=== PATIENT | male | born 1955 ===

== ENCOUNTER 2025-02-11 15:15 | Inpatient (IN) | payer MEDICARE, SELFPAY ==
[2025-02-11] VITALS (16 sets, daily range): BP systolic 81–116; BP diastolic 53–79; PULSE 79–154; RESP 18–28; TEMP 36.1–36.9; O2SAT 82–100; BMI 13.8
--- NOTE | ~2025-02-11 | FL_ITS ---
EXAMINATION: XR FLUOROSCOPY WITH IMAGES CLINICAL INFORMATION: Port-A-Cath placement COMPARISON: None available. TECHNIQUE: Fluoroscopy provided to: Dr. Miles Fluoroscopy time: 0.3 minutes DAP: 0.609 Gycm2 Images: 2 FINDINGS: 2 spot images obtained during right Port-A-Cath placement. Please refer to the full operative report for detail. FL/FL guidance in OR IMPRESSION: Fluoroscopic guidance. Electronically signed by: Jairo Salazar MD 02/21/2025 02:39 PM EDT
--- NOTE | ~2025-02-11 | XR_ITS ---
EXAMINATION: XR CHEST 1 VIEW HISTORY: f/u right pleural effusion COMPARISON: Comparison is made with the prior examination dated 02/12/2025. FINDINGS: A single AP portable view of the chest performed at 7:03 AM is submitted. Right-sided chest tube is again noted. The previously described pneumothorax is much smaller in size. There is persistent airspace opacity in the right lower lung zone consistent with atelectasis or pneumonia. There is a small residual right pleural effusion. The left lung is clear. The heart is normal in size. The aorta is calcified. The bones are intact. XR/XR chest 1V IMPRESSION: Right-sided chest tube in place. Small right pneumothorax. Electronically signed by: Christopher Pineda MD 02/13/2025 07:27 AM EDT
--- NOTE | ~2025-02-11 | CT_ITS ---
CLINICAL HISTORY: tachycardia, smoker, weight loss, hypoxia CT angiography of the chest with IV contrast. 3D/MIP post processing reconstructions were performed. COMPARISON: None FINDINGS: There are no intraluminal filling defects to suggest pulmonary embolism. No evidence of right heart strain. Visualized thyroid is unremarkable. No supraclavicular or axillary lymphadenopathy. Ascending aorta and main pulmonary artery are normal in caliber. Coronary artery calcifications present within the LAD. No pericardial effusion. Ill-defined enlarged subcarinal mass with likely extension along the right hilum measuring in total approximately 5.3 x 6.4 x 7.5 cm (series 6, image 97). There is mass effect upon the adjacent pulmonary vessels and complete obstruction of the pulmonary veins on the right. Large right pleural effusion. Patchy consolidation within the right middle lobe and right lower lobe. Advanced emphysema with upper lobe predominance. Trachea is clear. There is complete obstruction of the proximal right mainstem bronchus, right lower lobe and right upper lobe bronchi. Diffuse thickening of the adrenal glands, nonspecific. Superior endplate compression fractures of the T6, T7, and T9 vertebral bodies. Degenerative changes of the bilateral shoulders. No acute fracture identified. IMPRESSION: 1. Large subcarinal mass with likely extension into the right hilum measuring up to 7.5 cm completely obstructs the right mainstem bronchus and the right superior and inferior pulmonary veins. Recommend comparison with prior imaging. Direct tissue sampling would be helpful for further characterization. 2. Large right pleural effusion. 3. Consolidation within the right lower lobe and right middle lobe. While portions of the consolidation may represent an extension of the mediastinal mass, postobstructive pneumonia could have this appearance. 4. Advanced emphysema. 5. Chronic appearing superior endplate compression fractures of the T6, T7 and T9 vertebral bodies. Recommend comparison with prior imaging if available. 6. No evidence of pulmonary embolism. This document has been electronically signed by: Kwadwo Walter MD on 02/11/2025 18:05:51
--- NOTE | ~2025-02-11 | XR_ITS ---
EXAMINATION: XR CHEST CLINICAL INFORMATION: f/u port a cath, right pleurx cath placement COMPARISON: February 20, 2025. TECHNIQUE: Frontal view of the chest was obtained. FINDINGS: This is a moderate volume right-sided pneumothorax with a partially collapsed right upper lobe and airspace disease in the right lower lung lobe right middle lung lobe. There is a new right-sided Port-A-Cath placed ending at the SVC/right atrial junction. There is a right-sided chest tube placed which deep and the upper mid right hemithorax. Status post removal of a pigtail catheter in the right lower hemithorax. Small to moderate volume left-sided pleural effusion. Aerated left lung. Cardiomediastinal silhouette size is normal. Calcified plaque thoracic aortic arch. XR/XR chest 1V IMPRESSION: Status post right-sided Port-A-Cath placement at the SVC/right atrial junction. Larger, moderate volume right-sided pneumothorax. New replaced and pigtail catheter, right-sided chest tube imaging in the upper right hemithorax. Airspace disease and/or collapsed right lower lung lobe right middle lung lobe. Left-sided pleural effusion, small to moderate volume. Electronically signed by: King Paniagua MD 02/21/2025 03:40 PM EDT
--- NOTE | ~2025-02-11 | CT_ITS ---
CLINICAL HISTORY: follow up lung mass CT chest without contrast Comparison: CT/SR - CT ANGIO CHEST PE PROTOCOL - 02/11/25 16:41 EDT Findings: There is moderate coronary artery disease. Large subcarinal mass is not as well evaluated on the current study without intravenous contrast. It appears to have enlarged now measuring approximately 8 x 5.3 x 7.3 cm, previously 7 x 3.9 x 6.6 cm. There is a significantly diminished right pleural effusion. Small left effusion. There is persistent right lower lobe consolidation/atelectasis. Reticular and airspace opacities are seen in the right upper, right lower lobe and right middle lobe similar to the prior examination but less obscured by atelectasis as there has been some re-expansion of the right lung. There is a small right-sided pneumothorax. There is a small left pleural effusion. The upper abdomen is unremarkable. No acute fractures. There are severe chronic emphysematous changes again noted. IMPRESSION: 1. Study is somewhat limited without contrast however it appears that the subcarinal mass has increased in size as above. 2. Diminished right pleural effusion with persistent consolidation at the right lung base. Other parenchymal opacities are seen in the right upper lobe, right lower lobe and right middle lobe likely reflecting postobstructive pneumonia. 3. Small left pleural effusion. 4. Small right pneumothorax. 5. Severe emphysematous changes. This document has been electronically signed by: Pankaj Gonzalez MD on 02/15/2025 12:38:38
--- NOTE | ~2025-02-11 | XR_ITS ---
CLINICAL HISTORY: Right sided effusion post Pleuric placement. 1 view chest x-ray Comparison: CR/SR - XR CHEST 1V - 02/21/25 15:15 EDT Findings: Probable small residual right-sided pneumothorax visualized within the medial aspect of the upper lung. Moderate subcutaneous emphysema within the soft tissues of the right side of the neck and right chest wall. Heterogeneous airspace opacities within the right lung, predominating within the right lower lung. Normal size heart. No acute fracture. There is a right-sided Port-A-Cath at the cavoatrial junction. IMPRESSION: 1. Probable small residual right-sided pneumothorax, significantly improved. New moderate subcutaneous emphysema. 2. There are right lung infiltrates with improvement since the prior study. This document has been electronically signed by: Johana Castrejon MD on 02/23/2025 15:54:21
--- NOTE | ~2025-02-11 | XR_ITS ---
EXAMINATION: XR CHEST CLINICAL INFORMATION: F U chest tube, pleural effusion COMPARISON: 02/13/2025. TECHNIQUE: Frontal view of the chest was obtained. FINDINGS: Right chest tube again noted in place in the right lower lateral thorax. Tiny right apical pneumothorax, with 1.3 cm pleural separation, previously 1.9 cm. This is also no longer visualized along the lateral margin. Severe emphysema, similar. Right upper lobe spiculated opacity, unchanged. Extensive right mid and lower lung consolidative opacity, unchanged. Small right effusion, unchanged. Left lung remains grossly clear. The cardiac and mediastinal contours are stable. XR/XR chest 1V IMPRESSION: Stable right-sided chest tube. Smaller right apical pneumothorax. Stable extensive consolidative opacity right mid and lower lung, with small effusion. Stable spiculated nodular opacity right upper lung. Emphysema with clear left lung. Electronically signed by: Jairo Salazar MD 02/20/2025 10:15 AM EDT
--- NOTE | ~2025-02-11 | XR_ITS ---
EXAMINATION: XR CHEST 1 VIEW HISTORY: s/p chest tube placement COMPARISON: Correlation is made with a chest CT dated 02/11/2025. FINDINGS: A single AP portable view of the chest performed at 8:11 AM is submitted. A right sided chest tube is seen in place. There is a moderate pneumothorax. There is a small residual pleural effusion. There is airspace opacity in the right mid and lower lung zones consistent with atelectasis or pneumonia as noted on chest CT. The left lung is clear. The heart is normal in size. There is degenerative disc disease of the spine. XR/XR chest 1V IMPRESSION: 1. Right-sided chest tube in place. Moderate right pneumothorax. 2. Atelectasis or pneumonia in the right mid and lower lung zones. Electronically signed by: Christopher Pineda MD 02/12/2025 08:31 AM EDT
--- NOTE | 2025-02-11 15:21 | ED_ITS ---
HPI - General Adult General Chief complaint: Upper Respiratory Symptoms Stated complaint: Trouble breathing and walking Time Seen by Provider: 02/11/25 15:38 Source: patient Mode of arrival: ambulatory Limitations: no limitations History of Present Illness ED Provider: CARLOS CROEY narrative: 69 yo male with PMH of HLD but has not taken any meds in a long time and has not seen a doctor in years. He quit smoking 6 years ago but had a 40 pack year history. He notes over the past 1.5 months he has lost 30+lbs, had increasing cough but no hemoptysis, increased work of breathing on exertion but now at rest. He has never been on inhalers and is not on oxygen at home. He has no chest pain he just feels tight and congested. No recent travel/sick contacts. He has not been taken any medications for it. On arrival to the ED his O2 sat was 70%. MD complaint: dyspnea, FTT Onset (ago): month(s) (1.5) Location: chest Severity: moderate Quality: aching Pain Consistency: intermittent Relieving factors: rest Exacerbating factors: movement Associated symptoms: cough, loss of appetite, malaise, shortness of breath, weakness and other (weight loss) Treatments prior to arrival: none Related Data Allergies Allergy/AdvReac Type Severity Reaction Status Date / Time No Known Allergies Allergy Verified 02/11/25 15:34 Review of Systems 2 Review of Systems: Constitutional : No Fever, pos Chills, pos weight loss ENT/Mouth : No sore throat, No Rhinorrhea, No Swallowing Difficulty Eyes: No Eye Pain, No Swelling, No Redness Cardiovascular : pos Chest Pain, positive SOB, No Orthopnea, no Edema Respiratory : pos Cough, pos Sputum, No Wheezing, positive dyspnea Gastrointestinal : No Nausea, No Vomiting, No Diarrhea, No abdominal Pain, No Hematochezia, No Melena Genitourinary : No Dysuria, No Urinary Frequency, No Hematuria Musculoskeletal : No joint pain, No Myalgias Skin : No Skin Lesions, No rash Neuro : pos Weakness, No Numbness, No Dizziness, No Headache All other systems reviewed and are negative [facility], [facility] Past Medical History Attestation statement: The following information was validated with the patient. Medical History HLD (hyperlipidemia) Social History Social History (Updated 02/11/25 @ 16:34 by Carie Villarreal DO) Alcohol intake: never Patient Tobacco Use Status: Former Tobacco user Smoked in Last 30 Days: No Use of substances other than those prescribed or required for medical reasons: No Advance Directives: No Advance Directives Information Provided: No Do you have a plan to hurt others: No Plan Physical Exam ED Vital Signs: Vital Signs - 24 hr 02/11/25 15:20 02/11/25 16:09 02/11/25 16:17 Temperature 97 F Pulse Rate 100 103 H Respiratory Rate 20 24 H Blood Pressure 107/79 Pulse Oximetry 82 L 100 95 Oxygen Delivery Method Room Air Nasal Cannula Nasal Cannula Oxygen Flow Rate 4 02/11/25 16:21 02/11/25 16:59 02/11/25 17:26 Temperature 98.5 F Pulse Rate 154 H 113 H Respiratory Rate 20 Blood Pressure 116/72 Pulse Oximetry Oxygen Delivery Method Oxygen Flow Rate 02/11/25 18:24 02/11/25 18:34 02/11/25 18:42 Temperature Pulse Rate 127 H 137 H 118 H Respiratory Rate 21 H Blood Pressure 116/72 116/72 110/69 Pulse Oximetry 95 Oxygen Delivery Method Nasal Cannula Oxygen Flow Rate 4 02/11/25 19:00 02/11/25 19:57 02/11/25 20:00 Temperature 97.6 F 97.6 F Pulse Rate 97 97 97 Respiratory Rate 18 20 20 Blood Pressure 102/74 102/71 102/71 Pulse Oximetry 99 95 95 Oxygen Delivery Method Nasal Cannula Nasal Cannula Nasal Cannula Oxygen Flow Rate 4 4 4 BMI result Body Mass Index 13.8 Appearance: Alert. Oriented X3. Moderate acute distress. Cachectic and frail and temporal wasting Eyes: Pupils equal, round and reactive to light. ENT: Pharynx dry MM Neck: Normal inspection. Neck supple. CVS: tachycardic but regular heart rate and rhythm. Pulses normal. Respiratory: Moderate respiratory distress - dusky, labored, tachypneic. Breath sounds incredibly diminished with Abdomen: Soft and nontender. Skin: Skin warm and dry. pale skin color. poor skin turgor. Extremities: No lower extremity edema. Neuro: Oriented X 3. No motor deficit. No sensory deficit. CN2-12 intact Course Course Course Narrative: RME, this is a rapid medical exam performed by Tino O'Haskell please refer to primary provider for complete H&P- 69-year-old male presents for evaluation of shortness of breath especially exertion over the last few months. Patient also reports weight loss, he was cachectic in triage. He was hypoxic, he was brought straight back to the main ED. Plan for labs, chest x-ray, blood cultures. Reevaluation(s) Reevaluation #1: intermittently going in and out of regular narrow complex tachycardia Reevaluation #2: The patient was signed out to me at change of shift by the previous emergency physician pending results of a CT scan of the chest. The patient is a 69-year-old male who has been having worsening shortness of breath over several weeks and also has lost a lot of weight. He is a former smoker who had smoked for a long time. The patient's heart rate had also been noted to be quite tachycardic. In case his tachycardia was related to atrial fibrillation he was given a dose of 10 mg of diltiazem. This slowed the patient's heart rate and made a diagnosis of atrial fibrillation. His rhythm was easier to determine when his heart rate was slower. He later required a 2nd bolus of diltiazem and he was also started on a drip to maintain a good heart rate. Ultimately he converted to a sinus rhythm. 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 There was also a large right-sided pleural effusion. There is no pulmonary embolism. Fortunately the patient was maintaining a good oxygen saturation on 4 L of nasal oxygen. Fortunately his blood pressure tolerated the diltiazem that was given for his heart rate control. Fortunately the patient has a 2nd lactate was significantly improved from his 1st lactate. His repeat lactate was normal at 1.5. I presented the case to the hospitalist for admission. The hospitalist was concerned about the complexity of the findings on the patient's CAT scan with regard to his lung tumor. I therefore communicated with Dr. Garcia of Cardiology, Dr. Miles of thoracic surgery, and Dr. Allen of the ICU. Ultimately the consensus is that the patient seems stable enough for admission to this hospital and to proceed with the an initial workup of this new tumor at this hospital. The patient was then admitted to the hospitalist service. Medications Administered Generic Name Dose Route Start Last Admin Trade Name Freq PRN Reason Stop Dose Admin Diltiazem HCl 125 mg/ Sodium 125 mls @ 0 mls/hr 02/11/25 18:15 02/11/25 21:56 Chloride IVCONT Infused .Q0M TE Titration Protocol Per Protocol Discontinued Medications Generic Name Dose Route Start Last Admin Trade Name Ta PRN Reason Stop Dose Admin Ceftriaxone Sodium 1 gm 02/11/25 15:42 02/11/25 16:12 Ceftriaxone Sodium 1 Gm Vial IVPUSH 02/11/25 15:43 1 gm ONCE ONE Administration Levalbuterol HCl 2.5 mg/ 0 mg 02/11/25 17:21 02/11/25 17:26 Ipratropium [place] 0.5 mg INHALE 02/11/25 17:22 5 dose ONCE ONE Administration Diltiazem HCl 10 mg 02/11/25 16:56 02/11/25 16:59 Diltiazem Hcl 50 Mg/10 Ml Vial IVPUSH 02/11/25 16:57 10 mg STAT STA Administration Diltiazem HCl 10 mg 02/11/25 18:11 02/11/25 18:34 Diltiazem Hcl 50 Mg/10 Ml Vial IVPUSH 02/11/25 18:12 10 mg STAT STA Administration Lactated Ringer's 1,000 mls @ 999 mls/hr 02/11/25 15:43 02/11/25 17:09 Lr IV 02/11/25 16:43 Infused .Q1H1M ONE Infusion Lactated Ringer's 500 mls @ 999 mls/hr 02/11/25 17:00 02/11/25 17:34 Lr IV 02/11/25 17:30 Infused .Q31M TE Infusion Iohexol 100 ml 02/11/25 16:43 02/11/25 16:47 Iohexol 350 Mg/Ml 100 Ml Infus..Btl IV 02/11/25 16:44 65 ml ONCE ONE Administration Methylprednisolone Sodium Succinate 60 mg 02/11/25 15:35 02/11/25 16:12 Methylprednisolone Sod Succ 125 Mg/2 Ml Vial IVPUSH 02/11/25 15:36 60 mg ONCE ONE Administration Medical Decision Making Medical Decision Making MDM Narrative: 69 yo male PMH of HLD but no meds and no doctors of recent he smoked 40 years up until 6 months ago he now presents with profound hypoxic in 70s but not altered so likely he has been low for a while - he was placed on 4L NC and responded well. He has intermittent bouts of regular tachycardia p waves are present not afib unclear if it is intermittent MAT or SVT or flutter - he breaks on his own. He has weight loss, cough, hypoxia, dyspnea but no hemoptysis. At this time labs, cultures, lactic acid, CTA:PE for PE/mass/pneumonia. Empiric ceftriaxone Differential Diagnosis Differential Diagnoses: The differential diagnosis associated with the presentation includes PE/mass/pneumonia/arrythmia Admission/Observation Consideration of admission/observation: Escalation of care including admission/observation considered anticipate admission given hypoxia Lab Data MDM Lab Attestation statement: I reviewed the patient's lab results. 02/11/25 15:46 02/11/25 15:46 Labs: Lab Results 02/11/25 02/11/25 02/11/25 Range/Units 15:46 15:57 16:22 WBC 14.9 H (4.8-10.8) X10*3/uL RBC 4.55 L (4.60-5.80) X10*6/uL Hgb 13.0 L (14.0-18.0) g/dl Hct 40.1 L (42.0-52.0) % MCV 88.1 (80.0-98.0) fL MCH 28.6 (27.0-33.0) pg MCHC 32.4 (31.0-36.0) g/dl RDW 14.8 (11.0-16.0) % Plt Count 513 H (160-400) X10*3/uL MPV 8.6 L (9.4-12.4) fL Immature Gran % (Auto) 0.8 H (0.0-0.4) % Neut % (Auto) 89.4 H (45-73) % Lymph % (Auto) 5.6 L (20-40) % O'Brien % (Auto) 4.1 (2-11) % Eos % (Auto) 0.0 (0-4) % Baso % (Auto) 0.1 (0-2) % Lymph # (Auto) 0.8 L (1.2-4.9) X10*3/uL O'Brien # (Auto) 0.6 (0.1-1.2) X10*3/uL Eos # (Auto) 0.0 (0.0-0.4) X10*3/uL Baso # (Auto) 0.0 (0.0-0.2) X10*3/uL Abs Immat Gran (auto) 0.12 H (0.00-0.03) X10*3/uL Absolute Neuts (auto) 13.3 H (2.0-8.3) x10*3/uL Absolute Nucleated RBC 0.000 (0.0-0.012) X10*3/uL Nucleated RBC % (auto) 0.0 (0.0-0.2) /100WBC VBG pH 7.37 (7.32-7.43) VBG pCO2 52 mmHg VBG pO2 32 mmHg VBG HCO3 30 H (22-26) mmol/L VBG O2 Saturation 40.0 % VBG Base Excess 4.4 mmol/L Sodium 139 (135-145) mmol/L Potassium 5.1 (3.3-5.1) mmol/L Chloride 99 (96-108) mmol/L Carbon Dioxide 26 (22-29) mmol/L Anion Gap 19 (12-20) BUN 28 H (9-16) mg/dL Creatinine 1.08 (0.5-1.4) mg/dL Estim Creat Clear Calc 43.1 Estimated GFR > 60 Random Glucose 130 H (60-115) mg/dL Lactic Acid 3.9 H* (0.5-2.0) mmol/L Lactic Acid F/U @ 2Hr (0.5-2.0) mmol/L Calcium 10.5 H (8.4-10.2) mg/dL Total Bilirubin 0.6 (0.0-1.0) mg/dL AST 19 (5-37) U/L ALT < 6 (0-40) U/L Alkaline Phosphatase 105 (39-117) U/L Troponin I High Sens 5.0 (<3.5-35.0) ng/L B-Natriuretic Peptide 228 H (<100) pg/mL Total Protein 7.8 (6.5-8.0) g/dL Albumin 3.5 (3.5-5.0) g/dL Lipase 19 (8-78) U/L Influenza Type A (PCR) NEGATIVE (Negative) Influenza Type B (PCR) NEGATIVE (Negative) RSV RNA Qual (PCR) NEGATIVE (Negative) SARS-CoV-2 RNA (RT-PCR) NEGATIVE (Negative) Blood Type O Negative Antibody Screen NEGATIVE 02/11/25 Range/Units 18:12 WBC (4.8-10.8) X10*3/uL RBC (4.60-5.80) X10*6/uL Hgb (14.0-18.0) g/dl Hct (42.0-52.0) % MCV (80.0-98.0) fL MCH (27.0-33.0) pg MCHC (31.0-36.0) g/dl RDW (11.0-16.0) % Plt Count (160-400) X10*3/uL MPV (9.4-12.4) fL Immature Gran % (Auto) (0.0-0.4) % Neut % (Auto) (45-73) % Lymph % (Auto) (20-40) % O'Brien % (Auto) (2-11) % Eos % (Auto) (0-4) % Baso % (Auto) (0-2) % Lymph # (Auto) (1.2-4.9) X10*3/uL O'Brien # (Auto) (0.1-1.2) X10*3/uL Eos # (Auto) (0.0-0.4) X10*3/uL Baso # (Auto) (0.0-0.2) X10*3/uL Abs Immat Gran (auto) (0.00-0.03) X10*3/uL Absolute Neuts (auto) (2.0-8.3) x10*3/uL Absolute Nucleated RBC (0.0-0.012) X10*3/uL Nucleated RBC % (auto) (0.0-0.2) /100WBC VBG pH (7.32-7.43) VBG pCO2 mmHg VBG pO2 mmHg VBG HCO3 (22-26) mmol/L VBG O2 Saturation % VBG Base Excess mmol/L Sodium (135-145) mmol/L Potassium (3.3-5.1) mmol/L Chloride (96-108) mmol/L Carbon Dioxide (22-29) mmol/L Anion Gap (12-20) BUN (9-16) mg/dL Creatinine (0.5-1.4) mg/dL Estim Creat Clear Calc Estimated GFR Random Glucose (60-115) mg/dL Lactic Acid (0.5-2.0) mmol/L Lactic Acid F/U @ 2Hr 1.5 (0.5-2.0) mmol/L Calcium (8.4-10.2) mg/dL Total Bilirubin (0.0-1.0) mg/dL AST (5-37) U/L ALT (0-40) U/L Alkaline Phosphatase (39-117) U/L Troponin I High Sens (<3.5-35.0) ng/L B-Natriuretic Peptide (<100) pg/mL Total Protein (6.5-8.0) g/dL Albumin (3.5-5.0) g/dL Lipase (8-78) U/L Influenza Type A (PCR) (Negative) Influenza Type B (PCR) (Negative) RSV RNA Qual (PCR) (Negative) SARS-CoV-2 RNA (RT-PCR) (Negative) Blood Type Antibody Screen Independent Interpretation I performed an independent interpretation of an: EKG Interpretation: Rate: 158 Rhythm: regular tachycardic narrow Mayo: normal Normal P waves. Normal VALDO. Normal QRS complex. ST T wave : nonspecific ST T wave changes no TODD qTC: 460 prior studies: no prior The study has been interpreted contemporaneously by me. . Critical Care Time Critical Care Time Critical Care Time: Yes Total Critical Care Time: 60 Attestation: Time is exclusive of separately billable procedures. Time includes: direct patient care, patient reassessment, coordination of patient care, interpretation of data (laboratory data, pulse oximetry, venous blood gases), review of patient's medical records, rapid intervention of hypoxia, documentation of patient care. Procedures excluded from critical care time: electrocardiography. I attest to this time spent taking care of the patient Discharge Plan Discharge Clinical Impression: Neoplasm of right lung, Hypoxia, Pleural effusion on right, Atrial fibrillation with rapid ventricular response Patient Disposition: Admitted As Inpatient
--- NOTE | 2025-02-11 15:25 | ECG_ITS ---
Test Reason : TACHY Blood Pressure : */* mmHG Vent. Rate : 158 BPM Atrial Rate : * BPM P-R Int : * ms QRS Dur : 104 ms QT Int : 284 ms P-R-T Axes : * 36 58 degrees QTcB Int : 460 ms Supraventricular tachycardia Left ventricular hypertrophy with repolarization abnormality ( Ck product ) Cannot rule out Septal infarct , age undetermined Abnormal ECG No previous ECGs available Referred By: Baldomero Mcintosh Electronically Signed By: Jeffry Kan
[2025-02-11 15:57] LABS: MANUAL DIFF FLAG NO
[2025-02-11 16:01] LABS: Basophils Percent Auto 0.1 % (0-2); Hematocrit 40.1 % (42.0-52.0); Imm Gran Abs Auto 0.12 X10*3/uL (0.00-0.03); Imm Gran Pct Auto 0.8 % (0.0-0.4); Lymphocytes Absolute Auto 0.8 X10*3/uL (1.2-4.9); Lymphocytes Percent Auto 5.6 % (20-40); Mean Corpuscular HGB Conc 32.4 g/dl (31.0-36.0); Mean Corpuscular Hemoglobin 28.6 pg (27.0-33.0); Mean Corpuscular Volume 88.1 fL (80.0-98.0); Mean Platelet Volume 8.6 fL (9.4-12.4); Monocytes Absolute Auto 0.6 X10*3/uL (0.1-1.2); Monocytes Percent Auto 4.1 % (2-11); Neutrophils Absolute Auto 13.3 x10*3/uL (2.0-8.3); Neutrophils Percent Auto 89.4 % (45-73); Platelet Count 513 X10*3/uL (160-400); Red Blood Count 4.55 X10*6/uL (4.60-5.80); Red Cell Distribution Width 14.8 % (11.0-16.0); White Blood Count 14.9 X10*3/uL (4.8-10.8)
[2025-02-11 16:03] LABS: VBG Base Excess 4.4 mmol/L; VBG HCO3 30 mmol/L (22-26); VBG pCO2 52 mmHg; VBG pH 7.37 (7.32-7.43); VBG pO2 32 mmHg
[2025-02-11 16:04] LABS: Venous Blood Gas Refer to POC result
[2025-02-11] MEDS: Lactated Ringers 1,000 ML 999 ML IV (16:08)
[2025-02-11] MEDS: methylPREDNISolone Sod Succ 125 MG/2 ML VIAL 60 MG IVPUSH (16:12)
[2025-02-11] MEDS: cefTRIAXone sodium 1 GM VIAL IVPUSH (16:12)
[2025-02-11 16:22] LABS: Lactic Acid 3.9 mmol/L (0.5-2.0)
[2025-02-11 16:24] LABS: B Type Natriuretic Peptide 228 pg/mL (<100)
--- NOTE | 2025-02-11 16:26 | PC.NURSE ---
At arrival to bed patient is pale, tachipnic, skin and mm are dry. LS absent in bases. Pt is cachectic. reports 34lb weight loss in last few months. Breathing is not labored. denies cough. Was Tachy up to 160's at arrival.
[2025-02-11 16:28] LABS: Alanine Aminotransferase < 6 U/L (0-40); Albumin Level 3.5 g/dL (3.5-5.0); Alkaline Phosphatase 105 U/L (39-117); Anion Gap 19 (12-20); Aspartate Amino Transferase 19 U/L (5-37); Bilirubin Total 0.6 mg/dL (0.0-1.0); Blood Urea Nitrogen 28 mg/dL (9-16); Calcium 10.5 mg/dL (8.4-10.2); Carbon Dioxide 26 mmol/L (22-29); Chloride 99 mmol/L (96-108); Creatinine Clr Calc Pharmacy 43.1; Estimated Glomerular Filt Rate > 60; Glucose Random 130 mg/dL (60-115); Lipase 19 U/L (8-78); Potassium 5.1 mmol/L (3.3-5.1); Sodium 139 mmol/L (135-145); Total Protein 7.8 g/dL (6.5-8.0)
[2025-02-11 16:39] LABS: Influenza A PCR NEGATIVE (Negative); Influenza B PCR NEGATIVE (Negative); Resp Syncy Virus RNA Qual PCR NEGATIVE (Negative); SARS COV2 PCR INHOUSE NEGATIVE (Negative)
[2025-02-11] MEDS: iohexoL 350 MG/ML 100 ML INFUS..BTL IV (16:47)
[2025-02-11] MEDS: dilTIAZem HCL 50 MG/10 ML VIAL 10 MG IVPUSH ×2 (16:59→18:34)
[2025-02-11] MEDS: Lactated Ringers 500 ML 999 ML IV ×2 (17:03→23:30)
--- NOTE | 2025-02-11 17:24 | ECG_ITS ---
Test Reason : TACHYCARDIA Blood Pressure : */* mmHG Vent. Rate : 106 BPM Atrial Rate : * BPM P-R Int : * ms QRS Dur : 114 ms QT Int : 350 ms P-R-T Axes : * 68 39 degrees QTcB Int : 464 ms Atrial fibrillation with rapid ventricular response Minimal voltage criteria for LVH, may be normal variant ( Ck product ) Septal infarct (cited on or before 11-Feb-2025) Abnormal ECG When compared with ECG of 11-Feb-2025 15:43, Atrial fibrillation has replaced Sinus rhythm Vent. rate has decreased by 52 bpm Nonspecific T wave abnormality now evident in Inferior leads T wave inversion no longer evident in Lateral leads Referred By: Donte Pierce Electronically Signed By: Jeffry Kan
[2025-02-11] MEDS: levalbuterol HCL 2.5 MG, Ipratropium Bromide 0.5 MG INHALE (17:26)
[2025-02-11 17:55] LABS: Reflex Lactate? Lactic Acid Added
--- NOTE | 2025-02-11 18:14 | ECG_ITS ---
Test Reason : TACHYCARDIA Blood Pressure : */* mmHG Vent. Rate : 124 BPM Atrial Rate : * BPM P-R Int : * ms QRS Dur : 120 ms QT Int : 364 ms P-R-T Axes : * 46 -16 degrees QTcB Int : 522 ms Atrial fibrillation with rapid ventricular response Minimal voltage criteria for LVH, may be normal variant ( [place] product ) Septal infarct (cited on or before 11-Feb-2025) Abnormal ECG When compared with ECG of 11-Feb-2025 17:28, Questionable change in initial forces of Septal leads T wave inversion now evident in Lateral leads Referred By: Donte Pierce Electronically Signed By: Jeffry Kan
[2025-02-11 18:38] LABS: ~Lactic Acid-LAB USE ONLY 1.5 mmol/L (0.5-2.0)
[2025-02-11] MEDS: dilTIAZem HCL 125 MG in 0.9 % Sodium Chloride 100 ML 10 MG IVCONT (18:42)
--- OUTSIDE RECORDS SUMMARY | 2025-02-11 19:14 | XMS_ITS | Clinical Summary ---
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 Name Role Phone Unavailable Primary Care Provider Unavailabl e Social History Tobacco Use Types Packs/Day Years Used Date Smoking Tobacco: Never Assessed Sex and Gender Information Value Date Recorded Sex Assigned at Not on file Legal Sex Male 6:31 AM EDT Gender Identity Not on file Sexual Orientation Not on file Plan of Treatment Health Maintenance Due Date Last Done Comments Hepatitis C Screening 1955 DTaP/Tdap/Td (1 - Tdap) 1975 Pneumococcal 50+ years (1 of 1 - PCV) 2007 Zoster (Shingrix) (1 of 2) 2007 COVID-19 Vaccine ( - 2023-2 5 season) 2024 Influenza (#1) 2024 RSV (1 - 1-dose 75+ series) 02/13/2032 Abdominal Aorta Imaging Discontinued HPV Vaccine Aged Out No longer eligi ble based on patient's age to complete this topic Hep A Aged Out No longer eligi ble based on patient's age to complete this topic Hep B Aged Out No longer eligi ble based on patient's age to complete this topic Hib Aged Out No longer eligi ble based on patient's age to complete this topic Meningococcal ACWY Aged Out No longer eligible based on patient's age to complete this topic Zoster (Zostavax) Discontinued
--- NOTE | 2025-02-11 21:13 | ECG_ITS ---
Test Reason : AFIB Blood Pressure : */* mmHG Vent. Rate : 83 BPM Atrial Rate : 83 BPM P-R Int : 132 ms QRS Dur : 114 ms QT Int : 404 ms P-R-T Axes : 77 48 56 degrees QTcB Int : 474 ms Normal sinus rhythm Incomplete left bundle branch block Minimal voltage criteria for LVH, may be normal variant ( Ck product ) Nonspecific ST and T wave abnormality Abnormal ECG When compared with ECG of 11-Feb-2025 18:18, Sinus rhythm has replaced Atrial fibrillation Vent. rate has decreased by 41 bpm T wave inversion no longer evident in Inferior leads T wave inversion no longer evident in Lateral leads Referred By: Donte Pierce Electronically Signed By: Jeffry Kan
--- NOTE | 2025-02-11 21:14 | PM.IMHP ---
History of Present Illness Date of Service: 02/11/25 Chief Complaint: sob 70-year-old male with a past medical history of tobacco dependence, COPD, hyperlipidemia presented to the hospital today with a chief complaint of shortness of breath. Patient reports the past 2 and half feeling well has been having shortness of breath and cough. Nightly cough he has been more productive greenish sputum. Denies any fevers. Denies any sick contacts. Reports he stopped smoking about 2 and half months ago. Around the same. He also has decreased appetite and feels no taste in the mouth when he eats. The past 1-1/2 month he lost about 30-40 lb. Mentioned that he was diagnosed with COPD many years ago, does not take any inhalers. Does not have any home oxygen. Patient mentioned that he has not seen physician in about 10 years. Denies any medications currently Denies any chest pain or palpitations. Denies any signs of bleeding. Denies any headaches or blurry visions. Denies any numbness tingling or focal weakness. Denies any GI or symptoms. Review of other systems is negative except mentioned above ER course: Per ER team, patient on presentation noted to be short of breath, slightly diminished lung sounds; CT chest showed large subcarinal lung mass obstructing the right bronchus, patient was mildly hypoxic requiring supplemental oxygen. CT chest also showed findings concerning for pneumonia as well as large pleural effusion. ER patient discussed with pulmonology Dr. Lyn who mentioned admission to Medicine Service, does not require ICU at this time, can manage EBUS if needed. ER physician spoke to Dr. Foreman from Oncology who suggested admission to medicine service for possible biopsy and diagnostic and therapeutic thoracentesis in a.m. by IR. ER patient also notified Dr. Miles from thoracic surgery who agreed for admission to the hospital at [facility] and will evaluate the patient in the morning. ER physician also mentioned that patient on presentation was tachycardic with heart rate in 130s to 140s. Placed on diltiazem drip. Heart rate improved. Diltiazem discontinued. Patient was given antibiotics for pneumonia. [facility] Medical History HLD (hyperlipidemia) Social History (Updated 02/11/25 @ 16:34 by Carie Villarreal DO) Alcohol intake: never Patient Tobacco Use Status: Former Tobacco user Smoked in Last 30 Days: No Use of substances other than those prescribed or required for medical reasons: No Advance Directives: No Advance Directives Information Provided: No Do you have a plan to hurt others: No Plan Nutrition Risks: No Nutritional Risk Meds Allergies Allergy/AdvReac Type Severity Reaction Status Date / Time No Known Allergies Allergy Verified 02/11/25 15:34 Active Medications: Current Medications Diltiazem HCl 125 mg/ Sodium (Chloride) 125 mls @ 0 mls/hr IVCONT .Q0M TE; Protocol Last Titration: 02/11/25 19:00 Dose: 15 mg/hr, 15 mls/hr Home Medications ?Medication ?Instructions ?Recorded ?Confirmed ?Last Taken ?Type No Known Home Meds 02/11/25 02/11/25 Unknown History Physical Exam Vital Signs and Narrative: Vital Signs: Last Vital Signs Temp 97.6 F 02/11/25 20:00 Pulse 97 02/11/25 20:00 Resp 20 02/11/25 20:00 BP 102/71 02/11/25 20:00 Pulse Ox 95 02/11/25 20:00 O2 Del Method Nasal Cannula 02/11/25 20:00 O2 Flow Rate 4 02/11/25 20:00 Oxygen Flow Rate 4 02/11/25 16:17 BMI result Body Mass Index 13.8 Gen: Appears be in no acute distress . Speaks in full sentences. On supplemental oxygen. Cachectic. HEENT: NCAT, Moist mucosa. Pulmonary: Diminished breath sounds. CVS: Normal S1-S2 Abdomen: BS+, Soft, Nontender Extremities: Warm well perfused Neuro: Alert and awake. Results Labs 02/11/25 15:46 02/11/25 15:46 Labs: Laboratory Results - last 24 hr 02/11/25 02/11/25 02/11/25 15:46 15:57 16:22 MCV 88.1 MCH 28.6 MCHC 32.4 RDW 14.8 Plt Count 513 H MPV 8.6 L Immature Gran % (Auto) 0.8 H Neut % (Auto) 89.4 H Lymph % (Auto) 5.6 L [place] % (Auto) 4.1 Eos % (Auto) 0.0 Baso % (Auto) 0.1 Lymph # (Auto) 0.8 L [place] # (Auto) 0.6 Eos # (Auto) 0.0 Baso # (Auto) 0.0 Abs Immat Gran (auto) 0.12 H Absolute Neuts (auto) 13.3 H Absolute Nucleated RBC 0.000 Nucleated RBC % (auto) 0.0 VBG pH 7.37 VBG pCO2 52 VBG pO2 32 VBG HCO3 30 H VBG O2 Saturation 40.0 VBG Base Excess 4.4 Anion Gap 19 Estim Creat Clear Calc 43.1 Estimated GFR > 60 Random Glucose 130 H Lactic Acid 3.9 H* Lactic Acid F/U @ 2Hr Calcium 10.5 H Total Bilirubin 0.6 AST 19 ALT < 6 Alkaline Phosphatase 105 B-Natriuretic Peptide 228 H Total Protein 7.8 Albumin 3.5 Lipase 19 Influenza Type A (PCR) NEGATIVE Influenza Type B (PCR) NEGATIVE RSV RNA Qual (PCR) NEGATIVE SARS-CoV-2 RNA (RT-PCR) NEGATIVE Blood Type O Negative Antibody Screen NEGATIVE 02/11/25 18:12 MCV MCH MCHC RDW Plt Count MPV Immature Gran % (Auto) Neut % (Auto) Lymph % (Auto) [place] % (Auto) Eos % (Auto) Baso % (Auto) Lymph # (Auto) [place] # (Auto) Eos # (Auto) Baso # (Auto) Abs Immat Gran (auto) Absolute Neuts (auto) Absolute Nucleated RBC Nucleated RBC % (auto) VBG pH VBG pCO2 VBG pO2 VBG HCO3 VBG O2 Saturation VBG Base Excess Anion Gap Estim Creat Clear Calc Estimated GFR Random Glucose Lactic Acid Lactic Acid F/U @ 2Hr 1.5 Calcium Total Bilirubin AST ALT Alkaline Phosphatase B-Natriuretic Peptide Total Protein Albumin Lipase Influenza Type A (PCR) Influenza Type B (PCR) RSV RNA Qual (PCR) SARS-CoV-2 RNA (RT-PCR) Blood Type Antibody Screen Assessment and Plan (1) Atrial fibrillation with rapid ventricular response: Status: Acute Plan 70-year-old male with a past medical history of tobacco dependence, COPD, hyperlipidemia presented to the hospital today with a chief complaint of shortness of breath/Cough with sputum production/ loss of appetite / cachexia/ weight loss. Admitted for following New onset AFib with RVR: Patient heart rate was in 140s on presentation. Placed on diltiazem drip. Heart rate improved to 80s. Diltiazem drip discontinued. TSH Echocardiogram Cardiology consult Sepsis: Pneumonia: CT chest concerning for possible pneumonia. Patient received IV fluids - total of 30 cc/kg. Empirically covered ceftriaxone and azithromycin. Follow up cultures. Mild COPD exacerbation: No significant wheezing on examination. DuoNebs p.r.n.. Continue supplemental oxygen p.r.n.. Acute hypoxic respiratory failure: likely in the setting of pneumonia /large pleural effusion. CT chest also showed complete obstruction of the right mainstem bronchus. Cardiothoracic surgery Dr. Miles and pulmonology Dr. Allen were notified. Will defer to the day hospitalist for IR follow-up in a.m. for diagnostic and therapeutic thoracentesis. Lung mass: CT chest showed large subcarinal lung mass. Oncology was notified. Tobacco dependence: Patient has stopped smoking about 2 and half months ago. Severe protein calorie malnutrition: Nutrition consult hypercalcemia: Likely in the setting of dehydration. Patient on IV fluids. Will also obtain PTH and PTHrP DVT prophylaxis: Lovenox Code status: Full code Quality Stroke Does the patient have a stroke diagnosis?: No VTE Prior VTE?: No VTE Risk Level:: Medical - moderate - high VTE Device Contraindication: Treatment Not Indicated VTE Drug Contraindication: N/A - Med Ordered
--- NOTE | 2025-02-11 21:16 | P.PNCC_ITS ---
Critical Care Event Note Summary Date of Service: 02/11/25 Code activated: No Narrative: Case reviewed with Dr. Pierce, briefly acute hypoxic respiratory failure requiring 4L of supplemental O2 to maintain normal oximetry secondary to tumor obstructing right mainstem bronchus (essentially fuctionally equivalent to right pneumonectomy). Initially in AFib with RVR, now rate controlled with SBP >100. At this time does not require ICU level of care, please notify for re- evaluation, if patient's condition changes. Critical Care Time (minutes): 0
[2025-02-11] MEDS: Lactated Ringers 1,000 ML 100 ML IVCONT (22:06)
[2025-02-11] MEDS: Enoxaparin Sodium 30 MG/0.3 ML SYRINGE SUBCUT (22:08)
--- NOTE | 2025-02-11 22:24 | PHA.MEDREC ---
Pharmacy Consult ? Medication Reconciliation Pharmacy has completed the medication reconciliation.
[2025-02-11 22:35] LABS: Appearance Urine Clear; Color Urine Yellow; Glucose Urine UA Negative (Negative); Leukocyte Esterase Urine Negative (Negative); Nitrite Urine Negative (Negative); Specific Gravity - Urine >= 1.030 (1.005-1.025); UMIC TRIGGER UACC YES; Urine Blood Trace (Negative); Urine Ketones Negative (Negative); Urine Protein Negative (Neg-Trace)
--- NOTE | 2025-02-11 22:44 | PC.NURSE ---
Pt. given a sandwich and cranberry juice. Informed pt. on plan of care.
[2025-02-11 22:51] LABS: Bacteria Urine None Seen (None Seen); RBC Urine 0-2 /HPF (0-2); Squamous Epithelial Cell Urine 0-2 /HPF (0-2); WBC Urine 0-5 /HPF (0-5)
--- NOTE | 2025-02-11 23:18 | PC.NURSE ---
Informed MD that pt's vs has been hypotensive 80/50 and 80/40, MD aware and will be putting orders. Drip has been turned off for a while now. Informing oncoming Sasha AVALOS of the updated plan of care and should update MD of follwoing orders.
--- NOTE | 2025-02-11 23:24 | PC.NURSE ---
Report given to ROBBIE Baez.
--- NOTE | 2025-02-11 23:59 | PC.NURSE ---
care assumed at 2300. pt is awake, alert, conversing in full/complete setnecnes without distress noted. he offers no complaints or concerns at this time and although he remains hypotensive he is asymptomatic. hospitalist made aware of low bp s/p 500ml LR bolus. Recommendation was to obtain and manual bp for confirmation
[2025-02-12] VITALS (19 sets, daily range): BP systolic 80–111; BP diastolic 48–70; PULSE 73–114; RESP 12–28; TEMP 36.1–36.9; O2SAT 92–100; BMI 13.8; BMI 15.1
[2025-02-12 00:04] LABS: Lactic Acid 1.9 mmol/L (0.5-2.0)
[2025-02-12] MEDS: Lactated Ringers 500 ML 999 ML IV (00:19)
--- NOTE | 2025-02-12 03:15 | PC.NURSE ---
this RN resumed care of pt at 0300. awakens to verbal stimuli. vital signs stable/up to date aside from being hypotensive. hospitalist notified/aware. pt currently remains on 4L via NC at this time - no apparent respiratory distress. no sob/wob noted. respirations even/unlabored. pt remains in upright position to promote patent airway. pt currently has no complaints - denies any dizziness/lightheadedness in regards to being hypotensive. no new order by hospitalist in regards to BP. plan of care ongoing. call paulino placed within reach.
--- NOTE | 2025-02-12 04:07 | PC.NURSE ---
pt remains hypotensive at this time. otherwise vital signs stable/up to date. admitting provider notified/aware. no new orders at this time.
[2025-02-12 05:21] LABS: MANUAL DIFF FLAG NO
[2025-02-12 05:24] LABS: Basophils Percent Auto 0.1 % (0-2); Hemoglobin 10.5 g/dl (14.0-18.0); Imm Gran Abs Auto 0.05 X10*3/uL (0.00-0.03); Imm Gran Pct Auto 0.6 % (0.0-0.4); Lymphocytes Absolute Auto 0.7 X10*3/uL (1.2-4.9); Lymphocytes Percent Auto 7.9 % (20-40); Mean Corpuscular HGB Conc 31.8 g/dl (31.0-36.0); Mean Corpuscular Hemoglobin 28.1 pg (27.0-33.0); Mean Corpuscular Volume 88.2 fL (80.0-98.0); Mean Platelet Volume 8.9 fL (9.4-12.4); Monocytes Absolute Auto 0.5 X10*3/uL (0.1-1.2); Monocytes Percent Auto 5.1 % (2-11); Neutrophils Absolute Auto 7.6 x10*3/uL (2.0-8.3); Neutrophils Percent Auto 86.3 % (45-73); Platelet Count 327 X10*3/uL (160-400); Red Blood Count 3.74 X10*6/uL (4.60-5.80); Red Cell Distribution Width 14.6 % (11.0-16.0); White Blood Count 8.8 X10*3/uL (4.8-10.8)
[2025-02-12 05:48] LABS: Alanine Aminotransferase < 6 U/L (0-40); Albumin Level 2.8 g/dL (3.5-5.0); Anion Gap 13 (12-20); Aspartate Amino Transferase 16 U/L (5-37); Bilirubin Total 0.3 mg/dL (0.0-1.0); Blood Urea Nitrogen 22 mg/dL (9-16); Calcium 9.3 mg/dL (8.4-10.2); Carbon Dioxide 27 mmol/L (22-29); Chloride 102 mmol/L (96-108); Cholesterol 150 mg/dL (<200); Creatinine Clr Calc Pharmacy 69.6; Estimated Glomerular Filt Rate > 60; Glucose Random 129 mg/dL (60-115); HDL Cholesterol 34 mg/dL (>40); LDL Cholesterol Calculated 98 mg/dL (<100); Potassium 4.8 mmol/L (3.3-5.1); Sodium 137 mmol/L (135-145); Total Protein 6.2 g/dL (6.5-8.0); Triglycerides 94 mg/dL (<150)
[2025-02-12 05:59] LABS: Alkaline Phosphatase 85 U/L (39-117)
[2025-02-12 06:05] LABS: Thyroid Stimulating Hormone 0.43 uIU/mL (0.32-4.0)
--- NOTE | 2025-02-12 06:37 | PC.NURSE ---
BP seems to be improving at this time. other vitals stable/up to date. nsr on the monitor and storage bin tender. LR continues to infuse @ 100mls/hr. will reassess shortly.
--- NOTE | 2025-02-12 06:55 | PC.NURSE ---
thoracic surgery consult being completed at this time. plan of care ongoing.
--- NOTE | 2025-02-12 07:00 | CA_ITS ---
Transthoracic Echocardiogram Patient (Last, First, Middle): Jose Guadalupe Morales J Gender: Male Date of : 1955 Age: 70 Procedure Date: 02/12/2025 Procedure Type: Transthoracic Echocardiogram Location: [facility] [place] Height: 182.88 cm Weight: 45.81 kg BSA: 1.59 m2 Heart Rate: bpm BP: 101 / 65 mmHg Salon Coordinator: Referring MD: Sreekanth Lugo MD Symptoms: sob Study Quality: Adequate ECG Rhythm: Sinus Conclusions: - Normal left ventricular cavity size. There is normal left ventricular wall thickness. The left ventricular systolic function is severely decreased. The visually estimated ejection fraction is between 20-25%. - Normal right ventricular cavity size and systolic function. - There is mild dilatation of the sinuses of Valsalva measuring 4.00 cm. Findings Procedure Information Contrast agent, definity, is being given per protocol without apparent complications. Left Ventricle Normal left ventricular cavity size. There is normal left ventricular wall thickness. The left ventricular systolic function is severely decreased. The visually estimated ejection fraction is between 20-25%. There is severe global hypokinesis. Abnormal diastolic function is noted. Spectral Doppler is indicative of an impaired relaxation filling pattern. E/E prime ratio is <8, consistent with normal filling pressures. Right Ventricle Normal right ventricular cavity size and systolic function. Atria The left atrium is normal in size. The right atrium is likely dilated. Aortic Valve There is a normal trileaflet aortic valve. There is no aortic valve stenosis. There is trace (trivial) aortic valve regurgitation. Mitral Valve The mitral valve appears normal. There is trace mitral valve regurgitation. There is no mitral valve stenosis. Pulmonic Valve The pulmonic valve is likely normal. Tricuspid Valve Normal tricuspid valve structure. There is trace tricuspid valve regurgitation. The right ventricular systolic pressure is 34 mmHg. Normal right atrial pressure. There is no evidence of pulmonary hypertension. Great Vessels There is mild dilatation of the sinuses of Valsalva measuring 4.00 cm. Venous The inferior vena cava is normal in size and collapses greater than 50% with inspiration. Pericardium/Pleural There is no evidence of pericardial effusion. Prior Study Comparison No prior study available for comparison. Measurements 2D Linear Measurements IVSd: 0.83 0.6-0.9/0.6-1.0 cm LVIDd: 4.96 3.9-5.3/4.2-5.9 cm LVIDd Index: 3.12 2.4-3.2/2.2-3.1 cm/m2 LVIDs: 4.21 2.0-3.6 cm LVPWd: 0.94 0.7-1.1 cm Ao Root: 4.20 2.1-3.5 cm LA Diam: 2.00 2.7-3.8/3.0-4.0 cm LAIDs Index: 1.26 1.5-2.3 cm/m2 LV Mass: 189.54 67-162/88-224 g LV Mass Index: 119.21 43-95/49-115 g/m2 LVOT Diam: 2.30 3.0+(-)1.3 cm 2D Systolic Function EF 4C: 26.50 >55% EF 2C: 11.90 >55% EF BiP: 21.40 >55% Mitral Valve MV Pk E: 0.64 MV PK A: 0.55 MV Decel Time: 128.00 E/A: 1.20 E'Lateral: 12.60 E'Medial: 8.38 E/E' Med: 7.70 E/E' Lat: 5.10 PHT: 38.00 MVA PHT: 5.79 Decel Wake: 5.00 LVOT LVOT Pk Sal: 0.55 LVOT Mn Sal: 0.34 LVOT VTI: 0.11 LVOT Pk Grad: 1.00 LVOT Mn Grad: 1.00 LVOT Diam: 2.30 LVOT Area: 4.15 Diastolic Function MV Pk E: 0.64 MV Pk A: 0.55 E/A: 1.20 E'Medial: 8.38 E/E' Med: 7.70 E' Laterial: 12.60 E/E' Lat: 5.10 Right Ventricle TAPSE (mm): 21.00 TVS' Sal: 10.00 Tricuspid Valve TR Pk Sal: 2.78 TR Pk Grad: 31.00 RA Press: 3.00 RVSP: 34.00 Great Vessels Aorta Ao Root-2D: 4.20 2.0-3.7 cm Sinus of Valsalva: 4.00 2.0-3.5 cm Ao Asc: 3.30 2.1-3.4 cm Pulmonary Valve PV Pk Sal: 0.63 Peak PV Grad: 2.00 Updated in Other Vendor System with Status of Final Jeffry Kan MD electronically signed on 02/12/2025 1:54:09 PM with status of Final
[2025-02-12] MEDS: HYDROmorphone HCl 0.5 MG/0.5 ML SYRINGE IVPUSH (07:21)
[2025-02-12] MEDS: Lidocaine HCl 1 % 20 ML VIAL 10 ML INFILTRATI (07:25)
[2025-02-12 07:28] LABS: Lactate Dehydrogenase 175 U/L (118-273)
--- NOTE | 2025-02-12 07:49 | PCN2_ITS ---
Brief Operative Note Date of procedure: 02/12/25 Pre-op diagnosis: right pleural effusion Post-op diagnosis: same Procedure: The risks and benefits, alternatives were discussed with the patient and informed consent was obtained. The patient was placed in left lateral decubitus position. An area of the patient's right lateral chest was prepped with chloraprep and draped in the usual sterile fashion. 10 mL of 1% lidocaine was used for local anesthesia of the skin and subcutaneous tissues. A hypodermic needle was introduced to demonstrate a safe access route and sample pleural fluid and. A Greek Localize Directeh catheter was then used to access the pleural cavity. A guidewire was then placed through the catheter and into the chest cavity. The access site was then dilated. A 14 fr locking catheter was then advanced over the wire and into the chest cavity. The wire was removed and the catheter was secured to the skin with a single suture and a sterile dressing was applied over the site. The catheter was then connected to a closed chest drainage system. The patient tolerated the procedure well. No immediate complications. Post procedure film was ordered. Pleural fluid to be sent. Anesthesia: local Surgeon: Jade Aguirre Estimated blood loss (mL): 0 Pathology: other (pleural fluid ) Condition: stable Disposition: no change
--- NOTE | 2025-02-12 07:50 | PC.NURSE ---
14fr chest tube placed to the right side of chest by OR team. pt medicated prior to chest tube insertion. pt tolerated insertion well. 1300ml of serosanguineous fluid noted to chest tube drainage kit immediately post output. surgical site covered w/ surgical tape. no signs of drainage/crepitus noted to chest wall. pt currently denies any pain/has no complaints s/p chest tube insertion. chest tube set to regular suction at 120mmHg @ [id number] via drainage kit. intermittent bubbling noted. vital signs remains stable/up to date. nsr on the cardiac monitor technician. pt remains on 2L via NC - no sob/wob noted. respirations even/unlabored,. pt continues to wait for bed assignment at this time. plan of care ongoing. call paulino placed within reach.
--- NOTE | 2025-02-12 08:09 | PC.NURSE ---
repeat chest xray being completed at this time.
--- NOTE | 2025-02-12 08:12 | HO.THORCON_ITS ---
History of Present Illness Consult details Consult date: 02/12/25 Narrative: Patient is a 70-year-old male with a very significant smoking history, and as not seen a physician for over a decade time, who presents here with a collection of the symptoms which include appreciable shortness of breath initially with exertion now at rest. Patient had extensive workup including CT scan of chest which demonstrates a large right hilar mass causing obstruction of airways as well as a significant pleural effusion. Patient also has had a significant weight loss of over 30 lb over the last few months. His appetite has been diminished. He has diminished energy. He denies any hemoptysis, chest pain, or new cough. Chart was reviewed and patient evaluated PMFSH Past Medical History Medical History HLD (hyperlipidemia) Social History Social History (Updated 02/11/25 @ 16:34 by Carie Villarreal DO) Alcohol intake: never Patient Tobacco Use Status: Former Tobacco user Smoked in Last 30 Days: No Use of substances other than those prescribed or required for medical reasons: No Advance Directives: No Advance Directives Information Provided: No Do you have a plan to hurt others: No Plan Nutrition Risks: No Nutritional Risk Meds Allergies Allergy/AdvReac Type Severity Reaction Status Date / Time No Known Allergies Allergy Verified 02/11/25 15:34 Active Medications: Current Medications Acetaminophen (Acetaminophen 325 Mg Tablet) 650 mg PO Q6H PRN PRN Reason: Pain, Mild 1-3,fever,headache Albuterol/Ipratropium (Albuterol/Iprat 2.5/0.5mg 3 Ml Ampul.Neb) 3 ml INHALE Q4H PRN PRN Reason: Shortness of Breath/Wheezing Calcium Carbonate (Calcium Carbonate 750 Mg Tab.Chew) 750 mg PO Q4H PRN PRN Reason: Heartburn Ceftriaxone Sodium (Ceftriaxone Sodium 1 Gm Vial) 1 gm IVPUSH Q24H TE Enoxaparin Sodium (Enoxaparin Sodium 30 Mg/0.3 Ml Syringe) 30 mg SUBCUT Q24H TE Last Admin: 02/11/25 22:08 Dose: 30 mg Diltiazem HCl 125 mg/ Sodium (Chloride) 125 mls @ 0 mls/hr IVCONT .Q0M TE; Protocol Last Titration: 02/11/25 21:56 Dose: Infused Azithromycin 500 mg/ Sodium (Chloride) 250 mls @ 125 mls/hr IV Q24H [facility] Magnesium Hydroxide (Milk Of Magnesia 30 Ml Oral.Susp) 30 ml PO DAILY PRN PRN Reason: Constipation Melatonin (Melatonin 3 Mg Tablet) 6 mg PO BEDTIME PRN PRN Reason: Insomnia Nicotine Polacrilex (Nicotine Polacrilex 2 Mg Gum) 2 mg BUCCAL Q2H PRN PRN Reason: Nicotine Cravings Sodium Chloride (0.9 % Sodium Chloride Flush 3 Ml Syringe) 3 ml IVFLUSH QSHIFT TE Last Admin: 02/12/25 07:00 Dose: Not Given Home Medications ?Medication ?Instructions ?Recorded ?Confirmed ?Last Taken ?Type No Known Home Meds 02/11/25 02/11/25 Unknown History Physical Exam 2 Vital Signs: Vital Signs: Last Vital Signs Temp 98.4 F 02/12/25 08:10 Pulse 75 02/12/25 08:10 Resp 12 02/12/25 08:10 BP 99/65 02/12/25 08:10 Pulse Ox 98 02/12/25 08:10 O2 Del Method Room Air 02/12/25 08:10 O2 Flow Rate 2 02/12/25 07:42 Oxygen Flow Rate 4 02/11/25 16:17 BMI result Body Mass Index 13.8 Const: Other: Very pleasant but emaciated man in mild respiratory distress being supplemented with O2 Chest: Other: Minimal breath sounds right. Left some clear consistent with COPD. GI: Other: Abdomen soft, thin, benign Results Labs 02/12/25 04:24 02/12/25 04:24 Labs: Abnormal lab results 02/11/25 02/11/25 02/11/25 Range/Units 15:46 15:57 22:27 WBC 14.9 H (4.8-10.8) X10*3/uL RBC 4.55 L (4.60-5.80) X10*6/uL Hgb 13.0 L (14.0-18.0) g/dl Hct 40.1 L (42.0-52.0) % Plt Count 513 H (160-400) X10*3/uL MPV 8.6 L (9.4-12.4) fL Immature Gran % (Auto) 0.8 H (0.0-0.4) % Neut % (Auto) 89.4 H (45-73) % Lymph % (Auto) 5.6 L (20-40) % Lymph # (Auto) 0.8 L (1.2-4.9) X10*3/uL Abs Immat Gran (auto) 0.12 H (0.00-0.03) X10*3/uL Absolute Neuts (auto) 13.3 H (2.0-8.3) x10*3/uL VBG HCO3 30 H (22-26) mmol/L BUN 28 H (9-16) mg/dL Random Glucose 130 H (60-115) mg/dL Lactic Acid 3.9 H* (0.5-2.0) mmol/L Calcium 10.5 H (8.4-10.2) mg/dL B-Natriuretic Peptide 228 H (<100) pg/mL Total Protein (6.5-8.0) g/dL Albumin (3.5-5.0) g/dL HDL Cholesterol (>40) mg/dL Ur Specific [place] >= 1.030 H (1.005-1.025) Urine Blood Trace H (Negative) 02/12/25 Range/Units 04:24 WBC (4.8-10.8) X10*3/uL RBC 3.74 L (4.60-5.80) X10*6/uL Hgb 10.5 L (14.0-18.0) g/dl Hct 33.0 L (42.0-52.0) % Plt Count (160-400) X10*3/uL MPV 8.9 L (9.4-12.4) fL Immature Gran % (Auto) 0.6 H (0.0-0.4) % Neut % (Auto) 86.3 H (45-73) % Lymph % (Auto) 7.9 L (20-40) % Lymph # (Auto) 0.7 L (1.2-4.9) X10*3/uL Abs Immat Gran (auto) 0.05 H (0.00-0.03) X10*3/uL Absolute Neuts (auto) (2.0-8.3) x10*3/uL VBG HCO3 (22-26) mmol/L BUN 22 H (9-16) mg/dL Random Glucose 129 H (60-115) mg/dL Lactic Acid (0.5-2.0) mmol/L Calcium (8.4-10.2) mg/dL B-Natriuretic Peptide (<100) pg/mL Total Protein 6.2 L (6.5-8.0) g/dL Albumin 2.8 L (3.5-5.0) g/dL HDL Cholesterol 34 L (>40) mg/dL Ur Specific [place] (1.005-1.025) Urine Blood (Negative) Short CBC 02/11/25 02/12/25 Range/Units 15:46 04:24 WBC 14.9 H 8.8 (4.8-10.8) X10*3/uL Hgb 13.0 L 10.5 L (14.0-18.0) g/dl Hct 40.1 L 33.0 L (42.0-52.0) % Plt Count 513 H 327 D (160-400) X10*3/uL BMP 02/11/25 02/12/25 15:46 04:24 Sodium 139 137 Potassium 5.1 4.8 Chloride 99 102 Carbon Dioxide 26 27 BUN 28 H 22 H Creatinine 1.08 0.66 Calcium 10.5 H 9.3 D Liver Function 02/11/25 02/12/25 Range/Units 15:46 04:24 Total Bilirubin 0.6 0.3 (0.0-1.0) mg/dL AST 19 16 (5-37) U/L ALT < 6 < 6 (0-40) U/L Alkaline Phosphatase 105 85 (39-117) U/L Albumin 3.5 2.8 L (3.5-5.0) g/dL Urine 02/11/25 Range/Units 22:27 Urine Color Yellow Urine Appearance Clear Urine pH 5.0 (5.0-9.0) Ur Specific [place] >= 1.030 H (1.005-1.025) Urine Protein Negative (Neg-Trace) mg/dL Urine Glucose (UA) Negative (Negative) mg/dL All other labs normal. Assessment and Plan (1) Neoplasm of right lung: Status: Acute (2) Pleural effusion on right: Status: Acute (3) Hypoxia: Status: Acute Plan Patient was as noted above CT scan findings demonstrating a significant right hilar mass with compressive atelectasis as well as a massive right pleural effusion. Current plan is to place a pigtail chest tube catheter and send fluid for cytology. Because of the obstructing process of the right main airways, pleurodesis/sclerosis we will not be successful because the lung can not re- expand to obtain pleural symphysis. Patient will most probably require a PleurX catheter placement which we will tentatively be scheduled for this Monday along with Port-A-Cath placement. Plan was reviewed with the patient and he wishes to proceed. All questions answered. Procedures Date of Service Date of Service: 02/12/25
--- NOTE | 2025-02-12 08:14 | HO.PM.IMPN ---
Subjective Subjective Date of Service: 02/12/25 Interval History: Seen and examined this morning Interval history: Patient admitted last night due to AFib RVR, rate now controlled, in normal sinus rhythm. He reports he is still having a productive cough which he states started about 1 month ago. He does endorse 30 lb weight loss over the last 1.5 months. Has been short of breath both at rest and with exertion as well. He did quit smoking about 7 months ago but has >50 pack-year history. He did have chest tube placed this morning, pleural fluid analysis pending. He is resting comfortably in bed on 2.5 L supplemental O2 maintaining oximetry 95% but does desaturate into the 80s while talking. He is complaining of upper back pain, but feels this is positional. He has not been seen by a provider in 10 years. Review of Systems Review of Systems: Yes all other systems are reviewed and are negative Physical Exam Vital Signs: Vital Signs: Last Vital Signs Temp 98.4 F 02/12/25 08:10 Pulse 75 02/12/25 08:10 Resp 12 02/12/25 08:10 BP 99/65 02/12/25 08:10 Pulse Ox 98 02/12/25 08:10 O2 Del Method Room Air 02/12/25 08:10 O2 Flow Rate 2 02/12/25 07:42 Oxygen Flow Rate 4 02/11/25 16:17 BMI result Body Mass Index 13.8 Constitutional - Awake and Alert, cachectic, No apparent distress Cardiovascular - S1S2, RRR, No edema Respiratory - Normal lung expansion, Normal respiratory effort, No respiratory distress, diminished bilaterally Gastrointestinal - NT / ND; +BS; No rebound or guarding Extremities - no calf tenderness bilaterally, no swelling Skin - Warm/Dry Neurological - Alert & oriented x3 Psychological - Appropriate affect Objective Data Active Medications Acetaminophen (Acetaminophen 325 Mg Tablet) 650 mg PO Q6H PRN PRN Reason: Pain, Mild 1-3,fever,headache Albuterol/Ipratropium (Albuterol/Iprat 2.5/0.5mg 3 Ml Ampul.Neb) 3 ml INHALE Q4H PRN PRN Reason: Shortness of Breath/Wheezing Calcium Carbonate (Calcium Carbonate 750 Mg Tab.Chew) 750 mg PO Q4H PRN PRN Reason: Heartburn Ceftriaxone Sodium (Ceftriaxone Sodium 1 Gm Vial) 1 gm IVPUSH Q24H [facility] Enoxaparin Sodium (Enoxaparin Sodium 30 Mg/0.3 Ml Syringe) 30 mg SUBCUT Q24H [facility] Last Admin: 02/11/25 22:08 Dose: 30 mg Documented By: MELISSA Diltiazem HCl 125 mg/ Sodium (Chloride) 125 mls @ 0 mls/hr IVCONT .Q0M [facility]; Protocol Last Titration: 02/11/25 21:56 Dose: Infused Documented By: MELISSA Azithromycin 500 mg/ Sodium (Chloride) 250 mls @ 125 mls/hr IV Q24H [facility] Magnesium Hydroxide (Milk Of Magnesia 30 Ml Oral.Susp) 30 ml PO DAILY PRN PRN Reason: Constipation Melatonin (Melatonin 3 Mg Tablet) 6 mg PO BEDTIME PRN PRN Reason: Insomnia Nicotine Polacrilex (Nicotine Polacrilex 2 Mg Gum) 2 mg BUCCAL Q2H PRN PRN Reason: Nicotine Cravings Sodium Chloride (0.9 % Sodium Chloride Flush 3 Ml Syringe) 3 ml IVFLUSH QSHIFT [facility] Last Admin: 02/12/25 07:00 Dose: Not Given Documented By: MARIZOL Non-Admin Reason: IV Running Labs 02/12/25 04:24 02/12/25 04:24 Labs: Laboratory Results - last 24 hr 02/11/25 02/11/25 02/11/25 15:46 15:57 16:22 MCV 88.1 MCH 28.6 MCHC 32.4 RDW 14.8 Plt Count 513 H MPV 8.6 L Immature Gran % (Auto) 0.8 H Neut % (Auto) 89.4 H Lymph % (Auto) 5.6 L [place] % (Auto) 4.1 Eos % (Auto) 0.0 Baso % (Auto) 0.1 Lymph # (Auto) 0.8 L [place] # (Auto) 0.6 Eos # (Auto) 0.0 Baso # (Auto) 0.0 Abs Immat Gran (auto) 0.12 H Absolute Neuts (auto) 13.3 H Absolute Nucleated RBC 0.000 Nucleated RBC % (auto) 0.0 VBG pH 7.37 VBG pCO2 52 VBG pO2 32 VBG HCO3 30 H VBG O2 Saturation 40.0 VBG Base Excess 4.4 Anion Gap 19 Estim Creat Clear Calc 43.1 Estimated GFR > 60 Random Glucose 130 H Lactic Acid 3.9 H* Lactic Acid F/U @ 2Hr Calcium 10.5 H Total Bilirubin 0.6 AST 19 ALT < 6 Alkaline Phosphatase 105 Lactate Dehydrogenase B-Natriuretic Peptide 228 H Total Protein 7.8 Albumin 3.5 Triglycerides Cholesterol LDL Cholesterol, Calc HDL Cholesterol Lipase 19 Carcinoembryonic Ag TSH PTH Intact Urine Color Urine Appearance Urine pH Ur Specific [place] Urine Protein Urine Glucose (UA) Urine Ketones Urine Blood Urine Nitrite Ur Leukocyte Esterase Urine RBC Urine WBC Ur Squamous Epith Cells Urine Bacteria Hyaline Casts Influenza Type A (PCR) NEGATIVE Influenza Type B (PCR) NEGATIVE RSV RNA Qual (PCR) NEGATIVE SARS-CoV-2 RNA (RT-PCR) NEGATIVE Blood Type O Negative Antibody Screen NEGATIVE 02/11/25 02/11/25 02/11/25 18:12 22:27 23:34 MCV MCH MCHC RDW Plt Count MPV Immature Gran % (Auto) Neut % (Auto) Lymph % (Auto) [place] % (Auto) Eos % (Auto) Baso % (Auto) Lymph # (Auto) [place] # (Auto) Eos # (Auto) Baso # (Auto) Abs Immat Gran (auto) Absolute Neuts (auto) Absolute Nucleated RBC Nucleated RBC % (auto) VBG pH VBG pCO2 VBG pO2 VBG HCO3 VBG O2 Saturation VBG Base Excess Anion Gap Estim Creat Clear Calc Estimated GFR Random Glucose Lactic Acid 1.9 Lactic Acid F/U @ 2Hr 1.5 Calcium Total Bilirubin AST ALT Alkaline Phosphatase Lactate Dehydrogenase B-Natriuretic Peptide Total Protein Albumin Triglycerides Cholesterol LDL Cholesterol, Calc HDL Cholesterol Lipase Carcinoembryonic Ag TSH PTH Intact Urine Color Yellow Urine Appearance Clear Urine pH 5.0 Ur Specific [place] >= 1.030 H Urine Protein Negative Urine Glucose (UA) Negative Urine Ketones Negative Urine Blood Trace H Urine Nitrite Negative Ur Leukocyte Esterase Negative Urine RBC 0-2 Urine WBC 0-5 Ur Squamous Epith Cells 0-2 Urine Bacteria None Seen Hyaline Casts 6-10 Influenza Type A (PCR) Influenza Type B (PCR) RSV RNA Qual (PCR) SARS-CoV-2 RNA (RT-PCR) Blood Type Antibody Screen 02/12/25 04:24 MCV 88.2 MCH 28.1 MCHC 31.8 RDW 14.6 Plt Count 327 D MPV 8.9 L Immature Gran % (Auto) 0.6 H Neut % (Auto) 86.3 H Lymph % (Auto) 7.9 L [place] % (Auto) 5.1 Eos % (Auto) 0.0 Baso % (Auto) 0.1 Lymph # (Auto) 0.7 L [place] # (Auto) 0.5 Eos # (Auto) 0.0 Baso # (Auto) 0.0 Abs Immat Gran (auto) 0.05 H Absolute Neuts (auto) 7.6 Absolute Nucleated RBC 0.000 Nucleated RBC % (auto) 0.0 VBG pH VBG pCO2 VBG pO2 VBG HCO3 VBG O2 Saturation VBG Base Excess Anion Gap 13 Estim Creat Clear Calc 69.6 Estimated GFR > 60 Random Glucose 129 H Lactic Acid Lactic Acid F/U @ 2Hr Calcium 9.3 D Total Bilirubin 0.3 AST 16 ALT < 6 Alkaline Phosphatase 85 Lactate Dehydrogenase 175 B-Natriuretic Peptide Total Protein 6.2 L Albumin 2.8 L Triglycerides 94 Cholesterol 150 LDL Cholesterol, Calc 98 HDL Cholesterol 34 L Lipase Carcinoembryonic Ag 6.60 TSH 0.43 PTH Intact 35.0 Urine Color Urine Appearance Urine pH Ur Specific [place] Urine Protein Urine Glucose (UA) Urine Ketones Urine Blood Urine Nitrite Ur Leukocyte Esterase Urine RBC Urine WBC Ur Squamous Epith Cells Urine Bacteria Hyaline Casts Influenza Type A (PCR) Influenza Type B (PCR) RSV RNA Qual (PCR) SARS-CoV-2 RNA (RT-PCR) Blood Type Antibody Screen Assessment and Plan (1) Acute respiratory failure with hypoxia: Status: Acute (2) Atrial fibrillation with rapid ventricular response: Status: Acute (3) Malignant pleural effusion: Status: Acute (4) Postobstructive pneumonia: Status: Acute (5) Neoplasm of right lung: Status: Acute Plan 62-year-old male with COPD not on home O2, hyperlipidemia who was a former cigarette smoker with 50 pack-year history admitted for new onset atrial fibrillation with RVR and postobstructive pneumonia with acute hypoxemic respiratory failure. Acute hypoxemic respiratory failure in setting of large R subcarinal mass and postobstructive pneumonia and acute malignant pleural effusion CTA chest shows large subcarinal mass with likely extension into the right hilum measuring up to 7.5 cm completely obstructing the right mainstem bronchus and the right superior and inferior pulmonary veins as well as large right-sided pleural effusion and consolidation within the right lower lobe and middle lobe IV vancomycin and Zosyn (initiated 02/12) s/p thoracentesis with chest tube in place, -2L. Pleural fluid analysis pending Thoracic surgery input appreciated Pulmonology consult appreciated- hold on tissue biopsy at this time, can consider outpt Heme/onc consult MRSA nasal swab, sputum culture Continue supplemental O2 per protocol, wean as tolerated Follow CBC, cultures New onset atrial fibrillation- rate now controlled weaned from cardizem drip 02/11 No AC per cardiology Initiate rate control with 12.5mg BID metoprolol COPD Mild exacerbation noted on admission, now resolved nebs prn Normocytic anemia, likely chronic r/t above trend h/h LDH wnl, heme/onc following Severe protein calorie malnutrition nutrition following DVT prophylaxis- renally adjusted lovenox full code Ongoing input stay due to postobstructive pneumonia requiring broad spectrum abx, expert consultations, and close cardiac monitoring as well as monitoring of hemodynamics Quality Stroke Does the patient have a stroke diagnosis?: No VTE Prior VTE?: No VTE Risk Level:: Medical - moderate - high VTE Device Contraindication: Treatment Not Indicated VTE Drug Contraindication: N/A - Med Ordered
[2025-02-12] MEDS: Lactated Ringers 1,000 ML 80 ML IVCONT ×2 (08:24→19:49)
--- NOTE | 2025-02-12 08:29 | MHC.CLN ---
NUTRITION PATIENT CURRENTLY IN ED OVERFLOW. BMI=13.8 WITH DX LUNG NEOPLASM. CLINICAL NUTRITION ASSESSMENT TO BE COMPLETED UPON ADMISSION TO UNIT.
--- NOTE | 2025-02-12 08:35 | PC.NURSE ---
pleural fluid output documented in I&O section. first atrium completely full. specimen obtained/sent to lab. atrium switched. 400ml of serosanguineous fluid noted immediately post output s/p new atrium replacement.
--- NOTE | 2025-02-12 09:51 | PM.CNCAR ---
History of Present Illness History of Present Illness Date of Service: 02/12/25 Requesting physician: Marley Padilla Chief complaint: lung mass, PAF Narrative: [age] year gentleman presenting with shortness of breath and lung mass with concern for lung cancer. He has been a heavy smoker. Emaciated and has been losing weight with poor appetite. He developed AFib episode while in the ER. Reviewing the EKGs there was significant artifact and difficult to say whether he was truly in AFib or not but documentation is clear that he was tachycardic and received some Cardizem with improvement in heart rates. Currently he is in sinus rhythm. He is denying any palpitations. He is complaining of some pressure in the chest which he has been feeling at home also. He is on supplemental oxygen currently. He does not have any diagnosed cardiovascular disease in the past. [facility] Past Medical History Medical History HLD (hyperlipidemia) Social History Social History (Updated 02/11/25 @ 16:34 by Carie Villarreal DO) Alcohol intake: never Patient Tobacco Use Status: Former Tobacco user Smoked in Last 30 Days: No Use of substances other than those prescribed or required for medical reasons: No Advance Directives: No Advance Directives Information Provided: No Do you have a plan to hurt others: No Plan Nutrition Risks: No Nutritional Risk Meds Allergies Allergy/AdvReac Type Severity Reaction Status Date / Time No Known Allergies Allergy Verified 02/11/25 15:34 Active Medications: Current Medications Acetaminophen (Acetaminophen 325 Mg Tablet) 650 mg PO Q6H PRN PRN Reason: Pain, Mild 1-3,fever,headache Albuterol/Ipratropium (Albuterol/Iprat 2.5/0.5mg 3 Ml Ampul.Neb) 3 ml INHALE Q4H PRN PRN Reason: Shortness of Breath/Wheezing Calcium Carbonate (Calcium Carbonate 750 Mg Tab.Chew) 750 mg PO Q4H PRN PRN Reason: Heartburn Enoxaparin Sodium (Enoxaparin Sodium 30 Mg/0.3 Ml Syringe) 30 mg SUBCUT Q24H TE Last Admin: 02/11/25 22:08 Dose: 30 mg Diltiazem HCl 125 mg/ Sodium (Chloride) 125 mls @ 0 mls/hr IVCONT .Q0M TE; Protocol Last Titration: 02/11/25 21:56 Dose: Infused Lactated Ringer's (Lr) 1,000 mls @ 80 mls/hr IVCONT .[id number] [facility] Last Admin: 02/12/25 08:24 Dose: 80 mls/hr Piperacillin Sod/Tazobactam (Sod 4.5 gm/ Sodium Chloride) 100 mls @ 200 mls/hr IV Q6H [facility] Magnesium Hydroxide (Milk Of Magnesia 30 Ml Oral.Susp) 30 ml PO DAILY PRN PRN Reason: Constipation Melatonin (Melatonin 3 Mg Tablet) 6 mg PO BEDTIME PRN PRN Reason: Insomnia Nicotine Polacrilex (Nicotine Polacrilex 2 Mg Gum) 2 mg BUCCAL Q2H PRN PRN Reason: Nicotine Cravings Pharmacy Consult (Consult Rx Vancomycin Dosing) 1 each MISCELLANE DAILY PRN PRN Reason: Consult order Sodium Chloride (0.9 % Sodium Chloride Flush 3 Ml Syringe) 3 ml IVFLUSH QSHIFT [facility] Last Admin: 02/12/25 07:00 Dose: Not Given Home Medications ?Medication ?Instructions ?Recorded ?Confirmed ?Last Taken ?Type No Known Home Meds 02/11/25 02/11/25 Unknown History Physical Exam Vital Signs: Vital Signs: Last Vital Signs Temp 98.4 F 02/12/25 08:10 Pulse 75 02/12/25 08:10 Resp 12 02/12/25 08:10 BP 99/65 02/12/25 08:10 Pulse Ox 98 02/12/25 08:10 O2 Del Method Room Air 02/12/25 08:10 O2 Flow Rate 2 02/12/25 07:42 Oxygen Flow Rate 4 02/11/25 16:17 BMI result Body Mass Index 13.8 GENERAL APPEARANCE: Cachectic. On supplemental oxygen. NECK: no carotid bruit, no jugular venous distention. SKIN: no suspicious lesions, warm and dry. HEART: no murmurs, regular rate and rhythm. LUNGS: clear to auscultation anteriorly. Chest tube in place. ABDOMEN: soft, nontender. EXTREMITIES: no edema. PERIPHERAL PULSES: equal. NEUROLOGIC: No gross deficits, AAO X 3 Objective Labs and Meds 02/12/25 04:24 02/12/25 04:24 Lab results: Laboratory Results - last 24 hr 02/11/25 02/11/25 02/11/25 15:46 15:57 16:22 WBC 14.9 H RBC 4.55 L Hgb 13.0 L Hct 40.1 L MCV 88.1 MCH 28.6 MCHC 32.4 RDW 14.8 Plt Count 513 H MPV 8.6 L Immature Gran % (Auto) 0.8 H Neut % (Auto) 89.4 H Lymph % (Auto) 5.6 L [place] % (Auto) 4.1 Eos % (Auto) 0.0 Baso % (Auto) 0.1 Lymph # (Auto) 0.8 L [place] # (Auto) 0.6 Eos # (Auto) 0.0 Baso # (Auto) 0.0 Abs Immat Gran (auto) 0.12 H Absolute Neuts (auto) 13.3 H Absolute Nucleated RBC 0.000 Nucleated RBC % (auto) 0.0 VBG pH 7.37 VBG pCO2 52 VBG pO2 32 VBG HCO3 30 H VBG O2 Saturation 40.0 VBG Base Excess 4.4 Sodium 139 Potassium 5.1 Chloride 99 Carbon Dioxide 26 Anion Gap 19 BUN 28 H Creatinine 1.08 Estim Creat Clear Calc 43.1 Estimated GFR > 60 Random Glucose 130 H Lactic Acid 3.9 H* Lactic Acid F/U @ 2Hr Calcium 10.5 H Total Bilirubin 0.6 AST 19 ALT < 6 Alkaline Phosphatase 105 Lactate Dehydrogenase Troponin I High Sens 5.0 B-Natriuretic Peptide 228 H Total Protein 7.8 Albumin 3.5 Triglycerides Cholesterol LDL Cholesterol, Calc HDL Cholesterol Lipase 19 Carcinoembryonic Ag TSH PTH Intact Urine Color Urine Appearance Urine pH Ur Specific [place] Urine Protein Urine Glucose (UA) Urine Ketones Urine Blood Urine Nitrite Ur Leukocyte Esterase Urine RBC Urine WBC Ur Squamous Epith Cells Urine Bacteria Hyaline Casts Influenza Type A (PCR) NEGATIVE Influenza Type B (PCR) NEGATIVE RSV RNA Qual (PCR) NEGATIVE SARS-CoV-2 RNA (RT-PCR) NEGATIVE Blood Type O Negative Antibody Screen NEGATIVE 02/11/25 02/11/25 02/11/25 18:12 22:27 23:34 WBC RBC Hgb Hct MCV MCH MCHC RDW Plt Count MPV Immature Gran % (Auto) Neut % (Auto) Lymph % (Auto) [place] % (Auto) Eos % (Auto) Baso % (Auto) Lymph # (Auto) [place] # (Auto) Eos # (Auto) Baso # (Auto) Abs Immat Gran (auto) Absolute Neuts (auto) Absolute Nucleated RBC Nucleated RBC % (auto) VBG pH VBG pCO2 VBG pO2 VBG HCO3 VBG O2 Saturation VBG Base Excess Sodium Potassium Chloride Carbon Dioxide Anion Gap BUN Creatinine Estim Creat Clear Calc Estimated GFR Random Glucose Lactic Acid 1.9 Lactic Acid F/U @ 2Hr 1.5 Calcium Total Bilirubin AST ALT Alkaline Phosphatase Lactate Dehydrogenase Troponin I High Sens B-Natriuretic Peptide Total Protein Albumin Triglycerides Cholesterol LDL Cholesterol, Calc HDL Cholesterol Lipase Carcinoembryonic Ag TSH PTH Intact Urine Color Yellow Urine Appearance Clear Urine pH 5.0 Ur Specific [place] >= 1.030 H Urine Protein Negative Urine Glucose (UA) Negative Urine Ketones Negative Urine Blood Trace H Urine Nitrite Negative Ur Leukocyte Esterase Negative Urine RBC 0-2 Urine WBC 0-5 Ur Squamous Epith Cells 0-2 Urine Bacteria None Seen Hyaline Casts 6-10 Influenza Type A (PCR) Influenza Type B (PCR) RSV RNA Qual (PCR) SARS-CoV-2 RNA (RT-PCR) Blood Type Antibody Screen 02/12/25 04:24 WBC 8.8 RBC 3.74 L Hgb 10.5 L Hct 33.0 L MCV 88.2 MCH 28.1 MCHC 31.8 RDW 14.6 Plt Count 327 D MPV 8.9 L Immature Gran % (Auto) 0.6 H Neut % (Auto) 86.3 H Lymph % (Auto) 7.9 L [place] % (Auto) 5.1 Eos % (Auto) 0.0 Baso % (Auto) 0.1 Lymph # (Auto) 0.7 L [place] # (Auto) 0.5 Eos # (Auto) 0.0 Baso # (Auto) 0.0 Abs Immat Gran (auto) 0.05 H Absolute Neuts (auto) 7.6 Absolute Nucleated RBC 0.000 Nucleated RBC % (auto) 0.0 VBG pH VBG pCO2 VBG pO2 VBG HCO3 VBG O2 Saturation VBG Base Excess Sodium 137 Potassium 4.8 Chloride 102 Carbon Dioxide 27 Anion Gap 13 BUN 22 H Creatinine 0.66 Estim Creat Clear Calc 69.6 Estimated GFR > 60 Random Glucose 129 H Lactic Acid Lactic Acid F/U @ 2Hr Calcium 9.3 D Total Bilirubin 0.3 AST 16 ALT < 6 Alkaline Phosphatase 85 Lactate Dehydrogenase 175 Troponin I High Sens B-Natriuretic Peptide Total Protein 6.2 L Albumin 2.8 L Triglycerides 94 Cholesterol 150 LDL Cholesterol, Calc 98 HDL Cholesterol 34 L Lipase Carcinoembryonic Ag 6.60 TSH 0.43 PTH Intact 35.0 Urine Color Urine Appearance Urine pH Ur Specific [place] Urine Protein Urine Glucose (UA) Urine Ketones Urine Blood Urine Nitrite Ur Leukocyte Esterase Urine RBC Urine WBC Ur Squamous Epith Cells Urine Bacteria Hyaline Casts Influenza Type A (PCR) Influenza Type B (PCR) RSV RNA Qual (PCR) SARS-CoV-2 RNA (RT-PCR) Blood Type Antibody Screen Imaging Radiologist's impression: Impressions Chest X-Ray 02/12/25 08:10 IMPRESSION: 1. Right-sided chest tube in place. Moderate right pneumothorax. 2. Atelectasis or pneumonia in the right mid and lower lung zones. Electronically signed by: Christopher Pineda MD 02/12/2025 08:31 AM EDT RP Assessment and Plan (1) Atrial fibrillation with rapid ventricular response: Status: Acute Plan [age] year gentleman with episode of paroxysmal atrial fibrillation. He has lung mass and pleural effusion for which he had chest tube placed. He is on supplemental oxygen. Looks cachectic and has been anorexic. Overall clinical presentation is very concerning for neoplastic process. He eventually we will get biopsy. Pleural fluid analysis may also help with cytology to see if there is any malignant process there. Paroxysmal atrial fibrillation not unusual in these circumstances. He has a short episode of atrial fibrillation. Currently would not favor starting anticoagulation because he will need further workup for the lung mass. We will follow along with you. Thank you for allowing me to participate in the care of your patient. Please feel free to contact me if you have any questions. Procedures Date of Service Date of Service: 02/12/25
--- NOTE | 2025-02-12 10:37 | PC.NURSE ---
echocardiogram being completed at this time.
--- NOTE | 2025-02-12 11:01 | PM.HEMONCCN ---
Subjective - Subjective Chief complaint: Shortness of breath Patient: new to practice Consult date: 02/12/25 Primary Care Provider: None Physician Customer Service Coordinator Utilized?: No - Armenian Speaking HPI - Consult Narrative Reason for consult: Probable lung cancer Narrative: Jose Guadalupe Morales is a 70 year old male with past medical history significant for COPD, chronic smoking who presented to emergency department with complaints of shortness of breath. This has been ongoing for a couple of months associated with almost 30-40 lb weight loss. His appetite has been poor. He has chronic cough but no hemoptysis. Denies headache or dizziness. No difficulty ambulating. No focal weakness numbness or tingling. He has not seen a physician in a decade. He says he was feeling fine until recently. [facility] Medical History: Medical History (Last Reviewed 02/12/25 @ 17:00 by Pari Guerin RN) HLD (hyperlipidemia) Social History: Social History (Last Updated 02/11/25 @ 16:34 by Carie Villarreal DO) Living Situation History: Household Members: None Housing: House Do you presently have visiting nurse or other home services: No Tobacco History: Patient Tobacco Use Status: Former Tobacco user Occupation Assessmet: service: No Home Medications and Allergies Current Medications: Current Medications Acetaminophen (Acetaminophen 325 Mg Tablet) 650 mg PO Q6H PRN PRN Reason: Pain, Mild 1-3,fever,headache Albuterol/Ipratropium (Albuterol/Iprat 2.5/0.5mg 3 Ml Ampul.Neb) 3 ml INHALE Q4H PRN PRN Reason: Shortness of Breath/Wheezing Calcium Carbonate (Calcium Carbonate 750 Mg Tab.Chew) 750 mg PO Q4H PRN PRN Reason: Heartburn Enoxaparin Sodium (Enoxaparin Sodium 30 Mg/0.3 Ml Syringe) 30 mg SUBCUT Q24H [facility] Last Admin: 02/11/25 22:08 Dose: 30 mg Diltiazem HCl 125 mg/ Sodium (Chloride) 125 mls @ 0 mls/hr IVCONT .Q0M [facility]; Protocol Last Titration: 02/11/25 21:56 Dose: Infused Lactated Ringer's (Lr) 1,000 mls @ 80 mls/hr IVCONT .[id number] [facility] Last Admin: 02/12/25 08:24 Dose: 80 mls/hr Piperacillin Sod/Tazobactam (Sod 4.5 gm/ Sodium Chloride) 100 mls @ 200 mls/hr IV Q6H [facility] Vancomycin HCl 1,000 mg/Vancomycin HCl 750 mg/ Sodium Chloride 535 mls @ 267.5 mls/hr IV ONCE ONE Stop: 02/12/25 11:59 Magnesium Hydroxide (Milk Of Magnesia 30 Ml Oral.Susp) 30 ml PO DAILY PRN PRN Reason: Constipation Melatonin (Melatonin 3 Mg Tablet) 6 mg PO BEDTIME PRN PRN Reason: Insomnia Nicotine Polacrilex (Nicotine Polacrilex 2 Mg Gum) 2 mg BUCCAL Q2H PRN PRN Reason: Nicotine Cravings Pharmacy Consult (Consult Rx Vancomycin Dosing) 1 each MISCELLANE DAILY PRN PRN Reason: Consult order Sodium Chloride (0.9 % Sodium Chloride Flush 3 Ml Syringe) 3 ml IVFLUSH [facility] Last Admin: 02/12/25 07:00 Dose: Not Given Home Medications ?Medication ?Instructions ?Recorded ?Confirmed ?Type No Known Home Meds 02/11/25 02/11/25 History Allergies Allergy/AdvReac Type Severity Reaction Status Date / Time No Known Allergies Allergy Verified 02/11/25 15:34 Physical Exam Vital signs: Vital Signs Temp 98.4 F 02/12/25 08:10 Pulse 75 02/12/25 08:10 Resp 12 02/12/25 08:10 BP 99/65 02/12/25 08:10 Pulse Ox 98 02/12/25 08:10 O2 Del Method Room Air 02/12/25 08:10 O2 Flow Rate 2 02/12/25 07:42 Intake & Output 02/11/25 02/12/25 02/12/25 18:59 06:59 18:59 Intake Total 1500 / 2503 1003 / 2503 1000 / 1000 Output Total 300 / 300 2150 / 2150 Balance 1500 / 2203 703 / 2203 -1150 / -1150 Urine Output (Average ml/kg/hr) 0.54 0.27 Intake: Intake, IV Amount 1500 / 2503 1003 / 2503 1000 / 1000 Lactated Ringers 1,000 ml @ 999 1000 / 1000 mls/hr IV .Q1H1M ONE Rx#: [id number] Lactated Ringers 500 ml @ 999 500 / 1500 1000 / 1500 mls/hr IV .Q31M [facility] Rx#: [id number] Lactated Ringers 1,000 ml @ 100 1000 / 1000 mls/hr IVCONT .Q10H TE Rx#: [id number] dilTIAZem HCL 125 mg In 0.9 % 3 / 3 Sodium Chloride 100 ml @ Per Protocol IVCONT .Q0M TE Rx#: [id number] Output: Output, Urine Amount 300 / 300 150 / 150 Output, Pleural Fluid Amount 1999 / 1999 Other: Weight 46 kg Weight 46 kg - Constitutional Present: no acute distress, thin, chronically ill appearing - Routine HEENT Exam Head: Present: normal inspection Eye: Present: EOMI, PERRL - Routine Neck Exam Present: supple. Absent: lymphadenopathy - Routine Respiratory Exam Present: decreased breath sounds. Absent: accessory muscle use - Routine Cardiovascular Exam Cardiovascular: Present: S1, S2 - Routine Abdominal Exam Present: soft - Routine Extremities Exam Present: pulses intact - Routine Skin Exam Present: intact. Absent: cyanosis - Routine Neurological Exam Present: alert, oriented X3 Hem/Onc Consult Result - Labs CBC & Chem 7: 02/14/25 06:46 02/14/25 06:46 Labs: Short CBC 02/11/25 02/12/25 Range/Units 15:46 04:24 WBC 14.9 H 8.8 (4.8-10.8) X10*3/uL Hgb 13.0 L 10.5 L (14.0-18.0) g/dl Hct 40.1 L 33.0 L (42.0-52.0) % Plt Count 513 H 327 D (160-400) X10*3/uL BMP 02/11/25 02/12/25 15:46 04:24 Sodium 139 137 Potassium 5.1 4.8 Chloride 99 102 Carbon Dioxide 26 27 BUN 28 H 22 H Creatinine 1.08 0.66 Calcium 10.5 H 9.3 D Liver Function 02/11/25 02/12/25 Range/Units 15:46 04:24 Total Bilirubin 0.6 0.3 (0.0-1.0) mg/dL AST 19 16 (5-37) U/L ALT < 6 < 6 (0-40) U/L Alkaline Phosphatase 105 85 (39-117) U/L Albumin 3.5 2.8 L (3.5-5.0) g/dL Urine 02/11/25 Range/Units 22:27 Urine Color Yellow Urine Appearance Clear Urine pH 5.0 (5.0-9.0) Ur Specific [place] >= 1.030 H (1.005-1.025) Urine Protein Negative (Neg-Trace) mg/dL Urine Glucose (UA) Negative (Negative) mg/dL Assessment and Plan Patient Active problem list reviewed?: Yes (1) Neoplasm of right lung Status: Acute Assessment and plan: 1. This is a 70-year-old male, chronic smoker presenting with large right lung mass and pleural effusion concerning for malignancy. CT angiogram performed 02/11/2025 showed large subcarinal mass in the right hilum measuring 7.5 cm completely obstructing right mainstem bronchus, large right pleural effusion and consolidation in the right lower and middle lobes. Patient has had diagnostic and therapeutic right paracentesis, he has a chest tube in place. Fluid cytology is pending. LDH is not elevated, CEA is marginally elevated at 6.6 NG/mL. He will need staging workup with PET scan and brain MRI. Further recommendations about treatment will be made after biopsy. Unfortunately his echocardiogram shows severely reduced ejection fraction between 20-25%. He has been seen by fan blade aligner. Overall his performance status is rather poor and he is a poor candidate for systemic therapy. Further recommendations to follow. I thank you for this consultation. - Time Spent With Patient Time Spent with Patient (in minutes): 20 Additional Coding: - Additional E/M codes Complex E/M visit Add On: CPT G2211
--- NOTE | 2025-02-12 11:24 | MHC.CM.PN ---
IMM 02/12/25, Pt. lives alone, he does not have a PCP, brochure given, will also give him # for [facility] office thru [facility], which is near where he lives in [place]. He does not have home health services or use DME. Family can transport him home at [place]. DCP: home, self care. CM to follow for [place] needs.
[2025-02-12] MEDS: Piperacillin Sodium/Tazobactam 4.5 GM in 0.9 % Sodium Chloride 100 ML IV ×3 (11:30→21:22)
[2025-02-12] MEDS: vancomycin HCL 1,000 MG, vancomycin HCL 750 MG in 0.9 % Sodium Chloride 500 ML 267.5 MG IV (11:39)
--- NOTE | 2025-02-12 11:58 | PC.NURSE ---
Patient alert and oriented, but cachectic and unkempt in appearance. nurse monitoring maintained and noted to be in afib in the 100's to 110's. Difficulty obtaining a pox secondary to cold fingers. Respiratory notified and attempting to fix the issue. Denies any CP or SOB. Lungs coarse throughout. Right anterior chest tube/pigtail patent and maintained to suction at 20cm. Drained approx 800cc of yellow pleural fluid. Abdomen flat soft, non-tender with positive bowel sounds. Positive pedal pulses with no edema noted. Pending a bed assignment
--- NOTE | 2025-02-12 11:58 | PC.NURSE ---
Patient alert and oriented, but cachectic and unkempt in appearance. electronic device monitor maintained and noted to be in afib in the 100's to 110's. Difficulty obtaining a pox secondary to cold fingers. Respiratory notified and attempting to fix the issue. Denies any CP or SOB. Lungs coarse throughout. Right anterior chest tube/pigtail patent and maintained to suction at 130cm of pressure. Drained approx 800cc of yellow pleural fluid. Abdomen flat soft, non-tender with positive bowel sounds. Positive pedal pulses with no edema noted. Pending a bed assignment.
--- NOTE | 2025-02-12 12:09 | PC.RT ---
RT called to bedside for pt desat, staff unable to get a proper reading. Pt SATs 94% on 4L NC with good pleth on left finger w/ warmers.
--- NOTE | 2025-02-12 14:58 | P.CONPL_ITS ---
History of Present Illness History of Present Illness Consult date: 02/12/25 Chief complaint: lung mass, PAF Narrative: 70-year-old gentleman, over 30 pack-year smoker, quit 7 months prior admitted on 02/11/2025 with worsening dyspnea over several weeks. On ER evaluation patient with hypoxia requiring supplemental oxygen at 4 L to maintain normal oximetry. 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 Now status post chest tube placement by thoracic surgery. Review of Systems 2 Constitutional: Constitutional: Denies daytime sleepiness, Denies excessive sweating, Denies fatigue, Denies fever(s), Denies lethargy, Reports malaise, Denies night sweats, Denies snoring and Reports weight loss Eyes: Eyes: Denies blurry vision and Denies itchy eyes ENT: Denies nasal congestion, Denies post nasal drip, Denies sinus pain, Denies sinus pressure and Denies other ( Thrush) Cardiovascular: Cardiovascular: Denies chest pain, Denies pedal edema, Reports dyspnea, Reports dyspnea on exertion, Denies orthopnea and Denies paroxysmal nocturnal dyspnea Respiratory: Respiratory: Denies cough, Denies hemoptysis, Denies excessive phlegm production, Reports dyspnea, Reports dyspnea on exertion, Denies snoring and Denies wheezing Gastrointestinal: Gastrointestinal: Denies abdominal pain and Denies heartburn Musculoskeletal: Musculoskeletal: Denies myalgias, Denies arthralgias and Denies joint swelling Integumentary/Breasts: Skin/Breast: Denies rash Neurologic: Denies memory loss and Denies seizure-like activity Psychiatric: Psychiatric: Denies abnormal sleep pattern, Denies anxiety and Denies memory loss Endocrine: Endocrine: Denies excessive sweating, Denies fatigue and Denies heat intolerance Hematologic/Lymphatic: Hematologic/Lymphatic: Denies easy bruising Allergic/Immunologic: Allergic/Immunologic: Denies itchy eyes, Denies seasonal rhinorrhea and Denies wheezing PMFSH Past Medical History Medical History HLD (hyperlipidemia) Social History Social History (Updated 02/11/25 @ 16:34 by Carie Villarreal DO) Alcohol intake: never Patient Tobacco Use Status: Former Tobacco user Smoked in Last 30 Days: No Use of substances other than those prescribed or required for medical reasons: No Advance Directives: No Advance Directives Information Provided: No Do you have a plan to hurt others: No Plan Nutrition Risks: No Nutritional Risk service: No Meds Allergies Allergy/AdvReac Type Severity Reaction Status Date / Time No Known Allergies Allergy Verified 02/11/25 15:34 Active Medications: Current Medications Acetaminophen (Acetaminophen 325 Mg Tablet) 650 mg PO Q6H PRN PRN Reason: Pain, Mild 1-3,fever,headache Albuterol/Ipratropium (Albuterol/Iprat 2.5/0.5mg 3 Ml Ampul.Neb) 3 ml INHALE Q4H PRN PRN Reason: Shortness of Breath/Wheezing Calcium Carbonate (Calcium Carbonate 750 Mg Tab.Chew) 750 mg PO Q4H PRN PRN Reason: Heartburn Enoxaparin Sodium (Enoxaparin Sodium 30 Mg/0.3 Ml Syringe) 30 mg SUBCUT Q24H [facility] Last Admin: 02/11/25 22:08 Dose: 30 mg Diltiazem HCl 125 mg/ Sodium (Chloride) 125 mls @ 0 mls/hr IVCONT .Q0M [facility]; Protocol Last Titration: 02/11/25 21:56 Dose: Infused Lactated Ringer's (Lr) 1,000 mls @ 80 mls/hr IVCONT .[id number] [facility] Last Admin: 02/12/25 08:24 Dose: 80 mls/hr Piperacillin Sod/Tazobactam (Sod 4.5 gm/ Sodium Chloride) 100 mls @ 200 mls/hr IV Q6H [facility] Last Admin: 02/12/25 11:30 Dose: 200 mls/hr Vancomycin HCl 750 mg/ Sodium (Chloride) 265 mls @ 265 mls/hr IV Q12H [facility] Magnesium Hydroxide (Milk Of Magnesia 30 Ml Oral.Susp) 30 ml PO DAILY PRN PRN Reason: Constipation Melatonin (Melatonin 3 Mg Tablet) 6 mg PO BEDTIME PRN PRN Reason: Insomnia Nicotine Polacrilex (Nicotine Polacrilex 2 Mg Gum) 2 mg BUCCAL Q2H PRN PRN Reason: Nicotine Cravings Pharmacy Consult (Consult Rx Vancomycin Dosing) 1 each MISCELLANE DAILY PRN PRN Reason: Consult order Sodium Chloride (0.9 % Sodium Chloride Flush 3 Ml Syringe) 3 ml IVFLUSH QSHIFT [facility] Last Admin: 02/12/25 07:00 Dose: Not Given Home Medications ?Medication ?Instructions ?Recorded ?Confirmed ?Last Taken ?Type No Known Home Meds 02/11/25 02/11/25 Unknown History Physical Exam 2 Vital Signs: Vital Signs: Last Vital Signs Temp 97.0 F 02/12/25 11:53 Pulse 89 02/12/25 12:39 Resp 17 02/12/25 12:39 BP 111/70 02/12/25 12:39 Pulse Ox 99 02/12/25 12:39 O2 Del Method Nasal Cannula 02/12/25 12:39 O2 Flow Rate 2.5 02/12/25 12:39 Oxygen Flow Rate 4 02/11/25 16:17 BMI result Body Mass Index 13.8 Const: General: no acute distress and alert Nutritional Appearance: c achectic Orientation/consciousness: Other orientation findings ( oriented) HEENT: Head: Yes atraumatic Eyes: General: appearance normal, both eyes and all related structures S clerae: sclerae normal EOM: EOMs intact bilaterally Neck: Neck: Yes supple Lymphatic: no lymphadenopathy noted Resp: Effort & Inspection: normal respiratory effort and no use of accessory muscles Auscultation: clear to auscultation bilaterally Cardio: Rate: regular rate Rhythm: regular rhythm Heart sounds: no gallops, no murmurs and no rubs Skin: General skin exam: other ( warm) Extrem: General: No clubbing, No cyanosis and No edema Results Laboratory Findings 02/12/25 04:24 02/12/25 04:24 Abnormal lab findings: Abnormal Labs 02/11/25 02/11/25 02/11/25 15:46 15:57 22:27 WBC 14.9 H RBC 4.55 L Hgb 13.0 L Hct 40.1 L Plt Count 513 H MPV 8.6 L Immature Gran % (Auto) 0.8 H Neut % (Auto) 89.4 H Lymph % (Auto) 5.6 L Lymph # (Auto) 0.8 L Abs Immat Gran (auto) 0.12 H Absolute Neuts (auto) 13.3 H VBG HCO3 30 H BUN 28 H Random Glucose 130 H Lactic Acid 3.9 H* Calcium 10.5 H B-Natriuretic Peptide 228 H Total Protein Albumin HDL Cholesterol Ur Specific [place] >= 1.030 H Urine Blood Trace H 02/12/25 04:24 WBC RBC 3.74 L Hgb 10.5 L Hct 33.0 L Plt Count MPV 8.9 L Immature Gran % (Auto) 0.6 H Neut % (Auto) 86.3 H Lymph % (Auto) 7.9 L Lymph # (Auto) 0.7 L Abs Immat Gran (auto) 0.05 H Absolute Neuts (auto) VBG HCO3 BUN 22 H Random Glucose 129 H Lactic Acid Calcium B-Natriuretic Peptide Total Protein 6.2 L Albumin 2.8 L HDL Cholesterol 34 L Ur Specific [place] Urine Blood Microbiology: Microbiology 02/11/25 16:07 Blood - Venous Blood Culture - Preliminary Prelim: GPC Gram Stain only Assessment and Plan (1) Neoplasm of right lung: Status: Acute (2) Pleural effusion on right: Status: Acute (3) Acute respiratory failure with hypoxia: Status: Acute Plan Impression: 70-year-old gentleman admitted with acute hypoxic respiratory failure secondary to likely combination of underlying undiagnosed COPD and large right-sided pleural effusion with large subcarinal mass with right mainstem bronchus obstruction. Now status post chest tube with drainage of the effusion and partial re- expansion over right lung, though with likely trapped lung physiology as patient does have at least moderate size pneumothorax and what appears to be right lower lobe atelectasis. Recommendation: Await fluid status as there will likely be diagnostic for underlying cancer. If additional tissue as needed, may consider endobronchial biopsy. Procedures Date of Service Date of Service: 02/12/25
--- NOTE | 2025-02-12 15:32 | MHC.CLN ---
NUTRITION VISITED PATIENT IN ED. LIBERALIZED DIET FROM CARDIAC TO REGULAR TO PROMOTE PO INTAKE. ADDED ENSURE TID TO IMPROVE NUTRITIONAL STATUS. SUPPLEMENT PROVIDES 1050 KCALS, 60 G PROTEIN. PATIENT REPORTS 30# WEIGHT LOSS X APPROX 1.5 MONTHS. BMI=13.8. QUALIFIES SEVERELY MALNOURISHED WITH SEVERE DEPLETION OF BODY FAT AND MUSCLE MASS. FOLLOW FOR PO INTAKE AND WEIGHT. SEE CLINICAL NUTRITION ASSESSMENT 02/12/25.
[2025-02-12] MEDS: 0.9 % Sodium Chloride Flush 3 ML SYRINGE IVFLUSH ×2 (17:03→23:47)
[2025-02-12] MEDS: Metoprolol Tartrate 12.5 MG HALFTAB PO ×2 (17:26→21:26)
[2025-02-12 17:39] LABS: MN% 65.7 %; PMN% 34.3 %; RBC Pleural Fluid 0.002 X10*6/uL; WBC Pleural Fluid 0.982 X10*3/uL
[2025-02-12 19:22] LABS: BF Shift QC OK YES; Lymphocytes Pleural Fluid 32 %; Monocytes Pleural Fluid 18 %; Neutrophils Pleural Fluid 38 %; Other Cells Plerual Fl 12 %
[2025-02-12] MEDS: Enoxaparin Sodium 30 MG/0.3 ML SYRINGE SUBCUT (21:21)
[2025-02-12] MEDS: vancomycin HCL 750 MG in 0.9 % Sodium Chloride 250 ML 265 MG IV (23:46)
[2025-02-13] VITALS (7 sets, daily range): BP systolic 93–107; BP diastolic 57–66; PULSE 61–88; RESP 16–20; TEMP 36.2–36.8; O2SAT 92–97
[2025-02-13] MEDS: Piperacillin Sodium/Tazobactam 4.5 GM in 0.9 % Sodium Chloride 100 ML IV (05:49)
[2025-02-13] MEDS: Acetaminophen 325 MG TABLET 650 MG PO (05:54)
[2025-02-13 06:30] LABS: MANUAL DIFF FLAG NO
[2025-02-13 06:35] LABS: Basophils Percent Auto 0.1 % (0-2); Eosinophils Percent Auto 0.1 % (0-4); Hematocrit 34.5 % (42.0-52.0); Hemoglobin 10.7 g/dl (14.0-18.0); Imm Gran Abs Auto 0.04 X10*3/uL (0.00-0.03); Imm Gran Pct Auto 0.4 % (0.0-0.4); Lymphocytes Absolute Auto 0.7 X10*3/uL (1.2-4.9); Lymphocytes Percent Auto 7.1 % (20-40); Mean Corpuscular Volume 90.3 fL (80.0-98.0); Mean Platelet Volume 8.7 fL (9.4-12.4); Monocytes Absolute Auto 0.6 X10*3/uL (0.1-1.2); Monocytes Percent Auto 6.6 % (2-11); Neutrophils Absolute Auto 7.9 x10*3/uL (2.0-8.3); Neutrophils Percent Auto 85.7 % (45-73); Platelet Count 370 X10*3/uL (160-400); Red Blood Count 3.82 X10*6/uL (4.60-5.80); Red Cell Distribution Width 14.5 % (11.0-16.0); White Blood Count 9.3 X10*3/uL (4.8-10.8)
[2025-02-13 06:52] LABS: Anion Gap 9 (12-20); Blood Urea Nitrogen 18 mg/dL (9-16); Calcium 8.9 mg/dL (8.4-10.2); Carbon Dioxide 33 mmol/L (22-29); Chloride 99 mmol/L (96-108); Creatinine Clr Calc Pharmacy 76.3; Estimated Glomerular Filt Rate > 60; Glucose Random 82 mg/dL (60-115); Potassium 4.4 mmol/L (3.3-5.1); Sodium 137 mmol/L (135-145)
[2025-02-13 09:07] LABS: MRSA Nasal PCR NEGATIVE (Negative); SA Nasal PCR NEGATIVE (Negative)
[2025-02-13] MEDS: Metoprolol Tartrate 12.5 MG HALFTAB PO ×2 (09:21→20:57)
[2025-02-13] MEDS: Lactated Ringers 1,000 ML 80 ML IVCONT ×2 (09:21→20:56)
--- NOTE | 2025-02-13 10:30 | P.PNTS_ITS ---
Subjective Subjective Date of Service: 02/13/25 Interval history: Feels better this morning. Asking to have the chest tube out. Has had about 2L drainage. Physical Exam Vital Signs: Vital Signs: Last Vital Signs Temp 98.3 F 02/13/25 07:09 Pulse 88 02/13/25 07:09 Resp 20 02/13/25 07:09 BP 97/57 L 02/13/25 09:02 Pulse Ox 96 02/13/25 07:09 O2 Del Method Nasal Cannula 02/13/25 07:09 O2 Flow Rate 3 02/13/25 07:09 Oxygen Flow Rate 4 02/11/25 16:17 BMI result Body Mass Index 15.1 Const: General: comfortable, no acute distress and alert Nutritional Appearance: cachectic Orientation/consciousness: patient oriented x3 Chest: Other: right chest tube in place serous drainage in pleurvac, no air leak Resp: Effort & Inspection: normal respiratory effort, able to speak in complete sentences, not labored, not tachypneic and no use of accessory muscles Skin: General skin exam: no rashes or lesions noted Neuro: General: patient oriented x3 and moves all extremities Procedures Date of Service Date of Service: 02/13/25 Progress Note: A&P Assessment and plan (1) Postobstructive pneumonia: Status: Acute (2) Malignant pleural effusion: Status: Acute (3) Acute respiratory failure with hypoxia: Status: Acute Plan Right pleural effusion significantly improved, small residual effusion and air space improved. Keep chest tube in place for now as drainage remains high. Effusion likely to require and will likely require pleurex catheter placement. D iscussed with patient. Can await pathology. Time Spent With Patient Time: Total time managing care of this patient today ____ minutes. Quality Stroke Does the patient have a stroke diagnosis?: No VTE Prior VTE?: No VTE Risk Level:: Medical - moderate - high VTE Device Contraindication: Treatment Not Indicated VTE Drug Contraindication: N/A - Med Ordered
--- NOTE | 2025-02-13 12:31 | HO.PM.IMPN ---
Subjective Subjective Date of Service: 02/13/25 Interval History: chest pain at site Physical Exam Vital Signs: Vital Signs: Last Vital Signs Temp 97.5 F 02/13/25 10:54 Pulse 84 02/13/25 10:54 Resp 20 02/13/25 10:54 BP 97/66 02/13/25 10:54 Pulse Ox 96 02/13/25 10:54 O2 Del Method Nasal Cannula 02/13/25 10:54 O2 Flow Rate 3 02/13/25 10:54 Oxygen Flow Rate 4 02/11/25 16:17 BMI result Body Mass Index 15.1 Alert oriented x3, no acute distress, cachexia with right chest tube in place Objective Data Active Medications Acetaminophen (Acetaminophen 325 Mg Tablet) 650 mg PO Q6H PRN PRN Reason: Pain, Mild 1-3,fever,headache Last Admin: 02/13/25 05:54 Dose: 650 mg Documented By: TL Albuterol/Ipratropium (Albuterol/Iprat 2.5/0.5mg 3 Ml Ampul.Neb) 3 ml INHALE Q4H PRN PRN Reason: Shortness of Breath/Wheezing Calcium Carbonate (Calcium Carbonate 750 Mg Tab.Chew) 750 mg PO Q4H PRN PRN Reason: Heartburn Enoxaparin Sodium (Enoxaparin Sodium 40 Mg/0.4 Ml Syringe) 40 mg SUBCUT Q24H TE Diltiazem HCl 125 mg/ Sodium (Chloride) 125 mls @ 0 mls/hr IVCONT .Q0M [facility]; Protocol Last Titration: 02/11/25 21:56 Dose: Infused Documented By: MELISSA Lactated Ringer's (Lr) 1,000 mls @ 80 mls/hr IVCONT .[id number] [facility] Last Admin: 02/13/25 09:21 Dose: 80 mls/hr Documented By: DANNIE Magnesium Hydroxide (Milk Of Magnesia 30 Ml Oral.Susp) 30 ml PO DAILY PRN PRN Reason: Constipation Melatonin (Melatonin 3 Mg Tablet) 6 mg PO BEDTIME PRN PRN Reason: Insomnia Metoprolol Tartrate (Metoprolol Tartrate 12.5 Mg Halftab) 12.5 mg PO BID [facility]; Protocol Last Admin: 02/13/25 09:21 Dose: 12.5 mg Documented By: DANNIE Nicotine Polacrilex (Nicotine Polacrilex 2 Mg Gum) 2 mg BUCCAL Q2H PRN PRN Reason: Nicotine Cravings Sodium Chloride (0.9 % Sodium Chloride Flush 3 Ml Syringe) 3 ml IVFLUSH QSHIFT TE Last Admin: 02/13/25 09:23 Dose: Not Given Documented By: PETE Non-Admin Reason: IV Running Labs 02/13/25 05:48 02/13/25 05:48 Labs: Laboratory Results - last 24 hr 02/12/25 02/12/25 02/13/25 08:55 18:01 05:48 MCV 90.3 MCH 28.0 MCHC 31.0 RDW 14.5 Plt Count 370 MPV 8.7 L Immature Gran % (Auto) 0.4 Neut % (Auto) 85.7 H Lymph % (Auto) 7.1 L [place] % (Auto) 6.6 Eos % (Auto) 0.1 Baso % (Auto) 0.1 Lymph # (Auto) 0.7 L [place] # (Auto) 0.6 Eos # (Auto) 0.0 Baso # (Auto) 0.0 Abs Immat Gran (auto) 0.04 H Absolute Neuts (auto) 7.9 Absolute Nucleated RBC 0.000 Nucleated RBC % (auto) 0.0 Anion Gap 9 L Estim Creat Clear Calc 76.3 Estimated GFR > 60 Random Glucose 82 Calcium 8.9 Pleural WBC 0.982 Pleural RBC 0.002 Pleural Neutrophils 38 Pleural Lymphocytes 32 Pleural Monocytes 18 Pleural Other Cells 12 Nasal Screen MRSA (PCR) NEGATIVE Nasal S. aureus Screen NEGATIVE Nasal MRSA/S.aureus Interp SEE NOTE Microbiology Microbiology Results: Microbiology 02/11/25 16:07 Blood Culture - Preliminary Blood - Venous Viridans streptococcus group Staphylococcus species 02/11/25 15:46 Blood Culture - Preliminary Blood - Venous No growth after 24 hours. Assessment and Plan (1) Atrial fibrillation with rapid ventricular response: Status: Acute Plan 70M PMH 30 pack year and weight loss presented with shortness breath found to have lung mass with right effusion Acute hypoxic respiratory failure secondary to suspicion of lung cancer with malignant right effusion Doubt pneumonia Will DC antibiotics Status post chest tube continues to drain, will likely need PleurX prior to discharge Thoracic following Follow up pathology Oncology Paroxysmal AFib Now in sinus Cardiology appreciated would recommend against anticoagulation at this time Echo with reduced EF Due to low normal blood pressure would not tolerate neuro hormonal at this time Given likely metastatic malignancy unlikely to benefit from further workup Severe protein calorie malnutrition Likely due to malignancy DVT prophylaxis with Lovenox Full Code reason for continued hospitalization: Management of chest tube Quality Stroke Does the patient have a stroke diagnosis?: No VTE Prior VTE?: No VTE Risk Level:: Medical - moderate - high VTE Device Contraindication: Treatment Not Indicated VTE Drug Contraindication: N/A - Med Ordered
[2025-02-13] MEDS: Enoxaparin Sodium 40 MG/0.4 ML SYRINGE SUBCUT (20:56)
[2025-02-14] VITALS (11 sets, daily range): BP systolic 78–105; BP diastolic 52–64; PULSE 76–155; RESP 17–20; TEMP 36.1–37.2; O2SAT 92–99
[2025-02-14] MEDS: 0.9 % Sodium Chloride Flush 3 ML SYRINGE IVFLUSH ×3 (00:04→21:00)
[2025-02-14 07:56] LABS: Hematocrit 38.2 % (42.0-52.0); Hemoglobin 11.7 g/dl (14.0-18.0); Mean Corpuscular HGB Conc 30.6 g/dl (31.0-36.0); Mean Corpuscular Hemoglobin 27.7 pg (27.0-33.0); Mean Corpuscular Volume 90.3 fL (80.0-98.0); Mean Platelet Volume 10.7 fL (9.4-12.4); Platelet Count 220 X10*3/uL (160-400); Red Blood Count 4.23 X10*6/uL (4.60-5.80); Red Cell Distribution Width 14.5 % (11.0-16.0); White Blood Count 9.7 X10*3/uL (4.8-10.8)
[2025-02-14 08:09] LABS: Anion Gap 14 (12-20); Blood Urea Nitrogen 10 mg/dL (9-16); Calcium 8.7 mg/dL (8.4-10.2); Carbon Dioxide 27 mmol/L (22-29); Chloride 98 mmol/L (96-108); Estimated Glomerular Filt Rate > 60; Glucose Random 76 mg/dL (60-115); Potassium 4.7 mmol/L (3.3-5.1); Sodium 134 mmol/L (135-145)
--- NOTE | 2025-02-14 09:37 | MHC.CM.PN ---
EMR REVIEWED, PT W/RIGHT LUNG NEOPLASM AND RIGHT PLEURAL EFFUSION, CHEST TUBE REMAINS IN PLACE D/T LARGE AMT OF DRAINAGE, PER THORACIC WILL LIKELY NEED PLEUREX IN PLACE PRIOR TO DC, PT HAS NO PCP SO UNSURE IF ONCOLOGY WOULD WRITE [facility]NA ORDERS PT HAS NO PCP AT THIS TIME, CM WILL DISCUSS W/HOSPITALIST AND CONT TO FOLLOW DC NEEDS.
[2025-02-14] MEDS: 0.9 % Sodium Chloride 500 ML IV (10:20)
--- NOTE | 2025-02-14 10:47 | P.PNIM_ITS ---
Subjective Subjective Date of Service: 02/14/25 Interval History: no copmalints Physical Exam 2 Vital Signs: Vital Signs: Last Vital Signs Temp 97.5 F 02/14/25 07:05 Pulse 85 02/14/25 07:05 Resp 20 02/14/25 07:05 BP 78/52 L 02/14/25 09:43 Pulse Ox 99 02/14/25 07:05 O2 Del Method Nasal Cannula 02/14/25 07:05 O2 Flow Rate 3 02/14/25 07:05 Oxygen Flow Rate 4 02/11/25 16:17 BMI result Body Mass Index 15.1 Alert oriented x3, no acute distress, cachexia with right chest tube in place Objective Data Active Medications Acetaminophen (Acetaminophen 325 Mg Tablet) 650 mg PO Q6H PRN PRN Reason: Pain, Mild 1-3,fever,headache Last Admin: 02/13/25 05:54 Dose: 650 mg Documented By: TL Albuterol/Ipratropium (Albuterol/Iprat 2.5/0.5mg 3 Ml Ampul.Neb) 3 ml INHALE Q4H PRN PRN Reason: Shortness of Breath/Wheezing Calcium Carbonate (Calcium Carbonate 750 Mg Tab.Chew) 750 mg PO Q4H PRN PRN Reason: Heartburn Ceftriaxone Sodium (Ceftriaxone Sodium 1 Gm Vial) 1 gm IVPUSH Q24H TE Digoxin (Digoxin 0.5 Mg/2 Ml Ampul) 0.25 mg IVPUSH Q6H TE; Protocol Stop: 02/14/25 16:46 Enoxaparin Sodium (Enoxaparin Sodium 40 Mg/0.4 Ml Syringe) 40 mg SUBCUT Q24H TE Last Admin: 02/13/25 20:56 Dose: 40 mg Documented By: TL Sodium Chloride (Ns) 500 mls @ 500 mls/hr IV .Q1H TE Stop: 02/14/25 10:59 Last Admin: 02/14/25 10:20 Dose: 500 mls/hr Documented By: DANNIE Magnesium Hydroxide (Milk Of Magnesia 30 Ml Oral.Susp) 30 ml PO DAILY PRN PRN Reason: Constipation Melatonin (Melatonin 3 Mg Tablet) 6 mg PO BEDTIME PRN PRN Reason: Insomnia Metoprolol Tartrate (Metoprolol Tartrate 12.5 Mg Halftab) 12.5 mg PO BID TE; Protocol Last Admin: 02/14/25 10:14 Dose: Not Given Documented By: DANNIE Non-Admin Reason: low BP Nicotine Polacrilex (Nicotine Polacrilex 2 Mg Gum) 2 mg BUCCAL Q2H PRN PRN Reason: Nicotine Cravings Sodium Chloride (0.9 % Sodium Chloride Flush 3 Ml Syringe) 3 ml IVFLUSH QSHIFT [facility] Last Admin: 02/14/25 10:23 Dose: 3 ml Documented By: DANNIE Labs 02/14/25 06:46 02/14/25 06:46 Labs: Laboratory Results - last 24 hr 02/14/25 06:46 MCV 90.3 MCH 27.7 MCHC 30.6 L RDW 14.5 Plt Count 220 D MPV 10.7 Absolute Nucleated RBC 0.000 Nucleated RBC % (auto) 0.0 Anion Gap 14 Estim Creat Clear Calc 90.0 Estimated GFR > 60 Random Glucose 76 Calcium 8.7 Microbiology Microbiology Results: Microbiology 02/11/25 15:46 Blood Culture - Preliminary Blood - Venous No growth after 48 hours. 02/11/25 16:07 Blood Culture - Preliminary Blood - Venous Viridans streptococcus group Staphylococcus species Assessment and Plan (1) Atrial fibrillation with rapid ventricular response: Status: Acute Plan 70M PMH 30 pack year and weight loss presented with shortness breath found to have lung mass with right effusion Acute hypoxic respiratory failure secondary to suspicion of lung cancer with malignant right effusion Status post chest tube continues to drain, will likely need PleurX prior to discharge Thoracic following Follow up pathology Oncology possible pna with strep viridancs bacteremia rocephin, follow up cultures, ID Paroxysmal AFib with rvr dig, lopressor Cardiology appreciated would recommend against anticoagulation at this time Echo with reduced EF Due to low normal blood pressure would not tolerate neuro hormonal at this time Given likely metastatic malignancy unlikely to benefit from further workup Severe protein calorie malnutrition Likely due to malignancy DVT prophylaxis with Lovenox Full Code reason for continued hospitalization: Management of chest tube Quality Stroke Does the patient have a stroke diagnosis?: No VTE Prior VTE?: No VTE Risk Level:: Medical - moderate - high VTE Device Contraindication: Treatment Not Indicated VTE Drug Contraindication: N/A - Med Ordered
--- NOTE | 2025-02-14 10:55 | PM.PNTS ---
Subjective Subjective Date of Service: 02/14/25 Interval history: Denies shortness of breath. Chest tube with 850 overnight. Has not been OOB. Physical Exam Vital Signs: Vital Signs: Last Vital Signs Temp 97.5 F 02/14/25 07:05 Pulse 85 02/14/25 07:05 Resp 20 02/14/25 07:05 BP 78/52 L 02/14/25 09:43 Pulse Ox 99 02/14/25 07:05 O2 Del Method Nasal Cannula 02/14/25 07:05 O2 Flow Rate 3 02/14/25 07:05 Oxygen Flow Rate 4 02/11/25 16:17 BMI result Body Mass Index 15.1 Const: General: comfortable, no acute distress and alert Orientation/consciousness: patient oriented x3 Chest: Other: right chest tube in place serous drainage in pleurvac, no air leak Resp: Effort & Inspection: normal respiratory effort Skin: General skin exam: no rashes or lesions noted Neuro: General: patient oriented x3 and moves all extremities Procedures Date of Service Date of Service: 02/14/25 Progress Note: A&P Assessment and plan (1) Malignant pleural effusion: Status: Acute (2) Acute respiratory failure with hypoxia: Status: Acute Plan Continues with high output from chest tube. Keep chest tube in place for now. Can dc suction for ambulation. Will require pleurex catheter placement. Discussed with patient. Await cytology. Time Spent With Patient Time: Total time managing care of this patient today ____ minutes. Quality Stroke Does the patient have a stroke diagnosis?: No VTE Prior VTE?: No VTE Risk Level:: Medical - moderate - high VTE Device Contraindication: Treatment Not Indicated VTE Drug Contraindication: N/A - Med Ordered
[2025-02-14] MEDS: Digoxin 0.5 MG/2 ML AMPUL 0.25 MG IVPUSH ×2 (11:01→18:27)
[2025-02-14] MEDS: 0.9 % Sodium Chloride 500 ML 999 ML IV (11:26)
[2025-02-14 12:00] LABS: Glucose Pleural Fluid 138; Total Protein Pleural Fluid 3.2
[2025-02-14 12:01] LABS: Albumin Pleural Fluid 1.6
--- NOTE | 2025-02-14 13:30 | MHC.CLN ---
F/U PT IS SEVERELY MALNOURISHED SEE CLINICAL NUTRITION ASSESSMENT 02/12/25 PO INTAKE 75 AND 25% X 2 MEALS DIET ADVANCED TO REGULAR PT RECEIVING ENSURE TID TO IMPROVE NUTRITIONAL STATUS SUPPLEMENT PROVIDES 1050 KCALS, 60 G PROTEIN MONITOR PO INTAKE AND ENCOURAGE SUPPLEMENT
[2025-02-14] MEDS: Albumin Human 25 % 100 ML 133.33 ML IV ×2 (14:33→16:11)
--- NOTE | 2025-02-14 15:43 | PC.NURSE ---
At 9:43am went to admin AM lopressor- BP taken - 78/52. Lopressor held. Pt assessed- asymptomatic at this time. Has been in bed as chest tube R chest and attached to wall suction and O2. States feel fine/normal/no issues. Other VSS at that time. motivated - 500ml NS bolus admin. Pt then was voiding at side of bed and HR went to 150. Flipping from ST and a fib. Pt didnt feel heart was racing or any cardiac symptoms. notifed- IV digoxin admin (see JAN) at 10:59 bolus done and BP 86/52. Still a fib or SR flipping HR 80-100s. Pt remains asymptomatic, notified another 500ml NS bolus ordered and administered BP recheck at 12:00 97/57. SR on tele. Recheck BP 14:09 80/52. Pt remains asymptomatic - notified ordered 2 bags albumin. Albumin running at this time, reporting off to next RN.
--- NOTE | 2025-02-14 17:12 | P.CNID_ITS ---
History of Present Illness Data of Consult Service Date: 02/14/25 Requesting physician: Yoseph Castro Primary Care Provider: None Physician HPI Reason for consult: hypoxia He comes with weakness and shortness of breath. He has lung mass,right hilum Blood cultures 1/2 strep viridans. Review of Systems 2 Review of Systems: Yes all other systems are reviewed and are negative [facility] Past Medical History Medical History HLD (hyperlipidemia) Family History Family history: reviewed and not pertinent Social History Social History Household Members: None Housing: House Do you presently have visiting nurse or other home services: No Alcohol intake: never Patient Tobacco Use Status: Former Tobacco user service: No Meds Allergies Allergy/AdvReac Type Severity Reaction Status Date / Time No Known Allergies Allergy Verified 02/11/25 15:34 Active Medications: Current Medications Acetaminophen (Acetaminophen 325 Mg Tablet) 650 mg PO Q6H PRN PRN Reason: Pain, Mild 1-3,fever,headache Last Admin: 02/13/25 05:54 Dose: 650 mg Albuterol/Ipratropium (Albuterol/Iprat 2.5/0.5mg 3 Ml Ampul.Neb) 3 ml INHALE Q4H PRN PRN Reason: Shortness of Breath/Wheezing Calcium Carbonate (Calcium Carbonate 750 Mg Tab.Chew) 750 mg PO Q4H PRN PRN Reason: Heartburn Ceftriaxone Sodium (Ceftriaxone Sodium 1 Gm Vial) 1 gm IVPUSH Q24H TE Enoxaparin Sodium (Enoxaparin Sodium 40 Mg/0.4 Ml Syringe) 40 mg SUBCUT Q24H [facility] Last Admin: 02/13/25 20:56 Dose: 40 mg Magnesium Hydroxide (Milk Of Magnesia 30 Ml Oral.Susp) 30 ml PO DAILY PRN PRN Reason: Constipation Melatonin (Melatonin 3 Mg Tablet) 6 mg PO BEDTIME PRN PRN Reason: Insomnia Metoprolol Tartrate (Metoprolol Tartrate 12.5 Mg Halftab) 12.5 mg PO BID TE; Protocol Last Admin: 02/14/25 10:14 Dose: Not Given Nicotine Polacrilex (Nicotine Polacrilex 2 Mg Gum) 2 mg BUCCAL Q2H PRN PRN Reason: Nicotine Cravings Sodium Chloride (0.9 % Sodium Chloride Flush 3 Ml Syringe) 3 ml IVFLUSH QSHIFT [facility] Last Admin: 02/14/25 16:15 Dose: Not Given Home Medications ?Medication ?Instructions ?Recorded ?Confirmed ?Last Taken ?Type No Known Home Meds 02/11/25 02/11/25 Unknown History Physical Exam 2 Vital Signs: Vital Signs: Last Vital Signs Temp 99 F 02/14/25 16:00 Pulse 83 02/14/25 16:00 Resp 18 02/14/25 16:00 BP 94/56 L 02/14/25 16:00 Pulse Ox 96 02/14/25 16:00 O2 Del Method Nasal Cannula 02/14/25 16:00 O2 Flow Rate 3 02/14/25 16:00 Oxygen Flow Rate 4 02/11/25 16:17 BMI result Body Mass Index 15.1 Const: General: cooperative HEENT: Head: Yes normal to inspection Face and sinus: Yes normal facial exam Mouth: Normal oral and palatal mucosa present Teeth and gingiva: d entition normal Eyes: General: appearance normal, both eyes and all related structures P upils: Equal, round and reactive pupils present Resp: Effort & Inspection: normal respiratory effort Cardio: Rate: regular rate Rhythm: regular rhythm GI: Palpation (GI): Soft to palpation and nontender : General: Yes no CVA tenderness Back/Spine/Pelvis: Back: no CVA tenderness Skin: General skin exam: no rashes or lesions noted Neuro: General: moves all extremities Cranial nerves: Yes Equal, round and reactive pupils present Extrem: General: Yes normal to inspection Psych: Appearance: grossly normal Results Labs 02/14/25 06:46 02/14/25 06:46 Labs: Short CBC 02/14/25 Range/Units 06:46 WBC 9.7 (4.8-10.8) X10*3/uL Hgb 11.7 L (14.0-18.0) g/dl Hct 38.2 L (42.0-52.0) % Plt Count 220 D (160-400) X10*3/uL BMP 02/14/25 06:46 Sodium 134 L Potassium 4.7 Chloride 98 Carbon Dioxide 27 BUN 10 Creatinine 0.56 Calcium 8.7 Microbiology Microbiology Results: Microbiology 02/11/25 16:07 Blood - Venous Blood Culture - Final Viridans streptococcus group Coag negative Staphylococcus 02/11/25 15:46 Blood - Venous Blood Culture - Preliminary No growth after 48 hours. Assessment and Plan (1) Postobstructive pneumonia: Status: Acute (2) Acute respiratory failure with hypoxia: Status: Acute Plan Po Ceftin cover aspiration pneumonia 10 d discharge ,can continue Ceftriaxone for now.
[2025-02-14] MEDS: Metoprolol Tartrate 12.5 MG HALFTAB PO (20:59)
[2025-02-14] MEDS: Enoxaparin Sodium 40 MG/0.4 ML SYRINGE SUBCUT (21:00)
--- NOTE | 2025-02-15 | ECG_ITS ---
Test Reason : CP Blood Pressure : */* mmHG Vent. Rate : 143 BPM Atrial Rate : 143 BPM P-R Int : 132 ms QRS Dur : 108 ms QT Int : 272 ms P-R-T Axes : -12 42 63 degrees QTcB Int : 419 ms Sinus tachycardia Nonspecific ST and T wave abnormality Abnormal ECG When compared to the previous EKG of Vent. rate has increased Referred By: Yoseph Castro Electronically Signed By: JADE PENA MD
[2025-02-15] MEDS: Metoprolol Tartrate 5 MG/5 ML VIAL IVPUSH (03:09)
[2025-02-15 03:24] VITALS: BP 97/61; PULSE 143; RESP 18; TEMP 36.4; O2SAT 95
--- NOTE | 2025-02-15 03:46 | PC.NURSE ---
Addendum entered by Deshawn Garcia RN 02/15/25 05:54: chest tube put out approx 1500 ml last night. Dumped 1400ml from 0300 until 0600 Original Note: Patient denies cp/sob, n/v, pain at this time. H.r into the 140's approx 0300. Patient asymptomatic. MD notified, EKG administered, sinus tach. 5mg Metoprolol ordered and administered and heart rate slowed back to SR in the 70's about 20 minutes later. Blood pressure went from 101/70 to 97/61. Patient asymptomatic while lying in bed. Chest tube put out 80ml so far at 0400 of serous fluid.
[2025-02-15 07:03] LABS: Anion Gap 10 (12-20); Blood Urea Nitrogen 8 mg/dL (9-16); Calcium 8.7 mg/dL (8.4-10.2); Carbon Dioxide 32 mmol/L (22-29); Chloride 98 mmol/L (96-108); Creatinine Clr Calc Pharmacy 88.4; Estimated Glomerular Filt Rate > 60; Glucose Random 92 mg/dL (60-115); Potassium 4.3 mmol/L (3.3-5.1); Sodium 136 mmol/L (135-145)
[2025-02-15 07:40] LABS: Hematocrit 35.5 % (42.0-52.0); Hemoglobin 11.2 g/dl (14.0-18.0); Mean Corpuscular HGB Conc 31.5 g/dl (31.0-36.0); Mean Corpuscular Hemoglobin 28.2 pg (27.0-33.0); Mean Corpuscular Volume 89.4 fL (80.0-98.0); Mean Platelet Volume 8.5 fL (9.4-12.4); Platelet Count 315 X10*3/uL (160-400); Red Blood Count 3.97 X10*6/uL (4.60-5.80); Red Cell Distribution Width 14.4 % (11.0-16.0)
[2025-02-15 08:00] VITALS: BP 90/61; PULSE 76; RESP 16; TEMP 36.2; O2SAT 91
--- NOTE | 2025-02-15 08:38 | HO.PM.IMPN ---
Subjective Subjective Date of Service: 02/15/25 Interval History: no copmalints Physical Exam Vital Signs: Vital Signs: Last Vital Signs Temp 97.2 F 02/15/25 08:00 Pulse 76 02/15/25 08:00 Resp 16 02/15/25 08:00 BP 90/61 02/15/25 08:00 Pulse Ox 91 L 02/15/25 08:00 O2 Del Method Nasal Cannula 02/15/25 08:00 O2 Flow Rate 2 02/15/25 08:00 Oxygen Flow Rate 4 02/11/25 16:17 BMI result Body Mass Index 15.1 Const: General: cooperative HEENT: Head: Yes normal to inspection Face and sinus: Yes normal facial exam Mouth: Normal oral and palatal mucosa present Teeth and gingiva: dentition normal Eyes: General: appearance normal, both eyes and all related structures Pupils: Equal, round and reactive pupils present Resp: Effort & Inspection: normal respiratory effort Cardio: Rate: regular rate Rhythm: regular rhythm GI: Palpation (GI): Soft to palpation and nontender : General: Yes no CVA tenderness Back/Spine/Pelvis: Back: no CVA tenderness Skin: General skin exam: no rashes or lesions noted Neuro: General: moves all extremities Cranial nerves: Yes Equal, round and reactive pupils present Extrem: General: Yes normal to inspection Psych: Appearance: grossly normal Objective Data Active Medications Acetaminophen (Acetaminophen 325 Mg Tablet) 650 mg PO Q6H PRN PRN Reason: Pain, Mild 1-3,fever,headache Last Admin: 02/13/25 05:54 Dose: 650 mg Documented By: TL Albuterol/Ipratropium (Albuterol/Iprat 2.5/0.5mg 3 Ml Ampul.Neb) 3 ml INHALE Q4H PRN PRN Reason: Shortness of Breath/Wheezing Calcium Carbonate (Calcium Carbonate 750 Mg Tab.Chew) 750 mg PO Q4H PRN PRN Reason: Heartburn Ceftriaxone Sodium (Ceftriaxone Sodium 1 Gm Vial) 1 gm IVPUSH Q24H TE Enoxaparin Sodium (Enoxaparin Sodium 40 Mg/0.4 Ml Syringe) 40 mg SUBCUT Q24H TE Last Admin: 02/14/25 21:00 Dose: 40 mg Documented By: ELVIS Magnesium Hydroxide (Milk Of Magnesia 30 Ml Oral.Susp) 30 ml PO DAILY PRN PRN Reason: Constipation Melatonin (Melatonin 3 Mg Tablet) 6 mg PO BEDTIME PRN PRN Reason: Insomnia Metoprolol Tartrate (Metoprolol Tartrate 12.5 Mg Halftab) 12.5 mg PO BID [facility]; Protocol Last Admin: 02/14/25 20:59 Dose: 12.5 mg Documented By: ELVIS Nicotine Polacrilex (Nicotine Polacrilex 2 Mg Gum) 2 mg BUCCAL Q2H PRN PRN Reason: Nicotine Cravings Sodium Chloride (0.9 % Sodium Chloride Flush 3 Ml Syringe) 3 ml IVFLUSH QSHIFT [facility] Last Admin: 02/14/25 21:00 Dose: 3 ml Documented By: ELVIS Labs 02/15/25 06:16 02/15/25 06:16 Labs: Laboratory Results - last 24 hr 02/12/25 02/15/25 08:55 06:16 MCV 89.4 MCH 28.2 MCHC 31.5 RDW 14.4 Plt Count 315 D MPV 8.5 L Absolute Nucleated RBC 0.000 Nucleated RBC % (auto) 0.0 Anion Gap 10 L Estim Creat Clear Calc 88.4 Estimated GFR > 60 Random Glucose 92 Calcium 8.7 Pleural Total Protein 3.2 Pleural Albumin 1.6 Pleural Glucose 138 Microbiology Microbiology Results: Microbiology 02/11/25 16:07 Blood Culture - Final Blood - Venous Viridans streptococcus group Coag negative Staphylococcus Assessment and Plan (1) Atrial fibrillation with rapid ventricular response: Status: Acute Plan 70M PMH 30 pack year and weight loss presented with shortness breath found to have lung mass with right effusion Acute hypoxic respiratory failure secondary to suspicion of lung cancer with malignant right effusion Status post chest tube continues to drain, will likely need PleurX prior to discharge Thoracic following cytology negative will likely need tissue biopsy Oncology following possible pna with strep viridans in blood culture ID appreciated - strep viridans likely contaminant continue rocephin, can do ceftin on discharge Paroxysmal AFib with rvr dig, lopressor Cardiology appreciated would recommend against anticoagulation at this time Echo with reduced EF Due to low normal blood pressure would not tolerate neuro hormonal at this time Given likely metastatic malignancy unlikely to benefit from further workup Severe protein calorie malnutrition Likely due to malignancy DVT prophylaxis with Lovenox Full Code reason for continued hospitalization: Management of chest tube Quality Stroke Does the patient have a stroke diagnosis?: No VTE Prior VTE?: No VTE Risk Level:: Medical - moderate - high VTE Device Contraindication: Treatment Not Indicated VTE Drug Contraindication: N/A - Med Ordered
[2025-02-15] MEDS: Metoprolol Tartrate 12.5 MG HALFTAB PO ×2 (08:45→21:52)
[2025-02-15] MEDS: cefTRIAXone sodium 1 GM VIAL IVPUSH (08:45)
[2025-02-15] MEDS: 0.9 % Sodium Chloride Flush 3 ML SYRINGE IVFLUSH (08:53)
[2025-02-15 12:13] VITALS: BP 90/60; PULSE 72; RESP 16; TEMP 36.8; O2SAT 91
--- NOTE | 2025-02-15 13:57 | PM.PNTS ---
Subjective Subjective Date of Service: 02/15/25 Interval history: Patient has no acute respiratory issues. Still having high output from PleurX catheter. Cytology surprisingly was negative for malignancy. Physical Exam Vital Signs: Vital Signs: Last Vital Signs Temp 98.2 F 02/15/25 12:13 Pulse 72 02/15/25 12:13 Resp 16 02/15/25 12:13 BP 90/60 02/15/25 12:13 Pulse Ox 91 L 02/15/25 12:13 O2 Del Method Nasal Cannula 02/15/25 12:13 O2 Flow Rate 2 02/15/25 12:13 Oxygen Flow Rate 4 02/11/25 16:17 BMI result Body Mass Index 15.1 Chest: Other: Chest tube dressing clean dry and intact. Nearly full Pleur-evac. Procedures Date of Service Date of Service: 02/15/25 Progress Note: A&P Assessment and plan (1) Malignant pleural effusion: Status: Acute (2) Pleural effusion on right: Status: Acute (3) Acute respiratory failure with hypoxia: Status: Acute (4) Postobstructive pneumonia: Status: Acute Plan We will resend the entire Pleur-evac for repeat cytology. Pulmonary considering bronchoscopy for definitive tissue diagnosis as well. In the meantime, patient was encouraged to get out of bed/ambulate, incentive spirometer, diet as tolerated. Time Spent With Patient Time: Total time managing care of this patient today ____ minutes. Quality Stroke Does the patient have a stroke diagnosis?: No VTE Prior VTE?: No VTE Risk Level:: Medical - moderate - high VTE Device Contraindication: Treatment Not Indicated VTE Drug Contraindication: N/A - Med Ordered
[2025-02-15 15:30] VITALS: PULSE 86; TEMP 36.8; O2SAT 90
[2025-02-15] MEDS: Albumin Human 25 % 100 ML IV ×2 (16:29→21:53)
[2025-02-15 19:36] VITALS: BP 103/66; PULSE 96; RESP 19; TEMP 36.9; O2SAT 89
[2025-02-15 23:44] VITALS: BP 108/67; PULSE 94; RESP 17; TEMP 36.2; O2SAT 90
[2025-02-16] VITALS (11 sets, daily range): BP systolic 88–113; BP diastolic 55–70; PULSE 75–96; RESP 12–20; TEMP 36.2–36.9; O2SAT 90–100
[2025-02-16] MEDS: 0.9 % Sodium Chloride Flush 3 ML SYRINGE IVFLUSH ×3 (00:18→22:46)
[2025-02-16] MEDS: Metoprolol Tartrate 12.5 MG HALFTAB PO (07:58)
[2025-02-16] MEDS: cefTRIAXone sodium 1 GM VIAL IVPUSH (07:58)
--- NOTE | 2025-02-16 09:20 | MHC.SHP ---
Pre-Procedural Eval Section A - 24 Hr Update-Section A only Date of Service: 02/16/25 The patient is an INPATIENT: Yes Changes since office visit: Yes Patient answered all questions; No Cold of Flu in the past 2 weeks, No New Medical Problems and No Changes in Medication The patient has been examined within 24 hours of the surgical procedure. The History & Physical has been completed within 30 days and I have reviewed it.: Yes Section B - Complete if H&P > 30 days Chief Complaint: lung mass, PAF Allergies: Allergies Allergy/AdvReac Type Severity Reaction Status Date / Time No Known Allergies Allergy Verified 02/11/25 15:34 Plan Diagnosis/Plan: Unchanged I have reviewed the history and physical and performed a pertinent physical examination on my patient. No changes have occurred unless specified. Time Spent With Patient Time: Total time managing care of this patient today ____ minutes.
--- NOTE | 2025-02-16 09:36 | HO.PM.IMPN ---
Subjective Subjective Date of Service: 02/16/25 Interval History: chest pain Physical Exam Vital Signs: Vital Signs: Last Vital Signs Temp 97.6 F 02/16/25 07:54 Pulse 80 02/16/25 07:54 Resp 16 02/16/25 07:54 BP 113/70 02/16/25 07:54 Pulse Ox 92 02/16/25 07:54 O2 Del Method Nasal Cannula 02/16/25 07:54 O2 Flow Rate 2 02/16/25 07:54 Oxygen Flow Rate 4 02/11/25 16:17 BMI result Body Mass Index 15.1 Alert oriented x3, no acute distress, cachexia with right chest tube in place Objective Data Active Medications Acetaminophen (Acetaminophen 325 Mg Tablet) 650 mg PO Q6H PRN PRN Reason: Pain, Mild 1-3,fever,headache Last Admin: 02/13/25 05:54 Dose: 650 mg Documented By: TL Albuterol/Ipratropium (Albuterol/Iprat 2.5/0.5mg 3 Ml Ampul.Neb) 3 ml INHALE Q4H PRN PRN Reason: Shortness of Breath/Wheezing Calcium Carbonate (Calcium Carbonate 750 Mg Tab.Chew) 750 mg PO Q4H PRN PRN Reason: Heartburn Ceftriaxone Sodium (Ceftriaxone Sodium 1 Gm Vial) 1 gm IVPUSH Q24H [facility] Last Admin: 02/16/25 07:58 Dose: 1 gm Documented By: BHAVIN Enoxaparin Sodium (Enoxaparin Sodium 40 Mg/0.4 Ml Syringe) 40 mg SUBCUT Q24H [facility] Last Admin: 02/14/25 21:00 Dose: 40 mg Documented By: ELVIS Magnesium Hydroxide (Milk Of Magnesia 30 Ml Oral.Susp) 30 ml PO DAILY PRN PRN Reason: Constipation Melatonin (Melatonin 3 Mg Tablet) 6 mg PO BEDTIME PRN PRN Reason: Insomnia Metoprolol Tartrate (Metoprolol Tartrate 12.5 Mg Halftab) 12.5 mg PO BID [facility]; Protocol Last Admin: 02/16/25 07:58 Dose: 12.5 mg Documented By: BHAVIN Nicotine Polacrilex (Nicotine Polacrilex 2 Mg Gum) 2 mg BUCCAL Q2H PRN PRN Reason: Nicotine Cravings Sodium Chloride (0.9 % Sodium Chloride Flush 3 Ml Syringe) 3 ml IVFLUSH QSHIFT [facility] Last Admin: 02/16/25 07:58 Dose: 3 ml Documented By: FOSTEKR Labs 02/15/25 06:16 02/15/25 06:16 Microbiology Microbiology Results: Microbiology 02/14/25 09:29 Blood Culture - Preliminary Blood - Venous No growth after 24 hours. 02/14/25 09:29 Blood Culture - Preliminary Blood - Venous No growth after 24 hours. Assessment and Plan (1) Atrial fibrillation with rapid ventricular response: Status: Acute Plan 70M PMH 30 pack year and weight loss presented with shortness breath found to have lung mass with right effusion Acute hypoxic respiratory failure secondary to suspicion of lung cancer with malignant right effusion Status post chest tube continues to drain, will likely need PleurX prior to discharge Thoracic following cytology negative pulm appreciated - plan for bronch today Oncology following possible pna with strep viridans in blood culture ID appreciated - strep viridans likely contaminant continue rocephin, can do ceftin on discharge Paroxysmal AFib with rvr s/p dig load, lopressor Cardiology appreciated would recommend against anticoagulation at this time Echo with reduced EF Due to low normal blood pressure would not tolerate neuro hormonal at this time Given likely metastatic malignancy unlikely to benefit from further workup Severe protein calorie malnutrition Likely due to malignancy DVT prophylaxis with Lovenox Full Code reason for continued hospitalization: Management of chest tube Quality Stroke Does the patient have a stroke diagnosis?: No VTE Prior VTE?: No VTE Risk Level:: Medical - moderate - high VTE Device Contraindication: Treatment Not Indicated VTE Drug Contraindication: N/A - Med Ordered
--- NOTE | 2025-02-16 09:56 | P.CONAN_ITS ---
HPI - Anesthesia Eval Consult details Narrative: Flex bronch PMFSH Active Problems Active Problems: All Active Problems Postobstructive pneumonia (Acute) Malignant pleural effusion (Acute) Acute respiratory failure with hypoxia (Acute) Atrial fibrillation with rapid ventricular response (Acute) Pleural effusion on right (Acute) Neoplasm of right lung (Acute) Hypoxia (Acute) Past Medical History Medical History HLD (hyperlipidemia) Family History Family history of problems with anesthesia: No Surgical History History of Problems with Anesthesia: No Social History Social History Household Members: None Housing: House Do you presently have visiting nurse or other home services: No Alcohol intake: never Patient Tobacco Use Status: Former Tobacco user service: No Meds Allergies Allergy/AdvReac Type Severity Reaction Status Date / Time No Known Allergies Allergy Verified 02/11/25 15:34 Active Medications: Current Medications Acetaminophen (Acetaminophen 325 Mg Tablet) 650 mg PO Q6H PRN PRN Reason: Pain, Mild 1-3,fever,headache Last Admin: 02/13/25 05:54 Dose: 650 mg Albuterol/Ipratropium (Albuterol/Iprat 2.5/0.5mg 3 Ml Ampul.Neb) 3 ml INHALE Q4H PRN PRN Reason: Shortness of Breath/Wheezing Calcium Carbonate (Calcium Carbonate 750 Mg Tab.Chew) 750 mg PO Q4H PRN PRN Reason: Heartburn Ceftriaxone Sodium (Ceftriaxone Sodium 1 Gm Vial) 1 gm IVPUSH Q24H TE Last Admin: 02/16/25 07:58 Dose: 1 gm Enoxaparin Sodium (Enoxaparin Sodium 40 Mg/0.4 Ml Syringe) 40 mg SUBCUT Q24H TE Last Admin: 02/14/25 21:00 Dose: 40 mg Magnesium Hydroxide (Milk Of Magnesia 30 Ml Oral.Susp) 30 ml PO DAILY PRN PRN Reason: Constipation Melatonin (Melatonin 3 Mg Tablet) 6 mg PO BEDTIME PRN PRN Reason: Insomnia Metoprolol Tartrate (Metoprolol Tartrate 12.5 Mg Halftab) 12.5 mg PO BID [facility]; Protocol Last Admin: 02/16/25 07:58 Dose: 12.5 mg Nicotine Polacrilex (Nicotine Polacrilex 2 Mg Gum) 2 mg BUCCAL Q2H PRN PRN Reason: Nicotine Cravings Sodium Chloride (0.9 % Sodium Chloride Flush 3 Ml Syringe) 3 ml IVFLUSH QSHIFT [facility] Last Admin: 02/16/25 07:58 Dose: 3 ml Home Medications ?Medication ?Instructions ?Recorded ?Confirmed ?Last Taken ?Type No Known Home Meds 02/11/25 02/11/25 Unknown History Exam Height,Weight and Vital Signs: Height 6 ft Weight 50.4 kg Last Vital Signs Temp 97.6 F 02/16/25 07:54 Pulse 80 02/16/25 07:54 Resp 16 02/16/25 07:54 BP 113/70 02/16/25 07:54 Pulse Ox 92 02/16/25 07:54 O2 Del Method Nasal Cannula 02/16/25 07:54 O2 Flow Rate 2 02/16/25 07:54 Oxygen Flow Rate 4 02/11/25 16:17 Pertinent Lab Results Pertinent Lab Results: Laboratory Tests 02/11/25 02/11/25 02/11/25 15:46 15:57 16:22 WBC 14.9 H RBC 4.55 L Hgb 13.0 L Hct 40.1 L MCV 88.1 MCH 28.6 MCHC 32.4 RDW 14.8 Plt Count 513 H MPV 8.6 L Immature Gran % (Auto) 0.8 H Neut % (Auto) 89.4 H Lymph % (Auto) 5.6 L [place] % (Auto) 4.1 Eos % (Auto) 0.0 Baso % (Auto) 0.1 Lymph # (Auto) 0.8 L [place] # (Auto) 0.6 Eos # (Auto) 0.0 Baso # (Auto) 0.0 Abs Immat Gran (auto) 0.12 H Absolute Neuts (auto) 13.3 H Absolute Nucleated RBC 0.000 Nucleated RBC % (auto) 0.0 VBG pH 7.37 VBG pCO2 52 VBG pO2 32 VBG HCO3 30 H VBG O2 Saturation 40.0 VBG Base Excess 4.4 Sodium 139 Potassium 5.1 Chloride 99 Carbon Dioxide 26 Anion Gap 19 BUN 28 H Creatinine 1.08 Estim Creat Clear Calc 43.1 Estimated GFR > 60 Random Glucose 130 H Lactic Acid 3.9 H* Lactic Acid F/U @ 2Hr Calcium 10.5 H Total Bilirubin 0.6 AST 19 ALT < 6 Alkaline Phosphatase 105 Lactate Dehydrogenase Troponin I High Sens 5.0 B-Natriuretic Peptide 228 H Total Protein 7.8 Albumin 3.5 Triglycerides Cholesterol LDL Cholesterol, Calc HDL Cholesterol Lipase 19 Carcinoembryonic Ag TSH PTH Intact Urine Color Urine Appearance Urine pH Ur Specific [place] Urine Protein Urine Glucose (UA) Urine Ketones Urine Blood Urine Nitrite Ur Leukocyte Esterase Urine RBC Urine WBC Ur Squamous Epith Cells Urine Bacteria Hyaline Casts Pleural WBC Pleural RBC Pleural Neutrophils Pleural Lymphocytes Pleural Monocytes Pleural Other Cells Pleural Total Protein Pleural Albumin Pleural Glucose Nasal Screen MRSA (PCR) Nasal S. aureus Screen Nasal MRSA/S.aureus Interp Influenza Type A (PCR) NEGATIVE Influenza Type B (PCR) NEGATIVE RSV RNA Qual (PCR) NEGATIVE SARS-CoV-2 RNA (RT-PCR) NEGATIVE Blood Type O Negative Antibody Screen NEGATIVE 02/11/25 02/11/25 02/11/25 18:12 22:27 23:34 WBC RBC Hgb Hct MCV MCH MCHC RDW Plt Count MPV Immature Gran % (Auto) Neut % (Auto) Lymph % (Auto) [place] % (Auto) Eos % (Auto) Baso % (Auto) Lymph # (Auto) [place] # (Auto) Eos # (Auto) Baso # (Auto) Abs Immat Gran (auto) Absolute Neuts (auto) Absolute Nucleated RBC Nucleated RBC % (auto) VBG pH VBG pCO2 VBG pO2 VBG HCO3 VBG O2 Saturation VBG Base Excess Sodium Potassium Chloride Carbon Dioxide Anion Gap BUN Creatinine Estim Creat Clear Calc Estimated GFR Random Glucose Lactic Acid 1.9 Lactic Acid F/U @ 2Hr 1.5 Calcium Total Bilirubin AST ALT Alkaline Phosphatase Lactate Dehydrogenase Troponin I High Sens B-Natriuretic Peptide Total Protein Albumin Triglycerides Cholesterol LDL Cholesterol, Calc HDL Cholesterol Lipase Carcinoembryonic Ag TSH PTH Intact Urine Color Yellow Urine Appearance Clear Urine pH 5.0 Ur Specific [place] >= 1.030 H Urine Protein Negative Urine Glucose (UA) Negative Urine Ketones Negative Urine Blood Trace H Urine Nitrite Negative Ur Leukocyte Esterase Negative Urine RBC 0-2 Urine WBC 0-5 Ur Squamous Epith Cells 0-2 Urine Bacteria None Seen Hyaline Casts 6-10 Pleural WBC Pleural RBC Pleural Neutrophils Pleural Lymphocytes Pleural Monocytes Pleural Other Cells Pleural Total Protein Pleural Albumin Pleural Glucose Nasal Screen MRSA (PCR) Nasal S. aureus Screen Nasal MRSA/S.aureus Interp Influenza Type A (PCR) Influenza Type B (PCR) RSV RNA Qual (PCR) SARS-CoV-2 RNA (RT-PCR) Blood Type Antibody Screen 02/12/25 02/12/25 02/12/25 04:24 08:55 18:01 WBC 8.8 RBC 3.74 L Hgb 10.5 L Hct 33.0 L MCV 88.2 MCH 28.1 MCHC 31.8 RDW 14.6 Plt Count 327 D MPV 8.9 L Immature Gran % (Auto) 0.6 H Neut % (Auto) 86.3 H Lymph % (Auto) 7.9 L [place] % (Auto) 5.1 Eos % (Auto) 0.0 Baso % (Auto) 0.1 Lymph # (Auto) 0.7 L [place] # (Auto) 0.5 Eos # (Auto) 0.0 Baso # (Auto) 0.0 Abs Immat Gran (auto) 0.05 H Absolute Neuts (auto) 7.6 Absolute Nucleated RBC 0.000 Nucleated RBC % (auto) 0.0 VBG pH VBG pCO2 VBG pO2 VBG HCO3 VBG O2 Saturation VBG Base Excess Sodium 137 Potassium 4.8 Chloride 102 Carbon Dioxide 27 Anion Gap 13 BUN 22 H Creatinine 0.66 Estim Creat Clear Calc 69.6 Estimated GFR > 60 Random Glucose 129 H Lactic Acid Lactic Acid F/U @ 2Hr Calcium 9.3 D Total Bilirubin 0.3 AST 16 ALT < 6 Alkaline Phosphatase 85 Lactate Dehydrogenase 175 Troponin I High Sens B-Natriuretic Peptide Total Protein 6.2 L Albumin 2.8 L Triglycerides 94 Cholesterol 150 LDL Cholesterol, Calc 98 HDL Cholesterol 34 L Lipase Carcinoembryonic Ag 6.60 TSH 0.43 PTH Intact 35.0 Urine Color Urine Appearance Urine pH Ur Specific [place] Urine Protein Urine Glucose (UA) Urine Ketones Urine Blood Urine Nitrite Ur Leukocyte Esterase Urine RBC Urine WBC Ur Squamous Epith Cells Urine Bacteria Hyaline Casts Pleural WBC 0.982 Pleural RBC 0.002 Pleural Neutrophils 38 Pleural Lymphocytes 32 Pleural Monocytes 18 Pleural Other Cells 12 Pleural Total Protein 3.2 Pleural Albumin 1.6 Pleural Glucose 138 Nasal Screen MRSA (PCR) NEGATIVE Nasal S. aureus Screen NEGATIVE Nasal MRSA/S.aureus Interp SEE NOTE Influenza Type A (PCR) Influenza Type B (PCR) RSV RNA Qual (PCR) SARS-CoV-2 RNA (RT-PCR) Blood Type Antibody Screen 02/13/25 02/14/25 02/15/25 05:48 06:46 06:16 WBC 9.3 9.7 8.0 RBC 3.82 L 4.23 L 3.97 L Hgb 10.7 L 11.7 L 11.2 L Hct 34.5 L 38.2 L 35.5 L MCV 90.3 90.3 89.4 MCH 28.0 27.7 28.2 MCHC 31.0 30.6 L 31.5 RDW 14.5 14.5 14.4 Plt Count 370 220 D 315 D MPV 8.7 L 10.7 8.5 L Immature Gran % (Auto) 0.4 Neut % (Auto) 85.7 H Lymph % (Auto) 7.1 L [place] % (Auto) 6.6 Eos % (Auto) 0.1 Baso % (Auto) 0.1 Lymph # (Auto) 0.7 L [place] # (Auto) 0.6 Eos # (Auto) 0.0 Baso # (Auto) 0.0 Abs Immat Gran (auto) 0.04 H Absolute Neuts (auto) 7.9 Absolute Nucleated RBC 0.000 0.000 0.000 Nucleated RBC % (auto) 0.0 0.0 0.0 VBG pH VBG pCO2 VBG pO2 VBG HCO3 VBG O2 Saturation VBG Base Excess Sodium 137 134 L 136 Potassium 4.4 4.7 4.3 Chloride 99 98 98 Carbon Dioxide 33 H 27 32 H Anion Gap 9 L 14 10 L BUN 18 H 10 8 L Creatinine 0.66 0.56 0.57 Estim Creat Clear Calc 76.3 90.0 88.4 Estimated GFR > 60 > 60 > 60 Random Glucose 82 76 92 Lactic Acid Lactic Acid F/U @ 2Hr Calcium 8.9 8.7 8.7 Total Bilirubin AST ALT Alkaline Phosphatase Lactate Dehydrogenase Troponin I High Sens B-Natriuretic Peptide Total Protein Albumin Triglycerides Cholesterol LDL Cholesterol, Calc HDL Cholesterol Lipase Carcinoembryonic Ag TSH PTH Intact Urine Color Urine Appearance Urine pH Ur Specific [place] Urine Protein Urine Glucose (UA) Urine Ketones Urine Blood Urine Nitrite Ur Leukocyte Esterase Urine RBC Urine WBC Ur Squamous Epith Cells Urine Bacteria Hyaline Casts Pleural WBC Pleural RBC Pleural Neutrophils Pleural Lymphocytes Pleural Monocytes Pleural Other Cells Pleural Total Protein Pleural Albumin Pleural Glucose Nasal Screen MRSA (PCR) Nasal S. aureus Screen Nasal MRSA/S.aureus Interp Influenza Type A (PCR) Influenza Type B (PCR) RSV RNA Qual (PCR) SARS-CoV-2 RNA (RT-PCR) Blood Type Antibody Screen Airway Mallampati Class: II TM Dist: >3cm Neck ROM: Full Loose/Missing/Broken Teeth: No Heart: RRR Lungs: CTA Assessment and Plan Assessment Anesthesia Assessment: Anesthesia Plan Discussed and Chart Reviewed Final Anesthetic Review Family History of Problems with Anesthesia: No History of Problems with Anesthesia: No NPO: Yes ASA Class: III Final Preanesthetic Review: No Changes in Pt Med Stat, Meds/Allgs Chart Reviewed, Consent Obtained/Reviewed and Anes Risks/Benef Reviewed Patient Risk: Intermediate Procedure Risk: Low Anesthetic Plan Anesthetic Plan: GA Disposition: Standard PACU
--- NOTE | 2025-02-16 10:40 | P.BOP_ITS ---
Brief Operative Note Date of Service: 02/16/25 Pre-op diagnosis: Lung cancer Post-op diagnosis: same Procedure: Flexible bronchoscope advanced through the ET tube and through tracheobronchial tree with patient intubated for the procedure. On the left normal bronchial mucosa noted. On the right, proximal right mainstem bronchus is obstructed with endobronchial grape-like very friable tumor. Three endobronchial forceps biopsies performed with samples obtained and sent for further testing. Biopsy site observed and no active bleeding noted. Patient transferred to PACU in stable condition. Surgeon: Jonh Allen MD Anesthesia: GETA Was an Student Success Counselor used for this Procedure?: No Estimated blood loss (mL): 0
--- NOTE | 2025-02-16 16:13 | P.PNTS_ITS ---
Subjective Subjective Date of Service: 02/16/25 Interval history: Patient was status post bronchoscopy earlier today. Chest tube output has diminished somewhat. Patient in no acute respiratory distress. Able to converse. Physical Exam 2 Vital Signs: Vital Signs: Last Vital Signs Temp 97.7 F 02/16/25 15:32 Pulse 80 02/16/25 15:32 Resp 12 02/16/25 15:32 BP 104/64 02/16/25 15:32 Pulse Ox 96 02/16/25 15:32 O2 Del Method Nasal Cannula 02/16/25 15:32 O2 Flow Rate 2 02/16/25 15:32 Oxygen Flow Rate 4 02/11/25 16:17 BMI result Body Mass Index 15.1 Chest: Other: Chest tube dressing clean dry and intact. Pleur-evac new from yesterday has only 100 cc Procedures Date of Service Date of Service: 02/16/25 Progress Note: A&P Assessment and plan (1) Neoplasm of right lung: Status: Acute (2) Malignant pleural effusion: Status: Acute (3) Pleural effusion on right: Status: Acute (4) Acute respiratory failure with hypoxia: Status: Acute (5) Postobstructive pneumonia: Status: Acute Plan Awaiting bronchoscopy results from earlier today indirect further therapy based on these results and the patient's clinical course. This would include consideration for PleurX catheter placement and Port-A-Cath. Discussed with the patient in the understands. Time Spent With Patient Time: Total time managing care of this patient today ____ minutes. Quality Stroke Does the patient have a stroke diagnosis?: No VTE Prior VTE?: No VTE Risk Level:: Medical - moderate - high VTE Device Contraindication: Treatment Not Indicated VTE Drug Contraindication: N/A - Med Ordered
[2025-02-16] MEDS: Acetaminophen 325 MG TABLET 650 MG PO (21:49)
[2025-02-16] MEDS: HYDROmorphone HCl 0.5 MG/0.5 ML SYRINGE IVPUSH (22:41)
[2025-02-17 04:00] VITALS: BP 90/56; PULSE 53; RESP 16; TEMP 36.2; O2SAT 99
[2025-02-17 06:48] LABS: Anion Gap 13 (12-20); Blood Urea Nitrogen 15 mg/dL (9-16); Calcium 9.5 mg/dL (8.4-10.2); Carbon Dioxide 31 mmol/L (22-29); Chloride 97 mmol/L (96-108); Estimated Glomerular Filt Rate > 60; Glucose Random 105 mg/dL (60-115); Potassium 4.5 mmol/L (3.3-5.1); Sodium 136 mmol/L (135-145)
[2025-02-17 06:57] LABS: Hematocrit 37.5 % (42.0-52.0); Hemoglobin 11.3 g/dl (14.0-18.0); Mean Corpuscular HGB Conc 30.1 g/dl (31.0-36.0); Mean Corpuscular Volume 92.8 fL (80.0-98.0); Mean Platelet Volume 8.7 fL (9.4-12.4); Platelet Count 372 X10*3/uL (160-400); Red Blood Count 4.04 X10*6/uL (4.60-5.80); Red Cell Distribution Width 14.9 % (11.0-16.0); White Blood Count 9.8 X10*3/uL (4.8-10.8)
[2025-02-17 07:07] VITALS: BP 95/61; PULSE 86; RESP 18; TEMP 36.4; O2SAT 97
[2025-02-17] MEDS: Metoprolol Tartrate 12.5 MG HALFTAB PO ×2 (07:41→20:03)
--- NOTE | 2025-02-17 08:21 | HO.POSTANES ---
Post Anesthesia Evaluation Post Anesthesia Evaluation Date of Service: 02/17/25 Vital Signs: Vital Signs Temp Pulse Resp BP Pulse Ox O2 Del Method O2 Flow Rate 02/17/25 07:07 97.6 F 86 18 95/61 97 Nasal Cannula 3 02/17/25 04:00 97.1 F 53 16 90/56 L 99 Nasal Cannula 2 02/16/25 23:39 98.5 F 82 16 90/60 95 Nasal Cannula 2 Anesthesia: General Mental Status: Awake Pain Control: Satisfactory Nausea/Vomiting: None Hydration: Adequate Anesthesia-Related Issues: No Anes. Related Issues
--- NOTE | 2025-02-17 08:53 | P.PNIM_ITS ---
Subjective Subjective Date of Service: 02/17/25 Interval History: No new complaints Physical Exam 2 Vital Signs: Vital Signs: Last Vital Signs Temp 97.6 F 02/17/25 07:07 Pulse 86 02/17/25 07:07 Resp 18 02/17/25 07:07 BP 95/61 02/17/25 07:07 Pulse Ox 97 02/17/25 07:07 O2 Del Method Nasal Cannula 02/17/25 07:07 O2 Flow Rate 3 02/17/25 07:07 Oxygen Flow Rate 4 02/11/25 16:17 BMI result Body Mass Index 15.1 Chest: Other: Chest tube dressing clean dry and intact. Pleur-evac new from yesterday has only 100 cc Objective Data Active Medications Acetaminophen (Acetaminophen 325 Mg Tablet) 650 mg PO Q6H PRN PRN Reason: Pain, Mild 1-3,fever,headache Last Admin: 02/16/25 21:49 Dose: 650 mg Documented By: TRACEE Albuterol/Ipratropium (Albuterol/Iprat 2.5/0.5mg 3 Ml Ampul.Neb) 3 ml INHALE Q4H PRN PRN Reason: Shortness of Breath/Wheezing Calcium Carbonate (Calcium Carbonate 750 Mg Tab.Chew) 750 mg PO Q4H PRN PRN Reason: Heartburn Ceftriaxone Sodium (Ceftriaxone Sodium 1 Gm Vial) 1 gm IVPUSH Q24H [facility] Last Admin: 02/16/25 07:58 Dose: 1 gm Documented By: BHAVIN Enoxaparin Sodium (Enoxaparin Sodium 40 Mg/0.4 Ml Syringe) 40 mg SUBCUT Q24H [facility] Last Admin: 02/14/25 21:00 Dose: 40 mg Documented By: ELVIS Magnesium Hydroxide (Milk Of Magnesia 30 Ml Oral.Susp) 30 ml PO DAILY PRN PRN Reason: Constipation Melatonin (Melatonin 3 Mg Tablet) 6 mg PO BEDTIME PRN PRN Reason: Insomnia Metoprolol Tartrate (Metoprolol Tartrate 12.5 Mg Halftab) 12.5 mg PO BID [facility]; Protocol Last Admin: 02/17/25 07:41 Dose: 12.5 mg Documented By: DANNIE Naloxone HCl (Naloxone Hcl 0.4 Mg/Ml Vial) 0.04 mg IVPUSH Q5M PRN PRN Reason: Excessive sedation or RR < 8 Nicotine Polacrilex (Nicotine Polacrilex 2 Mg Gum) 2 mg BUCCAL Q2H PRN PRN Reason: Nicotine Cravings Sodium Chloride (0.9 % Sodium Chloride Flush 3 Ml Syringe) 3 ml IVFLUSH QSHIFT TE Last Admin: 02/16/25 22:46 Dose: 3 ml Documented By: TRACEE Labs 02/17/25 06:25 02/17/25 06:25 Labs: Laboratory Results - last 24 hr 02/17/25 06:25 MCV 92.8 MCH 28.0 MCHC 30.1 L RDW 14.9 Plt Count 372 MPV 8.7 L Absolute Nucleated RBC 0.000 Nucleated RBC % (auto) 0.0 Anion Gap 13 Estim Creat Clear Calc 84.0 Estimated GFR > 60 Random Glucose 105 Calcium 9.5 D Microbiology Microbiology Results: Microbiology 02/11/25 15:46 Blood Culture - Final Blood - Venous No growth after 5 days. 02/14/25 09:29 Blood Culture - Preliminary Blood - Venous No growth after 48 hours. 02/14/25 09:29 Blood Culture - Preliminary Blood - Venous No growth after 48 hours. Assessment and Plan (1) Atrial fibrillation with rapid ventricular response: Status: Acute Plan 70M PMH 30 pack year and weight loss presented with shortness breath found to have lung mass with right effusion Acute hypoxic respiratory failure secondary to suspicion of lung cancer with malignant right effusion Status post chest tube continues to drain, will likely need PleurX prior to discharge Thoracic following cytology negative, status post bronchoscopy and biopsy on 02/16/2025, follow up pathology Oncology following possible pna with strep viridans in blood culture ID appreciated - strep viridans likely contaminant continue rocephin, can do ceftin on discharge Paroxysmal AFib with rvr s/p dig load, lopressor Cardiology appreciated would recommend against anticoagulation at this time Echo with reduced EF Due to low normal blood pressure would not tolerate neuro hormonal at this time Given likely metastatic malignancy unlikely to benefit from further workup Severe protein calorie malnutrition due to malignancy DVT prophylaxis with Lovenox Full Code reason for continued hospitalization: Management of chest tube Quality Stroke Does the patient have a stroke diagnosis?: No VTE Prior VTE?: No VTE Risk Level:: Medical - moderate - high VTE Device Contraindication: Treatment Not Indicated VTE Drug Contraindication: N/A - Med Ordered
[2025-02-17] MEDS: 0.9 % Sodium Chloride Flush 3 ML SYRINGE IVFLUSH ×2 (09:25→16:05)
[2025-02-17] MEDS: cefTRIAXone sodium 1 GM VIAL IVPUSH (09:25)
[2025-02-17 11:06] VITALS: BP 90/58; PULSE 78; RESP 18; TEMP 36.3; O2SAT 95
--- NOTE | 2025-02-17 13:06 | MHC.CLN ---
F/U PT IS SEVERELY MALNOURISHED PO INTAKE 70% AVERAGE NOTED WT 50.4 UP 4KG SINCE ADMIT DIET ADVANCED TO REGULAR PT RECEIVING ENSURE TID TO IMPROVE NUTRITIONAL STATUS SUPPLEMENT PROVIDES 1050 KCALS, 60 G PROTEIN CONTINUE TO MONITOR PO INTAKE AND ENCOURAGE SUPPLEMENT
[2025-02-17 15:11] VITALS: BP 96/52; PULSE 82; RESP 14; TEMP 36.7; O2SAT 96
--- NOTE | 2025-02-17 16:25 | MHC.CM.PN ---
PT NOT MEDICALLY CLEARED, BIOPSY PENDING DCP TBD, [facility] SERVICES
[2025-02-17 19:07] VITALS: BP 106/54; PULSE 84; RESP 18; TEMP 36.6; O2SAT 94
[2025-02-18] VITALS (8 sets, daily range): BP systolic 85–108; BP diastolic 55–71; PULSE 79–89; RESP 16–22; TEMP 36.3–37.1; O2SAT 92–99
[2025-02-18] MEDS: 0.9 % Sodium Chloride Flush 3 ML SYRINGE IVFLUSH ×4 (00:50→21:38)
[2025-02-18 07:59] LABS: Mean Corpuscular HGB Conc 31.4 g/dl (31.0-36.0); Mean Corpuscular Hemoglobin 28.3 pg (27.0-33.0); Mean Platelet Volume 8.6 fL (9.4-12.4); Platelet Count 333 X10*3/uL (160-400); Red Blood Count 3.89 X10*6/uL (4.60-5.80); Red Cell Distribution Width 14.8 % (11.0-16.0); White Blood Count 8.7 X10*3/uL (4.8-10.8)
[2025-02-18 08:15] LABS: Anion Gap 8 (12-20); Blood Urea Nitrogen 14 mg/dL (9-16); Calcium 9.2 mg/dL (8.4-10.2); Carbon Dioxide 31 mmol/L (22-29); Chloride 98 mmol/L (96-108); Creatinine Clr Calc Pharmacy 96.9; Estimated Glomerular Filt Rate > 60; Glucose Random 89 mg/dL (60-115); Potassium 4.3 mmol/L (3.3-5.1); Sodium 133 mmol/L (135-145)
[2025-02-18] MEDS: Metoprolol Tartrate 12.5 MG HALFTAB PO (08:39)
[2025-02-18] MEDS: cefTRIAXone sodium 1 GM VIAL IVPUSH (08:40)
--- NOTE | 2025-02-18 09:25 | HO.PM.IMPN ---
Subjective Subjective Date of Service: 02/18/25 Interval History: No new complaints Physical Exam Vital Signs: Vital Signs: Last Vital Signs Temp 97.9 F 02/18/25 07:19 Pulse 81 02/18/25 07:19 Resp 20 02/18/25 07:19 BP 108/71 02/18/25 07:19 Pulse Ox 96 02/18/25 07:19 O2 Del Method Nasal Cannula 02/18/25 07:19 O2 Flow Rate 2 02/18/25 07:19 Oxygen Flow Rate 4 02/11/25 16:17 BMI result Body Mass Index 15.1 General: AO X 3, no acute distress, ill appering, cachexic Resp: diminished on right , no accessory muscles used CVS: S1,S2,RRR GI: soft, non tender, non distended Neuro: motor grossly intact, alert Psych: appropriate affect, appropriate insight Objective Data Active Medications Acetaminophen (Acetaminophen 325 Mg Tablet) 650 mg PO Q6H PRN PRN Reason: Pain, Mild 1-3,fever,headache Last Admin: 02/16/25 21:49 Dose: 650 mg Documented By: TRACEE Albuterol/Ipratropium (Albuterol/Iprat 2.5/0.5mg 3 Ml Ampul.Neb) 3 ml INHALE Q4H PRN PRN Reason: Shortness of Breath/Wheezing Calcium Carbonate (Calcium Carbonate 750 Mg Tab.Chew) 750 mg PO Q4H PRN PRN Reason: Heartburn Ceftriaxone Sodium (Ceftriaxone Sodium 1 Gm Vial) 1 gm IVPUSH Q24H [facility] Last Admin: 02/18/25 08:40 Dose: 1 gm Documented By: ELISA Enoxaparin Sodium (Enoxaparin Sodium 40 Mg/0.4 Ml Syringe) 40 mg SUBCUT Q24H [facility] Last Admin: 02/14/25 21:00 Dose: 40 mg Documented By: ELVIS Magnesium Hydroxide (Milk Of Magnesia 30 Ml Oral.Susp) 30 ml PO DAILY PRN PRN Reason: Constipation Melatonin (Melatonin 3 Mg Tablet) 6 mg PO BEDTIME PRN PRN Reason: Insomnia Metoprolol Tartrate (Metoprolol Tartrate 12.5 Mg Halftab) 12.5 mg PO BID [facility]; Protocol Last Admin: 02/18/25 08:39 Dose: 12.5 mg Documented By: ELISA Naloxone HCl (Naloxone Hcl 0.4 Mg/Ml Vial) 0.04 mg IVPUSH Q5M PRN PRN Reason: Excessive sedation or RR < 8 Nicotine Polacrilex (Nicotine Polacrilex 2 Mg Gum) 2 mg BUCCAL Q2H PRN PRN Reason: Nicotine Cravings Sodium Chloride (0.9 % Sodium Chloride Flush 3 Ml Syringe) 3 ml IVFLUSH QSHIFT [facility] Last Admin: 02/18/25 08:40 Dose: 3 ml Documented By: ELISA Labs 02/18/25 07:22 02/18/25 07:22 Labs: Laboratory Results - last 24 hr 02/18/25 07:22 MCV 90.0 MCH 28.3 MCHC 31.4 RDW 14.8 Plt Count 333 MPV 8.6 L Absolute Nucleated RBC 0.000 Nucleated RBC % (auto) 0.0 Anion Gap 8 L Estim Creat Clear Calc 96.9 Estimated GFR > 60 Random Glucose 89 Calcium 9.2 Assessment and Plan (1) Neoplasm of right lung: Status: Acute (2) Atrial fibrillation with rapid ventricular response: Status: Acute Plan 70M PMH 30 pack year and weight loss presented with shortness breath found to have lung mass with right effusion Acute hypoxic respiratory failure secondary to suspicion of lung cancer with malignant right effusion Status post chest tube continues to drain, will likely need PleurX prior to discharge Thoracic following cytology negative, status post bronchoscopy and biopsy on 02/16/2025, follow up pathology - prelim invasive squamous cell Oncology following possible pna with strep viridans in blood culture ID appreciated - strep viridans likely contaminant continue rocephin, can do ceftin on discharge Paroxysmal AFib with rvr s/p dig load, lopressor Cardiology appreciated would recommend against anticoagulation at this time Echo with reduced EF Due to low normal blood pressure would not tolerate neuro hormonal at this time Given likely metastatic malignancy unlikely to benefit from further workup Severe protein calorie malnutrition due to malignancy DVT prophylaxis with Lovenox Full Code reason for continued hospitalization: Management of chest tube Quality Stroke Does the patient have a stroke diagnosis?: No VTE Prior VTE?: No VTE Risk Level:: Medical - moderate - high VTE Device Contraindication: Treatment Not Indicated VTE Drug Contraindication: N/A - Med Ordered
--- NOTE | 2025-02-18 12:34 | PM.HEMONCPN ---
Medical Summary - Medical Summary Date of Service: 02/18/25 Chief complaint: No new complaints Primary Care Provider: None Physician Corporate Legal Assistant Utilized?: No - French Speaking Interval History Interval history: Jose Guadalupe Morales is a 70 year old male with past medical history significant for COPD, chronic smoking who presented to emergency department with complaints of shortness of breath. This has been ongoing for a couple of months associated with almost 30-40 lb weight loss. His appetite has been poor. He has chronic cough but no hemoptysis. Denies headache or dizziness. No difficulty ambulating. No focal weakness numbness or tingling. He underwent bronchoscopy and biopsy 2 days ago. Right chest tube is in place. His breathing is a bit better. Review of Systems - Neurologic Denies memory loss, Denies seizure-like activity PMFSH Medical History: Medical History (Last Reviewed 02/14/25 @ 17:13 by Nohemy Boston MD) HLD (hyperlipidemia) Family history: reviewed and not pertinent Social History: Social History (Last Reviewed 02/14/25 @ 17:13 by Nohemy Boston MD) Living Situation History: Household Members: None Housing: House Do you presently have visiting nurse or other home services: No Tobacco History: Patient Tobacco Use Status: Former Tobacco user Occupation Assessmet: service: No Home Medications and Allergies Current Medications: Current Medications Acetaminophen (Acetaminophen 325 Mg Tablet) 650 mg PO Q6H PRN PRN Reason: Pain, Mild 1-3,fever,headache Last Admin: 02/16/25 21:49 Dose: 650 mg Albuterol/Ipratropium (Albuterol/Iprat 2.5/0.5mg 3 Ml Ampul.Neb) 3 ml INHALE Q4H PRN PRN Reason: Shortness of Breath/Wheezing Calcium Carbonate (Calcium Carbonate 750 Mg Tab.Chew) 750 mg PO Q4H PRN PRN Reason: Heartburn Ceftriaxone Sodium (Ceftriaxone Sodium 1 Gm Vial) 1 gm IVPUSH Q24H [facility] Last Admin: 02/18/25 08:40 Dose: 1 gm Enoxaparin Sodium (Enoxaparin Sodium 40 Mg/0.4 Ml Syringe) 40 mg SUBCUT Q24H [facility] Last Admin: 02/14/25 21:00 Dose: 40 mg Magnesium Hydroxide (Milk Of Magnesia 30 Ml Oral.Susp) 30 ml PO DAILY PRN PRN Reason: Constipation Melatonin (Melatonin 3 Mg Tablet) 6 mg PO BEDTIME PRN PRN Reason: Insomnia Metoprolol Tartrate (Metoprolol Tartrate 12.5 Mg Halftab) 12.5 mg PO BID [facility]; Protocol Last Admin: 02/18/25 08:39 Dose: 12.5 mg Naloxone HCl (Naloxone Hcl 0.4 Mg/Ml Vial) 0.04 mg IVPUSH Q5M PRN PRN Reason: Excessive sedation or RR < 8 Nicotine Polacrilex (Nicotine Polacrilex 2 Mg Gum) 2 mg BUCCAL Q2H PRN PRN Reason: Nicotine Cravings Sodium Chloride (0.9 % Sodium Chloride Flush 3 Ml Syringe) 3 ml IVFLUSH QSHIFT [facility] Last Admin: 02/18/25 08:40 Dose: 3 ml Home Medications ?Medication ?Instructions ?Recorded ?Confirmed ?Type No Known Home Meds 02/11/25 02/11/25 History Allergies Allergy/AdvReac Type Severity Reaction Status Date / Time No Known Allergies Allergy Verified 02/11/25 15:34 Exam Vital signs: Vital Signs Temp 98.7 F 02/18/25 10:49 Pulse 80 02/18/25 10:49 Resp 20 02/18/25 10:49 BP 89/58 L 02/18/25 10:49 Pulse Ox 99 02/18/25 10:49 O2 Del Method Nasal Cannula 02/18/25 10:49 O2 Flow Rate 2 02/18/25 10:49 Intake & Output 02/17/25 02/18/25 02/18/25 18:59 06:59 18:59 Intake Total 880 / 1360 480 / 1360 Output Total 1050 / 1350 300 / 1350 Balance -170 / 10 180 / 10 Urine Output (Average ml/kg/hr) 0.50 0.50 Intake: Intake, Oral Amount 880 / 1360 480 / 1360 Output: Output, Urine Amount 300 / 300 Output, Post Void Residual 800 / 800 Amount Output, Chest Tube Drainage 250 / 250 Amount Right Anterior Chest 250 / 250 Other: Breakfast % Eaten 25% Lunch % Eaten 25% Dinner % Eaten 75% Eating (Feeding) Ability Independent Independent Urine Urinal Urinal Urine Color Yellow Tea Last Bowel Movement 02/16/25 02/16/25 Weight 50.4 kg BMI result Body Mass Index 15.1 - Constitutional Present: no acute distress, thin, chronically ill appearing - Routine HEENT Exam Head: Present: normal inspection - Routine Respiratory Exam Present: decreased breath sounds. Absent: accessory muscle use - Routine Cardiovascular Exam Cardiovascular: Present: S1, S2 - Routine Abdominal Exam Present: soft - Routine Extremities Exam Present: pulses intact - Routine Skin Exam Present: intact. Absent: cyanosis - Routine Neurological Exam Present: alert, oriented X3 Data - Labs CBC & Chem 7: 02/18/25 07:22 02/18/25 07:22 Labs: Laboratory Last Values WBC 8.7 X10*3/uL (4.8-10.8) 02/18/25 07:22 RBC 3.89 X10*6/uL (4.60-5.80) L 02/18/25 07:22 Hgb 11.0 g/dl (14.0-18.0) L 02/18/25 07:22 Hct 35.0 % (42.0-52.0) L 02/18/25 07:22 MCV 90.0 fL (80.0-98.0) 02/18/25 07:22 MCH 28.3 pg (27.0-33.0) 02/18/25 07:22 MCHC 31.4 g/dl (31.0-36.0) 02/18/25 07:22 RDW 14.8 % (11.0-16.0) 02/18/25 07:22 Plt Count 333 X10*3/uL (160-400) 02/18/25 07:22 MPV 8.6 fL (9.4-12.4) L 02/18/25 07:22 Immature Gran % (Auto) 0.4 % (0.0-0.4) 02/13/25 05:48 Neut % (Auto) 85.7 % (45-73) H 02/13/25 05:48 Lymph % (Auto) 7.1 % (20-40) L 02/13/25 05:48 [place] % (Auto) 6.6 % (2-11) 02/13/25 05:48 Eos % (Auto) 0.1 % (0-4) 02/13/25 05:48 Baso % (Auto) 0.1 % (0-2) 02/13/25 05:48 Lymph # (Auto) 0.7 X10*3/uL (1.2-4.9) L 02/13/25 05:48 [place] # (Auto) 0.6 X10*3/uL (0.1-1.2) 02/13/25 05:48 Eos # (Auto) 0.0 X10*3/uL (0.0-0.4) 02/13/25 05:48 Baso # (Auto) 0.0 X10*3/uL (0.0-0.2) 02/13/25 05:48 Abs Immat Gran (auto) 0.04 X10*3/uL (0.00-0.03) H 02/13/25 05:48 Absolute Neuts (auto) 7.9 x10*3/uL (2.0-8.3) 02/13/25 05:48 Absolute Nucleated RBC 0.000 X10*3/uL (0.0-0.012) 02/18/25 07:22 Nucleated RBC % (auto) 0.0 /100WBC (0.0-0.2) 02/18/25 07:22 VBG pH 7.37 (7.32-7.43) 02/11/25 15:57 VBG pCO2 52 mmHg 02/11/25 15:57 VBG pO2 32 mmHg 02/11/25 15:57 VBG HCO3 30 mmol/L (22-26) H 02/11/25 15:57 VBG O2 Saturation 40.0 % 02/11/25 15:57 VBG Base Excess 4.4 mmol/L 02/11/25 15:57 Sodium 133 mmol/L (135-145) L 02/18/25 07:22 Potassium 4.3 mmol/L (3.3-5.1) 02/18/25 07:22 Chloride 98 mmol/L (96-108) 02/18/25 07:22 Carbon Dioxide 31 mmol/L (22-29) H 02/18/25 07:22 Anion Gap 8 (12-20) L 02/18/25 07:22 BUN 14 mg/dL (9-16) 02/18/25 07:22 Creatinine 0.52 mg/dL (0.5-1.4) 02/18/25 07:22 Estim Creat Clear Calc 96.9 02/18/25 07:22 Estimated GFR > 60 02/18/25 07:22 Random Glucose 89 mg/dL (60-115) 02/18/25 07:22 Lactic Acid 1.9 mmol/L (0.5-2.0) 02/11/25 23:34 Lactic Acid F/U @ 2Hr 1.5 mmol/L (0.5-2.0) 02/11/25 18:12 Calcium 9.2 mg/dL (8.4-10.2) 02/18/25 07:22 Total Bilirubin 0.3 mg/dL (0.0-1.0) 02/12/25 04:24 AST 16 U/L (5-37) 02/12/25 04:24 ALT < 6 U/L (0-40) 02/12/25 04:24 Alkaline Phosphatase 85 U/L (39-117) 02/12/25 04:24 Lactate Dehydrogenase 175 U/L (118-273) 02/12/25 04:24 Troponin I High Sens 5.0 ng/L (<3.5-35.0) 02/11/25 15:46 B-Natriuretic Peptide 228 pg/mL (<100) H 02/11/25 15:46 Total Protein 6.2 g/dL (6.5-8.0) L 02/12/25 04:24 Albumin 2.8 g/dL (3.5-5.0) L 02/12/25 04:24 Triglycerides 94 mg/dL (<150) 02/12/25 04:24 Cholesterol 150 mg/dL (<200) 02/12/25 04:24 LDL Cholesterol, Calc 98 mg/dL (<100) 02/12/25 04:24 HDL Cholesterol 34 mg/dL (>40) L 02/12/25 04:24 Lipase 19 U/L (8-78) 02/11/25 15:46 Carcinoembryonic Ag 6.60 ng/mL 02/12/25 04:24 TSH 0.43 uIU/mL (0.32-4.0) 02/12/25 04:24 PTH Intact 35.0 pg/mL (8.7-77.1) 02/12/25 04:24 Urine Color Yellow 02/11/25 22:27 Urine Appearance Clear 02/11/25 22:27 Urine pH 5.0 (5.0-9.0) 02/11/25 22: Ur Specific [place] >= 1.030 (1.005-1.025) H 02/11/25 22: Urine Protein Negative mg/dL (Neg-Trace) 02/11/25 22: Urine Glucose (UA) Negative mg/dL (Negative) 02/11/25 22: Urine Ketones Negative mg/dL (Negative) 02/11/25 22: Urine Blood Trace (Negative) H 02/11/25 22: Urine Nitrite Negative (Negative) 02/11/25 22: Ur Leukocyte Esterase Negative (Negative) 02/11/25 22: Urine RBC 0-2 /HPF (0-2) 02/11/25 22: Urine WBC 0-5 /HPF (0-5) 02/11/25 22: Ur Squamous Epith Cells 0-2 /HPF (0-2) 02/11/25 22: Urine Bacteria None Seen (None Seen) 02/11/25 22: Hyaline Casts 6-10 /LPF (0-2) 02/11/25 22: Pleural WBC 0.982 X10*3/uL 02/12/25 08:55 Pleural RBC 0.002 X10*6/uL 02/12/25 08:55 Pleural Neutrophils 38 % 02/12/25 08:55 Pleural Lymphocytes 32 % 02/12/25 08:55 Pleural Monocytes 18 % 02/12/25 08:55 Pleural Other Cells 12 % 02/12/25 08:55 Pleural Total Protein 3.2 02/12/25 08:55 Pleural Albumin 1.6 02/12/25 08:55 Pleural Glucose 138 02/12/25 08:55 Nasal Screen MRSA (PCR) NEGATIVE (Negative) 02/12/25 18:01 Nasal S. aureus Screen NEGATIVE (Negative) 02/12/25 18:01 Nasal MRSA/S.aureus Interp SEE NOTE 02/12/25 18:01 Influenza Type A (PCR) NEGATIVE (Negative) 02/11/25 15:46 Influenza Type B (PCR) NEGATIVE (Negative) 02/11/25 15:46 RSV RNA Qual (PCR) NEGATIVE (Negative) 02/11/25 15:46 SARS-CoV-2 RNA (RT-PCR) NEGATIVE (Negative) 02/11/25 15:46 Blood Type O Negative 02/11/25 16:22 Antibody Screen NEGATIVE 02/11/25 16:22 - Imaging Radiologist's impression: ITS Impressions Chest X-Ray 02/12/25 08:10 IMPRESSION: 1. Right-sided chest tube in place. Moderate right pneumothorax. 2. Atelectasis or pneumonia in the right mid and lower lung zones. Electronically signed by: Christopher Pineda MD 02/12/2025 08:31 AM EDT RP Chest X-Ray 02/13/25 07:00 IMPRESSION: Right-sided chest tube in place. Small right pneumothorax. Electronically signed by: Christopher Pienda MD 02/13/2025 07:27 AM EDT RP Assessment and Plan Patient Active problem list reviewed?: Yes (1) Neoplasm of right lung Status: Acute Assessment and plan: 1. This is a 70-year-old male, chronic smoker presenting with large right lung mass and pleural effusion concerning for malignancy. CT angiogram performed 02/11/2025 showed large subcarinal mass in the right hilum measuring 7.5 cm completely obstructing right mainstem bronchus, large right pleural effusion and consolidation in the right lower and middle lobes. Patient has had diagnostic and therapeutic right paracentesis, he has a chest tube in place. Fluid cytology was negative. LDH is not elevated, CEA is marginally elevated at 6.6 NG/mL. He underwent bronchoscopy and biopsy of lung mass on 02/17/2025. 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 I discussed this with the patient. He will need staging workup with PET scan and brain MRI. Further recommendations about treatment will be made after molecular testing. Unfortunately his echocardiogram shows severely reduced ejection fraction between 20-25%. He will be getting a PleurX catheter before discharge home. He plans to live with his sister. I discussed goals of treatment, palliative systemic therapy will be offered. I will be happy to see him upon discharge. - Time Spent With Patient Time Spent with Patient (in minutes): 20
[2025-02-18] MEDS: Albumin Human 25 % 100 ML 133.33 ML IV ×2 (22:28→23:18)
[2025-02-18 22:35] LABS: Lactic Acid 1.1 mmol/L (0.5-2.0)
[2025-02-19] VITALS (7 sets, daily range): BP systolic 90–112; BP diastolic 56–65; PULSE 54–89; RESP 18–20; TEMP 36.4–37.3; O2SAT 94–99
--- NOTE | 2025-02-19 | ECG_ITS ---
Test Reason : rate Blood Pressure : */* mmHG Vent. Rate : 105 BPM Atrial Rate : 147 BPM P-R Int : 128 ms QRS Dur : 108 ms QT Int : 304 ms P-R-T Axes : 14 58 95 degrees QTcB Int : 401 ms Normal sinus rhythm with frequent Premature atrial complexes Minimal voltage criteria for LVH, may be normal variant ( Odin product ) Nonspecific T wave abnormality Abnormal ECG When compared with ECG of 15-Feb-2025 02:52, ST no longer depressed in Inferior leads Inverted T waves have replaced nonspecific T wave abnormality in Lateral leads Referred By: Duran Brown Electronically Signed By: JADE PENA MD
[2025-02-19 04:24] LABS: Parathyroid Hormone Related Pr 11 pg/mL (11-20)
[2025-02-19] MEDS: cefTRIAXone sodium 1 GM VIAL IVPUSH (07:19)
[2025-02-19] MEDS: 0.9 % Sodium Chloride Flush 3 ML SYRINGE IVFLUSH ×3 (07:19→21:16)
[2025-02-19] MEDS: Metoprolol Tartrate 12.5 MG HALFTAB PO (07:19)
--- NOTE | 2025-02-19 13:29 | MHC.CLN ---
F/U PT IS SEVERELY MALNOURISHED PO INTAKE VARIABLE DIET RX: REGULAR PT RECEIVING ENSURE TID TO IMPROVE NUTRITIONAL STATUS SUPPLEMENT PROVIDES 1050 KCALS, 60 G PROTEIN WITH 100% ACCEPTANCE CONTINUE TO MONITOR PO INTAKE AND ENCOURAGE SUPPLEMENT
--- NOTE | 2025-02-19 14:01 | MHC.CM.PN ---
Addendum entered by Lali Mckenzie RN 02/19/25 15:34: CM RECEIVED CALL FROM DR. SMITH AND REPORTS HE WILL CALL [facility] OFFICE AND HAVE [employer]ER SET UP A NEW PT APPT FOR PT. Original Note: EMR REVIEWED, PT LUNG MASS/PAF AND CHEST TUBE IN PLACE, PER HOSPITALIST PLAN FOR PLEUREX CATH ON MONDAY AND POSSIBLE DC MONDAY, CM MET W/PT TO DISCUSS DISPO, PT REPORTS HE WILL BE STAYING W/HIS BROTHER VINCE AT [address] [place] [address] [place] H:[phone] C: [phone] FOR NOW AND WHILE HE IS RECEIVING TX. PER [facility] TATUM SMITH WILL COVER VNA REFERRALS FOR PT, [facility] [place] [facility], [facility] DID RECEIVE INSTRUCTIONS TO SEND DR. SMITH A WORKLOAD MESSAGE HOWEVER CM DOES NOT HAVE ACCESS TO THAT AND WILL SEND TIGER.
--- NOTE | 2025-02-19 15:19 | P.PNIM_ITS ---
Subjective Subjective Date of Service: 02/19/25 Interval History: seen and evaluated feels better overall chest tube draining no other overnight events Review of Systems Review of Systems: Yes all other systems are reviewed and are negative Physical Exam 2 Vital Signs: Vital Signs: Last Vital Signs Temp 98.7 F 02/19/25 10:55 Pulse 75 02/19/25 10:55 Resp 20 02/19/25 10:55 BP 90/56 L 02/19/25 10:55 Pulse Ox 96 02/19/25 10:55 O2 Del Method Nasal Cannula 02/19/25 10:55 O2 Flow Rate 2 02/19/25 10:55 Oxygen Flow Rate 4 02/11/25 16:17 BMI result Body Mass Index 15.1 Const: Other: Constitutional : interactive, not in distress Cardiovascular : no JVP, no lower extremity edema Respiratory : bilateral chest movement, not in resp distress , decreased air entry over right side, Right sided chest tube in place Gastrointestinal: soft, lax, Non tender Skin : Warm, Dry Neurological : Alert & oriented , No focal deficit Objective Data Active Medications Acetaminophen (Acetaminophen 325 Mg Tablet) 650 mg PO Q6H PRN PRN Reason: Pain, Mild 1-3,fever,headache Last Admin: 02/16/25 21:49 Dose: 650 mg Documented By: TRACEE Calcium Carbonate (Calcium Carbonate 750 Mg Tab.Chew) 750 mg PO Q4H PRN PRN Reason: Heartburn Ceftriaxone Sodium (Ceftriaxone Sodium 1 Gm Vial) 1 gm IVPUSH Q24H [facility] Last Admin: 02/19/25 07:19 Dose: 1 gm Documented By: SILVANO Enoxaparin Sodium (Enoxaparin Sodium 40 Mg/0.4 Ml Syringe) 40 mg SUBCUT Q24H [facility] Last Admin: 02/14/25 21:00 Dose: 40 mg Documented By: ELVIS Magnesium Hydroxide (Milk Of Magnesia 30 Ml Oral.Susp) 30 ml PO DAILY PRN PRN Reason: Constipation Melatonin (Melatonin 3 Mg Tablet) 6 mg PO BEDTIME PRN PRN Reason: Insomnia Metoprolol Tartrate (Metoprolol Tartrate 12.5 Mg Halftab) 12.5 mg PO BID [facility]; Protocol Last Admin: 02/19/25 07:19 Dose: 12.5 mg Documented By: SILVANO Naloxone HCl (Naloxone Hcl 0.4 Mg/Ml Vial) 0.04 mg IVPUSH Q5M PRN PRN Reason: Excessive sedation or RR < 8 Nicotine Polacrilex (Nicotine Polacrilex 2 Mg Gum) 2 mg BUCCAL Q2H PRN PRN Reason: Nicotine Cravings Sodium Chloride (0.9 % Sodium Chloride Flush 3 Ml Syringe) 3 ml IVFLUSH QSHIFT [facility] Last Admin: 02/19/25 07:19 Dose: 3 ml Documented By: SILVANO Labs 02/18/25 07:22 02/18/25 07:22 Labs: Laboratory Results - last 24 hr 02/12/25 02/18/25 05:10 21:50 Lactic Acid 1.1 PTH Related Protein 11 Microbiology Microbiology Results: Microbiology 02/14/25 09:29 Blood Culture - Final Blood - Venous No growth after 5 days. 02/14/25 09:29 Blood Culture - Final Blood - Venous No growth after 5 days. Assessment and Plan (1) Postobstructive pneumonia: Status: Acute (2) Malignant pleural effusion: Status: Acute (3) Acute respiratory failure with hypoxia: Status: Acute Plan 70M PMH 30 pack year and weight loss presented with shortness breath found to have lung mass with right effusion Acute hypoxic respiratory failure secondary to suspicion of lung cancer with malignant right effusion Status post chest tube continues to drain, will likely need PleurX on Monday Thoracic following cytology negative, status post bronchoscopy and biopsy on 02/16/2025, follow up pathology - prelim invasive squamous cell Oncology following possible pna with strep viridans in blood culture ID appreciated - strep viridans likely contaminant continue rocephin, can do ceftin on discharge Paroxysmal AFib with rvr s/p dig load, lopressor Cardiology appreciated would recommend against anticoagulation at this time Echo with reduced EF Due to low normal blood pressure would not tolerate neuro hormonal at this time Given likely metastatic malignancy unlikely to benefit from further workup Severe protein calorie malnutrition due to malignancy DVT prophylaxis with Lovenox Full Code reason for continued hospitalization: Management of chest tube and pending Pleurix cath placement Quality Stroke Does the patient have a stroke diagnosis?: No VTE Prior VTE?: No VTE Risk Level:: Medical - moderate - high VTE Device Contraindication: Treatment Not Indicated VTE Drug Contraindication: N/A - Med Ordered
[2025-02-19] MEDS: guaiFEN/Codeine SF 200/20/10ML 10 ML LIQUID PO (21:49)
[2025-02-20] VITALS (10 sets, daily range): BP systolic 76–108; BP diastolic 54–70; PULSE 83–119; RESP 16–20; TEMP 36.4–37; O2SAT 91–96
--- NOTE | 2025-02-20 | ECG_ITS ---
Test Reason : tachycardia Blood Pressure : */* mmHG Vent. Rate : 95 BPM Atrial Rate : 95 BPM P-R Int : 128 ms QRS Dur : 114 ms QT Int : 344 ms P-R-T Axes : 85 41 77 degrees QTcB Int : 432 ms Normal sinus rhythm Minimal voltage criteria for LVH, may be normal variant ( Ck product ) Nonspecific ST abnormality Abnormal ECG When compared with ECG of 19-Feb-2025 22:45, Premature ventricular complexes are no longer Present Sinus rhythm is no longer with 2nd degree A-V block (Mobitz I) Nonspecific T wave abnormality no longer evident in Lateral leads QT has shortened Referred By: Duran Brown Electronically Signed By: JADE PENA MD
[2025-02-20] MEDS: Metoprolol Tartrate 5 MG/5 ML VIAL IVPUSH (01:33)
--- NOTE | 2025-02-20 03:11 | PC.NURSE ---
Addendum entered by Carola Escobar RN 02/20/25 06:18: 0400: LR 1000 bolus ordered and given with good effect. Repeat BP 92/56 Original Note: 2112: Pt BP 96/64 - asymptomatic, MD Brown made aware. Scheduled PO metoprolol held per . 2242: Pt HR tachy to 110's- 115's sustaining - asymptomatic. aware. EKG obtained. No new orders at this time. 0042: Pt HR tachy to 160's sustaining for over 6 mins - asymptomatic. MD Brown made aware. EKG ordered - showing SVT. BP 102/65. IVP metoprolol 5mg ordered and given with good effect. HR controlled in 90's. 0154: Pt rhythm irregular ranging from afib/ aflutter to NSR. Rate controlled at 90's. MD Brown made aware. No new orders at this time. 0330: BP manually 76/56 - asymptomatic. MD Brown made aware
--- NOTE | 2025-02-20 03:54 | PM.EVENT ---
Event Note Date of Service: 02/20/25 Event Note: Patient went into SVT and was given 5 mg IV Lopressor. Subsequently heart rate controlled but irregular. Patient's blood pressure dropped. Will resuscitated with IV crystalloid bolus. Hypotension due to Lopressor use, not sepsis Time Spent With Patient Time: Total time managing care of this patient today ____ minutes.
[2025-02-20] MEDS: Lactated Ringers 1,000 ML 999 ML IV (04:06)
[2025-02-20 05:43] LABS: Lactic Acid 1.4 mmol/L (0.5-2.0)
[2025-02-20 07:24] LABS: MANUAL DIFF FLAG NO
[2025-02-20 07:33] LABS: Basophils Percent Auto 0.3 % (0-2); Eosinophils Absolute Auto 0.1 X10*3/uL (0.0-0.4); Hematocrit 32.7 % (42.0-52.0); Hemoglobin 10.4 g/dl (14.0-18.0); Imm Gran Abs Auto 0.06 X10*3/uL (0.00-0.03); Imm Gran Pct Auto 0.7 % (0.0-0.4); Lymphocytes Absolute Auto 0.9 X10*3/uL (1.2-4.9); Lymphocytes Percent Auto 10.1 % (20-40); Mean Corpuscular HGB Conc 31.8 g/dl (31.0-36.0); Mean Corpuscular Hemoglobin 28.3 pg (27.0-33.0); Mean Corpuscular Volume 89.1 fL (80.0-98.0); Mean Platelet Volume 8.6 fL (9.4-12.4); Monocytes Absolute Auto 0.9 X10*3/uL (0.1-1.2); Monocytes Percent Auto 9.8 % (2-11); Neutrophils Absolute Auto 7.2 x10*3/uL (2.0-8.3); Neutrophils Percent Auto 78.1 % (45-73); Platelet Count 291 X10*3/uL (160-400); Red Blood Count 3.67 X10*6/uL (4.60-5.80); Red Cell Distribution Width 14.8 % (11.0-16.0); White Blood Count 9.2 X10*3/uL (4.8-10.8)
[2025-02-20 07:48] LABS: Anion Gap 11 (12-20); Blood Urea Nitrogen 15 mg/dL (9-16); Calcium 9.1 mg/dL (8.4-10.2); Carbon Dioxide 30 mmol/L (22-29); Chloride 99 mmol/L (96-108); Creatinine Clr Calc Pharmacy 100.8; Estimated Glomerular Filt Rate > 60; Glucose Random 93 mg/dL (60-115); Potassium 4.6 mmol/L (3.3-5.1); Sodium 135 mmol/L (135-145)
[2025-02-20] MEDS: Albumin Human 25 % 100 ML IV ×3 (07:56→20:28)
[2025-02-20] MEDS: cefTRIAXone sodium 1 GM VIAL IVPUSH (07:57)
[2025-02-20] MEDS: 0.9 % Sodium Chloride Flush 3 ML SYRINGE IVFLUSH ×2 (07:57→20:32)
--- NOTE | 2025-02-20 09:59 | MHC.SHP ---
Pre-Procedural Eval Section A - 24 Hr Update-Section A only Date of Service: 02/21/25 The patient is an INPATIENT: Yes Changes since office visit: No Cold of Flu in the past 2 weeks, No New Medical Problems, No Changes in Medication and No Patient answered all questions Section B - Complete if H&P > 30 days Chief Complaint: lung mass, PAF Allergies: Allergies Allergy/AdvReac Type Severity Reaction Status Date / Time No Known Allergies Allergy Verified 02/11/25 15:34 Review of Systems Sugical H&P ROS: Negative: Constitution, Cardiovascular, Respiratory, Neurological, Psychiatric, Hem-Onc, Allergic/Immunologic, Gastrointestinal, Genitourinary, Musculoskeletal, Integumentary, Endocrine and Eyes/Ears/Nose/Throat Exam Surgical H&P Exam: Normal: HEENT, Normal: Heart, Normal: Lungs, Normal: Extremities, Normal: Abdomen, Normal: Skin and Normal: Neurological Plan I have reviewed the history and physical and performed a pertinent physical examination on my patient. No changes have occurred unless specified. Time Spent With Patient Time: Total time managing care of this patient today ____ minutes.
--- NOTE | 2025-02-20 10:01 | PM.PNTS ---
Subjective Subjective Date of Service: 02/20/25 <Jade Aguirre PA-C - Last Filed: 02/20/25 10:12> 02/20/25 <Tee Miles MD - Last Filed: 02/20/25 10:53> Interval history: Feels ok. Denies shortness of breath. Has been ambulating some. <Jade Aguirre PA-C - Last Filed: 02/20/25 10:12> Physical Exam Vital Signs: Vital Signs: Last Vital Signs Temp 98.5 F 02/20/25 07:14 Pulse 109 H 02/20/25 07:14 Resp 20 02/20/25 07:14 BP 90/54 L 02/20/25 07:14 Pulse Ox 94 02/20/25 07:14 O2 Del Method Nasal Cannula 02/20/25 07:14 O2 Flow Rate 2 02/20/25 07:14 Oxygen Flow Rate 4 02/11/25 16:17 BMI result Body Mass Index 15.1 <Jade Aguirre PA-C - Last Filed: 02/20/25 10:12> Const: General: comfortable, no acute distress and alert <Jade Aguirre PA-C - Last Filed: 02/20/25 10:12> Orientation/consciousness: patient oriented x3 <Jade Aguirre PA-C - Last Filed: 02/20/25 10:12> Resp: Effort & Inspection: normal respiratory effort, able to speak in complete sentences, not labored and uses accessory muscles <Jade Aguirre PA-C - Last Filed: 02/20/25 10:12> Skin: General skin exam: no rashes or lesions noted <Jade Aguirre PA-C - Last Filed: 02/20/25 10:12> Neuro: General: patient oriented x3 and moves all extremities <Jade Aguirre PA-C - Last Filed: 02/20/25 10:12> Procedures Date of Service Date of Service: 02/20/25 <Jade Aguirre PA-C - Last Filed: 02/20/25 10:12> 02/20/25 <Tee Miles MD - Last Filed: 02/20/25 10:53> Progress Note: A&P Assessment and plan (1) Malignant pleural effusion: Status: Acute <Jade Aguirre PA-C - Last Filed: 02/20/25 10:12> Assessment and Plan: Presented with right pleural effusion requiring chest tube placement, subcarinal mass with extensive lymphadenopathy on CT scan concerning for malignant process. Cytology from pleural fluid initially negative. Underwent bronch with bronchial biopsy showing invasive squamous cell carcinoma with necrosis. Chest tube continues with serous appearing output. F/u CXR likely with trapped lung. Discussed he will continue to have recurrence of pleural effusion and therefore recommended to proceed with right pleurex catheter and port placement tomorrow. He is in agreement. NPO after midnight. <Jade Aguirre PA-C - Last Filed: 02/20/25 10:12> Presented with right pleural effusion requiring chest tube placement, subcarinal mass with extensive lymphadenopathy on CT scan concerning for malignant process. Cytology from pleural fluid initially negative. Underwent bronch with bronchial biopsy showing invasive squamous cell carcinoma with necrosis. Chest tube continues with serous appearing output. F/u CXR likely with trapped lung. Discussed he will continue to have recurrence of pleural effusion and therefore recommended to proceed with right pleurex catheter and port placement tomorrow. He is in agreement. NPO after midnight. As noted above <Tee Miles MD - Last Filed: 02/20/25 10:53> Time Spent With Patient Time: Total time managing care of this patient today ____ minutes. <Jade Aguirre PA-C - Last Filed: 02/20/25 10:12> Quality Stroke Does the patient have a stroke diagnosis?: No <Jade Aguirre PA-C - Last Filed: 02/20/25 10:12> VTE Prior VTE?: No <Jade Aguirre PA-C - Last Filed: 02/20/25 10:12> VTE Risk Level:: Medical - moderate - high <JOHN Hernandez Last Filed: 02/20/25 10:12> VTE Device Contraindication: Treatment Not Indicated <JOHN Hernandez Last Filed: 02/20/25 10:12> VTE Drug Contraindication: N/A - Med Ordered <Jade Aguirre PA-C - Last Filed: 02/20/25 10:12>
[2025-02-20] MEDS: Digoxin 0.5 MG/2 ML AMPUL 0.25 MG IVPUSH ×2 (10:45→15:53)
--- NOTE | 2025-02-20 12:07 | HO.PM.IMPN ---
Subjective Subjective Date of Service: 02/20/25 Interval History: seen and evaluated feels better overall chest tube draining very minimal amount no other overnight events Review of Systems Review of Systems: Yes all other systems are reviewed and are negative Physical Exam Vital Signs: Vital Signs: Last Vital Signs Temp 98.6 F 02/20/25 10:54 Pulse 112 H 02/20/25 10:54 Resp 20 02/20/25 10:54 BP 96/56 L 02/20/25 10:54 Pulse Ox 94 02/20/25 10:54 O2 Del Method Nasal Cannula 02/20/25 10:54 O2 Flow Rate 2 02/20/25 10:54 Oxygen Flow Rate 4 02/11/25 16:17 BMI result Body Mass Index 15.1 Const: Other: Constitutional : interactive, not in distress Cardiovascular : no JVP, no lower extremity edema Respiratory : bilateral chest movement, not in resp distress , decreased air entry over right side, Right sided chest tube in place Gastrointestinal: soft, lax, Non tender Skin : Warm, Dry Neurological : Alert & oriented , No focal deficit Objective Data Active Medications Acetaminophen (Acetaminophen 325 Mg Tablet) 650 mg PO Q6H PRN PRN Reason: Pain, Mild 1-3,fever,headache Last Admin: 02/16/25 21:49 Dose: 650 mg Documented By: TRACEE Calcium Carbonate (Calcium Carbonate 750 Mg Tab.Chew) 750 mg PO Q4H PRN PRN Reason: Heartburn Ceftriaxone Sodium (Ceftriaxone Sodium 1 Gm Vial) 1 gm IVPUSH Q24H [facility] Last Admin: 02/20/25 07:57 Dose: 1 gm Documented By: SILVANO Digoxin (Digoxin 0.5 Mg/2 Ml Ampul) 0.25 mg IVPUSH Q6H [facility]; Protocol Stop: 02/20/25 16:46 Last Admin: 02/20/25 10:45 Dose: 0.25 mg Documented By: SILVANO Digoxin (Digoxin 0.125 Mg Tablet) 0.125 mg PO DAILY [facility]; Protocol Enoxaparin Sodium (Enoxaparin Sodium 40 Mg/0.4 Ml Syringe) 40 mg SUBCUT Q24H [facility] Last Admin: 02/14/25 21:00 Dose: 40 mg Documented By: ELVIS Guaifenesin/Codeine Phosphate (Guaifen/Codeine Sf 200/20/10ml 10 Ml Liquid) 10 ml PO Q4H PRN PRN Reason: Cough Last Admin: 02/19/25 21:49 Dose: 10 ml Documented By: ANTOINC Albumin Human (Kedbumin 25 %) 100 mls @ 100 mls/hr IV Q6H [facility] Stop: 02/21/25 02:44 Last Infusion: 02/20/25 09:01 Dose: Infused Documented By: SILVANO Magnesium Hydroxide (Milk Of Magnesia 30 Ml Oral.Susp) 30 ml PO DAILY PRN PRN Reason: Constipation Melatonin (Melatonin 3 Mg Tablet) 6 mg PO BEDTIME PRN PRN Reason: Insomnia Metoprolol Tartrate (Metoprolol Tartrate 12.5 Mg Halftab) 12.5 mg PO BID [facility]; Protocol Last Admin: 02/20/25 07:15 Dose: Not Given Documented By: SILVANO Non-Admin Reason: Low BP Naloxone HCl (Naloxone Hcl 0.4 Mg/Ml Vial) 0.04 mg IVPUSH Q5M PRN PRN Reason: Excessive sedation or RR < 8 Nicotine Polacrilex (Nicotine Polacrilex 2 Mg Gum) 2 mg BUCCAL Q2H PRN PRN Reason: Nicotine Cravings Sodium Chloride (0.9 % Sodium Chloride Flush 3 Ml Syringe) 3 ml IVFLUSH QSHIFT [facility] Last Admin: 02/20/25 07:57 Dose: 3 ml Documented By: SILVANO Labs 02/20/25 07:23 02/20/25 07:23 Labs: Laboratory Results - last 24 hr 02/20/25 02/20/25 04:17 07:23 MCV 89.1 MCH 28.3 MCHC 31.8 RDW 14.8 Plt Count 291 MPV 8.6 L Immature Gran % (Auto) 0.7 H Neut % (Auto) 78.1 H Lymph % (Auto) 10.1 L [place] % (Auto) 9.8 Eos % (Auto) 1.0 Baso % (Auto) 0.3 Lymph # (Auto) 0.9 L [place] # (Auto) 0.9 Eos # (Auto) 0.1 Baso # (Auto) 0.0 Abs Immat Gran (auto) 0.06 H Absolute Neuts (auto) 7.2 Absolute Nucleated RBC 0.000 Nucleated RBC % (auto) 0.0 Anion Gap 11 L Estim Creat Clear Calc 100.8 Estimated GFR > 60 Random Glucose 93 Lactic Acid 1.4 Calcium 9.1 Microbiology Microbiology Results: Microbiology 02/14/25 09:29 Blood Culture - Final Blood - Venous No growth after 5 days. 02/14/25 09:29 Blood Culture - Final Blood - Venous No growth after 5 days. Assessment and Plan (1) Postobstructive pneumonia: Status: Acute (2) Malignant pleural effusion: Status: Acute (3) Acute respiratory failure with hypoxia: Status: Acute (4) Pleural effusion on right: Status: Acute Plan 70M PMH 30 pack year and weight loss presented with shortness breath found to have lung mass with right effusion Acute hypoxic respiratory failure secondary to suspicion of lung cancer with malignant right effusion Status post chest tube continues to drain minimal amount today CXR showing likely trapped lung will need PleurX placement tomorrow Thoracic following cytology negative, status post bronchoscopy and biopsy on 02/16/2025, 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 Oncology following NPO post midnight possible pna with strep viridans in blood culture ID appreciated - strep viridans likely contaminant continue rocephin, can do ceftin on discharge Hypotension seems chronic related to malnutrition, malignancy, not due to severe sepsis give albumin Add Midodrine and IVF maintenance Paroxysmal AFib with rvr hold lopressor given low BP load with Digoxin now Cardiology recommends against anticoagulation at this time Echo with reduced EF between 20-25% Due to low normal blood pressure would not tolerate neuro hormonal at this time Severe protein calorie malnutrition due to malignancy Ensure DVT prophylaxis with Lovenox Full Code reason for continued hospitalization: Management of chest tube and pending Pleurix cath placement Quality Stroke Does the patient have a stroke diagnosis?: No VTE Prior VTE?: No VTE Risk Level:: Medical - moderate - high VTE Device Contraindication: Treatment Not Indicated VTE Drug Contraindication: N/A - Med Ordered
[2025-02-20] MEDS: Midodrine HCl 5 MG TABLET PO ×3 (13:16→20:26)
[2025-02-20] MEDS: 0.9 % Sodium Chloride 1,000 ML 75 ML IVCONT (13:17)
[2025-02-20] MEDS: Metoprolol Tartrate 12.5 MG HALFTAB PO (20:26)
[2025-02-20] MEDS: Melatonin 3 MG TABLET 6 MG PO (22:41)
[2025-02-21] VITALS (10 sets, daily range): BP systolic 98–123; BP diastolic 59–76; PULSE 71–95; RESP 14–24; TEMP 35.7–36.7; O2SAT 90–100
[2025-02-21] MEDS: Albumin Human 25 % 100 ML IV (01:39)
[2025-02-21 06:48] LABS: MANUAL DIFF FLAG NO
[2025-02-21 07:02] LABS: Basophils Percent Auto 0.6 % (0-2); Eosinophils Absolute Auto 0.1 X10*3/uL (0.0-0.4); Eosinophils Percent Auto 1.5 % (0-4); Hematocrit 29.8 % (42.0-52.0); Hemoglobin 9.2 g/dl (14.0-18.0); Imm Gran Abs Auto 0.05 X10*3/uL (0.00-0.03); Imm Gran Pct Auto 0.7 % (0.0-0.4); Lymphocytes Absolute Auto 0.8 X10*3/uL (1.2-4.9); Lymphocytes Percent Auto 11.4 % (20-40); Mean Corpuscular HGB Conc 30.9 g/dl (31.0-36.0); Mean Corpuscular Hemoglobin 28.1 pg (27.0-33.0); Mean Corpuscular Volume 91.1 fL (80.0-98.0); Mean Platelet Volume 8.5 fL (9.4-12.4); Monocytes Absolute Auto 0.6 X10*3/uL (0.1-1.2); Monocytes Percent Auto 8.9 % (2-11); Neutrophils Absolute Auto 5.5 x10*3/uL (2.0-8.3); Neutrophils Percent Auto 76.9 % (45-73); Platelet Count 241 X10*3/uL (160-400); Red Blood Count 3.27 X10*6/uL (4.60-5.80); Red Cell Distribution Width 14.8 % (11.0-16.0); White Blood Count 7.1 X10*3/uL (4.8-10.8)
[2025-02-21 07:08] LABS: Anion Gap 10 (12-20); Blood Urea Nitrogen 14 mg/dL (9-16); Calcium 9.2 mg/dL (8.4-10.2); Carbon Dioxide 31 mmol/L (22-29); Chloride 102 mmol/L (96-108); Creatinine Clr Calc Pharmacy 100.8; Estimated Glomerular Filt Rate > 60; Glucose Random 79 mg/dL (60-115); Potassium 4.2 mmol/L (3.3-5.1); Sodium 139 mmol/L (135-145)
[2025-02-21] MEDS: Midodrine HCl 5 MG TABLET PO ×3 (07:54→20:14)
[2025-02-21] MEDS: cefTRIAXone sodium 1 GM VIAL IVPUSH (07:54)
[2025-02-21] MEDS: Metoprolol Tartrate 12.5 MG HALFTAB PO ×2 (07:54→20:14)
[2025-02-21] MEDS: Digoxin 0.125 MG TABLET PO (07:54)
[2025-02-21] MEDS: 0.9 % Sodium Chloride Flush 3 ML SYRINGE IVFLUSH ×2 (07:55→15:44)
[2025-02-21] MEDS: 0.9 % Sodium Chloride 1,000 ML 75 ML IVCONT ×2 (08:01→15:44)
--- NOTE | 2025-02-21 11:41 | MHC.CM.PN ---
Per rounds, pt. is not ready to DC, DCP is his brother's home in [place] with [facility] services, he may need home O2, eval tomorrow.
--- NOTE | 2025-02-21 11:46 | HO.ANESPROP2 ---
FORM[facility]LY [facility] Active Problems Active Problems: All Active Problems Postobstructive pneumonia (Acute) Malignant pleural effusion (Acute) Acute respiratory failure with hypoxia (Acute) Atrial fibrillation with rapid ventricular response (Acute) Pleural effusion on right (Acute) Neoplasm of right lung (Acute) Hypoxia (Acute) Past Medical History Medical History Hx of hypotension Hx of supraventricular tachycardia Palpitations Atrial fibrillation HLD (hyperlipidemia) Family History Family history of problems with anesthesia: No Surgical History Surgical History H/O chest tube placement History of Problems with Anesthesia: No Social History Social History Household Members: None Housing: House Do you presently have visiting nurse or other home services: No Alcohol intake: never Patient Tobacco Use Status: Former Tobacco user service: No Meds Allergies Allergy/AdvReac Type Severity Reaction Status Date / Time No Known Allergies Allergy Verified 02/11/25 15:34 Active Medications: Current Medications Acetaminophen (Acetaminophen 325 Mg Tablet) 650 mg PO Q6H PRN PRN Reason: Pain, Mild 1-3,fever,headache Last Admin: 02/16/25 21:49 Dose: 650 mg Calcium Carbonate (Calcium Carbonate 750 Mg Tab.Chew) 750 mg PO Q4H PRN PRN Reason: Heartburn Ceftriaxone Sodium (Ceftriaxone Sodium 1 Gm Vial) 1 gm IVPUSH Q24H [facility] Last Admin: 02/21/25 07:54 Dose: 1 gm Digoxin (Digoxin 0.125 Mg Tablet) 0.125 mg PO DAILY [facility]; Protocol Last Admin: 02/21/25 07:54 Dose: 0.125 mg Enoxaparin Sodium (Enoxaparin Sodium 40 Mg/0.4 Ml Syringe) 40 mg SUBCUT Q24H [facility] Last Admin: 02/14/25 21:00 Dose: 40 mg Guaifenesin/Codeine Phosphate (Guaifen/Codeine Sf 200/20/10ml 10 Ml Liquid) 10 ml PO Q4H PRN PRN Reason: Cough Last Admin: 02/19/25 21:49 Dose: 10 ml Sodium Chloride (Ns) 1,000 mls @ 75 mls/hr IVCONT .[id number] [facility] Last Admin: 02/21/25 08:01 Dose: 75 mls/hr Magnesium Hydroxide (Milk Of Magnesia 30 Ml Oral.Susp) 30 ml PO DAILY PRN PRN Reason: Constipation Melatonin (Melatonin 3 Mg Tablet) 6 mg PO BEDTIME PRN PRN Reason: Insomnia Last Admin: 02/20/25 22:41 Dose: 6 mg Metoprolol Tartrate (Metoprolol Tartrate 12.5 Mg Halftab) 12.5 mg PO BID [facility]; Protocol Last Admin: 02/21/25 07:54 Dose: 12.5 mg Midodrine (Midodrine Hcl 5 Mg Tablet) 5 mg PO TID [facility] Last Admin: 02/21/25 07:54 Dose: 5 mg Naloxone HCl (Naloxone Hcl 0.4 Mg/Ml Vial) 0.04 mg IVPUSH Q5M PRN PRN Reason: Excessive sedation or RR < 8 Nicotine Polacrilex (Nicotine Polacrilex 2 Mg Gum) 2 mg BUCCAL Q2H PRN PRN Reason: Nicotine Cravings Sodium Chloride (0.9 % Sodium Chloride Flush 3 Ml Syringe) 3 ml IVFLUSH QSHIFT [facility] Last Admin: 02/21/25 07:55 Dose: 3 ml Home Medications ?Medication ?Instructions ?Recorded ?Confirmed ?Last Taken ?Type No Known Home Meds 02/11/25 02/11/25 Unknown History Exam Height,Weight and Vital Signs: Height 6 ft Weight 50.4 kg Last Vital Signs Temp 98 F 02/21/25 10:58 Pulse 71 02/21/25 10:58 Resp 24 H 02/21/25 10:58 BP 115/64 02/21/25 10:58 Pulse Ox 94 02/21/25 10:58 O2 Del Method Nasal Cannula 02/21/25 10:58 O2 Flow Rate 2 02/21/25 10:58 Oxygen Flow Rate 4 02/11/25 16:17 Pertinent Lab Results Pertinent Lab Results: Laboratory Tests 02/11/25 02/11/25 02/11/25 15:46 15:57 16:22 WBC 14.9 H RBC 4.55 L Hgb 13.0 L Hct 40.1 L MCV 88.1 MCH 28.6 MCHC 32.4 RDW 14.8 Plt Count 513 H MPV 8.6 L Immature Gran % (Auto) 0.8 H Neut % (Auto) 89.4 H Lymph % (Auto) 5.6 L [place] % (Auto) 4.1 Eos % (Auto) 0.0 Baso % (Auto) 0.1 Lymph # (Auto) 0.8 L [place] # (Auto) 0.6 Eos # (Auto) 0.0 Baso # (Auto) 0.0 Abs Immat Gran (auto) 0.12 H Absolute Neuts (auto) 13.3 H Absolute Nucleated RBC 0.000 Nucleated RBC % (auto) 0.0 VBG pH 7.37 VBG pCO2 52 VBG pO2 32 VBG HCO3 30 H VBG O2 Saturation 40.0 VBG Base Excess 4.4 Sodium 139 Potassium 5.1 Chloride 99 Carbon Dioxide 26 Anion Gap 19 BUN 28 H Creatinine 1.08 Estim Creat Clear Calc 43.1 Estimated GFR > 60 Random Glucose 130 H Lactic Acid 3.9 H* Lactic Acid F/U @ 2Hr Calcium 10.5 H Total Bilirubin 0.6 AST 19 ALT < 6 Alkaline Phosphatase 105 Lactate Dehydrogenase Troponin I High Sens 5.0 B-Natriuretic Peptide 228 H Total Protein 7.8 Albumin 3.5 Triglycerides Cholesterol LDL Cholesterol, Calc HDL Cholesterol Lipase 19 Carcinoembryonic Ag TSH PTH Intact PTH Related Protein Urine Color Urine Appearance Urine pH Ur Specific [place] Urine Protein Urine Glucose (UA) Urine Ketones Urine Blood Urine Nitrite Ur Leukocyte Esterase Urine RBC Urine WBC Ur Squamous Epith Cells Urine Bacteria Hyaline Casts Pleural WBC Pleural RBC Pleural Neutrophils Pleural Lymphocytes Pleural Monocytes Pleural Other Cells Pleural Total Protein Pleural Albumin Pleural Glucose Nasal Screen MRSA (PCR) Nasal S. aureus Screen Nasal MRSA/S.aureus Interp Influenza Type A (PCR) NEGATIVE Influenza Type B (PCR) NEGATIVE RSV RNA Qual (PCR) NEGATIVE SARS-CoV-2 RNA (RT-PCR) NEGATIVE Blood Type O Negative Antibody Screen NEGATIVE 02/11/25 02/11/25 02/11/25 18:12 22:27 23:34 WBC RBC Hgb Hct MCV MCH MCHC RDW Plt Count MPV Immature Gran % (Auto) Neut % (Auto) Lymph % (Auto) [place] % (Auto) Eos % (Auto) Baso % (Auto) Lymph # (Auto) [place] # (Auto) Eos # (Auto) Baso # (Auto) Abs Immat Gran (auto) Absolute Neuts (auto) Absolute Nucleated RBC Nucleated RBC % (auto) VBG pH VBG pCO2 VBG pO2 VBG HCO3 VBG O2 Saturation VBG Base Excess Sodium Potassium Chloride Carbon Dioxide Anion Gap BUN Creatinine Estim Creat Clear Calc Estimated GFR Random Glucose Lactic Acid 1.9 Lactic Acid F/U @ 2Hr 1.5 Calcium Total Bilirubin AST ALT Alkaline Phosphatase Lactate Dehydrogenase Troponin I High Sens B-Natriuretic Peptide Total Protein Albumin Triglycerides Cholesterol LDL Cholesterol, Calc HDL Cholesterol Lipase Carcinoembryonic Ag TSH PTH Intact PTH Related Protein Urine Color Yellow Urine Appearance Clear Urine pH 5.0 Ur Specific [place] >= 1.030 H Urine Protein Negative Urine Glucose (UA) Negative Urine Ketones Negative Urine Blood Trace H Urine Nitrite Negative Ur Leukocyte Esterase Negative Urine RBC 0-2 Urine WBC 0-5 Ur Squamous Epith Cells 0-2 Urine Bacteria None Seen Hyaline Casts 6-10 Pleural WBC Pleural RBC Pleural Neutrophils Pleural Lymphocytes Pleural Monocytes Pleural Other Cells Pleural Total Protein Pleural Albumin Pleural Glucose Nasal Screen MRSA (PCR) Nasal S. aureus Screen Nasal MRSA/S.aureus Interp Influenza Type A (PCR) Influenza Type B (PCR) RSV RNA Qual (PCR) SARS-CoV-2 RNA (RT-PCR) Blood Type Antibody Screen 02/12/25 02/12/25 02/12/25 04:24 05:10 08:55 WBC 8.8 RBC 3.74 L Hgb 10.5 L Hct 33.0 L MCV 88.2 MCH 28.1 MCHC 31.8 RDW 14.6 Plt Count 327 D MPV 8.9 L Immature Gran % (Auto) 0.6 H Neut % (Auto) 86.3 H Lymph % (Auto) 7.9 L [place] % (Auto) 5.1 Eos % (Auto) 0.0 Baso % (Auto) 0.1 Lymph # (Auto) 0.7 L [place] # (Auto) 0.5 Eos # (Auto) 0.0 Baso # (Auto) 0.0 Abs Immat Gran (auto) 0.05 H Absolute Neuts (auto) 7.6 Absolute Nucleated RBC 0.000 Nucleated RBC % (auto) 0.0 VBG pH VBG pCO2 VBG pO2 VBG HCO3 VBG O2 Saturation VBG Base Excess Sodium 137 Potassium 4.8 Chloride 102 Carbon Dioxide 27 Anion Gap 13 BUN 22 H Creatinine 0.66 Estim Creat Clear Calc 69.6 Estimated GFR > 60 Random Glucose 129 H Lactic Acid Lactic Acid F/U @ 2Hr Calcium 9.3 D Total Bilirubin 0.3 AST 16 ALT < 6 Alkaline Phosphatase 85 Lactate Dehydrogenase 175 Troponin I High Sens B-Natriuretic Peptide Total Protein 6.2 L Albumin 2.8 L Triglycerides 94 Cholesterol 150 LDL Cholesterol, Calc 98 HDL Cholesterol 34 L Lipase Carcinoembryonic Ag 6.60 TSH 0.43 PTH Intact 35.0 PTH Related Protein 11 Urine Color Urine Appearance Urine pH Ur Specific [place] Urine Protein Urine Glucose (UA) Urine Ketones Urine Blood Urine Nitrite Ur Leukocyte Esterase Urine RBC Urine WBC Ur Squamous Epith Cells Urine Bacteria Hyaline Casts Pleural WBC 0.982 Pleural RBC 0.002 Pleural Neutrophils 38 Pleural Lymphocytes 32 Pleural Monocytes 18 Pleural Other Cells 12 Pleural Total Protein 3.2 Pleural Albumin 1.6 Pleural Glucose 138 Nasal Screen MRSA (PCR) Nasal S. aureus Screen Nasal MRSA/S.aureus Interp Influenza Type A (PCR) Influenza Type B (PCR) RSV RNA Qual (PCR) SARS-CoV-2 RNA (RT-PCR) Blood Type Antibody Screen 02/12/25 02/13/25 02/14/25 18:01 05:48 06:46 WBC 9.3 9.7 RBC 3.82 L 4.23 L Hgb 10.7 L 11.7 L Hct 34.5 L 38.2 L MCV 90.3 90.3 MCH 28.0 27.7 MCHC 31.0 30.6 L RDW 14.5 14.5 Plt Count 370 220 D MPV 8.7 L 10.7 Immature Gran % (Auto) 0.4 Neut % (Auto) 85.7 H Lymph % (Auto) 7.1 L [place] % (Auto) 6.6 Eos % (Auto) 0.1 Baso % (Auto) 0.1 Lymph # (Auto) 0.7 L [place] # (Auto) 0.6 Eos # (Auto) 0.0 Baso # (Auto) 0.0 Abs Immat Gran (auto) 0.04 H Absolute Neuts (auto) 7.9 Absolute Nucleated RBC 0.000 0.000 Nucleated RBC % (auto) 0.0 0.0 VBG pH VBG pCO2 VBG pO2 VBG HCO3 VBG O2 Saturation VBG Base Excess Sodium 137 134 L Potassium 4.4 4.7 Chloride 99 98 Carbon Dioxide 33 H 27 Anion Gap 9 L 14 BUN 18 H 10 Creatinine 0.66 0.56 Estim Creat Clear Calc 76.3 90.0 Estimated GFR > 60 > 60 Random Glucose 82 76 Lactic Acid Lactic Acid F/U @ 2Hr Calcium 8.9 8.7 Total Bilirubin AST ALT Alkaline Phosphatase Lactate Dehydrogenase Troponin I High Sens B-Natriuretic Peptide Total Protein Albumin Triglycerides Cholesterol LDL Cholesterol, Calc HDL Cholesterol Lipase Carcinoembryonic Ag TSH PTH Intact PTH Related Protein Urine Color Urine Appearance Urine pH Ur Specific [place] Urine Protein Urine Glucose (UA) Urine Ketones Urine Blood Urine Nitrite Ur Leukocyte Esterase Urine RBC Urine WBC Ur Squamous Epith Cells Urine Bacteria Hyaline Casts Pleural WBC Pleural RBC Pleural Neutrophils Pleural Lymphocytes Pleural Monocytes Pleural Other Cells Pleural Total Protein Pleural Albumin Pleural Glucose Nasal Screen MRSA (PCR) NEGATIVE Nasal S. aureus Screen NEGATIVE Nasal MRSA/S.aureus Interp SEE NOTE Influenza Type A (PCR) Influenza Type B (PCR) RSV RNA Qual (PCR) SARS-CoV-2 RNA (RT-PCR) Blood Type Antibody Screen 02/15/25 02/17/25 02/18/25 06:16 06:25 07:22 WBC 8.0 9.8 8.7 RBC 3.97 L 4.04 L 3.89 L Hgb 11.2 L 11.3 L 11.0 L Hct 35.5 L 37.5 L 35.0 L MCV 89.4 92.8 90.0 MCH 28.2 28.0 28.3 MCHC 31.5 30.1 L 31.4 RDW 14.4 14.9 14.8 Plt Count 315 D 372 333 MPV 8.5 L 8.7 L 8.6 L Immature Gran % (Auto) Neut % (Auto) Lymph % (Auto) [place] % (Auto) Eos % (Auto) Baso % (Auto) Lymph # (Auto) [place] # (Auto) Eos # (Auto) Baso # (Auto) Abs Immat Gran (auto) Absolute Neuts (auto) Absolute Nucleated RBC 0.000 0.000 0.000 Nucleated RBC % (auto) 0.0 0.0 0.0 VBG pH VBG pCO2 VBG pO2 VBG HCO3 VBG O2 Saturation VBG Base Excess Sodium 136 136 133 L Potassium 4.3 4.5 4.3 Chloride 98 97 98 Carbon Dioxide 32 H 31 H 31 H Anion Gap 10 L 13 8 L BUN 8 L 15 14 Creatinine 0.57 0.60 0.52 Estim Creat Clear Calc 88.4 84.0 96.9 Estimated GFR > 60 > 60 > 60 Random Glucose 92 105 89 Lactic Acid Lactic Acid F/U @ 2Hr Calcium 8.7 9.5 D 9.2 Total Bilirubin AST ALT Alkaline Phosphatase Lactate Dehydrogenase Troponin I High Sens B-Natriuretic Peptide Total Protein Albumin Triglycerides Cholesterol LDL Cholesterol, Calc HDL Cholesterol Lipase Carcinoembryonic Ag TSH PTH Intact PTH Related Protein Urine Color Urine Appearance Urine pH Ur Specific [place] Urine Protein Urine Glucose (UA) Urine Ketones Urine Blood Urine Nitrite Ur Leukocyte Esterase Urine RBC Urine WBC Ur Squamous Epith Cells Urine Bacteria Hyaline Casts Pleural WBC Pleural RBC Pleural Neutrophils Pleural Lymphocytes Pleural Monocytes Pleural Other Cells Pleural Total Protein Pleural Albumin Pleural Glucose Nasal Screen MRSA (PCR) Nasal S. aureus Screen Nasal MRSA/S.aureus Interp Influenza Type A (PCR) Influenza Type B (PCR) RSV RNA Qual (PCR) SARS-CoV-2 RNA (RT-PCR) Blood Type Antibody Screen 02/18/25 02/20/25 02/20/25 21:50 04:17 07:23 WBC 9.2 RBC 3.67 L Hgb 10.4 L Hct 32.7 L MCV 89.1 MCH 28.3 MCHC 31.8 RDW 14.8 Plt Count 291 MPV 8.6 L Immature Gran % (Auto) 0.7 H Neut % (Auto) 78.1 H Lymph % (Auto) 10.1 L [place] % (Auto) 9.8 Eos % (Auto) 1.0 Baso % (Auto) 0.3 Lymph # (Auto) 0.9 L [place] # (Auto) 0.9 Eos # (Auto) 0.1 Baso # (Auto) 0.0 Abs Immat Gran (auto) 0.06 H Absolute Neuts (auto) 7.2 Absolute Nucleated RBC 0.000 Nucleated RBC % (auto) 0.0 VBG pH VBG pCO2 VBG pO2 VBG HCO3 VBG O2 Saturation VBG Base Excess Sodium 135 Potassium 4.6 Chloride 99 Carbon Dioxide 30 H Anion Gap 11 L BUN 15 Creatinine 0.50 Estim Creat Clear Calc 100.8 Estimated GFR > 60 Random Glucose 93 Lactic Acid 1.1 1.4 Lactic Acid F/U @ 2Hr Calcium 9.1 Total Bilirubin AST ALT Alkaline Phosphatase Lactate Dehydrogenase Troponin I High Sens B-Natriuretic Peptide Total Protein Albumin Triglycerides Cholesterol LDL Cholesterol, Calc HDL Cholesterol Lipase Carcinoembryonic Ag TSH PTH Intact PTH Related Protein Urine Color Urine Appearance Urine pH Ur Specific [place] Urine Protein Urine Glucose (UA) Urine Ketones Urine Blood Urine Nitrite Ur Leukocyte Esterase Urine RBC Urine WBC Ur Squamous Epith Cells Urine Bacteria Hyaline Casts Pleural WBC Pleural RBC Pleural Neutrophils Pleural Lymphocytes Pleural Monocytes Pleural Other Cells Pleural Total Protein Pleural Albumin Pleural Glucose Nasal Screen MRSA (PCR) Nasal S. aureus Screen Nasal MRSA/S.aureus Interp Influenza Type A (PCR) Influenza Type B (PCR) RSV RNA Qual (PCR) SARS-CoV-2 RNA (RT-PCR) Blood Type Antibody Screen 02/21/25 02/21/25 06:42 08:22 WBC 7.1 RBC 3.27 L Hgb 9.2 L Hct 29.8 L MCV 91.1 MCH 28.1 MCHC 30.9 L RDW 14.8 Plt Count 241 MPV 8.5 L Immature Gran % (Auto) 0.7 H Neut % (Auto) 76.9 H Lymph % (Auto) 11.4 L [place] % (Auto) 8.9 Eos % (Auto) 1.5 Baso % (Auto) 0.6 Lymph # (Auto) 0.8 L [place] # (Auto) 0.6 Eos # (Auto) 0.1 Baso # (Auto) 0.0 Abs Immat Gran (auto) 0.05 H Absolute Neuts (auto) 5.5 Absolute Nucleated RBC 0.000 Nucleated RBC % (auto) 0.0 VBG pH VBG pCO2 VBG pO2 VBG HCO3 VBG O2 Saturation VBG Base Excess Sodium 139 Potassium 4.2 Chloride 102 Carbon Dioxide 31 H Anion Gap 10 L BUN 14 Creatinine 0.50 Estim Creat Clear Calc 100.8 Estimated GFR > 60 Random Glucose 79 Lactic Acid Lactic Acid F/U @ 2Hr Calcium 9.2 Total Bilirubin AST ALT Alkaline Phosphatase Lactate Dehydrogenase Troponin I High Sens B-Natriuretic Peptide Total Protein Albumin Triglycerides Cholesterol LDL Cholesterol, Calc HDL Cholesterol Lipase Carcinoembryonic Ag TSH PTH Intact PTH Related Protein Urine Color Urine Appearance Urine pH Ur Specific [place] Urine Protein Urine Glucose (UA) Urine Ketones Urine Blood Urine Nitrite Ur Leukocyte Esterase Urine RBC Urine WBC Ur Squamous Epith Cells Urine Bacteria Hyaline Casts Pleural WBC Pleural RBC Pleural Neutrophils Pleural Lymphocytes Pleural Monocytes Pleural Other Cells Pleural Total Protein Pleural Albumin Pleural Glucose Nasal Screen MRSA (PCR) Nasal S. aureus Screen Nasal MRSA/S.aureus Interp Influenza Type A (PCR) Influenza Type B (PCR) RSV RNA Qual (PCR) SARS-CoV-2 RNA (RT-PCR) Blood Type O Negative Antibody Screen NEGATIVE Airway Mallampati Class: II (edentulous) TM Dist: >3cm Neck ROM: Limited Loose/Missing/Broken Teeth: Yes, Upper and Lower Heart: RRR Lungs: diminished breath sounds throughout Assessment and Plan Assessment Anesthesia Assessment: Anesthesia Plan Discussed and Chart Reviewed Final Anesthetic Review Family History of Problems with Anesthesia: No History of Problems with Anesthesia: No NPO: Yes ASA Class: IV Final Preanesthetic Review: Meds/Allgs Chart Reviewed, Consent Obtained/Reviewed and Anes Risks/Benef Reviewed Patient Risk: High Procedure Risk: Intermediate Anesthetic Plan Anesthetic Plan: MAC: Disposition: Standard PACU
--- NOTE | 2025-02-21 12:34 | P.OP_ITS ---
Operative Note Operative Note Date of Service: 02/21/25 Narrative: Preoperative diagnosis: [] [place]- regionally advanced right lung cancer. Recurrent malignant pleural effusion Postop diagnosis: [] The same Procedure [] 1. Right internal jugular vein Port-A-Cath placement with Doppler ultrasound guidance and fluoroscopy 2. PleurX catheter placement with fluoroscopy Surgeon: [] Jd Pipeline Controller: [] Timothy Type of Anesthesia: [] MAC Indication for surgery: [] Indication as noted above recurrent right pleural effusion. Local regionally advanced lung cancer for chemotherapy. Findings: [] Patient brought to the operating room, placed on operative table in supine position, after an adequate level of MAC anesthesia was induced, patient was right neck and chest were prepped and draped in usual sterile fashion. Using Doppler ultrasound guidance, the right internal jugular vein was identified and cannulated using Seldinger technique. A wire was advanced level of superior vena cava under fluoroscopic guidance. A pocket was fashioned a proximally 4 fingerbreadths below the cannulation site, and tunneled through the wire. Catheter was placed through the subcutaneous tunnel, connected to a port, the port secured to the pocket using 3-0 Vicryl sutures. Dilating sheath was then placed over the wire again under fluoroscopic guidance in the wire retrieved. Pre hep flush catheter was advanced over the dilating sheath to the level of superior vena cava. Peel-away sheath was removed without incident. Antegrade and retrograde flow were established. Wounds were irrigated, secured hemostasis, and closed using interrupted inverted dermal 3-0 Vicryl sutures fo llowed by Steri-Strips and sterile dressings. Wounds were infiltrated the beginning and at the end of the case with 0.5% Marcaine/1% lidocaine. For this portion of the case, sponge, needle, and instrument counts were reported correct. Patient was then positioned in the left lateral decubitus position in the right chest prepped and draped in usual sterile fashion after the pre-existing pigtail chest tube catheter was removed. Roughly the 6th intercostal space, using Seldinger technique, hemithorax was access in the wire advanced into the hemithorax. This was confirmed fluoroscopically. Also pleural fluid was retrieved down access. Next a dilating sheath was placed over the wire and the wire retained. Approximately 5 cm anterior to this, counter incision was made and through the subcutaneous tunnel catheter was placed. This was then advanced over the dilating sheath inferiorly into the hemithorax. Catheter placed in was again confirmed fluoroscopically. This was connected to suction and roughly 800 cc of pleural fluid retrieved. Catheter was secured at the skin exit site using 2-0 silk suture. Skin wounds were closed using deep followed by dermal interrupted 3-0 Vicryl sutures followed by Steri-Strips, appropriate pack sterile dressings, and huge Tegaderm. Original pigtail chest tube site had a series of Steri-Strips followed by Tegaderm placed over it. Sponge, needle, and instrument counts were this portion of procedure were also reported correct. Patient tolerated procedure well. Postprocedure chest x-ray in recovery room was pending. EBL minimal for both procedures.
--- NOTE | 2025-02-21 13:42 | P.PNIM_ITS ---
Subjective Subjective Date of Service: 02/21/25 Interval History: seen and evaluated feels better overall chest tube draining very minimal amount plan for pleurex cath placement today no other overnight events Review of Systems Review of Systems: Yes all other systems are reviewed and are negative Physical Exam 2 Vital Signs: Vital Signs: Last Vital Signs Temp 98 F 02/21/25 10:58 Pulse 71 02/21/25 10:58 Resp 24 H 02/21/25 10:58 BP 115/64 02/21/25 10:58 Pulse Ox 94 02/21/25 10:58 O2 Del Method Nasal Cannula 02/21/25 10:58 O2 Flow Rate 2 02/21/25 10:58 Oxygen Flow Rate 4 02/11/25 16:17 BMI result Body Mass Index 15.1 Const: Other: Constitutional : interactive, not in distress Cardiovascular : no JVP, no lower extremity edema Respiratory : bilateral chest movement, not in resp distress , decreased air entry over right side, Right sided chest tube in place Gastrointestinal: soft, lax, Non tender Skin : Warm, Dry Neurological : Alert & oriented , No focal deficit Objective Data Active Medications Acetaminophen (Acetaminophen 325 Mg Tablet) 650 mg PO Q6H PRN PRN Reason: Pain, Mild 1-3,fever,headache Last Admin: 02/16/25 21:49 Dose: 650 mg Documented By: TRACEE Acetaminophen (Acetaminophen 325 Mg Tablet) 650 mg PO ONCE PRN PRN Reason: Pain, Mild (Pain Scale 1-3) Stop: 02/21/25 18:26 Albuterol/Ipratropium (Albuterol/Iprat 2.5/0.5mg 3 Ml Ampul.Neb) 3 ml INHALE ONCE PRN PRN Reason: Bronchospasm/wheezing Stop: 02/21/25 18:26 Calcium Carbonate (Calcium Carbonate 750 Mg Tab.Chew) 750 mg PO Q4H PRN PRN Reason: Heartburn Ceftriaxone Sodium (Ceftriaxone Sodium 1 Gm Vial) 1 gm IVPUSH Q24H [facility] Last Admin: 02/21/25 07:54 Dose: 1 gm Documented By: DENEEN Digoxin (Digoxin 0.125 Mg Tablet) 0.125 mg PO DAILY TE; Protocol Last Admin: 02/21/25 07:54 Dose: 0.125 mg Documented By: DENEEN Enoxaparin Sodium (Enoxaparin Sodium 40 Mg/0.4 Ml Syringe) 40 mg SUBCUT Q24H [facility] Last Admin: 02/14/25 21:00 Dose: 40 mg Documented By: ELVIS Guaifenesin/Codeine Phosphate (Guaifen/Codeine Sf 200/20/10ml 10 Ml Liquid) 10 ml PO Q4H PRN PRN Reason: Cough Last Admin: 02/19/25 21:49 Dose: 10 ml Documented By: ANTOINKarina Sodium Chloride (Ns) 1,000 mls @ 75 mls/hr IVCONT .[id number] [facility] Last Admin: 02/21/25 08:01 Dose: 75 mls/hr Documented By: DENEEN Magnesium Hydroxide (Milk Of Magnesia 30 Ml Oral.Susp) 30 ml PO DAILY PRN PRN Reason: Constipation Melatonin (Melatonin 3 Mg Tablet) 6 mg PO BEDTIME PRN PRN Reason: Insomnia Last Admin: 02/20/25 22:41 Dose: 6 mg Documented By: BEKAH Metoprolol Tartrate (Metoprolol Tartrate 12.5 Mg Halftab) 12.5 mg PO BID [facility]; Protocol Last Admin: 02/21/25 07:54 Dose: 12.5 mg Documented By: DENEEN Midodrine (Midodrine Hcl 5 Mg Tablet) 5 mg PO TID [facility] Last Admin: 02/21/25 07:54 Dose: 5 mg Documented By: DENEEN Naloxone HCl (Naloxone Hcl 0.4 Mg/Ml Vial) 0.04 mg IVPUSH Q5M PRN PRN Reason: Excessive sedation or RR < 8 Naloxone HCl (Naloxone Hcl 0.4 Mg/Ml Vial) 0.04 mg IVPUSH Q5M PRN PRN Reason: Excessive sedation or RR < 8 Nicotine Polacrilex (Nicotine Polacrilex 2 Mg Gum) 2 mg BUCCAL Q2H PRN PRN Reason: Nicotine Cravings Ondansetron HCl (Ondansetron Hcl 4 Mg/2 Ml Vial) 4 mg IVPUSH ONCE PRN PRN Reason: Nausea and Vomiting Stop: 02/21/25 18:26 Sodium Chloride (0.9 % Sodium Chloride Flush 3 Ml Syringe) 3 ml IVFLUSH QSHIFT [facility] Last Admin: 02/21/25 07:55 Dose: 3 ml Documented By: DENEEN Labs 02/21/25 06:42 02/21/25 06:42 Labs: Laboratory Results - last 24 hr 02/21/25 02/21/25 06:42 08:22 MCV 91.1 MCH 28.1 MCHC 30.9 L RDW 14.8 Plt Count 241 MPV 8.5 L Immature Gran % (Auto) 0.7 H Neut % (Auto) 76.9 H Lymph % (Auto) 11.4 L [place] % (Auto) 8.9 Eos % (Auto) 1.5 Baso % (Auto) 0.6 Lymph # (Auto) 0.8 L [place] # (Auto) 0.6 Eos # (Auto) 0.1 Baso # (Auto) 0.0 Abs Immat Gran (auto) 0.05 H Absolute Neuts (auto) 5.5 Absolute Nucleated RBC 0.000 Nucleated RBC % (auto) 0.0 Anion Gap 10 L Estim Creat Clear Calc 100.8 Estimated GFR > 60 Random Glucose 79 Calcium 9.2 Blood Type O Negative Antibody Screen NEGATIVE Assessment and Plan (1) Postobstructive pneumonia: Status: Acute (2) Malignant pleural effusion: Status: Acute (3) Acute respiratory failure with hypoxia: Status: Acute (4) Atrial fibrillation with rapid ventricular response: Status: Acute Plan 70M PMH 30 pack year and weight loss presented with shortness breath found to have lung mass with right effusion Acute hypoxic respiratory failure secondary to suspicion of lung cancer with malignant right effusion Status post chest tube continues to drain minimal amount today CXR showing likely trapped lung Thoracic following for Plan PleurX placement today Cytology negative, status post bronchoscopy and biopsy on 02/16/2025, 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 Oncology following possible pna with strep viridans in blood culture ID appreciated - strep viridans likely contaminant continue rocephin, can do ceftin on discharge Hypotension seems chronic related to malnutrition, malignancy, not due to severe sepsis give albumin Midodrine and IVF maintenance Paroxysmal AFib with rvr hold lopressor given low BP load with Digoxin now Cardiology recommends against anticoagulation at this time Echo with reduced EF between 20-25% Due to low normal blood pressure would not tolerate neuro hormonal at this time Severe protein calorie malnutrition due to malignancy Ensure DVT prophylaxis with Lovenox Full Code reason for continued hospitalization: Management of chest tube and pending Pleurix cath placement Quality Stroke Does the patient have a stroke diagnosis?: No VTE Prior VTE?: No VTE Risk Level:: Medical - moderate - high VTE Device Contraindication: Treatment Not Indicated VTE Drug Contraindication: N/A - Med Ordered
--- NOTE | 2025-02-21 13:43 | MHC.CLN ---
F/U PT IS SEVERELY MALNOURISHED DIET RX: NPO PREVIOUS PO INTAKE VARIABLE WHEN DIET TO RESUME; RE-START ENSURE TID TO IMPROVE NUTRITIONAL STATUS SUPPLEMENT PROVIDES 1050 KCALS, 60 G PROTEIN WITH 100% ACCEPTANCE FOLLOWING FOR DIET ADVANCEMENT
[2025-02-21] MEDS: Melatonin 3 MG TABLET 6 MG PO (20:14)
[2025-02-22] VITALS (12 sets, daily range): BP systolic 91–121; BP diastolic 59–73; PULSE 68–98; RESP 16–20; TEMP 36.1–36.7; O2SAT 85–96
[2025-02-22] MEDS: 0.9 % Sodium Chloride 1,000 ML 75 ML IVCONT (06:18)
[2025-02-22 07:09] LABS: MANUAL DIFF FLAG NO
[2025-02-22 07:15] LABS: Basophils Percent Auto 0.5 % (0-2); Eosinophils Absolute Auto 0.1 X10*3/uL (0.0-0.4); Eosinophils Percent Auto 0.7 % (0-4); Hematocrit 32.7 % (42.0-52.0); Hemoglobin 10.1 g/dl (14.0-18.0); Imm Gran Abs Auto 0.05 X10*3/uL (0.00-0.03); Imm Gran Pct Auto 0.6 % (0.0-0.4); Lymphocytes Absolute Auto 0.8 X10*3/uL (1.2-4.9); Lymphocytes Percent Auto 8.8 % (20-40); Mean Corpuscular HGB Conc 30.9 g/dl (31.0-36.0); Mean Corpuscular Hemoglobin 27.9 pg (27.0-33.0); Mean Corpuscular Volume 90.3 fL (80.0-98.0); Mean Platelet Volume 8.6 fL (9.4-12.4); Monocytes Absolute Auto 0.6 X10*3/uL (0.1-1.2); Neutrophils Percent Auto 82.4 % (45-73); Platelet Count 281 X10*3/uL (160-400); Red Blood Count 3.62 X10*6/uL (4.60-5.80); White Blood Count 8.5 X10*3/uL (4.8-10.8)
[2025-02-22 07:34] LABS: Anion Gap 10 (12-20); Blood Urea Nitrogen 11 mg/dL (9-16); Calcium 9.3 mg/dL (8.4-10.2); Carbon Dioxide 29 mmol/L (22-29); Chloride 103 mmol/L (96-108); Creatinine Clr Calc Pharmacy 102.8; Estimated Glomerular Filt Rate > 60; Glucose Random 74 mg/dL (60-115); Potassium 4.4 mmol/L (3.3-5.1); Sodium 138 mmol/L (135-145)
[2025-02-22] MEDS: Metoprolol Tartrate 12.5 MG HALFTAB PO (08:52)
[2025-02-22] MEDS: Midodrine HCl 5 MG TABLET PO ×3 (08:52→20:23)
[2025-02-22] MEDS: cefTRIAXone sodium 1 GM VIAL IVPUSH (08:52)
[2025-02-22] MEDS: Digoxin 0.125 MG TABLET PO (08:52)
[2025-02-22] MEDS: 0.9 % Sodium Chloride Flush 3 ML SYRINGE IVFLUSH ×3 (08:53→20:24)
--- NOTE | 2025-02-22 10:31 | HO.POSTANES ---
Post Anesthesia Evaluation Post Anesthesia Evaluation Date of Service: 02/22/25 Vital Signs: Vital Signs Temp Pulse Resp BP Pulse Ox O2 Del Method O2 Flow Rate 02/22/25 08:52 121/73 02/22/25 07:07 97.5 F 76 20 121/73 92 Nasal Cannula 2 02/22/25 03:52 98.0 F 77 16 108/67 96 Nasal Cannula 02/22/25 00:00 97.8 F 68 16 100/62 90 L Nasal Cannula 2 Anesthesia: Monitored Mental Status: Awake Pain Control: Satisfactory Nausea/Vomiting: None Hydration: Adequate Anesthesia-Related Issues: No Anes. Related Issues
--- NOTE | 2025-02-22 13:53 | P.PNIM_ITS ---
Subjective Subjective Date of Service: 02/22/25 Interval History: seen and evaluated feels better overall pleurex cath and C-port placement went well drained overnight no other overnight events Review of Systems Review of Systems: Yes all other systems are reviewed and are negative Physical Exam 2 Vital Signs: Vital Signs: Last Vital Signs Temp 98.0 F 02/22/25 11:07 Pulse 77 02/22/25 11:07 Resp 20 02/22/25 11:07 BP 91/59 L 02/22/25 11:07 Pulse Ox 86 L 02/22/25 12:58 O2 Del Method Nasal Cannula 02/22/25 11:07 O2 Flow Rate 2 02/22/25 11:07 Oxygen Flow Rate 4 02/11/25 16:17 BMI result Body Mass Index 15.1 Const: Other: Constitutional : interactive, not in distress Cardiovascular : no JVP, no lower extremity edema Respiratory : bilateral chest movement, not in resp distress , decreased air entry over right side, Right sided pleurix in place, on O2 supplement Gastrointestinal: soft, lax, Non tender Skin : Warm, Dry Neurological : Alert & oriented , No focal deficit Objective Data Active Medications Acetaminophen (Acetaminophen 325 Mg Tablet) 650 mg PO Q6H PRN PRN Reason: Pain, Mild 1-3,fever,headache Last Admin: 02/16/25 21:49 Dose: 650 mg Documented By: TRACEE Calcium Carbonate (Calcium Carbonate 750 Mg Tab.Chew) 750 mg PO Q4H PRN PRN Reason: Heartburn Ceftriaxone Sodium (Ceftriaxone Sodium 1 Gm Vial) 1 gm IVPUSH Q24H [facility] Last Admin: 02/22/25 08:52 Dose: 1 gm Documented By: JOSE Digoxin (Digoxin 0.125 Mg Tablet) 0.125 mg PO DAILY [facility]; Protocol Last Admin: 02/22/25 08:52 Dose: 0.125 mg Documented By: JOSE Enoxaparin Sodium (Enoxaparin Sodium 40 Mg/0.4 Ml Syringe) 40 mg SUBCUT Q24H [facility] Last Admin: 02/14/25 21:00 Dose: 40 mg Documented By: ELVIS Guaifenesin/Codeine Phosphate (Guaifen/Codeine Sf 200/20/10ml 10 Ml Liquid) 10 ml PO Q4H PRN PRN Reason: Cough Last Admin: 02/19/25 21:49 Dose: 10 ml Documented By: ANTOINKarina Magnesium Hydroxide (Milk Of Magnesia 30 Ml Oral.Susp) 30 ml PO DAILY PRN PRN Reason: Constipation Melatonin (Melatonin 3 Mg Tablet) 6 mg PO BEDTIME PRN PRN Reason: Insomnia Last Admin: 02/21/25 20:14 Dose: 6 mg Documented By: TAJ Metoprolol Tartrate (Metoprolol Tartrate 12.5 Mg Halftab) 12.5 mg PO BID [facility]; Protocol Last Admin: 02/22/25 08:52 Dose: 12.5 mg Documented By: JOSE Midodrine (Midodrine Hcl 5 Mg Tablet) 5 mg PO TID [facility] Last Admin: 02/22/25 08:52 Dose: 5 mg Documented By: JOSE Morphine Sulfate (Morphine Sulfate 2 Mg/Ml Cartridge) 2 mg IVPUSH Q3H PRN; Protocol PRN Reason: Pain, Severe (Pain Scale 7-10) Nicotine Polacrilex (Nicotine Polacrilex 2 Mg Gum) 2 mg BUCCAL Q2H PRN PRN Reason: Nicotine Cravings Ondansetron HCl (Ondansetron Hcl 4 Mg/2 Ml Vial) 4 mg IVPUSH Q6H PRN PRN Reason: Nausea and Vomiting Oxycodone HCl (Oxycodone Hcl Immed Release 5 Mg Tablet) 5 mg PO Q4H PRN PRN Reason: Pain, Moderate(Pain Scale 4-6) Sodium Chloride (0.9 % Sodium Chloride Flush 3 Ml Syringe) 3 ml IVFLUSH QSHIFT [facility] Last Admin: 02/22/25 08:53 Dose: 3 ml Documented By: JOSE Labs 02/22/25 07:02 02/22/25 07:02 Labs: Laboratory Results - last 24 hr 02/22/25 07:02 MCV 90.3 MCH 27.9 MCHC 30.9 L RDW 15.0 Plt Count 281 MPV 8.6 L Immature Gran % (Auto) 0.6 H Neut % (Auto) 82.4 H Lymph % (Auto) 8.[address] [place] % (Auto) 7.0 Eos % (Auto) 0.7 Baso % (Auto) 0.5 Lymph # (Auto) 0.[address] [place] # (Auto) 0.6 Eos # (Auto) 0.1 Baso # (Auto) 0.0 Abs Immat Gran (auto) 0.05 H Absolute Neuts (auto) 7.0 Absolute Nucleated RBC 0.000 Nucleated RBC % (auto) 0.0 Anion Gap 10 L Estim Creat Clear Calc 102.8 Estimated GFR > 60 Random Glucose 74 Calcium 9.3 Assessment and Plan (1) Postobstructive pneumonia: Status: Acute (2) Malignant pleural effusion: Status: Acute (3) Acute respiratory failure with hypoxia: Status: Acute (4) Neoplasm of right lung: Status: Acute Plan 70M PMH 30 pack year and weight loss presented with shortness breath found to have lung mass with right effusion Acute hypoxic respiratory failure secondary to suspicion of lung cancer with malignant right effusion Status post chest tube continues to drain minimal amount today CXR showing likely trapped lung Thoracic following , PleurX placement Fluid Cytology negative, status post bronchoscopy and biopsy on 02/16/2025, 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 Oncology following, to follow OP Home O2 eval possible pna with strep viridans in blood culture ID appreciated - strep viridans likely contaminant continue rocephin, can do ceftin on discharge Hypotension seems chronic related to malnutrition, malignancy, not due to severe sepsis give albumin Midodrine and IVF maintenance Paroxysmal AFib with rvr hold lopressor given low BP load with Digoxin now Cardiology recommends against anticoagulation at this time Echo with reduced EF between 20-25% Due to low normal blood pressure would not tolerate neuro hormonal at this time Severe protein calorie malnutrition due to malignancy Ensure DVT prophylaxis with Lovenox Full Code reason for continued hospitalization: Management of Pleurix cath and pneumonia with hypoxia Quality Stroke Does the patient have a stroke diagnosis?: No VTE Prior VTE?: No VTE Risk Level:: Medical - moderate - high VTE Device Contraindication: Treatment Not Indicated VTE Drug Contraindication: N/A - Med Ordered
[2025-02-22] MEDS: Albumin Human 25 % 50 ML 100 ML IV ×2 (16:35→17:16)
[2025-02-23] VITALS (10 sets, daily range): BP systolic 92–121; BP diastolic 58–71; PULSE 73–107; RESP 16–20; TEMP 36.2–37.1; O2SAT 83–97
[2025-02-23 07:33] LABS: MANUAL DIFF FLAG NO
[2025-02-23 07:43] LABS: Basophils Percent Auto 0.4 % (0-2); Eosinophils Absolute Auto 0.1 X10*3/uL (0.0-0.4); Eosinophils Percent Auto 1.1 % (0-4); Hematocrit 33.5 % (42.0-52.0); Hemoglobin 10.4 g/dl (14.0-18.0); Imm Gran Abs Auto 0.05 X10*3/uL (0.00-0.03); Imm Gran Pct Auto 0.7 % (0.0-0.4); Lymphocytes Absolute Auto 0.8 X10*3/uL (1.2-4.9); Lymphocytes Percent Auto 10.6 % (20-40); Mean Corpuscular Hemoglobin 28.2 pg (27.0-33.0); Mean Corpuscular Volume 90.8 fL (80.0-98.0); Monocytes Absolute Auto 0.6 X10*3/uL (0.1-1.2); Monocytes Percent Auto 7.9 % (2-11); Neutrophils Percent Auto 79.3 % (45-73); Platelet Count 221 X10*3/uL (160-400); Red Blood Count 3.69 X10*6/uL (4.60-5.80); Red Cell Distribution Width 14.9 % (11.0-16.0); White Blood Count 7.6 X10*3/uL (4.8-10.8)
[2025-02-23 07:58] LABS: Anion Gap 13 (12-20); Blood Urea Nitrogen 9 mg/dL (9-16); Calcium 9.2 mg/dL (8.4-10.2); Carbon Dioxide 29 mmol/L (22-29); Chloride 101 mmol/L (96-108); Creatinine Clr Calc Pharmacy 100.8; Estimated Glomerular Filt Rate > 60; Glucose Random 72 mg/dL (60-115); Potassium 4.2 mmol/L (3.3-5.1); Sodium 139 mmol/L (135-145)
[2025-02-23] MEDS: cefTRIAXone sodium 1 GM VIAL IVPUSH (08:24)
[2025-02-23] MEDS: Metoprolol Tartrate 12.5 MG HALFTAB PO (08:24)
[2025-02-23] MEDS: 0.9 % Sodium Chloride Flush 3 ML SYRINGE IVFLUSH ×2 (08:24→20:40)
[2025-02-23] MEDS: Midodrine HCl 5 MG TABLET PO ×3 (08:24→20:39)
[2025-02-23] MEDS: Digoxin 0.125 MG TABLET PO (08:24)
[2025-02-23] MEDS: Albumin Human 25 % 50 ML 100 ML IV (11:38)
--- NOTE | 2025-02-23 14:18 | MHC.CM.PN ---
PT WILL DC TO HIS BROTHERS HOME ON MONDAY, [facility] AWARE HE WILL NEED TO BE PROVIDED WITH PLEUREX SUPPLIES HE WILL HAVE NEW HOME O2 BROTHER WILL TRANSPORT
--- NOTE | 2025-02-23 14:28 | P.PNIM_ITS ---
Subjective Subjective Date of Service: 02/23/25 Interval History: seen and evaluated feels better overall pleurex cath and C-port in place, mild subcutaneous crepetations drained 1 L from pleurix no other overnight events Review of Systems Review of Systems: Yes all other systems are reviewed and are negative Physical Exam 2 Vital Signs: Vital Signs: Last Vital Signs Temp 97.9 F 02/23/25 10:55 Pulse 73 02/23/25 10:55 Resp 20 02/23/25 10:55 BP 104/65 02/23/25 10:55 Pulse Ox 95 02/23/25 10:55 O2 Del Method Nasal Cannula 02/23/25 10:55 O2 Flow Rate 2 02/23/25 10:55 Oxygen Flow Rate 4 02/11/25 16:17 BMI result Body Mass Index 15.1 Const: Other: Constitutional : interactive, not in distress Cardiovascular : no JVP, no lower extremity edema Respiratory : bilateral chest movement, not in resp distress , improved air entry over right side, Right sided pleurix in place with surrounding subcutaneous crepetations, on O2 supplement Gastrointestinal: soft, lax, Non tender Skin : Warm, Dry Neurological : Alert & oriented , No focal deficit Objective Data Active Medications Acetaminophen (Acetaminophen 325 Mg Tablet) 650 mg PO Q6H PRN PRN Reason: Pain, Mild 1-3,fever,headache Last Admin: 02/16/25 21:49 Dose: 650 mg Documented By: TRACEE Calcium Carbonate (Calcium Carbonate 750 Mg Tab.Chew) 750 mg PO Q4H PRN PRN Reason: Heartburn Ceftriaxone Sodium (Ceftriaxone Sodium 1 Gm Vial) 1 gm IVPUSH Q24H [facility] Last Admin: 02/23/25 08:24 Dose: 1 gm Documented By: SMITH Digoxin (Digoxin 0.125 Mg Tablet) 0.125 mg PO DAILY [facility]; Protocol Last Admin: 02/23/25 08:24 Dose: 0.125 mg Documented By: SMITH Enoxaparin Sodium (Enoxaparin Sodium 40 Mg/0.4 Ml Syringe) 40 mg SUBCUT Q24H [facility] Last Admin: 02/14/25 21:00 Dose: 40 mg Documented By: ELVIS Guaifenesin/Codeine Phosphate (Guaifen/Codeine Sf 200/20/10ml 10 Ml Liquid) 10 ml PO Q4H PRN PRN Reason: Cough Last Admin: 02/19/25 21:49 Dose: 10 ml Documented By: ANTOINC Magnesium Hydroxide (Milk Of Magnesia 30 Ml Oral.Susp) 30 ml PO DAILY PRN PRN Reason: Constipation Melatonin (Melatonin 3 Mg Tablet) 6 mg PO BEDTIME PRN PRN Reason: Insomnia Last Admin: 02/21/25 20:14 Dose: 6 mg Documented By: TAJ Metoprolol Tartrate (Metoprolol Tartrate 12.5 Mg Halftab) 12.5 mg PO BID [facility]; Protocol Last Admin: 02/23/25 08:24 Dose: 12.5 mg Documented By: SMITH Midodrine (Midodrine Hcl 5 Mg Tablet) 5 mg PO TID [facility] Last Admin: 02/23/25 08:24 Dose: 5 mg Documented By: SMITH Morphine Sulfate (Morphine Sulfate 2 Mg/Ml Cartridge) 2 mg IVPUSH Q3H PRN; Protocol PRN Reason: Pain, Severe (Pain Scale 7-10) Nicotine Polacrilex (Nicotine Polacrilex 2 Mg Gum) 2 mg BUCCAL Q2H PRN PRN Reason: Nicotine Cravings Ondansetron HCl (Ondansetron Hcl 4 Mg/2 Ml Vial) 4 mg IVPUSH Q6H PRN PRN Reason: Nausea and Vomiting Oxycodone HCl (Oxycodone Hcl Immed Release 5 Mg Tablet) 5 mg PO Q4H PRN PRN Reason: Pain, Moderate(Pain Scale 4-6) Sodium Chloride (0.9 % Sodium Chloride Flush 3 Ml Syringe) 3 ml IVFLUSH QSHIFT [facility] Last Admin: 02/23/25 08:24 Dose: 3 ml Documented By: SMITH Labs 02/23/25 06:40 02/23/25 06:40 Labs: Laboratory Results - last 24 hr 02/23/25 06:40 MCV 90.8 MCH 28.2 MCHC 31.0 RDW 14.9 Plt Count 221 MPV 10.0 Immature Gran % (Auto) 0.7 H Neut % (Auto) 79.3 H Lymph % (Auto) 10.6 L [place] % (Auto) 7.9 Eos % (Auto) 1.1 Baso % (Auto) 0.4 Lymph # (Auto) 0.8 L [place] # (Auto) 0.6 Eos # (Auto) 0.1 Baso # (Auto) 0.0 Abs Immat Gran (auto) 0.05 H Absolute Neuts (auto) 6.0 Absolute Nucleated RBC 0.000 Nucleated RBC % (auto) 0.0 Anion Gap 13 Estim Creat Clear Calc 100.8 Estimated GFR > 60 Random Glucose 72 Calcium 9.2 Assessment and Plan (1) Physical deconditioning: Status: Acute (2) Postobstructive pneumonia: Status: Acute (3) Acute respiratory failure with hypoxia: Status: Acute (4) Pleural effusion on right: Status: Acute Plan 70M PMH 30 pack year and weight loss presented with shortness breath found to have lung mass with right effusion Acute hypoxic respiratory failure secondary to suspicion of lung cancer with malignant right effusion Fluid Cytology negative, status post bronchoscopy and biopsy on 02/16/2025, 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 CXR showing likely trapped lung Thoracic following , PleurX placement 02/21/2025 Drained 1L yesterday, 1.8L total today, Albumin given To repeat CXR Oncology following, to follow OP Home O2 eval Pneumonia with strep viridans in blood culture ID appreciated - strep viridans likely contaminant continue rocephin, can do ceftin on discharge Hypotension, resolved seems chronic related to malnutrition, malignancy, not due to severe sepsis give albumin Midodrine and IVF maintenance Paroxysmal AFib with rvr, resolved hold lopressor given low BP continue Digoxin Cardiology recommends against anticoagulation at this time Echo with reduced EF between 20-25% Due to low normal blood pressure would not tolerate neuro hormonal at this time Severe protein calorie malnutrition due to malignancy Ensure DVT prophylaxis with Lovenox Full Code reason for continued hospitalization: Management of Pleurix cath and pneumonia with hypoxia Quality Stroke Does the patient have a stroke diagnosis?: No VTE Prior VTE?: No VTE Risk Level:: Medical - moderate - high VTE Device Contraindication: Treatment Not Indicated VTE Drug Contraindication: N/A - Med Ordered
[2025-02-24] VITALS (9 sets, daily range): BP systolic 90–123; BP diastolic 51–71; PULSE 74–104; RESP 17–22; TEMP 36.1–36.8; O2SAT 92–96
[2025-02-24] MEDS: Albumin Human 25 % 100 ML 133.33 ML IV (06:31)
[2025-02-24 07:22] LABS: MANUAL DIFF FLAG NO
[2025-02-24 07:24] LABS: Basophils Percent Auto 0.4 % (0-2); Eosinophils Absolute Auto 0.1 X10*3/uL (0.0-0.4); Eosinophils Percent Auto 0.8 % (0-4); Hematocrit 31.8 % (42.0-52.0); Hemoglobin 10.2 g/dl (14.0-18.0); Imm Gran Abs Auto 0.06 X10*3/uL (0.00-0.03); Imm Gran Pct Auto 0.6 % (0.0-0.4); Lymphocytes Absolute Auto 0.9 X10*3/uL (1.2-4.9); Lymphocytes Percent Auto 9.6 % (20-40); Mean Corpuscular HGB Conc 32.1 g/dl (31.0-36.0); Mean Corpuscular Hemoglobin 28.7 pg (27.0-33.0); Mean Corpuscular Volume 89.6 fL (80.0-98.0); Mean Platelet Volume 8.8 fL (9.4-12.4); Monocytes Absolute Auto 0.7 X10*3/uL (0.1-1.2); Monocytes Percent Auto 7.1 % (2-11); Neutrophils Absolute Auto 7.6 x10*3/uL (2.0-8.3); Neutrophils Percent Auto 81.5 % (45-73); Platelet Count 309 X10*3/uL (160-400); Red Blood Count 3.55 X10*6/uL (4.60-5.80); Red Cell Distribution Width 14.9 % (11.0-16.0); White Blood Count 9.3 X10*3/uL (4.8-10.8)
[2025-02-24 07:38] LABS: Anion Gap 10 (12-20); Blood Urea Nitrogen 11 mg/dL (9-16); Calcium 9.4 mg/dL (8.4-10.2); Carbon Dioxide 30 mmol/L (22-29); Chloride 99 mmol/L (96-108); Creatinine Clr Calc Pharmacy 100.8; Estimated Glomerular Filt Rate > 60; Glucose Random 82 mg/dL (60-115); Potassium 4.4 mmol/L (3.3-5.1); Sodium 135 mmol/L (135-145)
[2025-02-24] MEDS: Metoprolol Tartrate 12.5 MG HALFTAB PO ×3 (07:55→22:23)
[2025-02-24] MEDS: Digoxin 0.125 MG TABLET PO (07:55)
[2025-02-24] MEDS: Midodrine HCl 5 MG TABLET PO ×3 (07:56→22:23)
[2025-02-24] MEDS: Albumin Human 25 % 100 ML 133.34 ML IV (07:56)
[2025-02-24] MEDS: 0.9 % Sodium Chloride Flush 3 ML SYRINGE IVFLUSH (07:56)
[2025-02-24] MEDS: cefTRIAXone sodium 1 GM VIAL IVPUSH (07:57)
--- NOTE | 2025-02-24 10:26 | W.MHC.F2F ---
Service Date Service Date: 02/24/25 Encounter Date of encounter: 02/24/25 Reasons for Services Signs and symptoms assessed: New Pleurix catheter New C-Port Physical deconditioning Reason for [facility]: medication management and teach disease management Reason for physical therapy: home safety and mobility and therapeutic exercises Homebound: Leaving the home is medically contraindicated at this time without the asist of a device and/or another person due th the listed conditions above and below. Reason homebound: unsteady gait / fall risk Certification: Based on the above findings, I certify that this patient is confined to the home and needs intermittent [facility] care, physical therapy and/or speech therapy, or continues to need occupational therapy. The patient is under my care, and I have initiated the establishment of the plan of care. The patient will be followed by a physician who will periodically review the plan of care. Time Spent With Patient Time: Total time managing care of this patient today ____ minutes.
--- NOTE | 2025-02-24 10:55 | MHC.CM.PN ---
Addendum entered by Corazon Jena 02/24/25 15:41: Pts first choice in [facility] facility [facility] offered pt a bed, pt accepted, insurance auth is now pending. Addendum entered by Corazon Jean 02/24/25 14:26: This CM met with pt and his brother present at bedside per their request, hospitalist also at bedside. Pt states he would now like to go to [facility]. This CM discussed facility options, referrals placed accordingly, awaiting bed offer, will also need insurance auth. Original Note: Second IMM given 02/24. Pt is medically cleared for discharge home with new [facility] services, pts brother will transport him home today.
--- NOTE | 2025-02-24 14:39 | P.PNIM_ITS ---
Subjective Subjective Date of Service: 02/24/25 Interval History: seen and evaluated feels better overall pleurex cath and C-port in place, mild subcutaneous crepetations drained 1.8 L from pleurix yesterday no other overnight events Physical Exam 2 Vital Signs: Vital Signs: Last Vital Signs Temp 97.0 F 02/24/25 10:56 Pulse 84 02/24/25 10:56 Resp 20 02/24/25 10:56 BP 103/60 02/24/25 10:56 Pulse Ox 94 02/24/25 10:56 O2 Del Method Nasal Cannula 02/24/25 10:56 O2 Flow Rate 2 02/24/25 10:56 Oxygen Flow Rate 4 02/11/25 16:17 BMI result Body Mass Index 15.1 Const: Other: Constitutional : interactive, not in distress Cardiovascular : no JVP, no lower extremity edema Respiratory : bilateral chest movement, not in resp distress , improved air entry over right side, Right sided pleurix in place with surrounding subcutaneous crepetations, on O2 supplement Gastrointestinal: soft, lax, Non tender Skin : Warm, Dry Neurological : Alert & oriented , No focal deficit Objective Data Active Medications Acetaminophen (Acetaminophen 325 Mg Tablet) 650 mg PO Q6H PRN PRN Reason: Pain, Mild 1-3,fever,headache Last Admin: 02/16/25 21:49 Dose: 650 mg Documented By: TRACEE Calcium Carbonate (Calcium Carbonate 750 Mg Tab.Chew) 750 mg PO Q4H PRN PRN Reason: Heartburn Ceftriaxone Sodium (Ceftriaxone Sodium 1 Gm Vial) 1 gm IVPUSH Q24H [facility] Last Admin: 02/24/25 07:57 Dose: 1 gm Documented By: SMITH Digoxin (Digoxin 0.125 Mg Tablet) 0.125 mg PO DAILY [facility]; Protocol Last Admin: 02/24/25 07:55 Dose: 0.125 mg Documented By: SMITH Enoxaparin Sodium (Enoxaparin Sodium 40 Mg/0.4 Ml Syringe) 40 mg SUBCUT Q24H [facility] Last Admin: 02/14/25 21:00 Dose: 40 mg Documented By: ELVIS Guaifenesin/Codeine Phosphate (Guaifen/Codeine Sf 200/20/10ml 10 Ml Liquid) 10 ml PO Q4H PRN PRN Reason: Cough Last Admin: 02/19/25 21:49 Dose: 10 ml Documented By: ANTOINC Magnesium Hydroxide (Milk Of Magnesia 30 Ml Oral.Susp) 30 ml PO DAILY PRN PRN Reason: Constipation Melatonin (Melatonin 3 Mg Tablet) 6 mg PO BEDTIME PRN PRN Reason: Insomnia Last Admin: 02/21/25 20:14 Dose: 6 mg Documented By: TAJ Metoprolol Tartrate (Metoprolol Tartrate 12.5 Mg Halftab) 12.5 mg PO TID [facility]; Protocol Last Admin: 02/24/25 09:32 Dose: Not Given Documented By: SMITH Non-Admin Reason: Physician Approved Midodrine (Midodrine Hcl 5 Mg Tablet) 5 mg PO TID [facility] Last Admin: 02/24/25 07:56 Dose: 5 mg Documented By: SMITH Morphine Sulfate (Morphine Sulfate 2 Mg/Ml Cartridge) 2 mg IVPUSH Q3H PRN; Protocol PRN Reason: Pain, Severe (Pain Scale 7-10) Nicotine Polacrilex (Nicotine Polacrilex 2 Mg Gum) 2 mg BUCCAL Q2H PRN PRN Reason: Nicotine Cravings Ondansetron HCl (Ondansetron Hcl 4 Mg/2 Ml Vial) 4 mg IVPUSH Q6H PRN PRN Reason: Nausea and Vomiting Oxycodone HCl (Oxycodone Hcl Immed Release 5 Mg Tablet) 5 mg PO Q4H PRN PRN Reason: Pain, Moderate(Pain Scale 4-6) Sodium Chloride (0.9 % Sodium Chloride Flush 3 Ml Syringe) 3 ml IVFLUSH QSHIFT [facility] Last Admin: 02/24/25 07:56 Dose: 3 ml Documented By: SMITH Labs 02/24/25 06:15 02/24/25 06:15 Labs: Laboratory Results - last 24 hr 02/24/25 06:15 MCV 89.6 MCH 28.7 MCHC 32.1 RDW 14.9 Plt Count 309 D MPV 8.8 L Immature Gran % (Auto) 0.6 H Neut % (Auto) 81.5 H Lymph % (Auto) 9.6 L [place] % (Auto) 7.1 Eos % (Auto) 0.8 Baso % (Auto) 0.4 Lymph # (Auto) 0.9 L [place] # (Auto) 0.7 Eos # (Auto) 0.1 Baso # (Auto) 0.0 Abs Immat Gran (auto) 0.06 H Absolute Neuts (auto) 7.6 Absolute Nucleated RBC 0.000 Nucleated RBC % (auto) 0.0 Anion Gap 10 L Estim Creat Clear Calc 100.8 Estimated GFR > 60 Random Glucose 82 Calcium 9.4 Magnesium 2.0 Assessment and Plan (1) Physical deconditioning: Status: Acute (2) Postobstructive pneumonia: Status: Acute (3) Malignant pleural effusion: Status: Acute (4) Acute respiratory failure with hypoxia: Status: Acute Plan 70M PMH 30 pack year and weight loss presented with shortness breath found to have lung mass with right effusion Acute hypoxic respiratory failure secondary to suspicion of lung cancer with malignant right effusion and small Pneumothorax Fluid Cytology negative, status post bronchoscopy and biopsy on 02/16/2025, 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 CXR showing likely trapped lung Thoracic following , PleurX placement 02/21/2025 Drained 1L yesterday, 1.8L total today, Albumin given CXR showing improvement in right sided residual PNX and infiltrates Oncology following, to follow OP Home O2 eval Pneumonia with strep viridans in blood culture ID appreciated - strep viridans likely contaminant continue rocephin, can do ceftin on discharge Hypotension, resolved seems chronic related to malnutrition, malignancy, not due to severe sepsis give albumin Midodrine and IVF maintenance Paroxysmal AFib with rvr, resolved hold lopressor given low BP continue Digoxin Cardiology recommends against anticoagulation at this time Echo with reduced EF between 20-25% Due to low normal blood pressure would not tolerate neuro hormonal at this time Severe protein calorie malnutrition due to malignancy Ensure DVT prophylaxis with Lovenox Full Code reason for continued hospitalization: Management of Pleurix cath and pneumonia with hypoxia Quality Stroke Does the patient have a stroke diagnosis?: No VTE Prior VTE?: No VTE Risk Level:: Medical - moderate - high VTE Device Contraindication: Treatment Not Indicated VTE Drug Contraindication: N/A - Med Ordered
--- NOTE | 2025-02-24 20:00 | PC.NURSE ---
Assumed care of this patient at 19:00. Pt was supposed to discharge prior to assuming care though per report and chart review, pt now has been offered a bed at [facility] pending insurance authorization. Discharge medications package that were observed still sealed in their pharmacy package were obtained from the patient and returned intact to pharmacy by the assistant federal public defender until discharge, as discussed with the patient.
[2025-02-24] MEDS: Amoxicillin/Potassium Clav 875 MG TABLET PO (22:23)
[2025-02-25] VITALS (7 sets, daily range): BP systolic 102–129; BP diastolic 57–71; PULSE 67–78; RESP 16–20; TEMP 36–37.1; O2SAT 92–97
[2025-02-25] MEDS: Digoxin 0.125 MG TABLET PO (09:34)
[2025-02-25] MEDS: Midodrine HCl 5 MG TABLET PO ×3 (09:34→20:04)
[2025-02-25] MEDS: Metoprolol Tartrate 12.5 MG HALFTAB PO ×3 (09:34→20:05)
[2025-02-25] MEDS: Amoxicillin/Potassium Clav 875 MG TABLET PO ×2 (09:34→20:05)
--- NOTE | 2025-02-25 11:27 | MHC.CM.PN ---
LADARIUS PT WILL DC TO STR AT [facility] NO PENDING [facility] MEDICARE [facility] FOR BLS TRANSPORT
--- NOTE | 2025-02-25 11:29 | MHC.CLN ---
F/U PT IS SEVERELY MALNOURISHED PO INTAKE 100% OR 0% (OCCASIONALLY REFUSES MEALS) DIET RX: REGULAR RECEIVING ENSURE TID TO IMPROVE NUTRITIONAL STATUS SUPPLEMENT PROVIDES 1050 KCALS, 60 G PROTEIN WITH 100% ACCEPTANCE CONTINUE TO MONITOR PO INTAKE AND ENCOURAGE SUPPLEMENTS
--- NOTE | 2025-02-25 13:07 | P.PNIM_ITS ---
Subjective Subjective Date of Service: 02/25/25 Interval History: seen and evaluated feels better overall pleurex cath and C-port in place, subcutaneous crepetations improving drained less than 1 L from pleurix yesterday no other overnight events Review of Systems Review of Systems: Yes all other systems are reviewed and are negative Physical Exam 2 Vital Signs: Vital Signs: Last Vital Signs Temp 98.2 F 02/25/25 11:45 Pulse 67 02/25/25 11:45 Resp 16 02/25/25 11:45 BP 111/64 02/25/25 11:45 Pulse Ox 97 02/25/25 11:45 O2 Del Method Room Air 02/25/25 11:45 O2 Flow Rate 2 02/25/25 07:15 Oxygen Flow Rate 4 02/11/25 16:17 BMI result Body Mass Index 15.1 Const: Other: Constitutional : interactive, not in distress Cardiovascular : no JVP, no lower extremity edema Respiratory : bilateral chest movement, not in resp distress , improved air entry over right side, Right sided pleurix in place with surrounding subcutaneous crepetations, on O2 supplement Gastrointestinal: soft, lax, Non tender Skin : Warm, Dry Neurological : Alert & oriented , No focal deficit Objective Data Active Medications Acetaminophen (Acetaminophen 325 Mg Tablet) 650 mg PO Q6H PRN PRN Reason: Pain, Mild 1-3,fever,headache Last Admin: 02/16/25 21:49 Dose: 650 mg Documented By: TRACEE Amoxicillin/Clavulanate Potassium (Amoxicillin/Potassium Clav 875 Mg Tablet) 875 mg PO Q12H [facility] Last Admin: 02/25/25 09:34 Dose: 875 mg Documented By: BHAVIN Calcium Carbonate (Calcium Carbonate 750 Mg Tab.Chew) 750 mg PO Q4H PRN PRN Reason: Heartburn Digoxin (Digoxin 0.125 Mg Tablet) 0.125 mg PO DAILY [facility]; Protocol Last Admin: 02/25/25 09:34 Dose: 0.125 mg Documented By: BHAVIN Enoxaparin Sodium (Enoxaparin Sodium 40 Mg/0.4 Ml Syringe) 40 mg SUBCUT Q24H [facility] Last Admin: 02/14/25 21:00 Dose: 40 mg Documented By: ELVIS Guaifenesin/Codeine Phosphate (Guaifen/Codeine Sf 200/20/10ml 10 Ml Liquid) 10 ml PO Q4H PRN PRN Reason: Cough Last Admin: 02/19/25 21:49 Dose: 10 ml Documented By: ANTOINC Magnesium Hydroxide (Milk Of Magnesia 30 Ml Oral.Susp) 30 ml PO DAILY PRN PRN Reason: Constipation Melatonin (Melatonin 3 Mg Tablet) 6 mg PO BEDTIME PRN PRN Reason: Insomnia Last Admin: 02/21/25 20:14 Dose: 6 mg Documented By: TAJ Metoprolol Tartrate (Metoprolol Tartrate 12.5 Mg Halftab) 12.5 mg PO TID [facility]; Protocol Last Admin: 02/25/25 09:34 Dose: 12.5 mg Documented By: BHAVIN Midodrine (Midodrine Hcl 5 Mg Tablet) 5 mg PO TID [facility] Last Admin: 02/25/25 09:34 Dose: 5 mg Documented By: BHAVIN Morphine Sulfate (Morphine Sulfate 2 Mg/Ml Cartridge) 2 mg IVPUSH Q3H PRN; Protocol PRN Reason: Pain, Severe (Pain Scale 7-10) Nicotine Polacrilex (Nicotine Polacrilex 2 Mg Gum) 2 mg BUCCAL Q2H PRN PRN Reason: Nicotine Cravings Ondansetron HCl (Ondansetron Hcl 4 Mg/2 Ml Vial) 4 mg IVPUSH Q6H PRN PRN Reason: Nausea and Vomiting Oxycodone HCl (Oxycodone Hcl Immed Release 5 Mg Tablet) 5 mg PO Q4H PRN PRN Reason: Pain, Moderate(Pain Scale 4-6) Sodium Chloride (0.9 % Sodium Chloride Flush 3 Ml Syringe) 3 ml IVFLUSH [facility] Last Admin: 02/25/25 09:35 Dose: Not Given Documented By: BHAVIN Non-Admin Reason: No Access Labs 02/24/25 06:15 02/24/25 06:15 Assessment and Plan (1) Physical deconditioning: Status: Acute (2) Postobstructive pneumonia: Status: Acute (3) Malignant pleural effusion: Status: Acute (4) Acute respiratory failure with hypoxia: Status: Acute (5) Atrial fibrillation with rapid ventricular response: Status: Acute Plan 70M PMH 30 pack year and weight loss presented with shortness breath found to have lung mass with right effusion Acute hypoxic respiratory failure secondary to suspicion of lung cancer with malignant right effusion and small Pneumothorax Fluid Cytology negative, status post bronchoscopy and biopsy on 02/16/2025, 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 CXR showing likely trapped lung Thoracic following , PleurX placement 02/21/2025 Drained 1L yesterday, 1.8L total today, Albumin given repeated CXR showing improvement in right sided residual PNX and infiltrates Oncology following, to follow OP patient decided to go to SNF as he doesnt feel safe going home with new oxygen and deconditioning Pneumonia with strep viridans in blood culture ID appreciated - strep viridans likely contaminant continue rocephin, can do ceftin on discharge Hypotension, resolved seems chronic related to malnutrition, malignancy, not due to severe sepsis give albumin Midodrine and IVF maintenance Paroxysmal AFib with rvr, resolved hold lopressor given low BP continue Digoxin Cardiology recommends against anticoagulation at this time Echo with reduced EF between 20-25% Due to low normal blood pressure would not tolerate neuro hormonal at this time Severe protein calorie malnutrition due to malignancy Ensure DVT prophylaxis with Lovenox Full Code reason for continued hospitalization: Management of Pleurix cath and pneumonia with hypoxia Quality Stroke Does the patient have a stroke diagnosis?: No VTE Prior VTE?: No VTE Risk Level:: Medical - moderate - high VTE Device Contraindication: Treatment Not Indicated VTE Drug Contraindication: N/A - Med Ordered
[2025-02-26] MEDS: Melatonin 3 MG TABLET 6 MG PO (00:03)
[2025-02-26 01:03] VITALS: RESP 16
[2025-02-26 04:00] VITALS: BP 98/62; PULSE 92; RESP 16; TEMP 36.4; O2SAT 98
[2025-02-26 07:19] VITALS: BP 92/58; PULSE 72; RESP 18; TEMP 36.3; O2SAT 96
[2025-02-26] MEDS: Metoprolol Tartrate 12.5 MG HALFTAB PO (08:37)
[2025-02-26] MEDS: Midodrine HCl 5 MG TABLET PO (08:37)
[2025-02-26] MEDS: Digoxin 0.125 MG TABLET PO (08:37)
[2025-02-26] MEDS: Amoxicillin/Potassium Clav 875 MG TABLET PO (08:37)
[2025-02-26] MEDS: 0.9 % Sodium Chloride Flush 3 ML SYRINGE IVFLUSH (08:38)
[2025-02-26 11:03] VITALS: BP 113/56; PULSE 68; RESP 20; TEMP 36.4; O2SAT 96
--- NOTE | 2025-02-26 11:28 | MHC.CLN ---
F/U PO INTAKE VARIABLE RANGING FROM 0-100% DIET RX: REGULAR RECEIVING ENSURE TID TO IMPROVE NUTRITIONAL STATUS SUPPLEMENT PROVIDES 1050 KCALS, 60 G PROTEIN WITH 100% ACCEPTANCE CONTINUE TO MONITOR PO INTAKE AND ENCOURAGE SUPPLEMENTS OBTAIN CURRENT WEIGHT
--- NOTE | 2025-02-26 13:22 | P.F2F_ITS ---
Service Date Service Date: 02/26/25 Encounter Date of encounter: 02/26/25 Reasons for Services Signs and symptoms assessed: weakness, sob on exertion Reason for care home: medication management, medication treatment, teach disease management and other (drain up to 1L of pleurx catheter 3 times weekly, can do more often if needed for sob) Homebound: Leaving the home is medically contraindicated at this time without the asist of a device and/or another person due th the listed conditions above and below. Reason homebound: shortness of breath with minimal effort Certification: Based on the above findings, I certify that this patient is confined to the home and needs intermittent care home care, physical therapy and/or speech therapy, or continues to need occupational therapy. The patient is under my care, and I have initiated the establishment of the plan of care. The patient will be followed by a physician who will periodically review the plan of care. Time Spent With Patient Time: Total time managing care of this patient today ____ minutes.
--- NOTE | 2025-02-26 13:24 | P.DS_ITS ---
DS: Providers Provider Date of Service: 02/26/25 Date of admission: 02/11/25 21:09 Date of discharge: 02/26/25 Primary care physician: None Physician Consults: 02/11/25 21:08 Consult to Cardiology Routine Consulting Provider: [facility] Reason for consultation: Afib with RVR 02/11/25 23:17 Consult to Hematology / Oncology Routine Consulting Provider: [facility] Oncology/Hematology Reason for consultation: lung mass; large pl effusion Consult to Pulmonology Routine Consulting Provider: [facility] Pulmonology Services Reason for consultation: large pl effusion; lung mass; rt bronch obstruction Consult to Thoracic Surgery Routine Consulting Provider: Tee Miles Reason for consultation: large pl effusion; lung mass; rt bronch obstruction 02/14/25 07:51 Consult to Infectious Diseases Routine Consulting Provider: [facility] Reason for consultation: viridans beacteremia DS: Diagnosis Discharge Diagnosis (1) Physical deconditioning: Status: Acute (2) Postobstructive pneumonia: Status: Acute (3) Malignant pleural effusion: Status: Acute (4) Acute respiratory failure with hypoxia: Status: Acute (5) Atrial fibrillation with rapid ventricular response: Status: Acute DS: Summary Hospital Course Hospital Course: from initial hpi: 70-year-old male with a past medical history of tobacco dependence, COPD, hyperlipidemia presented to the hospital today with a chief complaint of shortness of breath. Patient reports the past 2 and half feeling well has been having shortness of breath and cough. Nightly cough he has been more productive greenish sputum. Denies any fevers. Denies any sick contacts. Reports he stopped smoking about 2 and half months ago. Around the same. He also has decreased appetite and feels no taste in the mouth when he eats. The past 1-1/2 month he lost about 30-40 lb. Mentioned that he was diagnosed with COPD many years ago, does not take any inhalers. Does not have any home oxygen. Patient mentioned that he has not seen physician in about 10 years. Denies any medications currently Denies any chest pain or palpitations. Denies any signs of bleeding. Denies any headaches or blurry visions. Denies any numbness tingling or focal weakness. Denies any GI or symptoms. Review of other systems is negative except mentioned above ER course: Per ER team, patient on presentation noted to be short of breath, slightly diminished lung sounds; CT chest showed large subcarinal lung mass obstructing the right bronchus, patient was mildly hypoxic requiring supplemental oxygen. CT chest also showed findings concerning for pneumonia as well as large pleural effusion. ER patient discussed with pulmonology Dr. Lyn who mentioned admission to Medicine Service, does not require ICU at this time, can manage EBUS if needed. ER physician spoke to Dr. Foreman from Oncology who suggested admission to medicine service for possible biopsy and diagnostic and therapeutic thoracentesis in a.m. by IR. ER patient also notified Dr. Miles from thoracic surgery who agreed for admission to the hospital at [facility] and will evaluate the patient in the morning. ER physician also mentioned that patient on presentation was tachycardic with heart rate in 130s to 140s. Placed on diltiazem drip. Heart rate improved. Diltiazem discontinued. Patient was given antibiotics for pneumonia. hospital course: Patient was admitted for acute hypoxic respiratory failure secondary to malignant right effusion, small pneumothorax, postobstructive pneumonia. Patient had chest tube placed with drainage of fluid and significant improvement symptoms. Was also put on empiric antibiotics. Blood culture did grow strep viridans which was considered contaminant, completed course of ceftriaxone. Initially fluid cytology was negative so patient underwent bronchoscopy and biopsy which showed invasive squamous cell carcinoma with necrosis. Was seen by Oncology, port placed and plan to follow up as outpatient. Chest tube was transitioned to PleurX catheter and will continue to drain 3 times weekly 1 L, kidney increased frequency if needed for symptoms. Patient had hypotension which resolved likely chronic related to malnutrition and malignancy not severe sepsis, was given albumin and midodrine. For paroxysmal AFib with rapid ventricular response was started on digoxin low-dose Lopressor. Cardiology recommended against anticoagulation at this time due to frailty and bleeding risk, echocardiogram reduced EF of 20-25% but patient not tolerant of neurohormonal. For severe protein calorie malnutrition due to malignancy was continued on ensure. Initially patient recommended for short-term rehab, however patient's insurance denied and patient will be discharged home with VNA. Time Attestation Discharge Coordination Time (in mins): 34 Quality: Safe Use of Opioids Does Pt have an Active Cancer Diagnosis on the Problem List?: Yes Opioid Measure Date for CMS Report: 01/27/25 Opioid Measure Time for CMS Report: 13:32 Quality: Stroke Does the patient have a stroke diagnosis?: No Physical Exam Vital Signs: Vital Signs: Last Vital Signs Temp 97.6 F 02/26/25 11:03 Pulse 68 02/26/25 11:03 Resp 20 02/26/25 11:03 BP 113/56 L 02/26/25 11:03 Pulse Ox 96 02/26/25 11:03 O2 Del Method Nasal Cannula 02/26/25 11:03 O2 Flow Rate 2 02/26/25 11:03 Oxygen Flow Rate 4 02/11/25 16:17 BMI result Body Mass Index 15.1 Const: Other: Constitutional : interactive, not in distress Cardiovascular : no JVP, no lower extremity edema Respiratory : bilateral chest movement, not in resp distress , improved air entry over right side, Right sided pleurix in place with surrounding subcutaneous crepetations, on O2 supplement Gastrointestinal: soft, lax, Non tender Skin : Warm, Dry Neurological : Alert & oriented , No focal deficit DS: Data Data Completed and Pending Completed studies during hospitalization [Text1]: Pending at discharge 02/12/25 07:40 Cytology [PTH] Stat 02/16/25 10:44 Surgical [PTH] Stat Cytology [PTH] Stat Discharge Plan Discharge Anticipated Discharge Date/Time: 02/24/25 10:13 Patient Disposition: Home Health Service Discharge Diagnosis: Squamous cell carcinoma Pneumonia Hypoxia Pleural effusion Referrals: [facility] [Outside] - 1 Day (SHORT TERM REHAB) [facility] [Outside] - 2 Weeks (FOLLOWING) Patience Foreman MD [Physician] - 1 Week Tee Miles MD [Physician] - 1 Week Lencho Smith MD [Physician] - 2 Weeks (PLEASE CONTACT DR. SMITH AT THE [place] LOCATION AND THEY WILL LET YOU KNOW WHEN YOUR APPOINTMENT IS. ) Discharge Medications: New (DME) Ultra-Light Rollator Misc See Rx Instructions .Route Qty: 1 0RF Rx Instructions: As directed midodrine 5 mg Tablet 5 mg PO TID Qty: 90 0RF digoxin 125 mcg (0.125 mg) Tablet 0.125 mg PO DAILY Qty: 90 0RF Protocol: Hold for HR <: HOLD for HR < : 60 metoprolol tartrate 25 mg tablet 12.5 mg PO BID Qty: 90 0RF codeine-guaifenesin 10-100 mg/5 mL Liquid 10 ml PO Q4H PRN (Reason: Cough) Qty: 473 0RF oxycodone 5 mg Tablet 5 mg PO Q4H PRN (Reason: Pain, Moderate(Pain Scale 4-6)) Qty: 20 0RF Rx Instructions: Partial Fill upon patient request. Discharge Orders: Discharge Order (Routine); Ordered 02/26/25 Ordered By: Yoseph Castro Diet: Advance to usual diet Activity on Discharge: As tolerated Stand Alone Forms: Patient Portal Discharge page Print Language: Lao Care Plan Goals: Start Digoxin and Metoprolol for heart rate control Midodrine to improve blood pressure Oxycodone as needed for pain To follow with dr Foreman from Oncology as outpatient for further work up Follow with Dr Miles from thoracic surgery for Pleurix catheter care Drain pleurx 3 times weekly, up to 1L, can increase frequency if needed for SOB Increase protein intake Health Concerns: Squamous cell cancer of lung pleural effusion Plan of Treatment: Pleurix catheter Oncology follow up Assessment: as above
[2025-02-26 13:27] VITALS: PULSE 86; PULSE 88; PULSE 92; O2SAT 85; O2SAT 86; O2SAT 90
--- NOTE | 2025-02-26 14:05 | MHC.CM.PN ---
Second IMM 02/26/25, Pt has been medically cleared for DC, he will go home via family transport, to her brother's home, and have [facility] home care services.
== END 2025-02-26 14:51 | disposition home health service (06) | DRG 180 ==
LOC: HO.ED 21:17 → HO.EDOVER 21:34 → HO.IMC 02-12 15:53
PROVIDERS: Emergency Medicine; Internal Medicine; Internal Medicine Pulmonary Disease; Physician Assistant; Student in an Organized Health Care Education/Training Program; Surgery; Admitting Provider Hospitalist; Emergency Provider Emergency Medicine; Visit Provider Internal Medicine
PROC: 0BJ08ZZ Inspection of Tracheobronchial Tree, Via Natural or Artificial Opening Endoscopic (ICD-10-PCS; CPT 31622; principal; 2025-02-16 10:00)
PROC: 0JH63WZ Insertion of Totally Implantable Vascular Access Device into Chest Subcutaneous Tissue and Fascia, Percutaneous Approach (ICD-10-PCS; principal; 2025-02-21 12:10)
PROC: 0JH63WZ Insertion of Totally Implantable Vascular Access Device into Chest Subcutaneous Tissue and Fascia, Percutaneous Approach (ICD-10-PCS; 2025-02-21 12:10)
DX: C34.01 Malignant neoplasm of right main bronchus (principal); E43 Unspecified severe protein-calorie malnutrition; J18.9 Pneumonia, unspecified organism; J96.01 Acute respiratory failure with hypoxia; J44.0 Chronic obstructive pulmonary disease with (acute) lower respiratory infection; J44.1 Chronic obstructive pulmonary disease with (acute) exacerbation; J91.0 Malignant pleural effusion; Z68.1 Body mass index [BMI] 19.9 or less, adult; J98.11 Atelectasis; J93.9 Pneumothorax, unspecified; I47.10 Supraventricular tachycardia, unspecified; I96 Gangrene, not elsewhere classified; I95.9 Hypotension, unspecified; E86.0 Dehydration; E83.52 Hypercalcemia; E88.A Wasting disease (syndrome) due to underlying condition; D63.0 Anemia in neoplastic disease; I48.0 Paroxysmal atrial fibrillation; E78.5 Hyperlipidemia, unspecified; Z20.822 Contact with and (suspected) exposure to COVID-19; Z87.891 Personal history of nicotine dependence; Z79.899 Other long term (current) drug therapy
CPT/HCPCS: 0241U; 36415; 71045; 71250; 71275; 80048; 80053; 80061; 81001; 82042; 82378; 82803; 82945; 83519; 83605; 83615; 83690; 83735; 83880; 83970; 84157; 84443; 84484; 85025; 85027; 86850; 86900; 86901; 87040; 87205; 87640; 87641; 88112; 88305; 88341; 88342; 89051; 93005; 93306; 94640; 97116; 97162; 99285; C1729; C1788; J0171; J0330; J0696; J1160; J1171; J1644; J1650; J2003; J2371; J2543; J2704; J2795; J2919; J3010; J3370; J7120; P9047; Q9957; Q9967

== ENCOUNTER → 2025-02-11 15:37 | Outpatient (BNV) | payer OTHER, SELFPAY | PROVIDERS: Emergency Provider Emergency Medicine; Visit Provider Radiology Diagnostic Radiology | DX: J90 Pleural effusion, not elsewhere classified (principal); R91.8 Other nonspecific abnormal finding of lung field | CPT/HCPCS: 71275 ==

== ENCOUNTER → 2025-02-11 16:49 | Outpatient (BNV) | payer OTHER, SELFPAY | PROVIDERS: Emergency Provider Emergency Medicine; Visit Provider Internal Medicine Pulmonary Disease | DX: D49.1 Neoplasm of unspecified behavior of respiratory system (principal); J90 Pleural effusion, not elsewhere classified; J96.01 Acute respiratory failure with hypoxia | CPT/HCPCS: 99222; 99499 ==

== ENCOUNTER 2025-02-11 21:09 | Outpatient (BNV) | payer MEDICARE, SELFPAY | END 2025-02-15 11:51 | PROVIDERS: Admitting Provider Hospitalist; Emergency Provider Emergency Medicine; Visit Provider Radiology Diagnostic Radiology | DX: J90 Pleural effusion, not elsewhere classified (principal); J18.8 Other pneumonia, unspecified organism; J93.9 Pneumothorax, unspecified; J43.9 Emphysema, unspecified | CPT/HCPCS: 71250 ==

== ENCOUNTER 2025-02-11 21:09 | Outpatient (BNV) | payer MEDICARE, SELFPAY | END 2025-02-21 14:10 | PROVIDERS: Admitting Provider Hospitalist; Emergency Provider Emergency Medicine; Visit Provider Radiology Diagnostic Radiology | DX: J90 Pleural effusion, not elsewhere classified (principal) | CPT/HCPCS: 71045 ==

== ENCOUNTER 2025-02-11 21:09 | Outpatient (BNV) | payer MEDICARE, SELFPAY | END 2025-02-12 07:00 | PROVIDERS: Admitting Provider Hospitalist; Emergency Provider Emergency Medicine; Visit Provider Internal Medicine Cardiovascular Disease | DX: I35.1 Nonrheumatic aortic (valve) insufficiency (principal); I34.0 Nonrheumatic mitral (valve) insufficiency; I51.89 Other ill-defined heart diseases | CPT/HCPCS: 93306 ==

== ENCOUNTER 2025-02-11 21:09 | Outpatient (BNV) | payer MEDICARE, SELFPAY | END 2025-02-20 09:35 | PROVIDERS: Admitting Provider Hospitalist; Emergency Provider Emergency Medicine; Visit Provider Radiology Diagnostic Radiology | DX: J93.9 Pneumothorax, unspecified (principal); J43.8 Other emphysema | CPT/HCPCS: 71045 ==

== ENCOUNTER 2025-02-11 21:09 | Outpatient (BNV) | payer MEDICARE, SELFPAY | END 2025-02-20 00:50 | PROVIDERS: Admitting Provider Hospitalist; Emergency Provider Emergency Medicine; Visit Provider Internal Medicine Cardiovascular Disease | DX: R94.31 Abnormal electrocardiogram [ECG] [EKG] (principal); R00.0 Tachycardia, unspecified | CPT/HCPCS: 93010 ==

== ENCOUNTER 2025-02-11 21:09 | Outpatient (BNV) | payer MEDICARE, SELFPAY | END 2025-02-12 08:10 | PROVIDERS: Admitting Provider Hospitalist; Emergency Provider Emergency Medicine; Visit Provider Radiology Diagnostic Radiology | DX: J93.9 Pneumothorax, unspecified (principal); Z46.82 Encounter for fitting and adjustment of non-vascular catheter; J98.11 Atelectasis; J18.9 Pneumonia, unspecified organism | CPT/HCPCS: 71045 ==

== ENCOUNTER 2025-02-11 21:09 | Outpatient (BNV) | payer MEDICARE, SELFPAY | END 2025-02-23 14:42 | PROVIDERS: Admitting Provider Hospitalist; Emergency Provider Emergency Medicine; Visit Provider Radiology Diagnostic Radiology | DX: J93.9 Pneumothorax, unspecified (principal); J43.9 Emphysema, unspecified | CPT/HCPCS: 71045 ==

== ENCOUNTER 2025-02-11 21:09 | Outpatient (BNV) | payer MEDICARE, SELFPAY | END 2025-02-15 02:52 | PROVIDERS: Admitting Provider Hospitalist; Emergency Provider Emergency Medicine; Visit Provider Internal Medicine Cardiovascular Disease | DX: R00.0 Tachycardia, unspecified (principal) | CPT/HCPCS: 93010 ==

== ENCOUNTER 2025-02-11 21:09 | Outpatient (BNV) | payer MEDICARE, SELFPAY | END 2025-02-19 22:45 | PROVIDERS: Admitting Provider Hospitalist; Emergency Provider Emergency Medicine; Visit Provider Internal Medicine Cardiovascular Disease | DX: I49.1 Atrial premature depolarization (principal) | CPT/HCPCS: 93010 ==

== ENCOUNTER 2025-02-11 21:09 | Outpatient (BNV) | payer MEDICARE, SELFPAY | END 2025-02-13 07:00 | PROVIDERS: Admitting Provider Hospitalist; Emergency Provider Emergency Medicine; Visit Provider Radiology Diagnostic Radiology | DX: J93.9 Pneumothorax, unspecified (principal); Z46.82 Encounter for fitting and adjustment of non-vascular catheter | CPT/HCPCS: 71045 ==

== ENCOUNTER → 2025-02-11 21:09 | Outpatient (BNV) | payer MEDICARE, SELFPAY | PROVIDERS: Admitting Provider Hospitalist; Emergency Provider Emergency Medicine; Visit Provider Internal Medicine Cardiovascular Disease | DX: I48.91 Unspecified atrial fibrillation (principal) | CPT/HCPCS: 93010; 99222 ==

== ENCOUNTER → 2025-02-11 21:09 | Outpatient (BNV) | payer MEDICARE, SELFPAY | PROVIDERS: Admitting Provider Hospitalist; Emergency Provider Emergency Medicine; Visit Provider Physician Assistant Surgical | DX: J96.01 Acute respiratory failure with hypoxia (principal); J91.0 Malignant pleural effusion | CPT/HCPCS: 32556; 99223; 99232 ==

== ENCOUNTER → 2025-02-11 21:09 | Outpatient (BNV) | payer MEDICARE, SELFPAY | PROVIDERS: Admitting Provider Hospitalist; Emergency Provider Emergency Medicine; Visit Provider Physician Assistant | DX: I48.91 Unspecified atrial fibrillation (principal) | CPT/HCPCS: 99232; 99233 ==

== ENCOUNTER → 2025-02-11 21:09 | Outpatient (BNV) | payer MEDICARE, SELFPAY | PROVIDERS: Admitting Provider Hospitalist; Emergency Provider Emergency Medicine; Visit Provider Internal Medicine | DX: R91.8 Other nonspecific abnormal finding of lung field (principal) | CPT/HCPCS: 99222 ==

== ENCOUNTER → 2025-02-11 21:09 | Outpatient (BNV) | payer MEDICARE, SELFPAY | PROVIDERS: Admitting Provider Hospitalist; Emergency Provider Emergency Medicine; Visit Provider Internal Medicine | DX: J18.9 Pneumonia, unspecified organism (principal); J96.01 Acute respiratory failure with hypoxia | CPT/HCPCS: 99222 ==

== ENCOUNTER → 2025-03-07 10:35 | Outpatient (BNV) | payer MEDICARE, SELFPAY | PROVIDERS: PCP Internal Medicine; Visit Provider Internal Medicine | DX: C34.91 Malignant neoplasm of unspecified part of right bronchus or lung (principal) | CPT/HCPCS: 99215 ==

== ENCOUNTER 2025-03-11 13:05 | Outpatient (AMB) | payer MEDICARE, SELFPAY ==
--- NOTE | 2025-03-11 13:08 | A.OFFPC_ITS ---
Vital Signs 03/11/25 13:09 Weight 96 lb 0.6 oz BP 104/58 L Blood Pressure Location Lt brachial Pulse 65 Pulse Source Pulse Oximeter Temp 97.2 F Temp Source Temporal Artery Scan Pulse Oximetry (%) 90 L Oxygen Delivery Method Nasal Cannula Oxygen Flow Rate 2 Intake Visit Reasons: establish care; post-op Intake Note: no issues Parts Delivery Driver Required: No Guest Relations Receptionist: Not Required per policy Accompanied by: Self / Same As Patient Allergies No Known Allergies Allergy (Verified 03/11/25 14:17) Medication List - Last Reconciled 03/11/25 by Roxy Devi PA-C codeine-guaifenesin 10-100 mg/5 mL 10 mL PO Q4H PRN digoxin 0.125 mg See Protocol PO DAILY metoprolol tartrate 12.5 mg (1/2 x 25 mg) PO BID midodrine 5 mg PO TID oxycodone 5 mg PO Q4H PRN walker (Ultra-Light Rollator misc) As directed HPI establish care; post-op HPI Details The patient is a 70-year-old male presenting for the establishment of a new primary care provider and to follow up on his recent hospitalization. During his recent hospital stay from February 11 to February 26, 2025, he was diagnosed with acute hypoxic respiratory failure caused by a malignant right pleural ef fusion and postobstructive pneumonia. 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 While hospitalized, he was treated for small pneumothorax with a chest tube insertion and experienced hypotension managed with albumin and midodrine. Additionally, he was found to have severe malnutrition requiring nutritional support. Blood cultures showed growth of Streptococcus viridans, likely a contaminant. He was discharged with Plurex catheter management by [facility] on Monday/Monday/Monday due to the malignant pleural effusion. His medical history includes a longstanding diagnosis of chronic obstructive pulmonary disease (COPD), tobacco cessation two months prior, and a 10-year absence from regular medical follow-ups. Functionally, he now lives with family for additional support post-discharge, given his current medical needs. While the patient was in the hospital they gave him a walker. They started him on midodrine 5 mg t.i.d., digoxin 125 mcg daily, metoprolol tartrate 25 mg 12.5 mg to be taken twice a day, Robitussin with codeine and oxycodone. He reports he is taking all the medications except for the Robitussin with codeine the oxycodone as he does not have any pain at this time. He denies any recent falls. He denies any acute complaints. He would like to be seen in the [place] office due to is more convenient for his brother and for him as well. His brother is his main centrifugal screen tender. He has [facility] services who come on Monday/Monday and Fridays. He has a home health aide coming next week for the 1st time. He has his own bedroom and his brother's house. There are some throw rugs on the floor. There are grab bars in the shower. He has transportation to and from appointments and does not need any help with transportation. His brother is his main transportation. He is originally from [place]. He is now on 2 L of nasal cannula oxygen. He denies any other symptoms complaints or concerns at this time Social History - Resides with his brother post-discharg for health support - Previously lived alone in his own home - Long history of tobacco use, ceased tw o months prior to hospitalization - Brother assists with care coordination and brings the patient to appointments [facility] Medical History (Updated 03/11/25 @ 14:50 by Roxy Devi PA-C) COPD (chronic obstructive pulmonary disease) Squamous cell carcinoma lung Hypotension Malnutrition Acute respiratory failure with hypoxia Malignant pleural effusion Establishing care with new doctor, encounter for Hospital discharge follow-up Hx of hypotension Hx of supraventricular tachycardia Palpitations Atrial fibrillation Neoplasm of right lung HLD (hyperlipidemia) Surgical History H/O chest tube placement Family History Sister Lung cancer Mother Breast cancer Brother Leukemia Social History Household Members: Family and None Housing: House Do you presently have visiting nurse or other home services: No Alcohol intake: never Comment: pt rings appropriately Patient Tobacco Use Status: Former Tobacco user Tobacco use type: Cigarette Current occupational status: retired Questionnaire PHQ-9 Over the last 2 weeks, how often have you been bothered by any of the following problems? 1. Little interest or pleasure in doing things: not at all 2. Feeling down, depressed, or hopeless: not at all 3. Trouble falling or staying asleep, or sleeping too much: not at all 4. Feeling tired or having little energy: not at all 5. Poor appetite or overeating: more than half the days 6. Feeling bad about yourself - or that you are a failure or have let yourself or your family down: not at all 7. Trouble concentrating on things, such as reading the newspaper or watching television: not at all 8. Moving or speaking so slowly that other people could have noticed. Or the opposite - being so fidgety or restless that you have been moving around a lot more than usual: not at all 9. Thoughts that you would be better off or of hurting yourself in some way: not at all Total score: 2 Depression Screening Interpretation: Negative Depression Screening Done: Yes 77426 - PHQ-9 Billing: Yes Source: Developed by Drs. Christopher Cuevas, Laura Landry, Wes Gómez and colleagues, with an educational jeremias from [employer]. Thrive Questionnaire Date Thrive assessed: 02/12/25 GOKUL-7 AMB Questionnaire GOKUL-7 Date GOKUL - 7 assessed: 03/11/25 Feeling nervous, anxious, or on edge: 0 = Not at all Not being able to stop or control worryin = Not at all Worrying too much about different things: 0 = Not at all Trouble relaxin = Not at all Being so restless that it is hard to sit still: 0 = Not at all Becoming easily annoyed or irritable: 0 = Not at all Feeling afraid as if something awful might happen: 0 = Not at all Total GOKUL-7 score (0-4 normal; 5-9 mild; 10-14 moderate; 15-21 severe): 0 Source: Developed by Drs. Christopher Cuevas, Laura Landry, Wes Gómez and colleagues, with an educational jeremias from [employer]. GOKUL-7 Assessment Billing GOKUL-7 Assessment Tool: GOKUL-7 Assessment 05202 Review of Systems Const Details: - Respiratory: Reports shortness of breath and cough; denies chest pain - Gastrointestinal: Denies nausea, vomiting, black or bloody stools - Musculoskeletal: Denies falls - Neurological: Denies dizziness - General: Denies fever Physical exam (Primary Care) Vital Signs: Last Vital Signs Temp 97.2 F 03/11/25 13:09 BP 104/58 L 03/11/25 13:09 Vitals signs have been reviewed. Care Plan Goal for BP management: <130/90 at Goal BMI Assessment/Plan discussion: Low BMI Low, Plan discussed: lifestyle, increase calorie intake and dietary Tobacco/Smoking Status: Tobacco use Status Patient Tobacco Use Status Former Tobacco user 03/11/25 13:12 Tobacco use type Cigarette 03/11/25 13:12 PHQ-9: PHQ-9 Score PHQ-9: Total score 2 03/11/25 13:47 Depression Screening Interpretation: Negative Thrive Assessment: Date of Thrive Assessment Date Thrive assessed 02/12/25 03/11/25 13:12 Const Other: Appearance: Alert. Appears frail. With nasal cannula oxygen in place at 2 L. No cyanosis is noted. Patient utilizing walker. Oriented X3. No acute distress. Head: Normal external exam. Normocephalic. Atraumatic. Eyes: Pupils are equal, round, and reactive to light. Extraocular movements intact. Conjunctiva and sclera normal. Eyelids normal. Ears: External auditory canal normal. Tympanic membranes normal. Throat: Pharynx normal. Uvula midline. Moist mucous membranes. Neck: Normal inspection. Neck supple. Full range of motion. No adenopathy. Thyroid Normal. No meningeal signs. No neck mass noted. Cardiovascular: Normal heart rate and rhythm. Heart sound normal. No murmurs noted. Pulses normal throughout. Ejection fraction of 20 to 25%. Respiratory: No respiratory distress. Painless inspiration. Mild decreased breath sounds over the right side. Otherwise there are no obvious wheezes/rales/rhonchi noted. Chest nontender. No accessory muscle usage noted or decreased air movement noted. Patient on 2 liters of oxygen. Abdomen: Soft and nontender. Bowel sounds normal in all 4 quadrants. No distention noted. No organomegaly noted. Back: Full range of motion noted. Skin: Skin warm and dry. Normal skin color. Normal skin turgor. No rashes/lesions/lacerations noted. Extremities: No lower extremity edema. Extremities exhibit normal range of motion. Extremities nontender. No leg swelling. Neuro: Oriented X 3. No motor deficit. No sensory deficit. Reflexes normal. Results Reviewed Results Reviewed: - Imaging: CT scan of chest showed lung mass obstructing right bronchus, malignant pleural effusion - Pathology: Bronchoscopy and biopsy showed invasive squamous cell carcinoma - Blood Cultures: Growth of Streptococcus viridans (considered contaminant) Coding Level of Care Code New Pt Level 4 (67993) Complex EM visit Add On G2211 Diagnoses Hospital discharge follow-up Z09 Establishing care with new doctor, encounter for Z76.89 Non-small cell lung cancer C34.90 Physical deconditioning R53.81 Acute respiratory failure with hypoxia J96.01 Malignant pleural effusion J91.0 Malnutrition E46 Atrial fibrillation I48.91 Hypotension I95.9 Squamous cell carcinoma lung C34.90 COPD (chronic obstructive pulmonary disease) J44.9 Additional Codes PHQ-9 - 74818 - PHQ-9 Billing: Yes ([id number]) GOKUL-7 Assessment Billing - GOKUL-7 Assessment Tool: GOKUL-7 Assessment 40966 ([id number]) Assessment & Plan Assessment & Plan (1) Hospital discharge follow-up: Code(s): Z09 - Encounter for follow-up examination after completed treatment for conditions other than malignant neoplasm Category: Medical (2) Establishing care with new doctor, encounter for: Code(s): Z76.89 - Persons encountering health services in other specified circumstances Category: Medical (3) Non-small cell lung cancer: Code(s): C34.90 - Malignant neoplasm of unspecified part of unspecified bronchus or lung Category: Medical Plan: Oncology follow-up for chemotherapy, surveillance, and treatment of the diagnosed cancer. Condition is chronic and stable continue to monitor. (4) Physical deconditioning: Code(s): R53.81 - Other malaise Category: Medical Plan: Information about physical deconditioning/malnutrition given to the patient. Patient to increase his calorie intake and protein intake. Condition is chronic and stable continue to monitor. (5) Acute respiratory failure with hypoxia: Code(s): J96.01 - Acute respiratory failure with hypoxia Category: Medical Plan: Management includes continuous home oxygen therapy, monitoring symptoms, and utilizing the Plurex catheter for pleural effusion. [facility]NA to continue on Monday/Monday/Monday so for drainage of Plurex catheter for pleural effusion. Condition is chronic and stable continue to monitor. (6) Malignant pleural effusion: Code(s): J91.0 - Malignant pleural effusion Category: Medical Plan: Plurex catheter management remains a focus, with ongoing oncology collaboration for targeted cancer therapies. Condition is chronic and stable continue to monitor. (7) Malnutrition: Code(s): E46 - Unspecified protein-calorie malnutrition Category: Medical Plan: Information about physical deconditioning/malnutrition given to the patient. Patient to increase his calorie intake and protein intake. Condition is chronic and stable continue to monitor. (8) Atrial fibrillation: Code(s): I48.91 - Unspecified atrial fibrillation Category: Medical Plan: Ongoing therapy with digoxin for rate control with cautions regarding anticoagulation due to bleeding risks, necessitating cardiology involvement. Condition is chronic and stable continue to monitor. (9) Hypotension: Code(s): I95.9 - Hypotension, unspecified Category: Medical Plan: Monitoring to prevent generalized hypotension recurrence in outpatient care is ongoing. Condition is chronic and stable continue to monitor. (10) Squamous cell carcinoma lung: Code(s): C34.90 - Malignant neoplasm of unspecified part of unspecified bronchus or lung Category: Medical Plan: Oncology follow-up for chemotherapy, surveillance, and treatment of the diagnosed cancer. Condition is chronic and stable continue to monitor. (11) COPD (chronic obstructive pulmonary disease): Code(s): J44.9 - Chronic obstructive pulmonary disease, unspecified Category: Medical Plan: The COPD management plan includes follow-up evaluations, avoidance of smoking, and monitoring for exacerbations. Patient to continue utilizing his 2 L of nasal cannula oxygen. Condition is chronic and stable continue to monitor. Plan Plan Patient was informed and verbally consented to the use of an ambient scribe for clinic note documentation during this visit. 1. Chronic Obstructive Pulmonary Disease Copd The COPD management plan includes follow-up evaluations, avoidance of smoking, and monitoring for exacerbations. 2. Acute Hypoxic Respiratory Failure Management includes continuous home oxygen therapy, monitoring symptoms, and utilizing the Plurex catheter for pleural effusion. 3. Pneumonia Antibiotic therapy completion with ceftriaxone during hospitalization, with follow-up planned to ensure infection resolution. 4. Malignant Pleural Effusion Plurex catheter management remains a focus, with ongoing oncology collaboration for targeted cancer therapies. 5. Severe Malnutrition Nutritional support was initiated, requiring dietary adjustments or supplements for undernutrition recovery. 6. Atrial Fibrillation Ongoing therapy with digoxin for rate control with cautions regarding anticoagulation due to bleeding risks, necessitating cardiology involvement. 7. Invasive Squamous Cell Carcinoma Oncology follow-up for chemotherapy, surveillance, and treatment of the diagnosed cancer. 8. Hypotension Monitoring to prevent generalized hypotension recurrence in outpatient care is ongoing. During the visit, I explained the patient's recent hospital discharge, ongoing management needs, and complex medical conditions. The risks and benefits of continuing home care with Plurex catheter management due to malignant pleural effusion were discussed, along with follow-up care with oncology. I also reviewed the patient's medication regimen, including potential adverse effects and the decision to forgo anticoagulation in light of bleeding risks. The importance of completing antibiotic therapy for pneumonia was emphasized, along with ongoing cardiac monitoring for atrial fibrillation. I informed the patient about upcoming follow-ups scheduled with oncology and thoracic surgery, ensuring comprehensive care for his multiple diagnoses. We discussed his current nutritional interventions and the needed follow-up to address malnutrition. I provided guidance on symptom monitoring, particularly concerning respiratory function and the management of chronic conditions. Patient Instructions: - Continue using home oxygen as prescribed. - Monitor and record drainage from the Plurex catheter. - Take all prescribed medications as directed. - Complete the course of antibiotics for pneumonia. - Attend all follow-up appointments with thoracic surgery and oncology. - Maintain nutritional support plans as recommended. - Avoid smoking and exposure to respiratory irritants. - Contact the healthcare provider if you experience worsening breathing difficul ties, fever, increased chest pain, or any new concerning symptoms.
[2025-03-11 13:09] VITALS: BP 104/58; PULSE 65; TEMP 36.2; O2SAT 90
--- OUTSIDE RECORDS SUMMARY | 2025-03-11 14:19 | XMS_ITS | Clinical Summary ---
Author Organization [facility] Address [address] [place] [address] Care Team Providers Care Reactor Technician Name Role Phone Unavailable Primary Care Provider [...] ( - 2023-2 5 season) 2024 Influenza (Season Ended) 2025 RSV (1 - 1-dose 75+ series) 02/13/2032 [...]
== END 2025-03-11 14:00 | disposition home or self-care (01) ==
LOC: HO.HMCSH 13:05
PROVIDERS: PCP Internal Medicine; Visit Provider Physician Assistant Medical
DX: Z09 Encounter for follow-up examination after completed treatment for conditions other than malignant neoplasm (principal); Z76.89 Persons encountering health services in other specified circumstances; C34.90 Malignant neoplasm of unspecified part of unspecified bronchus or lung; R53.81 Other malaise; J96.01 Acute respiratory failure with hypoxia; J91.0 Malignant pleural effusion; E46 Unspecified protein-calorie malnutrition; I48.91 Unspecified atrial fibrillation; I95.9 Hypotension, unspecified; J44.9 Chronic obstructive pulmonary disease, unspecified

== ENCOUNTER → 2025-03-11 13:05 | Outpatient (BNVA) | payer MEDICARE, SELFPAY | PROVIDERS: PCP Internal Medicine; Visit Provider Physician Assistant Medical | DX: Z09 Encounter for follow-up examination after completed treatment for conditions other than malignant neoplasm (principal); C34.90 Malignant neoplasm of unspecified part of unspecified bronchus or lung; R53.81 Other malaise; J96.01 Acute respiratory failure with hypoxia; J91.0 Malignant pleural effusion; E46 Unspecified protein-calorie malnutrition; I48.91 Unspecified atrial fibrillation; I95.9 Hypotension, unspecified; J44.9 Chronic obstructive pulmonary disease, unspecified; Z76.89 Persons encountering health services in other specified circumstances | CPT/HCPCS: 96127; 99202 ==

== ENCOUNTER 2025-03-12 10:55 | Emergency (ER) | payer MEDICARE, SELFPAY ==
[2025-03-12] VITALS (9 sets, daily range): BP systolic 91–118; BP diastolic 61–74; PULSE 72–86; RESP 18–35; TEMP 36.8; O2SAT 78–94; BMI 28.8
--- NOTE | ~2025-03-12 | XR_ITS ---
EXAMINATION: XR CHEST CLINICAL INFORMATION: ?effusion, sob, lung gets drained weekly COMPARISON: February 23, 2025. TECHNIQUE: 2 views of the chest were obtained. FINDINGS: Hyperinflated lungs. Decreased AP diameter and flattening diaphragms. Horizontally opacities right lower hemithorax. Blunting of the left costophrenic angle. Patchy opacity extending from the right perihilar region to the periphery of the right lower hemithorax and mid hemithorax. Right-sided Port-A-Cath remains in the SVC. No gross pneumothorax. No subcutaneous emphysema. Cardiomediastinal silhouette is slightly overlapping the medial right hemithorax due to patient's positioning. Degenerative changes in the shoulders suggesting chronic old rotator cuff tendon tear. XR/XR chest 2V IMPRESSION: COPD emphysematous type changes. Right-sided pleural effusion, moderate volume. Acute on chronic airspace disease. Underlying mass in the right perihilar region cannot be excluded. Electronically signed by: King Paniagua MD 03/12/2025 12:26 PM EDT
--- NOTE | 2025-03-12 11:08 | ECG_ITS ---
Test Reason : CHEST PAIN Blood Pressure : */* mmHG Vent. Rate : 73 BPM Atrial Rate : 73 BPM P-R Int : 130 ms QRS Dur : 106 ms QT Int : 380 ms P-R-T Axes : 79 49 94 degrees QTcB Int : 418 ms Normal sinus rhythm Incomplete right bundle branch block Left ventricular hypertrophy with repolarization abnormality ( Ck product ) Abnormal ECG No significant changes when compared with the previous EKG of 20 february 2025 Referred By: Annelise Mason Electronically Signed By: GONZALES GRANT
--- NOTE | 2025-03-12 11:09 | ED_ITS ---
HPI - SOB/Dyspnea General Chief Complaint: Dyspnea Stated Complaint: Diff Breathing Time Seen by Provider: 03/12/25 12:08 History of Present Illness ED Provider: Dr. Ritter HPI Narrative: 70 y/o M patient; PMH COPD, squamous cell carcinoma lung, atrial fibrillation, HFrEF 20 - 25%, malnutrition; presents from home with report of increased shortness of breath and hypoxia. Patient has a known right pleurX in place. He gets it drained three times a week, it used to drain approx 500cc each time but lately has been draining more like 1000cc. The patient has not yet started chemotherapy. He otherwise denies: fever or chills, nausea/vomiting, abdominal pain. Related Data Home Medications ?Medication ?Instructions ?Recorded ?Confirmed midodrine 5 mg tablet 5 mg PO TIDWM 03/12/25 03/12/25 Previous Rx's ?Medication ?Instructions ?Recorded walker (Ultra-Light Rollator misc) #1 ea 02/23/25 codeine 10 mg-guaifenesin 100 mg/5 10 ml PO Q4H PRN Cough #473 mL 02/24/25 mL oral liquid digoxin 125 mcg (0.125 mg) tablet 0.125 mg PO DAILY #90 tabs 02/24/25 metoprolol tartrate 25 mg tablet 12.5 mg (1/2 x 25 mg) PO BID #90 02/24/25 tabs oxycodone 5 mg tablet 5 mg PO Q4H PRN Pain, 02/24/25 Moderate(Pain Scale 4-6) #20 tabs Allergies Allergy/AdvReac Type Severity Reaction Status Date / Time No Known Allergies Allergy Verified 03/12/25 11:06 Review of Systems 2 Review of Systems: Yes all other systems are reviewed and are negative PENDING SALE TO [facility] Past Medical History Attestation statement: The following information was validated with the patient. Source: old records reviewed Medical History COPD (chronic obstructive pulmonary disease) Squamous cell carcinoma lung Hypotension Malnutrition Acute respiratory failure with hypoxia Malignant pleural effusion Establishing care with new doctor, encounter for Hospital discharge follow-up Hx of hypotension Hx of supraventricular tachycardia Palpitations Atrial fibrillation Neoplasm of right lung HLD (hyperlipidemia) Surgical History H/O chest tube placement Family History Family History Sister Lung cancer Mother Breast cancer Brother Leukemia Social History Social History Household Members: Family and None Housing: House Do you presently have visiting nurse or other home services: No Alcohol intake: never Comment: pt rings appropriately Patient Tobacco Use Status: Former Tobacco user Tobacco use type: Cigarette Advance Directives: No Advance Directives Information Provided: Yes Current occupational status: retired Physical Exam 2 Vital Signs: Vital Signs: Last Vital Signs Temp 98.2 F 03/12/25 14:02 Pulse 86 03/12/25 14:02 Resp 20 03/12/25 14:02 BP 114/74 03/12/25 14:02 Pulse Ox 94 03/12/25 14:02 O2 Del Method CPAP 03/12/25 14:02 O2 Flow Rate 2 03/12/25 12:50 FiO2 32 03/12/25 14:02 Oxygen Flow Rate 2 03/12/25 11:01 BMI result Body Mass Index 28.8 Patient is afebrile, with soft blood pressure. Const: General: cooperative Nutritional Appearance: cachectic O rientation/consciousness: patient oriented x3 HEENT: Head: Yes normal to inspection Eyes: General: appearance normal, both eyes and all related structures P upils: Equal, round and reactive pupils present EOM: EOMs intact bilaterally Neck: Neck: Yes normal visual inspection, Yes full ROM, Yes supple and No tender Chest: Chest palpation & inspection: normal inspection of the chest and normal palpation of entire chest wall Resp: Other: PleurX in right chest wall noted Effort & Inspection: normal respiratory effort, able to speak in complete sentences, no cough and no respiratory distress Cardio: Rate: regular rate Rhythm: regular rhythm GI: Inspection: Yes normal to inspection, No Abdominal wall edema and No distended Palpation (GI): Soft to palpation, not firm, nontender, no guarding and not rigid Auscultation: normal bowel sounds Back/Spine/Pelvis: Back: No back tenderness Neuro: General: patient oriented x3 Cranial nerves: Yes Equal, round and reactive pupils present Course Course Course Narrative: This is a Rapid Medical Exam performed in triage by Annelise Pouliot PA-C. Full HPI, ROS and PE to be performed by primary ED provider. 70 yo M w/PMHx squamous cell carcinoma of the lung, obtains weekly thoracentesis drainage at by [facility], COPD, AFib, HLD presenting to the ED c/o persistent SOB, sent in by [facility]. Had lung drain this morning however [facility] felt needed more taken out PE: BP soft. Chronically ill-appearing. On 2L nasal cannula baseline Plan: EKG, labs, CXR, SARs Reevaluation(s) Reevaluation #1: Patient is afebrile and hemodynamically stable. I reviewed the patient's recent medical admission to [facility] [place] from 02/11 - 02/26/2025 for newly diagnosed squamous cell cancer of lung with large pleural effusion. I will obtain EKG, CXR, and laboratory studies. Labs reviewed. No leukocytosis. Mild anemia 9.8, baseline. BNP elevated compared to prior 572 today, prior 228 on 02/11/2025. COVID/Flu/RSV negative. ABG obtained. Patient's SpO2 80% on 2L NC. CXR consistent with right-sided pleural effusion moderate volume and acute on chronic airspace disease. Patient was placed on CPAP for additional airway and respiratory support. I spoke with patient's oncologist Dr. Foreman to make her aware of plan for admission for patient. I requested admission from the hospitalist Dr. Castro who recommended additional 500cc removal from PleurX and re-evaluation of the patient's condition. Discussed hospice with the patient who declined. Patient is saturating well now on 3L NC after removal of additional 500cc fluid. He remains tachypnic. Will have physical therapy evaluate the patient in the morning. The patient requests to leave at this time. He has home oxygen as needed. His brother will transport him home. Plan: Discharge to home with oncology follow up Condition: Guarded Medical Decision Making Lab Data 03/12/25 12:00 03/12/25 12:00 Labs: Lab Results 03/12/25 03/12/25 03/12/25 Range/Units 12:00 12:39 15:12 WBC 7.1 (4.8-10.8) X10*3/uL RBC 3.53 L (4.60-5.80) X10*6/uL Hgb 9.8 L (14.0-18.0) g/dl Hct 32.2 L (42.0-52.0) % MCV 91.2 (80.0-98.0) fL MCH 27.8 (27.0-33.0) pg MCHC 30.4 L (31.0-36.0) g/dl RDW 15.9 (11.0-16.0) % Plt Count 320 (160-400) X10*3/uL MPV 8.6 L (9.4-12.4) fL Immature Gran % (Auto) 0.8 H (0.0-0.4) % Neut % (Auto) 80.8 H (45-73) % Lymph % (Auto) 9.4 L (20-40) % [place] % (Auto) 8.0 (2-11) % Eos % (Auto) 0.6 (0-4) % Baso % (Auto) 0.4 (0-2) % Lymph # (Auto) 0.7 L (1.2-4.9) X10*3/uL [place] # (Auto) 0.6 (0.1-1.2) X10*3/uL Eos # (Auto) 0.0 (0.0-0.4) X10*3/uL Baso # (Auto) 0.0 (0.0-0.2) X10*3/uL Abs Immat Gran (auto) 0.06 H (0.00-0.03) X10*3/uL Absolute Neuts (auto) 5.8 (2.0-8.3) x10*3/uL Absolute Nucleated RBC 0.000 (0.0-0.012) X10*3/uL Nucleated RBC % (auto) 0.0 (0.0-0.2) /100WBC PT 13.1 H (10.9-12.4) SEC INR 1.1 (0.9-1.1) O2 Saturation 80.0 92.0 % ABG pH at Pt Temp 7.39 7.40 (7.35-7.45) ABG pCO2 at Pt Temp 55 H 56 H (32-45) mmHg ABG pO2 at Pt Temp 58 L 69 L (83-108) mmHg ABG HCO3 34 H 35 H (22-26) mmol/L ABG Base Excess (Actual) 7.9 8.9 mmol/L Sodium 140 (135-145) mmol/L Potassium 4.2 (3.3-5.1) mmol/L Chloride 101 (96-108) mmol/L Carbon Dioxide 32 H (22-29) mmol/L Anion Gap 11 L (12-20) BUN 21 H (9-16) mg/dL Creatinine 0.57 (0.5-1.4) mg/dL Estim Creat Clear Calc 149.1 Estimated GFR > 60 Random Glucose 110 (60-115) mg/dL Calcium 10.1 (8.4-10.2) mg/dL Magnesium 2.0 (1.6-2.6) mg/dL Total Bilirubin 0.3 (0.0-1.0) mg/dL Direct Bilirubin 0.1 (0.0-0.5) mg/dL AST 22 (5-37) U/L ALT 11 (0-40) U/L Alkaline Phosphatase 88 (39-117) U/L Troponin I High Sens 3.0 (<3.5-35.0) ng/L B-Natriuretic Peptide 572 H (<100) pg/mL Total Protein 6.7 (6.5-8.0) g/dL Albumin 3.3 L (3.5-5.0) g/dL Influenza Type A (PCR) NEGATIVE (Negative) Influenza Type B (PCR) NEGATIVE (Negative) RSV RNA Qual (PCR) NEGATIVE (Negative) SARS-CoV-2 RNA (RT-PCR) NEGATIVE (Negative) Radiology Impression Discussion of test interpretation with radiology: I have reviewed the radiologist's reading. Radiologist Impression: EXAMINATION: XR CHEST CLINICAL INFORMATION: ?effusion, sob, lung gets drained weekly COMPARISON: February 23, 2025. TECHNIQUE: 2 views of the chest were obtained. FINDINGS: Hyperinflated lungs. Decreased AP diameter and flattening diaphragms. Horizontally opacities right lower hemithorax. Blunting of the left costophrenic angle. Patchy opacity extending from the right perihilar region to the periphery of the right lower hemithorax and mid hemithorax. Right-sided Port-A-Cath remains in the SVC. No gross pneumothorax. No subcutaneous emphysema. Cardiomediastinal silhouette is slightly overlapping the medial right hemithorax due to patient's positioning. Degenerative changes in the shoulders suggesting chronic old rotator cuff tendon tear. XR/XR chest 2V IMPRESSION: COPD emphysematous type changes. Right-sided pleural effusion, moderate volume. Acute on chronic airspace disease. Underlying mass in the right perihilar region cannot be excluded. Electronically signed by: King Paniagua MD 03/12/2025 12:26 PM EDT RP Discharge Plan Discharge Clinical Impression: Lung cancer Patient Disposition: Home, Self-Care Instructions: Lung Cancer (DC) Additional Instructions: Please follow up with oncology Dr. Foreman as you have previously scheduled. Return to the emergency department with any concerns! You had an additional 500cc fluid removed from your pleurX in the emergency department. Prescriptions: No Action (DME) Ultra-Light Rollator Misc See Rx Instructions .Route Qty: 1 0RF Rx Instructions: As directed digoxin 125 mcg (0.125 mg) Tablet 0.125 mg PO DAILY Qty: 90 0RF Protocol: Hold for HR <: HOLD for HR < : 60 metoprolol tartrate 25 mg tablet 12.5 mg PO BID Qty: 90 0RF codeine-guaifenesin 10-100 mg/5 mL Liquid 10 ml PO Q4H PRN (Reason: Cough) Qty: 473 0RF oxycodone 5 mg Tablet 5 mg PO Q4H PRN (Reason: Pain, Moderate(Pain Scale 4-6)) Qty: 20 0RF Rx Instructions: Partial Fill upon patient request. midodrine 5 mg tablet 5 mg PO TIDWM Print Language: Bulgarian
--- NOTE | 2025-03-12 11:58 | PC.RT ---
RN requested RT assess pt. Pt currently on 2L NC, SATs reading are sporadic w/o a consistently good pleth. Best reading was 92% w/ good pleth. Pt has mild retractions but states he is not having difficulty breathing, RR 18-22. l/s clear on left and diminished on right. RT placed pt on CO2 monitoring, reading is also sporadic w/o proper pleth. Pt is pale w/ weak pulse. Will continue to monitor pt.
[2025-03-12 12:07] LABS: MANUAL DIFF FLAG NO
[2025-03-12 12:11] LABS: Basophils Percent Auto 0.4 % (0-2); Eosinophils Percent Auto 0.6 % (0-4); Hematocrit 32.2 % (42.0-52.0); Hemoglobin 9.8 g/dl (14.0-18.0); Imm Gran Abs Auto 0.06 X10*3/uL (0.00-0.03); Imm Gran Pct Auto 0.8 % (0.0-0.4); Lymphocytes Absolute Auto 0.7 X10*3/uL (1.2-4.9); Lymphocytes Percent Auto 9.4 % (20-40); Mean Corpuscular HGB Conc 30.4 g/dl (31.0-36.0); Mean Corpuscular Hemoglobin 27.8 pg (27.0-33.0); Mean Corpuscular Volume 91.2 fL (80.0-98.0); Mean Platelet Volume 8.6 fL (9.4-12.4); Monocytes Absolute Auto 0.6 X10*3/uL (0.1-1.2); Neutrophils Absolute Auto 5.8 x10*3/uL (2.0-8.3); Neutrophils Percent Auto 80.8 % (45-73); Platelet Count 320 X10*3/uL (160-400); Red Blood Count 3.53 X10*6/uL (4.60-5.80); Red Cell Distribution Width 15.9 % (11.0-16.0); White Blood Count 7.1 X10*3/uL (4.8-10.8)
[2025-03-12 12:18] LABS: INTERNATIONAL NORM RATIO 1.1 (0.9-1.1); Prothrombin Time 13.1 SEC (10.9-12.4)
--- NOTE | 2025-03-12 12:26 | PC.NURSE ---
This RN and resp at bedside while this RN was placing port. staff having a difficult time getting an accurate O2 reading, attempted to get at least and end tidal on him but also not getting accurate readings on the end tidal. MD Ritter updated on current assessment, also notified the brother reported to this RN that he has been getting his right pleurx drained 3x a week. Pt brother also reporting they were normally draining only 500cc, but the last 2 weeks they have been getting closer to 1000ml with draining it. Pt lungs do sound clear at this time, resp called and notified that MD Ritter is requesting ABG at this time.
[2025-03-12 12:32] LABS: B Type Natriuretic Peptide 572 pg/mL (<100)
[2025-03-12 12:42] LABS: Alanine Aminotransferase 11 U/L (0-40); Albumin Level 3.3 g/dL (3.5-5.0); Alkaline Phosphatase 88 U/L (39-117); Anion Gap 11 (12-20); Aspartate Amino Transferase 22 U/L (5-37); Bilirubin Direct 0.1 mg/dL (0.0-0.5); Bilirubin Total 0.3 mg/dL (0.0-1.0); Blood Urea Nitrogen 21 mg/dL (9-16); Calcium 10.1 mg/dL (8.4-10.2); Carbon Dioxide 32 mmol/L (22-29); Chloride 101 mmol/L (96-108); Creatinine Clr Calc Pharmacy 149.1; Estimated Glomerular Filt Rate > 60; Glucose Random 110 mg/dL (60-115); Potassium 4.2 mmol/L (3.3-5.1); Sodium 140 mmol/L (135-145); Total Protein 6.7 g/dL (6.5-8.0)
[2025-03-12 12:43] LABS: ABG Base Excess 7.9 mmol/L; ABG HCO3 34 mmol/L (22-26); ABG pCO2 55 mmHg (32-45); ABG pH 7.39 (7.35-7.45); ABG pO2 58 mmHg (83-108)
[2025-03-12 12:45] LABS: Influenza A PCR NEGATIVE (Negative); Influenza B PCR NEGATIVE (Negative); Resp Syncy Virus RNA Qual PCR NEGATIVE (Negative); SARS COV2 PCR INHOUSE NEGATIVE (Negative)
--- OUTSIDE RECORDS SUMMARY | 2025-03-12 13:08 | XMS_ITS | Clinical Summary ---
Author Organization [facility] Address [address] [place] [address] Care Team Providers Care Physical Therapy Teacher Name Role Phone Unavailable Primary Care Provider [...]
[2025-03-12 13:20] LABS: ABG Refer to POC result
--- NOTE | 2025-03-12 14:04 | PC.NURSE ---
MD Ritter/ resp/ this RN discussed with admitting provider about pt, admitting provider requesting another pleural drainage today. This RN drained 500cc of clear yellow fluid from right sided pleurx drain, pt reporting he tolerated the procedure well, no complaints of pain. Pt remained on CPAP during procedure, removed from CPAP after and placed back on NC at 3L, O2 90-94 at this time. Pt only comfortable when sitting up high-fowlers. Awaiting continued dispo discussion at this time.
--- NOTE | 2025-03-12 14:25 | PHA.MEDREC ---
Addendum entered by Yogi Bond RPh 03/12/25 14:31: Reviewed by [facility] Original Note: Pharmacy Consult ? Medication Reconciliation Pharmacy has completed the medication reconciliation. Patient was just discharged fro [facility] 02/26/25. Utilized discharge packet and list from A service to confirm med list.
[2025-03-12 15:16] LABS: ABG Base Excess 8.9 mmol/L; ABG HCO3 35 mmol/L (22-26); ABG pCO2 56 mmHg (32-45); ABG pO2 69 mmHg (83-108)
--- NOTE | 2025-03-12 15:20 | MHC.CM.ED ---
Addendum entered by Ebony Pierre 03/12/25 16:13: Received notification that patient will be d/c home with resumption of [facility]. Patient has oxygen at home. Patient's brother will transport him home. ROSS made aware. Original Note: Received case management consult from Dr Ritter. Hospice consult requested. Referral made via [facility] to [facility]. Met with patient in regards to discharge planning. Patient was d/c'd from [facility] at the end of February. Insurance denied STR at that time. Patient is active with [facility]. SN has been coming three times a week to drain patient's pleurix catheter. Patient feels very weak but is not ready for hospice. Patient's brother has been helping with care and speaking to providers. Per patient, radiation is being arranged and patient is interested in continuing treatment. Dr Ritter made aware. Physical therapy eval will be ordered. Continue to monitor for d/c needs.
--- NOTE | 2025-03-12 15:26 | PC.RT ---
repeat ABG drawn as ordered. Improvement in PaO2. CPAP ordered D/Eugene per MD order.
== END 2025-03-12 16:48 | disposition home or self-care (01) ==
PROVIDERS: Physician Assistant; Emergency Provider Emergency Medicine; PCP Internal Medicine
DX: C34.91 Malignant neoplasm of unspecified part of right bronchus or lung (principal); R06.02 Shortness of breath; D64.9 Anemia, unspecified; I45.10 Unspecified right bundle-branch block; Z79.899 Other long term (current) drug therapy; Z87.891 Personal history of nicotine dependence; Z03.818 Encounter for observation for suspected exposure to other biological agents ruled out
CPT/HCPCS: 0241U; 71046; 80048; 80076; 82803; 83735; 83880; 84484; 85025; 85610; 93005; 99284; 99285

== ENCOUNTER → 2025-03-12 11:08 | Outpatient (BNV) | payer MEDICARE, SELFPAY | PROVIDERS: Emergency Provider Emergency Medicine; PCP Internal Medicine; Visit Provider Radiology Diagnostic Radiology | DX: J44.9 Chronic obstructive pulmonary disease, unspecified (principal); J43.9 Emphysema, unspecified; J90 Pleural effusion, not elsewhere classified | CPT/HCPCS: 71046 ==

== ENCOUNTER → 2025-03-12 11:08 | Outpatient (BNV) | payer MEDICARE, SELFPAY | PROVIDERS: Emergency Provider Emergency Medicine; PCP Internal Medicine; Visit Provider Internal Medicine | DX: I45.10 Unspecified right bundle-branch block (principal); I51.7 Cardiomegaly | CPT/HCPCS: 93010 ==

== ENCOUNTER 2025-03-14 11:02 | Outpatient (REF) | payer MEDICARE, SELFPAY ==
--- NOTE | ~2025-03-14 | MR_ITS ---
EXAMINATION: MR BRAIN WITHOUT AND WITH CONTRAST CLINICAL INFORMATION: Staging lung cancer. COMPARISON: None available. TECHNIQUE: Multiplanar, multisequence MRI of the brain was obtained before and after the intravenous administration of 4.5 mL gadolinium base (Gadavist) without reported immediate complications.. FINDINGS: There is a 3 mm focal, likely intra-axial, enhancing signal abnormality in the cerebral cortex of the right frontal lobe. No restricted diffusion within the brain parenchyma. No acute intracranial hemorrhage, mass effect, midline shift, hydrocephalus or herniation. Bilateral multifocal patchy, punctate subcortical deep white matter hyperintense T2 FLAIR signal involving centrum semiovale and arriaga radiata without associated restricted diffusion or enhancement. Flow-void signal within the main cerebral vessels is normal. Main cerebral venous sinuses are patent without intraluminal filling defects. Prominence of the extra-axial CSF spaces cerebral sulci and ventricles. There is a 1 cm hypointense T1 and T2 restricted diffusion nodular lesion in the right retroauricular/parotid region. MR/MR head/brain wo/w con IMPRESSION: Single/ solitary 3 mm intra-axial metastasis, right frontal cerebral cortex. Extensive White matter disease without restriction or enhancement. Consider posttreatment changes. Recommend correlation with prior imaging exam. 1 cm nodular lesion, retroareolar reticular/right parotid region. Global cerebral atrophy. Electronically signed by: King Paniagua MD 03/14/2025 02:27 PM EDT
--- OUTSIDE RECORDS SUMMARY | 2025-03-14 11:34 | XMS_ITS | Clinical Summary ---
Author Organization [facility] Address [address] [place] [address] Care Team Providers Care Petrographer Name Role Phone Unavailable Primary Care Provider [...]
[2025-03-14] MEDS: gadobutroL 7.5 ML VIAL IVPUSH (12:02)
== END 2025-03-14 11:03 | disposition home or self-care (01) ==
LOC: HO.MRI 11:02
PROVIDERS: PCP Internal Medicine; Visit Provider Internal Medicine
DX: C34.90 Malignant neoplasm of unspecified part of unspecified bronchus or lung (principal)
CPT/HCPCS: 70553; A9585

== ENCOUNTER → 2025-03-14 11:02 | Outpatient (BNV) | payer MEDICARE, SELFPAY | PROVIDERS: PCP Internal Medicine; Visit Provider Radiology Diagnostic Radiology | DX: C79.31 Secondary malignant neoplasm of brain (principal) | CPT/HCPCS: 70553 ==

== ENCOUNTER 2025-03-18 08:41 | Outpatient (REF) | payer MEDICARE, SELFPAY ==
--- NOTE | ~2025-03-18 | PE_ITS ---
EXAMINATION: FLUORINE-18 FDG PET/CT SCAN CLINICAL INFORMATION: Initial staging. Non-small cell lung cancer. TECHNIQUE: 79 minutes minutes following the intravenous administration of 16 mCi of fluorine 18 FDG, images from the skull base to proximal thighs were obtained using a combined PET/CT scanner with CT scan based attenuation correction. No oral or intravenous contrast was administered. Transverse, coronal, sagittal, and volume reconstruction projections were obtained. The patient's blood glucose as determined by a finger stick, was 98 mg/dL immediately prior to injection. The radiotracer was injected intravenously through right antecubital vein, without any complications. Total CT exam dose-length product 257 mGy-cm. * These CT images were obtained using dose optimization techniques as appropriate, variously including the following: Automated exposure control * Adjustment of mA and/or kV according to patient size (this includes techniques or standardized protocols for targeted exams where dose is matched to indication/reason for exam; i.e. extremities or head) * Use of iterative reconstruction technique COMPARISON: None available. FINDINGS: HEAD AND NECK: No abnormal radiotracer uptake. No large intracranial hemorrhage, acute territorial infarct or significant shift of midline structures. CHEST: Ports and Devices: None Lungs: There is diffuse emphysematous lungs with several focal areas of FDG activity in the right upper lobe consolidation/scarring. It is best visualized on axial PET slice 62/300. Several subpleural areas of FDG activity seen in the right posterior lung apex as well. Also visualizes focal activity in the right lower lobe lateral basal segment likely ill-defined nodule measuring 1.[address] slice 182/2 there is a right lower lobe consolidation which is slightly above the background 5 FDG activity. There is a scattered moderate activity seen in the right lower lobe consolidation. Lower lobe consolidation Pleura: Likely a right apical posterior focal areas of FDG activity may represent focal disease from direct involvement. Best visualized on axial slice 58/300 there is small right pleural effusion with a right chest tube catheter within. There is mild right pleural effusion with a right chest tube catheter. There is underlying right lower lobe consolidation.. Lymph Nodes: There is a large right subcarinal and posterior carinal mass/lymph node measuring 7.3 x 7.[address] slice 172/2. There is intense FDG activity within this mass/lymph node. Mediastinum: Large infra carinal mass likely lymphadenopathy or direct extension of mass. There are additional areas of FDG activity seen in the left hilum on axial slice 84/301, precarinal to centimeter lymph node with moderate metabolic activity on axial CT slice 189/2 and PET slice 79/300 Breasts/Chest Wall: No abnormal radiotracer uptake. ABDOMEN/PELVIS: Liver/Biliary System: Visualized liver, spleen are unremarkable with no abnormal FDG activity seen. Mild hepatomegaly. Pancreas: Normal.No intrahepatic ductal dilatation seen. Spleen: No abnormal radiotracer uptake. No evidence of splenomegaly. Adrenal Glands: No abnormal radiotracer uptake. Kidneys: There is no hydronephrosis, hydroureter or renal calculi. Bowel: There is scattered stool, diverticuli are seen throughout the colon without significant distention. No there is no evidence of diverticulitis. Colonic diverticuli seen. Lymph Nodes: No tracer avid retroperitoneal, mesenteric or pelvic and/or groin lymphadenopathy. Pelvic Organs: The urinary bladder is underdistended. MUSCULOSKELETAL: No aggressive lytic or sclerotic process seen. There is ventral spondylosis throughout lumbar spine from L1-L2 through L5-S1 disc levels. VASCULAR: There is a focal FDG activity seen along the anterior wall of pulmonary artery question metastatic deposit. THE SITE(S) OF MOST INTENSE FDG AVIDITY AND SUV MAX: PET/PET CT fusion skull to thigh IMPRESSION: Right upper lobe ill-defined consolidation with abnormal areas of FDG activity. Some of this activity appears pleural-based suggestive of pleural involvement. Large right subcarinal and posterior carinal FDG avid large mass likely lymph node or direct inspection of tumor. Metastatic lymphadenopathy involving the precarinal lymph nodes. Sluggish transit time through the small bowel loops. Mild constipation with diagnosis. No diverticulitis Focal activity in the anterior wall of pulmonary artery Recent MRI brain revealed distant metastases. No skeletal metastatic disease Electronically signed by: Leonides Issa MD 03/19/2025 11:21 AM EDT
--- OUTSIDE RECORDS SUMMARY | 2025-03-18 09:03 | XMS_ITS | Clinical Summary ---
Author Organization [facility] Address [address] [place] [address] Care Team Providers Care Cardiac Care Nurse Name Role Phone Unavailable Primary Care Provider [...]
== END 2025-03-18 08:42 | disposition home or self-care (01) ==
LOC: HO.PET 08:41
PROVIDERS: PCP Internal Medicine; Visit Provider Internal Medicine
DX: Z13.89 Encounter for screening for other disorder (principal)

== ENCOUNTER 2025-06-05 14:31 | Outpatient (AMB) | payer MEDICARE, SELFPAY ==
--- NOTE | 2025-06-05 14:38 | MHC.PC.OV ---
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 Required: No Central Service Tech: Present Accompanied by: Brother Allergies No Known Allergies Allergy (Verified 06/05/25 14:39) Tobacco use date assessed: 06/05/25 Fall risk assessment: No Falls in past year Last assessed Fall Risk: 06/05/25 Dental Screening Dental Screen Date: 06/05/25 Did you have a dental visit in the last 12 months?: No Did you have a dental problem in the last 6 months where you did not have access to dental care?: No Was dental information given to patient?: No (Denture) PFSH Medical History COPD (chronic obstructive pulmonary disease) Squamous cell carcinoma lung Hypotension Malnutrition Acute respiratory failure with hypoxia Malignant pleural effusion Establishing care with new doctor, encounter for Hospital discharge follow-up Hx of hypotension Hx of supraventricular tachycardia Palpitations Atrial fibrillation Neoplasm of right lung HLD (hyperlipidemia) Surgical History H/O chest tube placement Family History (Updated 06/05/25 @ 14:38 by HERRERA Shields) Sister Lung cancer Mother Breast cancer Brother Leukemia Social History Household Members: Family and None Housing: House Do you presently have visiting nurse or other home services: No Alcohol intake: never Comment: pt rings appropriately Patient Tobacco Use Status: Former Tobacco user Tobacco use type: Cigarette e-Cigarette/Vaping Use: Never Used Second Hand Smoke Exposure: Yes service: No Current occupational status: retired Cognitive needs: Yes (walker) Hearing needs: No Vision needs: Yes (Glasses) Questionnaire Thrive Questionnaire Date Thrive assessed: 02/12/25 GOKUL-7 AMB Questionnaire GOKUL-7 Date GOKUL - 7 assessed: 03/11/25 Source: Developed by Drs. Christopher Cuevas, Laura Landry, Wes Gómez and colleagues, with an educational jeremias from [employer]. Physical exam (Primary Care) Vital Signs: Last Vital Signs Temp 97.1 F 06/05/25 14:40 BP 110/64 06/05/25 14:40 BMI result Body Mass Index 13.2 Tobacco/Smoking Status: Tobacco use Status Tobacco use date assessed 06/05/25 06/05/25 14:53 Patient Tobacco Use Status Former Tobacco user 06/05/25 14:53 Tobacco use type Cigarette 06/05/25 14:53 e-Cigarette/Vaping Use Never Used 06/05/25 14:53 Thrive Assessment: Date of Thrive Assessment Date Thrive assessed 02/12/25 06/05/25 14:53 Coding Level of Care Code Est Pt Level 4 (98847) Complex EM visit Add On G2211 Diagnoses Lung cancer C34.90 Assessment & Plan Assessment & Plan (1) Lung cancer: Code(s): C34.90 - Malignant neoplasm of unspecified part of unspecified bronchus or lung Category: Medical Plan: History of Present Illness - The patient is a 70-year-old male presenting with medication management issues and follow-up on lung cancer treatment. - The patient has been experiencing issues with medication management, specifically with Digoxin and Metoprolol prescriptions being sent to the wrong pharmacy. - The patient has a history of lung cancer and is awaiting further evaluation to restart treatment. - The patient reports no significant issues with appetite, sleep, or bowel habits. Social History Review of Systems - Respiratory: Reports no significant dyspnea. Denies further respiratory symptoms. - Gastrointestinal: Reports normal appetite and bowel habits. - General: Reports adequate sleep. Physical Exam General: Cooperative and healthy appearing Nutritional Appearance: Well nourished Orientation/consciousness: Patient oriented x3 Limitations: No limitations Head: Normal to inspection General: Appearance normal, both eyes and all related structures Neck: Normal visual inspection Chest: Normal palpation of entire chest wall Respiratory: Not too bad ormal respiratory effort Neurology: Patient oriented x3 Results Plan 1. Lung Cancer - The patient is scheduled for an evaluation to determine the appropriate time to restart treatment. 2. Medication Management Issues - Ensure prescriptions for Digoxin and Metoprolol are sent to the correct pharmacy at [facility]. Discussion Notes I discussed with the patient the importance of ensuring that all prescriptions are sent to the correct pharmacy to avoid medication interruptions. We also reviewed the upcoming evaluation for lung cancer treatment and the need to coordinate with oncology for further management. Patient Instructions - Ensure all prescriptions are picked up from the [facility] pharmacy. - Attend the scheduled evaluation for lung cancer treatment. Medications: Refilled digoxin 0.125 mg See Protocol PO DAILY 90 tabs 0RF digoxin 0.125 mg See Protocol PO DAILY 90 tabs 0RF metoprolol tartrate 12.5 mg (1/2 x 25 mg) PO BID 90 tabs 1RF
--- OUTSIDE RECORDS SUMMARY | 2025-06-05 14:39 | XMS_ITS | Clinical Summary ---
Author Organization [facility] Address [address] [place] [address] Care Team Providers Care Commercial Singer Name Role Phone Unavailable Primary Care Provider [...] - 2023-2 5 season) 2024 Influenza (#1) 2025 RSV (1 - 1-dose 75+ series) 02/13/2032 Abdominal Aorta Imaging Discontinued HPV Vaccine (No Doses Required) Completed Hep A Aged Out No longer eligi [...]
--- OUTSIDE RECORDS SUMMARY | 2025-06-05 14:39 | XMS_ITS | Clinical Summary ---
Author Organization [facility] [address] [facility] Address [address] [place] [address] Phone Care Team Providers Care Call Center Rn Name Role Phone Lencho Squires MD Primary Care Provider [phone] Allergies No known active allergies Medications midodrine (PROAMATINE) 5 mg tablet Take 1 tablet (5 mg total) by mouth 3 (three) times a day. TAKE LAST DOSE BEFORE 6PM 05/06/20 25 Active metoprolol tartrate (LOPRESSOR) 25 mg tablet Take 0.5 tablets (12.5 mg total) by mouth 2 (two) times a day. 02/25/20 25 Active digoxin (LANOXIN) 125 mcg (0.125 mg) tablet Take 1 tablet (125 mcg total) by mouth 1 (one) time each day. 02/25/20 25 Active dexAMETHasone (DECADRON) 2 mg tablet Take 1 tablet (2 mg total) by mouth 2 (two) times a day with meals for 2 days, THEN 1 tablet (2 mg total) 1 (one) time each day for 2 days, THEN 0.5 tablets (1 mg total) 1 (one) time each day for 2 days. 7 each 05/27/20 25 Active amoxicillin-cl avulanate (AUGMENTIN) 875-125 mg per tablet Take 1 tablet by mouth 2 (two) times a day for 23 days. 46 each 05/27/20 25 025 Active oxyCODONE (ROXICODONE) 5 mg immediate release tablet 02/25/20 25 025 Discontinued(St op Taking at Discharge) doxycycline (ADOXA) 100 mg tablet Take 1 tablet (100 mg total) by mouth 2 (two) times a day. TAKE FOR 9 DAYS STARTING ON 05/14/25 05/14/20 025 Discontinued(St op Taking at Discharge) dexAMETHasone (DECADRON) 4 mg tablet Take 1 tablet (4 mg total) by mouth 2 (two) times a day. TAKE FOR 2 DAYS AFTER CHEMO 03/26/20 025 Discontinued(St op Taking at Discharge) dexAMETHasone (DECADRON) 2 mg tablet Take 1 tablet (2 mg total) by mouth 2 (two) times a day with meals for 2 days, THEN 1 tablet (2 mg total) 1 (one) time each day for 2 days, THEN 0.5 tablets (1 mg total) 1 (one) time each day for 2 days. 7 each 05/27/20 25 025 Discontinued amoxicillin-cl avulanate (AUGMENTIN) 875-125 mg per tablet Take 1 tablet by mouth 2 (two) times a day for 23 days. 46 each 05/27/20 25 025 Discontinued Active Problems Problem Noted Date Diagnosed Date Infection 05/23/2025 Malignant neoplasm of overla pping sites of right lung ([facility] V24, [facility] V28) 05/19/2025 Malignant pleural effusion ([facility] V28) 025 Encounters Date Type Department Care Team Description 05/23/2025 10:30 AM EDT - 05/27/2025 3:33 PM EDT Hospital Encounter [facility] [address] [place] [address] Nafisa Mccarty MD Surendran, Anupama, MD Infection (Primary Dx) Discharge Disposition: Home-Health Care [facility] [place] 05/23/2025 8:30 AM EDT Consult Pulmonology - [place] [address] [facility] [address] [place] [phone] Alana Moya MD Empyema ([facility] V24, [facility] V28) (Primary Dx); Malignant pleural effusion ([facility] V28) 05/19/2025 3:48 PM EDT - 05/19/2025 11:59 PM EDT Hospital Encounter [facility] Xray [address] [place] [phone] Malignant pleural effusion ([facility]/HCC V28) Discharge Disposition: Home or Self Care 05/19/2025 3:00 PM EDT Consult Thoracic Surgery - [address] [place] [phone] Tristan Meng MD Malignant pleural effusion ([facility]/HCC V28) (Primary Dx); Malignant neoplasm of overlapping sites of right lung (CMS/HCC V24, CMS/HCC V28) from Last 3 Months Surgical History Surgery Date Site/Laterality Comments OTHER SURGICAL HISTORY Chest Tube Medical History Medical History Date Comments Hyperlipidemia Insomnia COPD (chronic obstructive pulmonary disease) (CM S/HCC V24, CMS/HCC V28) History of lung cancer Family History Medical History Relation Name Comments Hyperlipidemia Brother Cancer Mother breast Cancer Sister lung Diabetes type I Sister Relation Name Status Comments Brother Mother Sister Social History Tobacco Use Types Packs/Day Years Used Date Smoking Tobacco: Former Cigarettes S tarted: 1977 Food Risk Answer Date Recorded Within the past 12 months we worried whether our food would run out before we got money to buy more. Not asked 05/26/2025 Within the past 12 months th e food we bought just didn't last and we didn't have money to get more. Not asked 05/26/2025 Interpersonal Safety Answer Date Record ed Physical Abuse 05/23/2025 Verbal Abuse 05/23/2025 Sex and Gender Information Value Date Recorded Sex Assigned at Not on file Legal Sex Male 8:02 AM EDT Gender Identity Not on file Sexual Orientation Not on file Obstetrics History Last Filed Vital Signs Vital Sign Reading Time Taken Comments Blood Pressure 118/85 05/27/2025 12:07 PM EDT Pulse 85 05/27/2025 12:07 PM EDT Temperature 36.5 C (97.7 F) 05/27/2025 12:07 PM EDT Respiratory Rate 18 05/27/2025 12:07 PM EDT Oxygen Saturation 98% 05/27/2025 12:07 PM EDT Inhaled Oxygen Concentration - - Weight 43.5 kg (96 lb) 05/23/2025 11:30 AM EDT Height 193 cm (6' 4 ) 05/23/2025 11:30 AM EDT Body Mass Index 11.69 05/23/2025 11:30 AM EDT Plan of Treatment Upcoming Encounters Date Type Department Care Team (Late st Contact Info) Description 07/04/2025 2:00 PM EDT Office Visit Pulmonology - [address] [place] [phone] Alana Moya MD [address] [place] [address] Health Maintenance Due Date Last Done Comments COVID-19 Vaccine (#1) 1960 DTaP,Tdap,and Td Vaccines (1 - Tdap) 02/13/1976 Pneumococcal Vaccine: 50+ Years (1 of 2 - PCV) 02/13/1976 Zoster Vaccines (1 of 2) 02/13/1976 RSV Immunization Adult Patients (1 - Risk 60-74 years 1-dose series) 2017 Depression Screening 11/06/2024 Abdominal Aortic Aneurysm (AAA) Screen 05/06/2025 Cholesterol Screening (Lipid Panel) 05/06/2025 Colorectal Cancer Screening: Colonoscopy 05/06/2025 Hepatitis C Screening 05/06/2025 Medicare Annual Wellness Visit 05/06/2025 Influenza Vaccine (#1) 2025 Falls Risk Assessment 05/26/2026 05/26/2025 Social Influencers of Health Screening 05/26/2026 05/26/2025 Hypertension/CHF/CAD Annual BMP Blood Test 05/27/2026 05/27/2025, 05/25/2025, 05/24/2025, Additional history exists HIB Vaccines Aged Out No longer eligi ble based on patient's age to complete this topic HPV Vaccines Aged Out No longer eligi ble based on patient's age to complete this topic Hepatitis A Vaccines Aged Out No long er eligible based on patient's age to complete this topic Hepatitis B Vaccines Aged Out No long er eligible based on patient's age to complete this topic IPV Vaccines Aged Out No longer eligi ble based on patient's age to complete this topic MMR Vaccines Aged Out No longer eligi ble based on patient's age to complete this topic Meningococcal ACWY Vaccine Aged Out N o longer eligible based on patient's age to complete this topic Meningococcal B Vaccine Aged Out No l onger eligible based on patient's age to complete this topic RSV Immunization Patients Under 20 months Aged Out No longer eligible based on patient's age to complete this topic Varicella Vaccines Aged Out No longer eligible based on patient's age to complete this topic Procedures Procedure Name Priority Date/Time Associated Diagnosis Comments HOME O2 EVAL (DESATURATION SCREEN) Routine 05/27/2025 11:37 AM EDT MANUAL DIFFERENTIAL - SYSMEX WAM Routine 05/27/2025 5:42 AM EDT CBC WITH AUTO DIFFERENTIAL Routine 05/27/2025 5:42 AM EDT CBC AND DIFFERENTIAL Routine 05/27/2025 5:42 AM EDT BASIC METABOLIC PANEL Routine 05/27/2025 5:[address] CHEST WO CONTRAST STAT 05/25/2025 2:44 PM EDT XR CHEST 1 VIEW Routine 05/25/2025 12:22 PM EDT CBC WITH AUTO DIFFERENTIAL Routine 05/25/2025 5:35 AM EDT MAGNESIUM Routine 05/25/2025 5:35 AM EDT CBC AND DIFFERENTIAL Routine 05/25/2025 5:35 AM EDT BASIC METABOLIC PANEL Routine 05/25/2025 5:35 AM EDT VANCOMYCIN, TROUGH Timed 05/25/2025 1: 16 AM EDT CBC WITH AUTO DIFFERENTIAL Routine 05/24/2025 6:42 AM EDT MAGNESIUM Routine 05/24/2025 6:42 AM EDT BASIC METABOLIC PANEL Routine 05/24/2025 6:42 AM EDT CBC AND DIFFERENTIAL Routine 05/24/2025 6:42 AM EDT XR CHEST 1 VIEW Routine 05/24/2025 5:50 AM EDT DIFFERENTIAL BODY FLUID Routine 05/23/2025 5:04 PM EDT PROTEIN, BODY FLUID Routine 05/23/2025 5 :04 PM EDT LACTATE DEHYDROGENASE, BODY FLUID Routine 05/23/2025 5:04 PM EDT CELL COUNT WITH REFLEX DIFFERENTIAL, BODY FLUID Routine 05/23/2025 5:04 PM EDT GLUCOSE, BODY FLUID Routine 05/23/2025 5 :04 PM EDT CULTURE BODY FLUID WITH GRAM STAIN STAT 05/23/2025 5:04 PM EDT CULTURE BODY FLUID WITH GRAM STAIN STAT 05/23/2025 5:04 PM EDT IR PLEURAL DRAIN INSERT CATH W IMAGE GUIDANCE RIGHT Routine 05/23/2025 5:[address] CHEST W CONTRAST STAT 05/23/2025 3 :34 PM EDT ECG 12-LEAD Routine 05/23/2025 2:54 PM EDT DIGOXIN LEVEL Timed 05/23/2025 2:48 PM EDT CULTURE BLOOD STAT 05/23/2025 2:33 PM EDT MRSA PCR Routine 05/23/2025 1:29 PM EDT CULTURE BODY FLUID WITH GRAM STAIN Routine 05/23/2025 11:42 AM EDT Empyema (CMS/HCC V24, CMS/HCC V28) CBC WITH AUTO DIFFERENTIAL Routine 05/23/2025 11:35 AM EDT TYPE AND SCREEN Routine 05/23/2025 11:35 AM EDT LACTATE Routine 05/23/2025 11:35 AM EDT CBC AND DIFFERENTIAL Routine 05/23/2025 11:35 AM EDT PROTHROMBIN TIME WITH INR Routine 05/23/2025 11:34 AM EDT BASIC METABOLIC PANEL Routine 05/23/2025 11:34 AM EDT MAGNESIUM Routine 05/23/2025 11:34 AM EDT PHOSPHORUS Routine 05/23/2025 11:34 AM EDT CULTURE BODY FLUID WITH GRAM STAIN Routine 05/23/2025 10:20 AM EDT Malignant pleural effusion ([facility] V28) XR CHEST 2 VIEWS Routine 05/19/2025 3:54 PM EDT Malignant pleural effusion ([facility]/HCC V28) from Last 3 Months Results * (ABNORMAL) Manual differential (05/27/2025 5:42 AM EDT) Neutrophils % 78.0 % LAB HEMETOLOGY METHOD 5 7:33 AM EDT [facility] Bands % 2.0 % LAB HEMETOLOGY METHOD 5 7:33 AM EDT [facility] Lymphocytes % 14.0 % LAB HEMETOLOGY METHOD 5 7:33 AM EDT [facility] Monocytes % 3.0 % LAB HEMETOLOGY METHOD 5 7:33 AM EDT [facility] Eosinophils % 0.0 % LAB HEMETOLOGY METHOD 5 7:33 AM EDT [facility] Basophils % 0.0 % LAB HEMETOLOGY METHOD 5 7:33 AM [facility] Metamyelocytes % 2.0(H) % LAB HEMETOLOGY METHOD 5 7:33 AM [facility] Myelocytes % 1.0(H) % LAB HEMETOLOGY METHOD 5 7:33 AM [facility] Neutrophils Absolute Manual 4.68 1.50 - 7.00 K/mcL LAB HEMETOLOGY METHOD 5 7:33 AM [facility] Bands Absolute Manual 0.12(H) 0.00 - 0.00 K/mcL LAB HEMETOLOGY METHOD 5 7:33 AM [facility] Lymphocytes Absolute 0.84(L) 1.00 - 5.00 K/mcL LAB HEMETOLOGY METHOD 5 7:33 AM [facility] Monocytes Absolute Manual 0.18(L) 0.20 - 1.00 K/mcL LAB HEMETOLOGY METHOD 5 7:33 AM [facility] Eosinophils Absolute Manual 0.00 0.00 - 0.50 K/mcL LAB HEMETOLOGY METHOD 5 7:33 AM [facility] Basophils Absolute Manual 0.00 0.00 - 0.20 K/mcL LAB HEMETOLOGY METHOD 5 7:33 AM [facility] Metamyelocytes Absolute Manual 0.12(H) 0.00 - 0.00 K/mcL LAB HEMETOLOGY METHOD 5 7:33 AM [facility] Myelocytes Absolute Manual 0.06(H) 0.00 - 0.00 K/mcL LAB HEMETOLOGY METHOD 5 7:33 AM [facility] Rbc Morphology Consistent with indices Consistent with indices, Normal for LAB HEMETOLOGY METHOD 5 7:33 AM [facility] Platelet Morphology - WAM See Note(A) Normal LAB HEMETOLOGY METHOD 7:33 AM EDT [facility] Comment:PLT: Normal Blood Blood sample taken from central line / Unknown Existing Catheter / Unknown 05/27/2025 5:42 AM EDT 05/27/2025 6:19 AM EDT Lucai Yu MD LAB BLOOD ORDERABLES Final Result [facility] [address] [place] [address], * (ABNORMAL) CBC auto differential (05/27/2025 5:42 AM EDT) Only the most recent of4 resultswithin the time period is included. WBC 6.0 4.8 - 10.8 K/mcL LAB HEMETOLOGY METHOD 05/27/2025 7:33 AM EDT [facility] RBC 2.70(L) 4.50 - 5.50 M/mcL LAB HEMETOLOGY METHOD 05/27/2025 7:33 AM [facility] Hemoglobin 7.8(L) 13.5 - 17.5 g/dL LAB HEMETOLOGY METHOD 05/27/2025 7:33 AM [facility] Hematocrit 25.3(L) 42.0 - 54.0 % LAB HEMETOLOGY METHOD 05/27/2025 7:[facility] MCV 93.7 79.0 - 98.0 FL LAB HEMETOLOGY METHOD 05/27/2025 7:33 [facility] MCH 28.9 27.0 - 32.0 pcg LAB HEMETOLOGY METHOD 05/27/2025 7:33 AM [facility] MCHC 30.8(L) 32.0 - 37.0 g/dL LAB HEMETOLOGY METHOD 05/27/2025 7:33 AM EDT [facility] RDW 17.3(H) 11.0 - 15.0 % [facility] 05/27/2025 7:33 AM EDT [facility] Platelets 281 130 - 400 K/mcL LAB HEMETOLOGY METHOD 05/27/2025 7:33 AM EDT [facility] MPV 8.9 7.0 - 11.0 FL LAB HEMETOLOGY METHOD 05/27/2025 7:33 AM EDT [facility] NRBC 0.0 <1.0 % [facility] 05/27/2025 7:33 AM EDT [facility] NRBC Absolute 0.00 <0.10 K/mcL [facility] METHOD 05/27/2025 7:33 AM EDT [facility] Blood Blood sample taken from central line / Unknown Existing Catheter / Unknown 05/27/2025 5:42 AM EDT 05/27/2025 6:19 AM EDT Lucia Yu MD LAB BLOOD ORDERABLES Final Result [facility] [address] [place] [address], * (ABNORMAL) Basic metabolic panel (05/27/2025 5:42 AM EDT) Only the most recent of4 resultswithin the time period is included. Sodium 133 133 - 145 mmol/L LAB CHEMISTRY METHOD 05/27/2025 7:08 AM EDT [facility] Potassium 4.8 3.5 - 5.5 mmol/L LAB CHEMISTRY METHOD 05/27/2025 7:08 AM EDT [facility] Chloride 98 96 - 110 mmol/L LAB CHEMISTRY METHOD 05/27/2025 7:08 AM EDT [facility] CO2 33(H) 21 - 32 mmol/L LAB CHEMISTRY METHOD 05/27/2025 7:08 AM [facility] Anion Gap 2(L) 3 - 11 LAB CHEMISTRY METHOD 05/27/2025 7:08 AM [facility] Glucose 68(L) 70 - 100 mg/dL LAB CHEMISTRY METHOD 05/27/2025 7:08 AM [facility] BUN 19 5 - 25 mg/dL LAB CHEMISTRY METHOD 05/27/2025 7:08 AM [facility] Creatinine 0.51(L) 0.70 - 1.30 mg/dL LAB CHEMISTRY METHOD 05/27/2025 7:08 AM [facility] eGFR 110 >=60 mL/min/1. 73m2 LAB CHEMISTRY METHOD 05/27/2025 7:08 AM [facility] Comment:Calculation based on the Chronic Kidney Disease Epidemiology Collaboration (CKD-EPI) equation refit without adjustment for race. BUN/Creatinine Ratio 37.3 LAB CHEMISTRY METHOD 05/27/2025 7:08 AM [facility] Calcium 9.1 8.5 - 10.5 mg/dL LAB CHEMISTRY METHOD 05/27/2025 7:08 AM [facility] Blood Blood sample taken from central line / Unknown Existing Catheter / Unknown 05/27/2025 5:42 AM EDT 05/27/2025 6:16 AM EDT us Lucia Yu MD LAB BLOOD ORDERABLES Final Result [facility] [address] [place] [address], * CT Chest wo Contrast (05/25/2025 2:44 PM EDT) Anatomical Region Laterality Modality Body Computed Tomogra phy 05/25/2025 4:14 PM EDT Impressions 05/25/2025 4:44 PM EDT There are [address]. There is a large cavity in the mediastinum extending toward the right hilum and involving the central airways. Whether this represents a mediastinal abscess or a necrotic tumor is uncertain. There is severe underlying chronic lung disease. There is volume loss with some consolidation in the right lower lung and there are areas of probable rounded atelectasis. The relationship of the abnormality to the right pulmonary veins and left atrium uncertain. -------- FINAL REPORT -------- Dictated By: Ismael Short Dictated Date: 05/25/2025 16:14 ET Assigned Physician: Ismael Short Reviewed and Electronically Signed By: Ismael Short Signed Date: 05/25/2025 16:44 ET Workstation ID: [id number] Transcribed By: Self Edit Transcribed Date: 05/25/2025 16:16 ET Narrative 05/25/2025 4:44 PM EDT EXAMINATION: CT CHEST WITHOUT CONTRAST CLINICAL INFORMATION: Right loculated pleural fluid. Prior pleural drain placement. COMPARISON: Portions of previous CT 05/23/25 TECHNIQUE: Multidetector CT. Examination of the chest. Examination of the chest without IV contrast. Reformatting in the coronal and sagittal planes. DLP: 334 mGy-cm Dose optimization was performed including the use of low-dose iterative reconstruction technique with automatic exposure control based on patient size. Type of contrast: None Volume of IV contrast: None Volume of contrast discarded: 0 mL FINDINGS: LUNG: There is tracheomegaly. The left mainstem bronchus is patent. There is an abnormality of the right mainstem bronchus with abnormal soft tissue and irregular contour. There is communication of the central airways to the right lung with any irregular cavity in the mediastinum and kaylah. There is aeration of subsegmental airways in the right lung. There are irregular somewhat masslike opacities in the right upper lung posteriorly foci related to the region of the major fissure. 05/25/25-2.5 x 2.0 cm () 05/23/25-2.6 x 2.1 cm () There are areas of consolidation with volume is in the posteromedial right lower lobe. There may be some areas of rounded atelectasis. There are areas of airway thickening and inspissated material within airways of the posteromedial right lower lung. There is severe centrilobular emphysema. There is paraseptal emphysema. MEDIASTINUM: As described there is a cavity in the central and right mediastinum extending toward the right hilum which communicates with the central airways. There is no convincing communication with the esophagus. CARDIAC: There is anemia based upon the attenuation within the cardiac chambers. There is dilation of the aortic root (4.0 cm). The central pulmonary arteries are prominent. There is no pericardial fluid. CORONARY CALCIFICATION: There are moderate coronary calcifications. VASCULAR: The central pulmonary arteries are prominent. The right-sided vascular catheter terminates in the SVC. PLEURA: Relatively small caliber pleural drain is positioned in the posterior mid chest. A lower larger caliber pleural drain is coiled in the posterolateral right costophrenic sulcus region and there are some small surrounding gas collections. There may be a small amount of pleural fluid remaining. There are areas of irregular pleural thickening. There is associated right lower lung disease. AXILLA/CHEST WALL: There are no enlarged axillary lymph nodes. No chest wall mass demonstrated VISUALIZED UPPER ABDOMEN: No suspicious abnormality on limited assessment of the visualized upper abdomen MUSCULOSKELETAL: No suspicious focal bony lesion. There is degenerative change in the spine and there is mild compression deformity of several of the thoracic endplates. There is narrowing of the right glenohumeral joint. There are some calcifications in the region of the right subscapularis. Procedure Note Ismael Short MD - 05/25/2025 EXAMINATION: CT CHEST WITHOUT CONTRAST CLINICAL INFORMATION: Right loculated pleural fluid. Prior pleural drain placement. COMPARISON: Portions of previous CT 05/23/25 TECHNIQUE: Multidetector CT. Examination of the chest. Examination of the chest without IV contrast. Reformatting in the coronal and sagittal planes. DLP: 334 mGy-cm Dose optimization was performed including the use of low-dose iterativereconstruction technique with automatic exposure control based on patientsize. Type of contrast: None Volume of IV contrast: None Volume of contrast discarded: 0 mL FINDINGS: LUNG: There is tracheomegaly. The left mainstem bronchus is patent. There is an abnormality of the right mainstem bronchus with abnormal softtissue and irregular contour. There is communication of the centralairways to the right lung with any irregular cavity in the mediastinum andhila. There is aeration of subsegmental airways in the right lung. There are irregular somewhat masslike opacities in the right upper lungposteriorly foci related to the region of the major fissure. 05/25/25-2.5 x 2.0 cm () 05/23/25-2.6 x 2.1 cm () There are areas of consolidation with volume is in the posteromedial rightlower lobe. There may be some areas of rounded atelectasis. There are areas of airway thickening and inspissated material withinairways of the posteromedial right lower lung. There is severe centrilobular emphysema. There is paraseptal emphysema. MEDIASTINUM: As described there is a cavity in the central and rightmediastinum extending toward the right hilum which communicates with thecentral airways. There is no convincing communication with theesophagus. CARDIAC: There is anemia based upon the attenuation within the cardiacchambers. There is dilation of the aortic root (4.0 cm). The centralpulmonary arteries are prominent. There is no pericardial fluid. CORONARY CALCIFICATION: There are moderate coronary calcifications. VASCULAR: The central pulmonary arteries are prominent. The right-sidedvascular catheter terminates in the SVC. PLEURA: Relatively small caliber pleural drain is positioned in theposterior mid chest. A lower larger caliber pleural drain is coiled in the posterolateral rightcostophrenic sulcus region and there are some small surrounding gascollections. There may be a small amount of pleural fluid remaining. Thereare areas of irregular pleural thickening. There is associated right lowerlung disease. AXILLA/CHEST WALL: There are no enlarged axillary lymph nodes. No chestwall mass demonstrated VISUALIZED UPPER ABDOMEN: No suspicious abnormality on limited assessmentof the visualized upper abdomen MUSCULOSKELETAL: No suspicious focal bony lesion. There is degenerativechange in the spine and there is mild compression deformity of several ofthe thoracic endplates. There is narrowing of the right glenohumeraljoint. There are some calcifications in the region of the rightsubscapularis. IMPRESSION: There are [address] There is a large cavity in the mediastinum extending toward the righthilum and involving the central airways. Whether this represents amediastinal abscess or a necrotic tumor is uncertain. There is severe underlying chronic lung disease. There is volume loss withsome consolidation in the right lower lung and there are areas of probablerounded atelectasis. The relationship of the abnormality to the right pulmonary veins and leftatrium uncertain. -------- FINAL REPORT -------- Dictated By: Ismael Short Dictated Date: 05/25/2025 16:14 ET Assigned Physician: Ismael Short Reviewed and Electronically Signed By: Ismael Short Signed Date: 05/25/2025 16:44 ET Workstation ID: [id number] Transcribed By: Self Edit Transcribed Date: 05/25/2025 16:16 ET us Byron HASSAN IMG CT PROCEDURES Final Result * XR Chest 1 View (05/25/2025 12:22 PM EDT) Only the most recent of2 resultswithin the time period is included. Anatomical Region Laterality Modality Body Radiographic Annalisa ging 05/25/2025 12:5 1 PM EDT Impressions 05/25/2025 12:54 PM EDT There are 2 right-sided drains present in unchanged position. Slightly improved aeration right lower lung. No large pneumothorax demonstrated -------- FINAL REPORT -------- Dictated By: Ismael Short Dictated Date: 05/25/2025 12:51 ET Assigned Physician: Ismael Short Reviewed and Electronically Signed By: Ismael Short Signed Date: 05/25/2025 12:54 ET Workstation ID: [id number] Transcribed By: Self Edit Transcribed Date: 05/25/2025 12:51 ET Narrative 05/25/2025 12:54 PM EDT EXAMINATION: CHEST CLINICAL INFORMATION: Loculated right pleural effusion COMPARISON: 05/24/25 TECHNIQUE: Portable sitting frontal view of the chest FINDINGS: Devices overlie the patient. There is an unchanged small caliber pigtail drain projecting over the right mid chest. There is unchanged large caliber drain projecting in the right lateral costophrenic sulcus region. There is a reservoir associated with right-sided vascular catheter with tip projecting in the expected region of the SVC. Calcification and tortuosity aorta. The cardiac size is within normal limits. There is no left hilar mass. Right hilum is partially obscured. There are scattered opacities in the right lung which may have slightly improved. There is no longer any gas surrounding the lower drain. Possibility of markings in the right apex. No discrete pleural reflection. Chronic rotator cuff disease bilaterally Procedure Note Ismael Short MD - 05/25/2025 EXAMINATION: CHEST CLINICAL INFORMATION: Loculated right pleural effusion COMPARISON: 05/24/25 TECHNIQUE: Portable sitting frontal view of the chest FINDINGS: Devices overlie the patient. There is an unchanged small caliber pigtaildrain projecting over the right mid chest. There is unchanged largecaliber drain projecting in the right lateral costophrenic sulcus region.There is a reservoir associated with right-sided vascular catheter withtip projecting in the expected region of the SVC. Calcification and tortuosity aorta. The cardiac size is within normallimits. There is no left hilar mass. Right hilum is partially obscured.There are scattered opacities in the right lung which may have slightlyimproved. There is no longer any gas surrounding the lower drain. Possibility of markings in the right apex. No discrete pleuralreflection. Chronic rotator cuff disease bilaterally IMPRESSION: There are 2 right-sided drains present in unchanged position. Slightlyimproved aeration right lower lung. No large pneumothorax demonstrated -------- FINAL REPORT -------- Dictated By: Ismael Short Dictated Date: 05/25/2025 12:51 ET Assigned Physician: Ismael Short Reviewed and Electronically Signed By: Ismael Short Signed Date: 05/25/2025 12:54 ET Workstation ID: [id number] Transcribed By: Self Edit Transcribed Date: 05/25/2025 12:51 ET us Byron HASSAN IMG XR PROCEDURES Final Result * (ABNORMAL) Magnesium (05/25/2025 5:35 AM EDT) Only the most recent of3 resultswithin the time period is included. Magnesium 1.8(L) 1.9 - 2.6 mg/dL LAB CHEMISTRY METHOD 05/25/2025 7:12 AM EDT [facility] Blood Venous blood specimen / Unknown Venipuncture / Unknown 05/25/2025 5:35 AM EDT 05/25/2025 6:07 AM EDT us Lucia Yu MD LAB BLOOD ORDERABLES Final Result Performing Organization Address [facility] de Phone Number [facility] [address] [place] [address], [place] [phone] * Vancomycin, trough Please draw prior to 2:30 am dose (05/25/2025 1:16 AM EDT) [facility] Vancomycin Trough 15.2 10.0 - 20.0 mcg/mL LAB CHEMISTRY METHOD 05/25/2025 2:09 AM EDT [facility] Blood Venous blood specimen / Unknown Venipuncture / Unknown 05/25/2025 1:16 AM EDT 05/25/2025 1:21 AM EDT Nafisa Mccarty MD LAB BLOOD ORDERABLES Final Resul t Performing Organization Address [facility] de Phone Number [facility] [address] [place] [address], [place] [phone] * Cell count with reflex differential, body fluid (05/23/2025 5:04 PM EDT) [facility] Body Fluid Total Nucleated Cells 149 /mm3 LAB HEMETOLOGY METHOD 05/23/2025 8:43 PM EDT [facility] Body Fluid RBC 1,000 /mm3 LAB HEMETOLOGY METHOD 05/23/2025 8:43 PM EDT [facility] Body Fluid Color Yellow 05/23/2025 8:43 PM EDT [facility] Body Fluid Clarity Clear 05/23/2025 8:43 PM EDT [facility] Body Fluid Source Pleural 05/23/2025 8:43 PM EDT [facility] Pleural Fluid Structure of right pleural cavity / Unknown Non-blood Collection / Unknown 05/23/2025 5:04 PM EDT 05/23/2025 5:23 PM EDT Narrative [facility] - 05/23/2025 8:43 PM EDT No reference ranges have been established for body fluids. Clinical correlation recommended. us Byron HASSAN LAB BODY FLUIDS AND STOO LS ORDERABLES Final Result [facility] [address] [place] [address], [place] [phone] * Culture body fluid with gram stain (05/23/2025 5:04 PM EDT) Only the most recent of4 resultswithin the time period is included. Fluid Culture No growth at 3 days LAB MICROBIOLOGY METHOD 05/26/2025 1:16 PM EDT [facility] Gram Stain Result Many Polymorphonuclear leukocytes 05/26/2025 1:16 PM EDT [facility] Gram Stain Result No Epithelial cells 05/26/2025 1:16 PM EDT [facility] Gram Stain Result No organisms seen 05/26/2025 1:16 PM EDT [facility] Pleural Fluid Structure of right pleural cavity / Unknown Non-blood Collection / Unknown 05/23/2025 5:04 PM EDT 05/23/2025 5:23 PM EDT Narrative [facility] - 05/26/2025 1:16 PM EDT Testing performed on unspun fluid; quality not adequate to spin due to turbidity. us Jose Chappell MD LAB MICROBIOLOGY - GENERAL MARLIN AMIN Final Result [facility] [address] [place] [address], [place] [phone] * Differential body fluid (05/23/2025 5:04 PM EDT) Fluid Neutrophils % 87 % 05/23/2025 8:43 PM EDT [facility] Fluid Lymphocytes % 11 % 05/23/2025 8:43 PM EDT [facility] Fluid Monocytes/Macrop hages 2 % 05/23/2025 8:43 PM EDT [facility] Fluid Eosinophils % 0 % 05/23/2025 8:43 PM EDT [facility] Fluid Basophils % 0 % 05/23/2025 8:43 PM EDT [facility] Fluid Other Cells % 0 % 05/23/2025 8:43 PM EDT [facility] Pleural Fluid Structure of right pleural cavity / Unknown Non-blood Collection / Unknown 05/23/2025 5:04 PM EDT 05/23/2025 5:23 PM EDT Narrative [facility] - 05/23/2025 8:43 PM EDT No reference ranges have been established for body fluids. Clinical correlation recommended. us Byron HASSAN LAB BODY FLUIDS AND STOO LS ORDERABLES Final Result [facility] [address] [place] [address], [place] [phone] * Protein, body fluid (05/23/2025 5:04 PM EDT) Protein, Fluid 3.1 See Comment g/dL LAB CHEMISTRY METHOD 05/23/2025 8:05 PM EDT [facility] Pleural Fluid Structure of right pleural cavity / Unknown Non-blood Collection / Unknown 05/23/2025 5:04 PM EDT 05/23/2025 5:23 PM EDT [facility] - 05/23/2025 8:05 PM EDT No reference ranges have been established for body fluids. Clinical correlation recommended. Byron HASSAN LAB BODY FLUIDS AND STOO LS ORDERABLES Final Result Performing Organization Address [facility] de Phone Number [facility] [address] [place] [address], [place] [phone] * Lactate dehydrogenase, body fluid (05/23/2025 5:04 PM EDT) LD, Fluid 111 See Comment unit/L LAB CHEMISTRY METHOD 05/23/2025 8:05 PM EDT [facility] Pleural Fluid Structure of right pleural cavity / Unknown Non-blood Collection / Unknown 05/23/2025 5:04 PM EDT 05/23/2025 5:23 PM EDT [facility] - 05/23/2025 8:05 PM EDT No reference ranges have been established for body fluids. Clinical correlation recommended. us Byron HASSAN LAB BODY FLUIDS AND STOO LS ORDERABLES Final Result Performing Organization Address [facility] de Phone Number [facility] [address] [place] [address], [place] [phone] * Glucose, body fluid (05/23/2025 5:04 PM EDT) Glucose, Fluid 64 See Comment mg/dL LAB CHEMISTRY METHOD 05/23/2025 8:05 PM EDT [facility] Pleural Fluid Structure of right pleural cavity / Unknown Non-blood Collection / Unknown 05/23/2025 5:04 PM EDT 05/23/2025 5:23 PM EDT [facility] - 05/23/2025 8:05 PM EDT No reference ranges have been established for body fluids. Clinical correlation recommended. us Byron HASSAN LAB BODY FLUIDS AND STOO LS ORDERABLES Final Result [facility] ([facility]) [facility] [address] [place] [address], [place] [phone] * IR Pleural Drain Insert Cath w Image Guidance Right (05/23/2025 5:03 PM EDT) Anatomical Region Laterality Modality Right Interventional R adiology 05/26/2025 12:4 8 PM EDT Impressions 05/26/2025 1:[address]-guided chest tube placement into 2 separate right-sided pleural fluid collections. 14 Ghanaian catheter placed into subpulmonic pleural fluid in the right lung base with 8 Ghanaian catheter placed into smaller pleural collection posteriorly. Samples obtained and sent for laboratory evaluation. -------- FINAL REPORT -------- Dictated By: Jose Chappell Dictated Date: 05/26/2025 12:48 ET Assigned Physician: Jose Chappell Reviewed and Electronically Signed By: Jose Chappell Signed Date: 05/26/2025 13:01 ET Workstation ID: [id number] Transcribed By: Self Edit Transcribed Date: 05/26/2025 12:48 ET Narrative 05/26/2025 1:01 PM EDT INDICATION: Empyema, removal of infected tunneled pleural catheter from the right side. CT shows residual pleural fluid with small collection posteriorly as well as loculated collection in the lung base PROCEDURE: CT-guided chest tube placement under moderate sedation. Both right- sided fluid collections will be drained. prior relevant studies: Chest CT from May 23, 2025 MEDICATIONS: Local anesthesia: 10 cc of 1% buffered lidocaine administered subcutaneously. Sedation: Moderate intravenous sedation was initiated and maintained for 43 minutes while the patient was independently monitored by the radiology nurse under the supervision of the interventional radiologist. A total of 1 mg of Versed and 50 mcg of fentanyl administered during the procedure. Scanner: [employer] SA [address] Dose reduction technique: AEC (automated exposure control) Dose: total exam DLP 439 mGY per cm TECHNIQUE/FINDINGS: Informed consent obtained. Patient placed supine on the CT gantry and multiple axial images obtained of the chest. Appropriate areas of the skin on the right side were marked and draped and prepped sterilely. Timeout performed. 18-gauge open-ended needle advanced into the pleural collection in the right lung base. Tract dilated up to 16 Ghanaian and placement of a 14 Ghanaian pigtail catheter. 10 mL of serous fluid drained and sent for evaluation as ordered. Once placement confirmed catheter was attached to a Pleur-evac system and a sterile dressing applied. Attention was then turned to the smaller collection more superiorly and posteriorly within the pleural space. 18 G needle was advanced into the collection. Once positioned in the collection needle removed over short Amplatz wire tract dilated up to 10 Ghanaian and placement of an 8 Ghanaian pigtail catheter. 5 mL of serosanguineous fluid aspirated and sent for evaluation as ordered. Catheter attached to a Pleur-evac system and a sterile dressing applied. Procedure Note Jose Chappell MD - 05/26/2025 INDICATION: Empyema, removal of infected tunneled pleural catheter fromthe right side. CT shows residual pleural fluid with small collectionposteriorly as well as loculated collection in the lung base PROCEDURE: CT-guided chest tube placement under moderate sedation. Bothright- sided fluid collections will be drained. prior relevant studies: Chest CT from May 23, 2025 MEDICATIONS: Local anesthesia: 10 cc of 1% buffered lidocaine administeredsubcutaneously. Sedation: Moderate intravenous sedation was initiated and maintained for43 minutes while the patient was independently monitored by the radiologynurse under the supervision of the interventional radiologist. A total of1 mg of Versed and 50 mcg of fentanyl administered during the procedure. Scanner: Anokion SA [address] Dose reduction technique: AEC (automated exposure control) Dose: total exam DLP 439 mGY per cm TECHNIQUE/FINDINGS: Informed consent obtained. Patient placed supine onthe CT gantry and multiple axial images obtained of the chest. Appropriateareas of the skin on the right side were marked and draped and preppedsterilely. Timeout performed. 18-gauge open-ended needle advanced into the pleural collection in theright lung base. Tract dilated up to 16 Ghanaian and placement of a 14French pigtail catheter. 10 mL of serous fluid drained and sent forevaluation as ordered. Once placement confirmed catheter was attached to aPleur-evac system and a sterile dressing applied. Attention was then turned to the smaller collection more superiorly andposteriorly within the pleural space. 18 G needle was advanced into thecollection. Once positioned in the collection needle removed over shortAmplatz wire tract dilated up to 10 Ghanaian and placement of an 8 Frenchpigtail catheter. 5 mL of serosanguineous fluid aspirated and sent forevaluation as ordered. Catheter attached to a Pleur- evac system and asterile dressing applied. IMPRESSION: CT-guided chest tube placement into 2 separate right-sided pleural fluidcollections. 14 Ghanaian catheter placed into subpulmonic pleural fluid inthe right lung base with 8 Ghanaian catheter placed into smaller pleuralcollection posteriorly. Samples obtained and sent for laboratoryevaluation. -------- FINAL REPORT -------- Dictated By: Jose Chappell Dictated Date: 05/26/2025 12:48 ET Assigned Physician: Jose Chappell Reviewed and Electronically Signed By: Jose Chappell Signed Date: 05/26/2025 13:01 ET Workstation ID: [id number] Transcribed By: Self Edit Transcribed Date: 05/26/2025 12:48 ET Jose Chappell MD IMG IR PROCEDURES Final Result * CT Chest w Contrast (05/23/2025 3:34 PM EDT) Anatomical Region Laterality Modality Body Computed Tomogra phy 05/23/2025 3:47 PM EDT Impressions 05/23/2025 5:16 PM EDT Small to moderate subpulmonic pleural fluid collection as well as much smaller 2nd collection more posteriorly along the right lower lobe in the region of the previously removed Pleurx catheter. Both collections amenable to percutaneous CT-guided drainage. Interval decrease in size of right hilar mass with residual peribronchial soft tissue thickening. Interval development of tumor cavity within the hilum which connects to the right mainstem bronchus and bronchus intermedius. Irregular shaped 2.6 cm mass in the posterior right upper lobe. Resolved adjacent postobstructive changes. Improved postobstructive changes also noted within the right lower lobe. -------- FINAL REPORT -------- Dictated By: Jose Chappell Dictated Date: 05/23/2025 15:47 ET Assigned Physician: Jose Chappell Reviewed and Electronically Signed By: Jose Chappell Signed Date: 05/23/2025 17:16 ET Workstation ID: [id number] Transcribed By: Self Edit Transcribed Date: 05/23/2025 16:09 ET Narrative 05/23/2025 5:16 PM EDT Indication: Infected right-sided Pleurx catheter, request for interventional radiology placement of pigtail catheter into residual right effusion Technique: CT scan of the chest obtained with 90 cc of Isovue-370 administered intravenously without incident. Scanner: Zoe Majeste 64 slice VCT Dose reduction technique: ASIR (Adaptive statistical iterative reconstruction) and/or AEC (automated exposure control) Dose: total exam DLP 168 mGY per cm COMPARISON: CT images from prior outside PET/CT dated March 18, 2025. FINDINGS: Lung bergman demonstrate severe emphysematous changes. Interval removal of right- sided Pleurx catheter with residual tiny loculated collection posteriorly along the right hemithorax with a tiny amount of air seen best on sagittal series 602 image 32. Small to moderate size subpulmonic collection also noted at the lung base. Residual peribronchial soft tissue thickening within the right hilum may represent residual tumor overall significantly improved from the PET CT images. Branching opacity within the posterior right upper lobe is obliquely oriented on coronal imaging but does have a masslike quality measuring approximately 2.6 cm x 2.5 cm x 1.5 cm. Interval development of air-filled cavity with small air-fluid level which connects to the right mainstem bronchus as well as the bronchus intermedius. 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 Opacification noted within bronchial segments extending posteriorly within the lung base. Postobstructive changes noted within the periphery of the right lung base likely represent atelectasis. Pneumonic process not excluded. Mild mediastinal as well as right hilar adenopathy. Esophagus unremarkable. Heart normal in size and shape without pericardial effusion.. Mediastinal vascular structures are within normal limits for the patient's age. Right chest wall Port-A-Cath is well positioned. Bony structures of the thorax demonstrate osteopenia and degenerative changes with mild compression deformities along the mid thoracic spine of undetermined age. Visualized portion upper abdomen are unremarkable. Procedure Note oJse Chappell MD - 05/23/2025 Indication: Infected right-sided Pleurx catheter, request forinterventional radiology placement of pigtail catheter into residual righteffusion Technique: CT scan of the chest obtained with 90 cc of Isovue-370administered intravenously without incident. Scanner: [employer] 64 slice VCT Dose reduction technique: ASIR (Adaptive statistical iterativereconstruction) and/or AEC (automated exposure control) Dose: total exam DLP 168 mGY per cm COMPARISON: CT images from prior outside PET/CT dated March 18, 2025. FINDINGS: Lung bergman demonstrate severe emphysematous changes. Interval removal ofright- sided Pleurx catheter with residual tiny loculated collectionposteriorly along the right hemithorax with a tiny amount of air seen beston sagittal series 602 image 32. Small to moderate size subpulmoniccollection also noted at the lung base. Residual peribronchial soft tissue thickening within the right hilum mayrepresent residual tumor overall significantly improved from the PET CTimages. Branching opacity within the posterior right upper lobe is obliquelyoriented on coronal imaging but does have a masslike quality measuringapproximately 2.6 cm x 2.5 cm x 1.5 cm. Interval development of air-filled cavity with small air-fluid level whichconnects to the right mainstem bronchus as well as the bronchusintermedius. Findings suggestive of fistula from the bronchus to the massand/or pleural space. Opacification noted within bronchial segmentsextending posteriorly within the lung base. Postobstructive changes notedwithin the periphery of the right lung base likely represent atelectasis.Pneumonic process not excluded. Mild mediastinal as well as right hilar adenopathy. Esophagusunremarkable. Heart normal in size and shape without pericardialeffusion.. Mediastinal vascular structures are within normal limits for the patient'fina. Right chest wall Port-A-Cath is well positioned. Bony structures of the thorax demonstrate osteopenia and degenerativechanges with mild compression deformities along the mid thoracic spine ofundetermined age. Visualized portion upper abdomen are unremarkable. IMPRESSION: Small to moderate subpulmonic pleural fluid collection as well as muchsmaller 2nd collection more posteriorly along the right lower lobe in theregion of the previously removed Pleurx catheter. Both collectionsamenable to percutaneous CT-guided drainage. Interval decrease in size of right hilar mass with residual peribronchialsoft tissue thickening. Interval development of tumor cavity within thehilum which connects to the right mainstem bronchus and bronchusintermedius. Irregular shaped 2.6 cm mass in the posterior right upper lobe. Resolvedadjacent postobstructive changes. Improved postobstructive changes alsonoted within the right lower lobe. -------- FINAL REPORT -------- Dictated By: Jose Chappell Dictated Date: 05/23/2025 15:47 ET Assigned Physician: Jose Chappell Reviewed and Electronically Signed By: Joes Chappell Signed Date: 05/23/2025 17:16 ET Workstation ID: [id number] Transcribed By: Self Edit Transcribed Date: 05/23/2025 16:09 ET Nafisa Mccarty MD IMG CT PROCEDURES Final Result * ECG 12 lead (05/23/2025 2:54 PM EDT) Ventricular Rate ECG 68 BPM GEMUSE Atrial Rate 68 BPM GEMUSE P-R Interval 132 ms GEMUSE QRS Duration 104 ms GEMUSE Q-T Interval 378 ms GEMUSE QTc 401 ms GEMUSE P Wave [place] 78 degrees GEMUSE R [place] 55 degrees GEMUSE T [place] 57 degrees GEMUSE ECG Interpretation Normal sinus rhythm Normal ECG No previous ECGs available Confirmed by MD Nicholas, Byron ([id number]) on 05/23/2025 5:52:37 PM GEMUSE 05/23/2025 2:54 PM EDT 05/23/2025 5:52 PM EDT us Constanza Gleason NP ECG ORDERABLES Final Result GEMUSE * Digoxin level (05/23/2025 2:48 PM EDT) Pathologist [facility] Digoxin Lvl 0.8 0.5 - 2.0 ng/mL LAB CHEMISTRY METHOD 05/23/2025 4:48 PM EDT [facility] Blood Venous blood specimen / Unknown Venipuncture / Unknown 05/23/2025 2:48 PM EDT 05/23/2025 3:11 PM EDT us Constanza Gleason NP LAB BLOOD ORDERABLES Final Res ult [facility] [address] [place] [address], [place] [phone] * Culture blood (05/23/2025 2:33 PM EDT) Pathologist [facility] Culture, Blood No growth at 5 days LAB MICROBIOLOGY METHOD 05/28/2025 3:01 PM EDT [facility] Blood Venous blood specimen / Unknown Venipuncture / Unknown 05/23/2025 2:33 PM EDT 05/23/2025 2:51 PM EDT us Nafisa Mccarty MD LAB MICROBIOLOGY - GENERAL ORDER ANGELA Final Result Performing Organization Address [facility]/ZIP Co de Phone Number [facility] [address] [place] [address], [place] [phone] * MRSA molecular study (05/23/2025 1:29 PM EDT) MRSA Screen PCR Not Detected Not Detected LAB MICROBIOLOGY METHOD 05/23/2025 2:58 PM EDT [facility] Swab Both anterior nares / Unknown Non-blood Collection / Unknown 05/23/2025 1:29 PM EDT 05/23/2025 1:42 PM EDT us Nafisa Mccarty MD LAB MICROBIOLOGY - GENERAL ORDER ANGELA Final Result [facility] [address] [place] [address], [place] [phone] * Type and screen (05/23/2025 11:35 AM EDT) Pathologist [facility] ABO Group O 05/23/2025 1:26 PM EDT [facility] Rh Type Negative 05/23/2025 1:26 PM EDT [facility] Antibody Screen Negative 05/23/2025 1:26 PM EDT [facility] Blood Venous blood specimen / Unknown Venipuncture / Unknown 05/23/2025 11:35 AM EDT 05/23/2025 11:42 AM EDT us Nafisa Mccarty MD LAB BLOOD BANK TEST ORDERABLES F inal Result Performing Organization Address [facility]/ZIP Co de Phone Number [facility] [address] [place] [address], [place] [phone] * (ABNORMAL) Lactate (05/23/2025 11:35 AM EDT) [facility] Lactate 2.1(H) 0.4 - 2.0 mmol/L LAB CHEMISTRY METHOD 05/23/2025 12:22 PM EDT [facility] Blood Venous blood specimen / Unknown Venipuncture / Unknown 05/23/2025 11:35 AM EDT 05/23/2025 11:41 AM EDT us Nafisa Mccarty MD LAB BLOOD ORDERABLES Final Resul t [facility] [address] [place] [address], [place] [phone] * Prothrombin time with INR (05/23/2025 11:34 AM EDT) [facility] Protime 12.2 10.6 - 13.9 sec LAB COAGULATION METHOD 05/23/2025 12:04 PM EDT [facility] INR 1.0 LAB COAGULATION METHOD 05/23/2025 12:04 PM EDT [facility] Blood Venous blood specimen / Unknown Venipuncture / Unknown 05/23/2025 11:34 AM EDT 05/23/2025 11:42 AM EDT us Naifsa Mccarty MD LAB BLOOD ORDERABLES Final Resul t Performing Organization Address [facility] Co de Phone Number [facility] [address] [place] [address], [place] [phone] * (ABNORMAL) Phosphorus (05/23/2025 11:34 AM EDT) Phosphorus 2.4(L) 2.5 - 4.5 mg/dL LAB CHEMISTRY METHOD 05/23/2025 1:23 PM EDT [facility] Blood Venous blood specimen / Unknown Venipuncture / Unknown 05/23/2025 11:34 AM EDT 05/23/2025 11:42 AM EDT us Nafisa Mccarty MD LAB BLOOD ORDERABLES Final Resul t Performing Organization Address [facility] Co de Phone Number [facility] [address] [place] [address], [place] [phone] * XR Chest 2 Views (05/19/2025 3:54 PM EDT) Anatomical Region Laterality Modality Body Radiographic Annalisa ging 05/20/2025 7:53 AM EDT Impressions 05/20/2025 7:55 AM EDT No previous study is available for comparison. A right Pleurx catheter is present. Extensive emphysematous changes are present in the right lung. Density in the right mid and lower lung likely represents scarring but an infiltrate cannot be excluded. Very small right right pleural effusion versus minimal pleural thickening. Code [id number] -------- FINAL REPORT -------- Dictated By: Neel Stout Dictated Date: 05/20/2025 07:53 ET Assigned Physician: Neel Stout Reviewed and Electronically Signed By: Neel Stout Signed Date: 05/20/2025 07:55 ET Workstation ID: [id number] Transcribed By: Self Edit Transcribed Date: 05/20/2025 07:53 ET Narrative 05/20/2025 7:55 AM EDT HISTORY: The patient is a 70-year-old male with a malignant pleural effusion. FINDINGS: PA and lateral radiographs of the chest, without previous for comparison, demonstrate a right internal jugular Port-A-Cath with the tip at the midportion of the superior vena cava. There are degenerative changes of the thoracic spine. Osteoarthritis and chronic rotator cuff tears are present at both shoulders. The cardiac silhouette is within normal limits. The aortic knob is calcified. A Pleurx catheter is present with the central portion looped overlying the right upper lobe. Extensive emphysematous changes are present throughout the right lung. Density in the right mid and lower lung most likely represent scarring but an infiltrate cannot be excluded. The left lung is clear. There is blunting of the right costophrenic angle consistent with a very small pleural effusion versus minimal pleural thickening. Procedure Note Neel Stout MD - 05/20/2025 HISTORY: The patient is a 70-year-old male with a malignant pleuraleffusion. FINDINGS: PA and lateral radiographs of the chest, without previous forcomparison, demonstrate a right internal jugular Port-A-Cath with the tipat the midportion of the superior vena cava. There are degenerativechanges of the thoracic spine. Osteoarthritis and chronic rotator cufftears are present at both shoulders. The cardiac silhouette is withinnormal limits. The aortic knob is calcified. A Pleurx catheter is presentwith the central portion looped overlying the right upper lobe. Extensiveemphysematous changes are present throughout the right lung. Density inthe right mid and lower lung most likely represent scarring but aninfiltrate cannot be excluded. The left lung is clear. There is bluntingof the right costophrenic angle consistent with a very small pleuraleffusion versus minimal pleural thickening. IMPRESSION: No previous study is available for comparison. A right Pleurx catheter ispresent. Extensive emphysematous changes are present in the right lung.Density in the right mid and lower lung likely represents scarring but aninfiltrate cannot be excluded. Very small right right pleural effusionversus minimal pleural thickening. Code 37191 -------- FINAL REPORT -------- Dictated By: Neel Stout Dictated Date: 05/20/2025 07:53 ET Assigned Physician: Neel Stout Reviewed and Electronically Signed By: Neel Stout Signed Date: 05/20/2025 07:55 ET Workstation ID: [id number] Transcribed By: Self Edit Transcribed Date: 05/20/2025 07:53 ET us Tristan Meng MD IMG XR PROCEDURES Final Result from Last 3 Months Insurance [employer] MED[employer]ARE Advance Directives * Full Code - Default (Latest Code Status on File) Date Activated Date Inactivated Comments 05/23/2025 11:08 AM 05/27/2025 5:38 PM This is ord er is used when code status has not been discussed with the patient, or code status is otherwise unknown/unconfirmed To update the patient's code status, place a code status order. Do not modify or discontinue any currently active code status orders. Care Teams Call Center Rn Relationship Specialty Start Date End Date Lencho Squires MD [facility] [address] [place] [address] [address] [place] [id number] PCP - General Internal Medicine 05/06/25
[2025-06-05 14:40] VITALS: BP 110/64; TEMP 36.2; BMI 13.2
== END 2025-06-05 15:23 | disposition home or self-care (01) ==
LOC: HO.HMCH 14:31
PROVIDERS: PCP Internal Medicine; Visit Provider Internal Medicine
DX: C34.90 Malignant neoplasm of unspecified part of unspecified bronchus or lung (principal)

== ENCOUNTER → 2025-06-05 14:31 | Outpatient (BNVA) | payer MEDICARE, SELFPAY | PROVIDERS: PCP Internal Medicine; Visit Provider Internal Medicine | DX: C34.90 Malignant neoplasm of unspecified part of unspecified bronchus or lung (principal) | CPT/HCPCS: 99212 ==

== ENCOUNTER 2025-06-09 13:39 | Outpatient (REF) | payer MEDICARE, SELFPAY ==
--- NOTE | ~2025-06-09 | XR_ITS ---
EXAMINATION: XR CHEST 1 VIEW HISTORY: Evaluate right pleural effusion COMPARISON: Comparison is made with the prior examination dated 03/12/2025. FINDINGS: A single AP portable view of the chest performed at 2:00 PM is submitted. A right-sided port is unchanged in position. The lungs are hyperinflated, consistent with COPD. There is extensive scarring on the right. There is a small right pleural effusion, similar in size to the prior study. There may be a trace left pleural effusion. There is no pneumothorax or pulmonary vascular congestion. The heart is normal in size. The bones are intact. XR/XR chest 1V IMPRESSION: COPD with extensive right-sided scarring. Small right pleural effusion without change. Electronically signed by: Christopher Pineda MD 06/09/2025 02:03 PM EDT
--- OUTSIDE RECORDS SUMMARY | 2025-06-09 13:49 | XMS_ITS | Clinical Summary ---
Author Organization [facility] [address] [facility] Address [address] [place] [address] Phone Care Team Providers Care Assistance Representative Name Role Phone Lencho Squires MD Primary Care Provider [phone]- [phone] Allergies No known active allergies Medications midodrine [...] of overla pping sites of right lung ([facility] V24, [facility] V28) 05/19/2025 Malignant pleural effusion ([facility] V28) 025 Encounters Date Type Department Care Team Description 05/23/2025 10:30 AM EDT - 05/27/2025 3:33 PM EDT Hospital Encounter [facility] Intermediate Care Unit [address] [place] [address] Nafisa Mccarty MD Surendran, Anupama, MD Infection (Primary Dx) Discharge Disposition: Home-Health Care [facility] 05/23/2025 8:30 AM EDT Consult Pulmonology - [place] [address] [facility] [address] [place] [phone] Alana Moya MD Empyema ([facility] V24, [facility] V28) (Primary Dx); Malignant pleural effusion ([facility] V28) 05/19/2025 3:48 PM EDT - 05/19/2025 11:59 PM EDT Hospital Encounter [facility] Xray [address] [place] [phone] Malignant pleural effusion ([facility] V28) Discharge Disposition: Home or Self Care 05/19/2025 3:00 PM EDT Consult Thoracic Surgery - [address] [place] [phone] Tristan Meng MD Malignant pleural effusion ([facility] V28) (Primary Dx); Malignant neoplasm of [...] 2:00 PM EDT Office Visit Pulmonology - [address] [place] [address] Alana Moya MD [address] [place] [address] Health Maintenance Due Date Last Done Comments [...] 05/23/2025 10:20 AM EDT Malignant pleural effusion ([facility] V28) XR CHEST 2 VIEWS Routine 05/19/2025 3:54 PM EDT Malignant pleural effusion ([facility] V28) from Last 3 Months Results * (ABNORMAL) Manual differential (05/27/2025 5:42 AM EDT) Neutrophils % 78.0 % LAB HEMETOLOGY METHOD 5 7:33 AM EDT [facility] Bands % 2.0 % LAB HEMETOLOGY METHOD 5 7:33 AM EDT [facility] Lymphocytes % 14.0 % LAB HEMETOLOGY METHOD 5 7:33 AM EDT [facility] Monocytes % 3.0 % LAB HEMETOLOGY METHOD 5 7:33 AM EDT [facility] Eosinophils % 0.0 % LAB HEMETOLOGY METHOD 5 7:33 AM EDT [facility] Basophils % 0.0 % LAB HEMETOLOGY METHOD 5 7:33 AM [facility] Metamyelocytes % 2.0(H) % LAB HEMETOLOGY METHOD 5 7:33 AM [facility] Myelocytes % 1.0(H) % LAB HEMETOLOGY METHOD 5 7:33 AM [facility] Neutrophils Absolute Manual 4.68 1.50 - 7.00 K/mcL LAB HEMETOLOGY METHOD 5 7:33 AM [facility] Bands Absolute Manual 0.12(H) 0.00 - 0.00 K/mcL LAB HEMETOLOGY METHOD 5 7:33 AM [facility] Lymphocytes Absolute 0.84(L) 1.00 - 5.00 K/mcL LAB HEMETOLOGY METHOD 5 7:33 AM [facility] Monocytes Absolute Manual 0.18(L) 0.20 - 1.00 K/mcL LAB HEMETOLOGY METHOD 5 7:33 AM [facility] Eosinophils Absolute Manual 0.00 0.00 - 0.50 K/mcL LAB HEMETOLOGY METHOD 5 7:33 AM [facility] Basophils Absolute Manual 0.00 0.00 - 0.20 K/mcL LAB HEMETOLOGY METHOD 5 7:33 AM [facility] Metamyelocytes Absolute Manual 0.12(H) 0.00 - 0.00 K/mcL LAB HEMETOLOGY METHOD 5 7:33 AM [facility] Myelocytes Absolute Manual 0.06(H) 0.00 - 0.00 K/mcL LAB HEMETOLOGY METHOD 5 7:33 AM [facility] Rbc Morphology Consistent with indices Consistent with indices, Normal for [place] LAB HEMETOLOGY METHOD 5 7:33 AM [facility] Platelet Morphology - WAM See Note(A) Normal LAB HEMETOLOGY METHOD 7:33 AM EDT [facility] Comment:PLT: Normal Blood Blood sample taken from central line / Unknown Existing Catheter / Unknown 05/27/2025 5:42 AM EDT 05/27/2025 6:19 AM EDT Lucia Yu MD LAB BLOOD ORDERABLES Final Result [facility] [address] [place] [address], * (ABNORMAL) CBC auto differential (05/27/2025 5:42 AM EDT) Only the most recent of4 resultswithin the time period is included. WBC 6.0 4.8 - 10.8 K/mcL LAB HEMETOLOGY METHOD 05/27/2025 7:33 AM EDT [facility] RBC 2.70(L) 4.50 - 5.50 M/mcL LAB HEMETOLOGY METHOD 05/27/2025 7:33 AM [facility] Hemoglobin 7.8(L) 13.5 - 17.5 g/dL LAB HEMETOLOGY METHOD 05/27/2025 7:33 AM [facility] Hematocrit 25.3(L) 42.0 - 54.0 % LAB HEMETOLOGY METHOD 05/27/2025 7:[facility] MCV 93.7 79.0 - 98.0 FL LAB HEMETOLOGY METHOD 05/27/2025 7:33 [facility] MCH 28.9 27.0 - 32.0 pcg LAB HEMETOLOGY METHOD 05/27/2025 7:33 AM [facility] MCHC 30.8(L) 32.0 - 37.0 g/dL LAB HEMETOLOGY METHOD 05/27/2025 7:33 AM EDT [facility] RDW 17.3(H) 11.0 - 15.0 % [facility] 05/27/2025 7:33 AM EDT [facility] Platelets 281 130 - 400 K/mcL LAB HEMETOLOGY METHOD 05/27/2025 7:33 AM EDT [facility] MPV 8.9 7.0 - 11.0 FL LAB HEMETOLOGY METHOD 05/27/2025 7:33 AM EDT [facility] NRBC 0.0 <1.0 % [facility] 05/27/2025 7:33 AM EDT [facility] NRBC Absolute 0.00 <0.10 K/mcL [facility] 05/27/2025 7:33 AM EDT [facility] Blood Blood sample taken from central line / Unknown Existing Catheter / Unknown 05/27/2025 5:42 AM EDT 05/27/2025 6:19 AM EDT Lucia Yu MD LAB BLOOD ORDERABLES Final Result [facility] [address] [place] [address], * (ABNORMAL) Basic metabolic panel (05/27/2025 5:42 AM EDT) Only the most recent of4 resultswithin the time period is included. Sodium 133 133 - 145 mmol/L LAB CHEMISTRY METHOD 05/27/2025 7:08 AM EDT [facility] Potassium 4.8 3.5 - 5.5 mmol/L LAB CHEMISTRY METHOD 05/27/2025 7:08 AM EDT [facility] Chloride 98 96 - 110 mmol/L LAB CHEMISTRY METHOD 05/27/2025 7:08 AM EDT [facility] CO2 33(H) 21 - 32 mmol/L LAB CHEMISTRY METHOD 05/27/2025 7:08 AM [facility] Anion Gap 2(L) 3 - 11 LAB CHEMISTRY METHOD 05/27/2025 7:08 AM [facility] Glucose 68(L) 70 - 100 mg/dL LAB CHEMISTRY METHOD 05/27/2025 7:08 AM [facility] BUN 19 5 - 25 mg/dL LAB CHEMISTRY METHOD 05/27/2025 7:08 AM [facility] Creatinine 0.51(L) 0.70 - 1.30 mg/dL LAB CHEMISTRY METHOD 05/27/2025 7:08 AM [facility] eGFR 110 >=60 mL/min/1. 73m2 LAB CHEMISTRY METHOD 05/27/2025 7:08 AM [facility] Comment:Calculation based on the Chronic Kidney Disease Epidemiology Collaboration (CKD-EPI) equation refit without adjustment for race. BUN/Creatinine Ratio 37.3 LAB CHEMISTRY METHOD 05/27/2025 7:08 AM [facility] Calcium 9.1 8.5 - 10.5 mg/dL LAB CHEMISTRY METHOD 05/27/2025 7:08 AM [facility] Blood Blood sample taken from central line / Unknown Existing Catheter / Unknown 05/27/2025 5:42 AM EDT 05/27/2025 6:16 AM EDT us Lucia Yu MD LAB BLOOD ORDERABLES Final Result [facility] [address] [place] [address], * CT Chest wo Contrast (05/25/2025 2:44 [...] Signed Date: 05/25/2025 16:44 ET Workstation ID: [id number] Transcribed By: Self Edit Transcribed Date: 05/25/2025 [...] Signed Date: 05/25/2025 16:44 ET Workstation ID: [id number] Transcribed By: Self Edit Transcribed Date: 05/25/2025 [...] Short Reviewed and Electronically Signed By: Ismael Shotr Signed Date: 05/25/2025 12:54 ET Workstation ID: [id number] Transcribed By: Self Edit Transcribed Date: 05/25/2025 [...] Signed Date: 05/25/2025 12:54 ET Workstation ID: [id number] Transcribed By: Self Edit Transcribed Date: 05/25/2025 12:51 ET us Byron HASSAN IMG XR PROCEDURES Final Result * (ABNORMAL) Magnesium (05/25/2025 5:35 AM EDT) Only the most recent of3 resultswithin the time period is included. Magnesium 1.8(L) 1.9 - 2.6 mg/dL LAB CHEMISTRY METHOD 05/25/2025 7:12 AM EDT [facility] Blood Venous blood specimen / Unknown Venipuncture / Unknown 05/25/2025 5:35 AM EDT 05/25/2025 6:07 AM EDT us Lucia Yu MD LAB BLOOD ORDERABLES Final Result Performing Organization Address [facility] de Phone Number [facility] [address] [place] [address], [place] [phone] * Vancomycin, trough Please draw prior to 2:30 am dose (05/25/2025 1:16 AM EDT) [facility] Vancomycin Trough 15.2 10.0 - 20.0 mcg/mL LAB CHEMISTRY METHOD 05/25/2025 2:09 AM EDT [facility] Blood Venous blood specimen / Unknown Venipuncture / Unknown 05/25/2025 1:16 AM EDT 05/25/2025 1:21 AM EDT Nafisa Mccarty MD LAB BLOOD ORDERABLES Final Resul t Performing Organization Address [facility] de Phone Number [facility] [address] [place] [address], [place] [phone] * Cell count with reflex differential, body fluid (05/23/2025 5:04 PM EDT) [facility] Body Fluid Total Nucleated Cells 149 /mm3 LAB HEMETOLOGY METHOD 05/23/2025 8:43 PM EDT [facility] Body Fluid RBC 1,000 /mm3 LAB HEMETOLOGY METHOD 05/23/2025 8:43 PM EDT [facility] Body Fluid Color Yellow 05/23/2025 8:43 PM EDT [facility] Body Fluid Clarity Clear 05/23/2025 8:43 PM EDT [facility] Body Fluid Source Pleural 05/23/2025 8:43 PM EDT [facility] Pleural Fluid Structure of right pleural cavity / Unknown Non-blood Collection / Unknown 05/23/2025 5:04 PM EDT 05/23/2025 5:23 PM EDT Narrative [facility] - 05/23/2025 8:43 PM EDT No reference ranges have been established for body fluids. Clinical correlation recommended. us Byron HASSAN LAB BODY FLUIDS AND STOO LS ORDERABLES Final Result [facility] [address] [place] [address], [place] [phone] * Culture body fluid with gram stain (05/23/2025 5:04 PM EDT) Only the most recent of4 resultswithin the time period is included. Fluid Culture No growth at 3 days LAB MICROBIOLOGY METHOD 05/26/2025 1:16 PM EDT [facility] Gram Stain Result Many Polymorphonuclear leukocytes 05/26/2025 1:16 PM EDT [facility] Gram Stain Result No Epithelial cells 05/26/2025 1:16 PM EDT [facility] Gram Stain Result No organisms seen 05/26/2025 1:16 PM EDT [facility] Pleural Fluid Structure of right pleural cavity / Unknown Non-blood Collection / Unknown 05/23/2025 5:04 PM EDT 05/23/2025 5:23 PM EDT Narrative [facility] - 05/26/2025 1:16 PM EDT Testing performed on unspun fluid; quality not adequate to spin due to turbidity. us Jose Chappell MD LAB MICROBIOLOGY - GENERAL MARLIN AMIN Final Result [facility] [address] [place] [address], [place] [phone] * Differential body fluid (05/23/2025 5:04 PM EDT) Fluid Neutrophils % 87 % 05/23/2025 8:43 PM EDT [facility] Fluid Lymphocytes % 11 % 05/23/2025 8:43 PM EDT [facility] Fluid Monocytes/Macrop hages 2 % 05/23/2025 8:43 PM EDT [facility] Fluid Eosinophils % 0 % 05/23/2025 8:43 PM EDT [facility] Fluid Basophils % 0 % 05/23/2025 8:43 PM EDT [facility] Fluid Other Cells % 0 % 05/23/2025 8:43 PM EDT [facility] Pleural Fluid Structure of right pleural cavity / Unknown Non-blood Collection / Unknown 05/23/2025 5:04 PM EDT 05/23/2025 5:23 PM EDT Narrative [facility] - 05/23/2025 8:43 PM EDT No reference ranges have been established for body fluids. Clinical correlation recommended. us Byron HASSAN LAB BODY FLUIDS AND STOO LS ORDERABLES Final Result [facility] [address] [place] [address], [place] [phone] * Protein, body fluid (05/23/2025 5:04 PM EDT) Protein, Fluid 3.1 See Comment g/dL LAB CHEMISTRY METHOD 05/23/2025 8:05 PM EDT [facility] Pleural Fluid Structure of right pleural cavity / Unknown Non-blood Collection / Unknown 05/23/2025 5:04 PM EDT 05/23/2025 5:23 PM EDT [facility] - 05/23/2025 8:05 PM EDT No reference ranges have been established for body fluids. Clinical correlation recommended. Byron HASSAN LAB BODY FLUIDS AND STOO LS ORDERABLES Final Result Performing Organization Address [facility] de Phone Number [facility] [address] [place] [address], [place] [phone] * Lactate dehydrogenase, body fluid (05/23/2025 5:04 PM EDT) LD, Fluid 111 See Comment unit/L LAB CHEMISTRY METHOD 05/23/2025 8:05 PM EDT [facility] Pleural Fluid Structure of right pleural cavity / Unknown Non-blood Collection / Unknown 05/23/2025 5:04 PM EDT 05/23/2025 5:23 PM EDT [facility] - 05/23/2025 8:05 PM EDT No reference ranges have been established for body fluids. Clinical correlation recommended. us Byron HASSAN LAB BODY FLUIDS AND STOO LS ORDERABLES Final Result Performing Organization Address [facility] de Phone Number [facility] [address] [place] [address], [place] [phone] * Glucose, body fluid (05/23/2025 5:04 PM EDT) Glucose, Fluid 64 See Comment mg/dL LAB CHEMISTRY METHOD 05/23/2025 8:05 PM EDT [facility] Pleural Fluid Structure of right pleural cavity / Unknown Non-blood Collection / Unknown 05/23/2025 5:04 PM EDT 05/23/2025 5:23 PM EDT [facility] - 05/23/2025 8:05 PM EDT No reference ranges have been established for body fluids. Clinical correlation recommended. us Byron HASSAN LAB BODY FLUIDS AND STOO LS ORDERABLES Final Result [facility] [address] [place] [address], [place] [phone] * IR Pleural Drain Insert Cath w Image Guidance Right (05/23/2025 5:03 PM EDT) Anatomical Region Laterality Modality Right Interventional R adiology 05/26/2025 12:4 8 PM EDT Impressions 05/26/2025 1:[address]-guided chest tube placement into 2 separate right-sided pleural fluid collections. 14 [place] catheter placed into subpulmonic pleural fluid in the right lung base with 8 [place] catheter placed into smaller pleural collection posteriorly. Samples obtained and sent for laboratory evaluation. -------- FINAL REPORT -------- Dictated By: Jose Chappell Dictated Date: 05/26/2025 12:48 ET Assigned Physician: Jose Chappell Reviewed and Electronically Signed By: Jose Chappell Signed Date: 05/26/2025 13:01 ET Workstation ID: [id number] Transcribed By: Self Edit Transcribed Date: 05/26/2025 [...] of fentanyl administered during the procedure. Scanner: [email or web address] [address] Dose reduction technique: AEC [...] lung base. Tract dilated up to 16 [place] and placement of a 14 [place] pigtail catheter. 10 mL of serous fluid [...] Amplatz wire tract dilated up to 10 [place] and placement of an 8 [place] pigtail catheter. 5 mL of serosanguineous fluid [...] of fentanyl administered during the procedure. Scanner: [email or web address] [address] Dose reduction technique: AEC [...] lung base. Tract dilated up to 16 [place] and placement of a 14French pigtail catheter. [...] shortAmplatz wire tract dilated up to 10 [place] and placement of an 8 Frenchpigtail catheter. 5 mL of serosanguineous fluid aspirated and sent forevaluation as ordered. Catheter attached to a Pleur- evac system and asterile dressing applied. IMPRESSION: CT-guided chest tube placement into 2 separate right-sided pleural fluidcollections. 14 [place] catheter placed into subpulmonic pleural fluid inthe right lung base with 8 [place] catheter placed into smaller pleuralcollection posteriorly. Samples obtained and sent for laboratoryevaluation. -------- FINAL REPORT -------- Dictated By: Jose Chappell Dictated Date: 05/26/2025 12:48 ET Assigned Physician: Jose Chappell Reviewed and Electronically Signed By: Jose Chappell Signed Date: 05/26/2025 13:01 ET Workstation ID: [id number] Transcribed By: Self Edit Transcribed Date: 05/26/2025 [...] Signed Date: 05/23/2025 17:16 ET Workstation ID: [id number] Transcribed By: Self Edit Transcribed Date: 05/23/2025 16:09 ET Narrative 05/23/2025 5:16 PM EDT Indication: Infected right-sided Pleurx catheter, request for interventional radiology placement of pigtail catheter into residual right effusion Technique: CT scan of the chest obtained with 90 cc of Isovue-370 administered intravenously without incident. Scanner: [employer]eer 64 slice VCT Dose reduction technique: ASIR [...] portion upper abdomen are unremarkable. Procedure Note Jose Chappell MD - 05/23/2025 Indication: Infected right-sided Pleurx catheter, request forinterventional radiology placement of pigtail catheter into residual righteffusion Technique: CT scan of the chest obtained with 90 cc of Isovue-370administered intravenously without incident. Scanner: SanakopeAmplience 64 slice VCT Dose reduction technique: ASIR [...] Signed Date: 05/23/2025 17:16 ET Workstation ID: [id number] Transcribed By: Self Edit Transcribed Date: 05/23/2025 16:09 ET Nafisa Mccarty MD IMG CT PROCEDURES Final Result * ECG 12 lead (05/23/2025 2:54 PM EDT) Ventricular Rate ECG 68 BPM GEMUSE Atrial Rate 68 BPM GEMUSE P-R Interval 132 ms GEMUSE QRS Duration 104 ms GEMUSE Q-T Interval 378 ms GEMUSE QTc 401 ms GEMUSE P Wave [place] 78 degrees GEMUSE R [place] 55 degrees GEMUSE T [place] 57 degrees GEMUSE ECG Interpretation Normal sinus rhythm Normal ECG No previous ECGs available Confirmed by MD Nicholas, Byron ([id number]) on 05/23/2025 5:52:37 PM GEMUSE 05/23/2025 2:54 PM EDT 05/23/2025 5:52 PM EDT us Constanza Gleason NP ECG ORDERABLES Final Result GEMUSE * Digoxin level (05/23/2025 2:48 PM EDT) Pathologist [facility] Digoxin Lvl 0.8 0.5 - 2.0 ng/mL LAB CHEMISTRY METHOD 05/23/2025 4:48 PM EDT [facility] Blood Venous blood specimen / Unknown Venipuncture / Unknown 05/23/2025 2:48 PM EDT 05/23/2025 3:11 PM EDT us Constanza Gleason NP LAB BLOOD ORDERABLES Final Res ult [facility] [address] [place] [address], [place] [phone] * Culture blood (05/23/2025 2:33 PM EDT) Pathologist [facility] Culture, Blood No growth at 5 days LAB MICROBIOLOGY METHOD 05/28/2025 3:01 PM EDT [facility] Blood Venous blood specimen / Unknown Venipuncture / Unknown 05/23/2025 2:33 PM EDT 05/23/2025 2:51 PM EDT us Nafisa Mccarty MD LAB MICROBIOLOGY - GENERAL ORDER ANGELA Final Result Performing Organization Address [facility]/ZIP Co de Phone Number [facility] [address] [place] [address], [place] [phone] * MRSA molecular study (05/23/2025 1:29 PM EDT) MRSA Screen PCR Not Detected Not Detected LAB MICROBIOLOGY METHOD 05/23/2025 2:58 PM EDT [facility] Swab Both anterior nares / Unknown Non-blood Collection / Unknown 05/23/2025 1:29 PM EDT 05/23/2025 1:42 PM EDT us Nafisa Mccarty MD LAB MICROBIOLOGY - GENERAL ORDER ANGELA Final Result [facility] [address] [place] [address], [place] [phone] * Type and screen (05/23/2025 11:35 AM EDT) Pathologist [facility] ABO Group O 05/23/2025 1:26 PM EDT [facility] Rh Type Negative 05/23/2025 1:26 PM EDT [facility] Antibody Screen Negative 05/23/2025 1:26 PM EDT [facility] Blood Venous blood specimen / Unknown Venipuncture / Unknown 05/23/2025 11:35 AM EDT 05/23/2025 11:42 AM EDT us Nafisa Mccarty MD LAB BLOOD BANK TEST ORDERABLES F inal Result Performing Organization Address [facility]/ZIP Co de Phone Number [facility] [address] [place] [address], [place] [phone] * (ABNORMAL) Lactate (05/23/2025 11:35 AM EDT) [facility] Lactate 2.1(H) 0.4 - 2.0 mmol/L LAB CHEMISTRY METHOD 05/23/2025 12:22 PM EDT [facility] Blood Venous blood specimen / Unknown Venipuncture / Unknown 05/23/2025 11:35 AM EDT 05/23/2025 11:41 AM EDT us Nafisa Mccarty MD LAB BLOOD ORDERABLES Final Resul t [facility] [address] [place] [address], [place] [phone] * Prothrombin time with INR (05/23/2025 11:34 AM EDT) [facility] Protime 12.2 10.6 - 13.9 sec LAB COAGULATION METHOD 05/23/2025 12:04 PM EDT [facility] INR 1.0 LAB COAGULATION METHOD 05/23/2025 12:04 PM EDT [facility] Blood Venous blood specimen / Unknown Venipuncture / Unknown 05/23/2025 11:34 AM EDT 05/23/2025 11:42 AM EDT us Nafisa Mccarty MD LAB BLOOD ORDERABLES Final Resul t Performing Organization Address [facility] Co de Phone Number [facility] [address] [place] [address], [place] [phone] * (ABNORMAL) Phosphorus (05/23/2025 11:34 AM EDT) Phosphorus 2.4(L) 2.5 - 4.5 mg/dL LAB CHEMISTRY METHOD 05/23/2025 1:23 PM EDT [facility] Blood Venous blood specimen / Unknown Venipuncture / Unknown 05/23/2025 11:34 AM EDT 05/23/2025 11:42 AM EDT us Nafisa Mccarty MD LAB BLOOD ORDERABLES Final Resul t Performing Organization Address [facility] Co de Phone Number [facility] [address] [place] [address], [place] [phone] * XR Chest 2 Views (05/19/2025 3:54 [...] pleural effusion versus minimal pleural thickening. Code 60578 -------- FINAL REPORT -------- Dictated By: Neel Stout Dictated Date: 05/20/2025 07:53 ET Assigned Physician: Neel Stout Reviewed and Electronically Signed By: Neel Stout Signed Date: 05/20/2025 07:55 ET Workstation ID: [id number] Transcribed By: Self Edit Transcribed Date: 05/20/2025 [...] right pleural effusionversus minimal pleural thickening. Code 57279 -------- FINAL REPORT -------- Dictated By: Neel Stout Dictated Date: 05/20/2025 07:53 ET Assigned Physician: Neel Stout Reviewed and Electronically Signed By: Neel Stout Signed Date: 05/20/2025 07:55 ET Workstation ID: [id number] Transcribed By: Self Edit Transcribed Date: 05/20/2025 07:53 ET us Tristan Meng MD IMG XR PROCEDURES Final Result from Last 3 Months Insurance [employer] [address] Advance Directives * Full Code - Default [...] currently active code status orders. Care Teams Assistance Representative Relationship Specialty Start Date End Date Lencho Squires MD [facility] [address] [place] [address] [address] [place] [address] PCP - General Internal Medicine 05/06/25
--- OUTSIDE RECORDS SUMMARY | 2025-06-09 13:49 | XMS_ITS | Clinical Summary ---
Author Organization [facility] Address [address] [place] [address] Care Team Providers Care Pulp Grinder Feeder Name Role Phone Unavailable Primary Care Provider [...]
== END 2025-06-09 13:40 | disposition home or self-care (01) ==
LOC: HO.XRAY 13:39
PROVIDERS: Visit Provider Internal Medicine
DX: C34.90 Malignant neoplasm of unspecified part of unspecified bronchus or lung (principal)
CPT/HCPCS: 71045

== ENCOUNTER → 2025-06-09 13:47 | Outpatient (BNV) | payer MEDICARE, SELFPAY | PROVIDERS: Visit Provider Radiology Diagnostic Radiology | DX: J90 Pleural effusion, not elsewhere classified (principal) | CPT/HCPCS: 71045 ==

== ENCOUNTER 2025-08-03 20:53 | Inpatient (IN) | payer MEDICARE, SELFPAY ==
--- NOTE | ~2025-08-03 | XR_ITS ---
CLINICAL HISTORY: sepsis 1 view chest x-ray Comparison: CR/SR - XR CHEST 1 VIEW - 06/09/2025 02:00 PM EDT; CT/SR - CT CHEST WO IV CON - 02/15/2025 11:51 AM EDT Findings: Blunting of the right costophrenic angle. Heart size is normal. Right internal jugular approach MediPort with tip projected over the superior vena cava. Mild osteopenia. Right upper lobe spiculated density with superimposition of the reservoir for MediPort. IMPRESSION: 1. Blunting of the right costophrenic angle, possibly representing a small pleural effusion. 2. COPD. 3. Right upper lobe spiculated density with superimposition of the reservoir for MediPort; please refer to CT of the thorax on 02/15/2025. This document has been electronically signed by: Ra Mederos MD on 08/03/2025 22:45:34
[2025-08-03 21:14] VITALS: BP 90/61; PULSE 108; RESP 39; TEMP 36.9; O2SAT 96; BMI 12.4
--- OUTSIDE RECORDS SUMMARY | 2025-08-03 21:33 | XMS_ITS | Clinical Summary ---
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 TAKE LAST DOSE BEFORE 6PM 05/06/2025 Active metoprolol tartrate (LOPRESSOR) 25 mg tablet Take 0.5 tablets (12.5 mg total) by mouth 2 (two) times a day. 02/24/2025 Active digoxin (LANOXIN) 125 mcg (0.125 mg) tablet Take 1 tablet (125 mcg total) by mouth 1 (one) time each day. 02/24/2025 Active dexAMETHasone (DECADRON) 2 mg tablet Take 1 tablet (2 mg total) by mouth 2 (two) times a day with meals for 2 days, THEN 1 tablet (2 mg total) 1 (one) time each day for 2 days, THEN 0.5 tablets (1 mg total) 1 (one) time each day for 2 days. 7 each 05/27/2025 Active vancomycin (VANCOCIN) 125 mg capsule Take 1 capsule (125 mg total) by mouth 4 (four) times a day. 07/02/2025 Active Active Problems Problem Noted Date Diagnosed Date Infection 05/23/2025 Malignant neoplasm of overla pping sites of right lung ([facility] V24, [facility] V28) 05/19/2025 Malignant pleural effusion ([facility] V28) 07/14/2 025 Encounters Date Type Department Care Team Description 07/04/2025 2:00 PM EDT Office Visit Pulmonology - [place] [address] [phone] Alana Moya MD Malignant pleural effusion ([facility] V28) (Primary Dx); Empyema (CMS/HCC V24, [facility]/HCC V28); 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 ([facility]/HCC V24, [facility]/HCC V28) 06/19/2025 1:41 PM EDT - 06/19/2025 11:59 PM EDT Hospital Encounter [facility] PET Scan [address] [place] [phone] Squamous cell carcinoma of right lung ([facility] V24, [facility] V28) Discharge Disposition: Home or Self Care 05/23/2025 10:30 AM EDT - 05/27/2025 3:33 PM EDT Hospital Encounter [facility] Intermediate Care Unit [address] [place] [phone] Nafisa Mccarty MD Surendran, Anupama, MD Infection (Primary Dx) Discharge Disposition: Home-Health Care [facility] 05/23/2025 8:30 AM EDT Consult Pulmonology - [place] [address] [phone] Alana Moya MD Empyema ([facility] V24, [facility] V28) (Primary Dx); Malignant pleural effusion ([facility]/HCC V28) 05/19/2025 3:48 PM EDT - 05/19/2025 11:59 PM EDT Hospital Encounter [facility] Xray [address] [place] [phone] Malignant pleural effusion ([facility] V28) Discharge Disposition: Home or Self Care 05/19/2025 3:00 PM EDT Consult Thoracic Surgery - [place] [address] [phone] Tristan Meng MD Malignant pleural effusion ([facility] V28) (Primary Dx); Malignant neoplasm of overlapping sites of right lung (CMS/HCC V24, CMS/HCC V28) from Last 3 Months Surgical History Surgery Date Site/Laterality Comments OTHER SURGICAL HISTORY Chest Tube Medical History Medical History Date Comments Hyperlipidemia Insomnia COPD (chronic obstructive pulmonary disease) ([facility] S/HCC V24, [facility] V28) History of lung cancer Family History [...] Safety Answer Date Record ed Physical Abuse Unrecognized value 05/23/2025 Verbal Abuse Unrecognized value 05/23/2025 Sex and Gender Information Value Date Recorded Sex Assigned at Not on file Legal Sex Male 8:02 AM EDT Gender Identity Not on file Sexual Orientation Not on file Obstetrics History Last Filed Vital Signs Vital Sign Reading Time Taken Comments Blood Pressure 86/54 07/04/2025 2:05 PM EDT Pulse 83 07/04/2025 2:05 PM EDT Temperature 36.6 C (97.8 F) 07/04/2025 2:05 PM EDT Respiratory Rate 18 05/27/2025 12:07 PM EDT Oxygen Saturation 99% 07/04/2025 2:05 PM EDT Inhaled Oxygen Concentration - - Weight 43.1 kg (95 lb) 07/04/2025 2:05 PM EDT Height 185.4 cm (6' 1 ) 07/04/2025 2:05 PM EDT Body Mass Index 12.53 07/04/2025 2:05 PM EDT Plan of Treatment Upcoming Encounters Date Type Department Care Team (Late st Contact Info) Description 08/08/2025 3:30 PM EDT Office Visit Pulmonology - [address] [phone] Alana Moya MD [address] [place] [address] Health Maintenance Due Date Last Done Comments [...] Procedure Name Priority Date/Time Associated Diagnosis Comments PET CT SKULL TO MID THIGH SUBSEQUENT Routine 06/19/2025 3:50 PM EDT Squamous cell carcinoma of right lung ([facility] V24, [facility] V28) HOME O2 EVAL (DESATURATION SCREEN) Routine 05/27/2025 [...] 05/23/2025 10:20 AM EDT Malignant pleural effusion (CMS/HCC V28) XR CHEST 2 VIEWS Routine 05/19/2025 3:54 PM EDT Malignant pleural effusion (CMS/HCC V28) from Last 3 Months Results * PET CT Skull to Mid Thigh Subsequent (06/19/2025 3:50 PM EDT) Anatomical Region Laterality Modality Body Radiographic Annalisa ging 06/24/2025 5:30 PM EDT Impressions 06/24/2025 5:53 PM EDT Residual intense metabolic activity associated with smaller right hilar mass. Mild residual activity noted within nodular attenuation the superior segment of the right lower lobe and inferior laterally in the right upper lobe. Persistent mediastinal metabolic activity. New pleural-based activity posteriorly within the right lower lobe may represent inflammatory/infectious changes with metastatic disease not excluded. New focal metabolic activity along the left T6 transverse process suspicious for bony metastasis. Consider colonoscopy for persistent focal intense metabolic activity along the mid sigmoid colon. -------- FINAL REPORT -------- Dictated By: Jose Chappell Dictated Date: 06/24/2025 17:30 ET Assigned Physician: Jose Chappell Reviewed and Electronically Signed By: Jose Chapplel Signed Date: 06/24/2025 17:53 ET Workstation ID: [id number] Transcribed By: Self Edit Transcribed Date: 06/24/2025 17:30 ET Narrative 06/24/2025 5:53 PM EDT INDICATION: Lung carcinoma, subsequent treatment strategy Prior relevant studies: Outside PET/CT from March 18, [address] imaging obtained as well as attenuated corrected and nonattenuated corrected images. Reformatted coronal and sagittal images obtained as well as screening say fused axial, coronal and sagittal images. The window level cannot be changed on the fused images nor can SUV values being measured. No dictated report available for this examination. Most recent chest CT from May 25, 2025 reviewed. Radiopharmaceutical: 13.6 mCi of F-18 FDG IV. Blood glucose: 84 mg/dl. PROCEDURE: Routine body FDG PET-CT imaging was performed from the skull base to the mid thighs and reconstructed in axial, coronal, and sagittal planes at the computer workstation with fused data from both the PET imaging study and attenuation correction CT. The CT portion of the examination was done strictly for attenuation correction and is not a true diagnostic CT examination. CTDI: 3.90 mGy FINDINGS: HEAD AND NECK: No abnormal FDG activity. THORAX: FDG avid right hilar mass appears decreased in size with SUV max of 12.2. Residual nodule noted posteriorly likely within the superior segment of the right lower lobe with SUV max of 2.2. Mild FDG activity associated with nodular attenuation laterally likely within the right upper lobe adjacent to a accessory fissure FDG max of 2. Linear FDG activity noted posteriorly within the right lower lobe along the pleural surface with FDG max of 3.7 as well as uptake more inferiorly and posteriorly along the lung base also along the pleural surface with FDG max up to 4.6. 2 right-sided pigtail catheters noted on the prior diagnostic chest CT from May 25, 2025 with trace residual pleural fluid noted within the right lung base. FDG avid precarinal node FDG max of 3. FDG avid prevascular nodes with SUV max of 3 also. FDG avid left hilar node SUV max of 2.5. ABDOMEN/PELVIS: Persistent focal intense activity along the mid sigmoid colon within the left pelvis dependently with SUV max of 9. Underlying lesion cannot be excluded. Consider correlation with colonoscopy/sigmoidoscopy. New activity noted along the wall of the distal rectum with SUV max of 7.4 with new mild wall thickening possibly a degree of colitis. New small focus of FDG activity along the posterior aspect of the distal descending colon with associated mild pericolonic infiltrative changes with SUV max of 2.6 likely physiological/inflammatory. MUSCULOSKELETAL: New focus of activity noted along the medial left T6 transverse process with SUV max of 2.6. Procedure Note Jose Chappell MD - 06/24/2025 INDICATION: Lung carcinoma, subsequent treatment strategy Prior relevant studies: Outside PET/CT from March 18, 2025 reviewed. AxialCT imaging obtained as well as attenuated corrected and nonattenuatedcorrected images. Reformatted coronal and sagittal images obtained as wellas screening say fused axial, coronal and sagittal images. The windowlevel cannot be changed on the fused images nor can SUV values beingmeasured. No dictated report available for this examination. Most recent chest CT from May 25, 2025 reviewed. Radiopharmaceutical: 13.6 mCi of F-18 FDG IV. Blood glucose: 84 mg/dl. PROCEDURE: Routine body FDG PET-CT imaging was performed from the skullbase to the mid thighs and reconstructed in axial, coronal, and sagittalplanes at the computer workstation with fused data from both the PETimaging study and attenuation correction CT. The CT portion of theexamination was done strictly for attenuation correction and is not a truediagnostic CT examination. CTDI: 3.90 mGy FINDINGS: HEAD AND NECK: No abnormal FDG activity. THORAX: FDG avid right hilar mass appears decreased in size with SUV maxof 12.2. Residual nodule noted posteriorly likely within the superior segment ofthe right lower lobe with SUV max of 2.2. Mild FDG activity associated with nodular attenuation laterally likelywithin the right upper lobe adjacent to a accessory fissure FDG max of2. Linear FDG activity noted posteriorly within the right lower lobe alongthe pleural surface with FDG max of 3.7 as well as uptake more inferiorlyand posteriorly along the lung base also along the pleural surface withFDG max up to 4.6. 2 right-sided pigtail catheters noted on the prior diagnostic chest CTfrom May 25, 2025 with trace residual pleural fluid noted within theright lung base. FDG avid precarinal node FDG max of 3. FDG avid prevascular nodes with SUV max of 3 also. FDG avid left hilar node SUV max of 2.5. ABDOMEN/PELVIS: Persistent focal intense activity along the mid sigmoidcolon within the left pelvis dependently with SUV max of 9. Underlyinglesion cannot be excluded. Consider correlation withcolonoscopy/sigmoidoscopy. New activity noted along the wall of the distal rectum with SUV max of 7.4with new mild wall thickening possibly a degree of colitis. New small focus of FDG activity along the posterior aspect of the distaldescending colon with associated mild pericolonic infiltrative changeswith SUV max of 2.6 likely physiological/inflammatory. MUSCULOSKELETAL: New focus of activity noted along the medial left [id number] process with SUV max of 2.6. IMPRESSION: Residual intense metabolic activity associated with smaller right hilarmass. Mild residual activity noted within nodular attenuation the superiorsegment of the right lower lobe and inferior laterally in the right upperlobe. Persistent mediastinal metabolic activity. New pleural-based activity posteriorly within the right lower lobe mayrepresent inflammatory/infectious changes with metastatic disease notexcluded. New focal metabolic activity along the left T6 transverse processsuspicious for bony metastasis. Consider colonoscopy for persistent focal intense metabolic activity alongthe mid sigmoid colon. -------- FINAL REPORT -------- Dictated By: Jose Chappell Dictated Date: 06/24/2025 17:30 ET Assigned Physician: Jose Chappell Reviewed and Electronically Signed By: Jose Chappell Signed Date: 06/24/2025 17:53 ET Workstation ID: [id number] Transcribed By: Self Edit Transcribed Date: 06/24/2025 17:30 ET [facility] Final Result * (ABNORMAL) Manual differential (05/27/2025 5:42 AM EDT) Neutrophils % 78.0 % LAB HEMETOLOGY METHOD 5 7:33 AM EDT [facility] Bands % 2.0 % LAB HEMETOLOGY METHOD 5 7:33 AM EDT [facility] Lymphocytes % 14.0 % LAB HEMETOLOGY METHOD 5 7:33 AM EDT [facility] Monocytes % 3.0 % LAB HEMETOLOGY METHOD 5 7:33 AM EDT [facility] Eosinophils % 0.0 % LAB HEMETOLOGY METHOD 5 7:[address] [facility] Basophils % 0.0 % LAB HEMETOLOGY METHOD 5 7:[address] [facility] Metamyelocytes % 2.0(H) % LAB HEMETOLOGY METHOD 5 7:[address] [facility] Myelocytes % 1.0(H) % LAB HEMETOLOGY METHOD 5 7:[address] [facility] Neutrophils Absolute Manual 4.68 1.50 - 7.00 K/mcL LAB HEMETOLOGY METHOD 5 7:[address] [facility] Bands Absolute Manual 0.12(H) 0.00 - 0.00 K/mcL LAB HEMETOLOGY METHOD 5 7:[address] [facility] Lymphocytes Absolute 0.84(L) 1.00 - 5.00 K/mcL LAB HEMETOLOGY METHOD 5 7:[address] [facility] Monocytes Absolute Manual 0.18(L) 0.20 - 1.00 K/mcL LAB HEMETOLOGY METHOD 5 7:[address] [facility] Eosinophils Absolute Manual 0.00 0.00 - 0.50 K/mcL LAB HEMETOLOGY METHOD 5 7:[address] [facility] Basophils Absolute Manual 0.00 0.00 - 0.20 K/mcL LAB HEMETOLOGY METHOD 5 7:[address] [facility] Metamyelocytes Absolute Manual 0.12(H) 0.00 - 0.00 K/mcL LAB HEMETOLOGY METHOD 5 7:[address] [facility] Myelocytes Absolute Manual 0.06(H) 0.00 - 0.00 K/mcL LAB HEMETOLOGY METHOD 7:33 AM EDT [facility] Rbc Morphology Consistent with indices Consistent with indices, Normal for LAB HEMETOLOGY METHOD 7:33 AM EDT [facility] Platelet Morphology - WAM See Note(A) Normal LAB HEMETOLOGY METHOD 7:33 AM EDT [facility] Comment:PLT: Normal Blood Blood sample taken from central line / Unknown Existing Catheter / Unknown 05/27/2025 5:42 AM EDT 05/27/2025 6:19 AM EDT Lucia Yu MD LAB BLOOD ORDERABLES Final Result [facility] [address] [place] [address], * (ABNORMAL) CBC auto differential (05/27/2025 5:42 AM EDT) Only the most recent of4 resultswithin the time period is included. WBC 6.0 4.8 - 10.8 K/mcL LAB HEMETOLOGY METHOD 05/27/2025 7:[address] [facility] RBC 2.70(L) 4.50 - 5.50 M/mcL LAB HEMETOLOGY METHOD 05/27/2025 7:33 AM EDT [facility] Hemoglobin 7.8(L) 13.5 - 17.5 g/dL LAB HEMETOLOGY METHOD 05/27/2025 7:33 AM T [facility] Hematocrit 25.3(L) 42.0 - 54.0 % LAB HEMETOLOGY METHOD 05/27/2025 7:33 AM T [facility] MCV 93.7 79.0 - 98.0 FL LAB HEMETOLOGY METHOD 05/27/2025 7:33 AM EDT [facility] MCH 28.9 27.0 - 32.0 pcg LAB HEMETOLOGY METHOD 05/27/2025 7:33 AM EDT [facility] MCHC 30.8(L) 32.0 - 37.0 g/dL LAB HEMETOLOGY METHOD 05/27/2025 7:33 AM EDT [facility] RDW 17.3(H) 11.0 - 15.0 % LAB HEMETOLOGY METHOD 05/27/2025 7:33 AM EDT [facility] Platelets 281 130 - 400 K/mcL LAB HEMETOLOGY METHOD 05/27/2025 7:33 AM EDT [facility] MPV 8.9 7.0 - 11.0 FL LAB HEMETOLOGY METHOD 05/27/2025 7:33 AM EDT [facility] NRBC 0.0 <1.0 % LAB HEMETOLOGY METHOD 05/27/2025 7:33 AM EDT [facility] NRBC Absolute 0.00 <0.10 K/mcL LAB HEMETOLOGY METHOD 05/27/2025 7:33 AM EDT [facility] Blood Blood sample taken from central line / Unknown Existing Catheter / Unknown 05/27/2025 5:42 AM EDT 05/27/2025 6:19 AM EDT Lucia Yu MD LAB BLOOD ORDERABLES Final Result [facility] [address] [place] [address], * (ABNORMAL) Basic metabolic panel (05/27/2025 5:42 AM EDT) Only the most recent of4 resultswithin the time period is included. Sodium 133 133 - 145 mmol/L LAB CHEMISTRY METHOD 05/27/2025 7:08 AM EDT [facility] Potassium 4.8 3.5 - 5.5 mmol/L LAB CHEMISTRY METHOD 05/27/2025 7:[address] [facility] Chloride 98 96 - 110 mmol/L LAB CHEMISTRY METHOD 05/27/2025 7:[address] [facility] CO2 33(H) 21 - 32 mmol/L LAB CHEMISTRY METHOD 05/27/2025 7:[address] [facility] Anion Gap 2(L) 3 - 11 LAB CHEMISTRY METHOD 05/27/2025 7:[address] [facility] Glucose 68(L) 70 - 100 mg/dL LAB CHEMISTRY METHOD 05/27/2025 7:[address] [facility] BUN 19 5 - 25 mg/dL LAB CHEMISTRY METHOD 05/27/2025 7:[address] [facility] Creatinine 0.51(L) 0.70 - 1.30 mg/dL LAB CHEMISTRY METHOD 05/27/2025 7:[address] [facility] eGFR 110 >=60 mL/min/1. 73m2 LAB CHEMISTRY METHOD 05/27/2025 7:[address] [facility] Comment:Calculation based on the Chronic Kidney Disease Epidemiology Collaboration (CKD-EPI) equation refit without adjustment for race. BUN/Creatinine Ratio 37.3 LAB CHEMISTRY METHOD 05/27/2025 7:[address] [facility] Calcium 9.1 8.5 - 10.5 mg/dL LAB CHEMISTRY METHOD 05/27/2025 7:[address] [facility] Blood Blood sample taken from central line / Unknown Existing Catheter / Unknown 05/27/2025 5:42 AM EDT 05/27/2025 6:16 AM EDT us Lucia Yu MD LAB BLOOD ORDERABLES Final Result [facility] [address] [place] [address], [place] [phone] * CT Chest wo Contrast (05/25/2025 2:44 [...] Signed Date: 05/25/2025 16:44 ET Workstation ID: [id number] Transcribed By: Self Edit Transcribed Date: 05/25/2025 [...] Signed Date: 05/25/2025 16:44 ET Workstation ID: [id number] Transcribed By: Self Edit Transcribed Date: 05/25/2025 16:16 ET Byron HASSAN IMG CT PROCEDURES Final Result [...] Signed Date: 05/25/2025 12:54 ET Workstation ID: [id number] Transcribed By: Self Edit Transcribed Date: 05/25/2025 [...] Signed Date: 05/25/2025 12:54 ET Workstation ID: [id number] Transcribed By: Self Edit Transcribed Date: 05/25/2025 12:51 ET us Byron HASSAN IMG XR PROCEDURES Final Result * (ABNORMAL) Magnesium (05/25/2025 5:35 AM EDT) Only the most recent of3 resultswithin the time period is included. [facility] Magnesium 1.8(L) 1.9 - 2.6 mg/dL LAB CHEMISTRY METHOD 05/25/2025 7:12 AM EDT [facility] Blood Venous blood specimen / Unknown Venipuncture / Unknown 05/25/2025 5:35 AM EDT 05/25/2025 6:07 AM EDT Lucia Yu MD LAB BLOOD ORDERABLES Final Result Performing Organization Address [facility]/ZIP Co de Phone Number [facility] [address] [place] [address], [place] [phone] * Vancomycin, trough Please draw prior to 2:30 am dose (05/25/2025 1:16 AM EDT) [facility] Vancomycin Trough 15.2 10.0 - 20.0 mcg/mL LAB CHEMISTRY METHOD 05/25/2025 2:09 AM EDT [facility] Blood Venous blood specimen / Unknown Venipuncture / Unknown 05/25/2025 1:16 AM EDT 05/25/2025 1:21 AM EDT Nafisa Mccarty MD LAB BLOOD ORDERABLES Final Resul t Performing Organization Address City/[facility]/ZIP Co de Phone Number [facility] [address] [place] [address], [place] [phone] * Cell count with reflex differential, body fluid (05/23/2025 5:04 PM EDT) [facility] Body Fluid Total Nucleated Cells 149 /mm3 LAB HEMETOLOGY METHOD 05/23/2025 8:43 PM EDT [facility] Body Fluid RBC 1,000 /mm3 LAB HEMETOLOGY METHOD 05/23/2025 8:43 PM EDT [facility] Body Fluid Color Yellow 05/23/2025 8:43 PM EDT [facility] Body Fluid Clarity Clear 05/23/2025 8:43 PM EDT [facility] Body Fluid Source Pleural 05/23/2025 8:43 PM EDT [facility] Pleural Fluid Structure of right pleural cavity / Unknown Non-blood Collection / Unknown 05/23/2025 5:04 PM EDT 05/23/2025 5:23 PM EDT Narrative [facility] - 05/23/2025 8:43 PM EDT No reference ranges have been established for body fluids. Clinical correlation recommended. us Byron HASSAN LAB BODY FLUIDS AND STOO LS ORDERABLES Final Result [facility] [address] [place] [address], [place] [phone] * Culture body fluid with gram stain (05/23/2025 5:04 PM EDT) Only the most recent of4 resultswithin the time period is included. Fluid Culture No growth at 3 days LAB MICROBIOLOGY METHOD 05/26/2025 1:16 PM EDT [facility] Gram Stain Result Many Polymorphonuclear leukocytes 05/26/2025 1:16 PM EDT [facility] Gram Stain Result No Epithelial cells 05/26/2025 1:16 PM EDT [facility] Gram Stain Result No organisms seen 05/26/2025 1:16 PM EDT [facility] Pleural Fluid Structure of right pleural cavity / Unknown Non-blood Collection / Unknown 05/23/2025 5:04 PM EDT 05/23/2025 5:23 PM EDT [facility] - 05/26/2025 1:16 PM EDT Testing performed on unspun fluid; quality not adequate to spin due to turbidity. Jose Chappell MD LAB MICROBIOLOGY - GENERAL MARLIN AMIN Final Result Performing Organization Address [facility]/ZIP Co de Phone Number [facility] [address] [place] [address], [place] [phone] * Differential body fluid (05/23/2025 5:04 PM EDT) Fluid Neutrophils % 87 % 05/23/2025 8:43 PM EDT [facility] Fluid Lymphocytes % 11 % 05/23/2025 8:43 PM EDT [facility] Fluid Monocytes/Macrop hages 2 % 05/23/2025 8:43 PM EDT [facility] Fluid Eosinophils % 0 % 05/23/2025 8:43 PM EDT [facility] Fluid Basophils % 0 % 05/23/2025 8:43 PM EDT [facility] Fluid Other Cells % 0 % 05/23/2025 8:43 PM EDT [facility] Pleural Fluid Structure of right pleural cavity / Unknown Non-blood Collection / Unknown 05/23/2025 5:04 PM EDT 05/23/2025 5:23 PM EDT Narrative [facility] - 05/23/2025 8:43 PM EDT No reference ranges have been established for body fluids. Clinical correlation recommended. us Byron HASSAN LAB BODY FLUIDS AND STOO LS ORDERABLES Final Result Performing Organization Address City/[facility]/ZIP Co de Phone Number [facility] [address] [place] [address], [place] [phone] * Protein, body fluid (05/23/2025 5:04 PM EDT) Protein, Fluid 3.1 See Comment g/dL LAB CHEMISTRY METHOD 05/23/2025 8:05 PM EDT [facility] Pleural Fluid Structure of right pleural cavity / Unknown Non-blood Collection / Unknown 05/23/2025 5:04 PM EDT 05/23/2025 5:23 PM EDT [facility] - 05/23/2025 8:05 PM EDT No reference ranges have been established for body fluids. Clinical correlation recommended. Byron HASSAN LAB BODY FLUIDS AND STOO LS ORDERABLES Final Result Performing Organization Address [facility]/ZIP Co de Phone Number [facility] [address] [place] [address], [place] [phone] * Lactate dehydrogenase, body fluid (05/23/2025 5:04 PM EDT) LD, Fluid 111 See Comment unit/L LAB CHEMISTRY METHOD 05/23/2025 8:05 PM EDT [facility] Pleural Fluid Structure of right pleural cavity / Unknown Non-blood Collection / Unknown 05/23/2025 5:04 PM EDT 05/23/2025 5:23 PM EDT [facility] - 05/23/2025 8:05 PM EDT No reference ranges have been established for body fluids. Clinical correlation recommended. us Byron HASSAN LAB BODY FLUIDS AND STOO LS ORDERABLES Final Result Performing Organization Address City/[facility]/ZIP Co de Phone Number [facility] [address] [place] [address], [place] [phone] * Glucose, body fluid (05/23/2025 5:04 PM EDT) Glucose, Fluid 64 See Comment mg/dL LAB CHEMISTRY METHOD 05/23/2025 8:05 PM EDT [facility] Pleural Fluid Structure of right pleural cavity / Unknown Non-blood Collection / Unknown 05/23/2025 5:04 PM EDT 05/23/2025 5:23 PM EDT Narrative [facility] ([facility]) [facility] - 05/23/2025 8:05 PM EDT No reference ranges have been established for body fluids. Clinical correlation recommended. us Byron HASSAN LAB BODY FLUIDS AND STOO LS ORDERABLES Final Result [facility] [address] [place] [address], [place] [phone] * IR Pleural Drain Insert Cath w Image Guidance Right (05/23/2025 5:03 PM EDT) Anatomical Region Laterality Modality Right Interventional R adiology 05/26/2025 12:4 8 PM EDT Impressions 05/26/2025 1:[address]-guided chest tube placement into 2 separate right-sided pleural fluid collections. 14 Algerian catheter placed into subpulmonic pleural fluid in the right lung base with 8 Algerian catheter placed into smaller pleural collection posteriorly. Samples obtained and sent for laboratory evaluation. -------- FINAL REPORT -------- Dictated By: Jose Chappell Dictated Date: 05/26/2025 12:48 ET Assigned Physician: Jose Chappell Reviewed and Electronically Signed By: Jose Chappell Signed Date: 05/26/2025 13:01 ET Workstation ID: [id number] Transcribed By: Self Edit Transcribed Date: 05/26/2025 [...] of fentanyl administered during the procedure. Scanner: [employer] [address] Dose reduction technique: AEC [...] lung base. Tract dilated up to 16 Algerian and placement of a 14 Algerian pigtail catheter. 10 mL of serous fluid [...] Amplatz wire tract dilated up to 10 Algerian and placement of an 8 Algerian pigtail catheter. 5 mL of serosanguineous fluid [...] of fentanyl administered during the procedure. Scanner: [employer] Brightspeed [address] Dose reduction technique: AEC [...] lung base. Tract dilated up to 16 Algerian and placement of a 14French pigtail catheter. [...] shortAmplatz wire tract dilated up to 10 Algerian and placement of an 8 Frenchpigtail catheter. 5 mL of serosanguineous fluid aspirated and sent forevaluation as ordered. Catheter attached to a Pleur- evac system and asterile dressing applied. IMPRESSION: CT-guided chest tube placement into 2 separate right-sided pleural fluidcollections. 14 Algerian catheter placed into subpulmonic pleural fluid inthe right lung base with 8 Algerian catheter placed into smaller pleuralcollection posteriorly. Samples obtained and sent for laboratoryevaluation. -------- FINAL REPORT -------- Dictated By: Jose Chappell Dictated Date: 05/26/2025 12:48 ET Assigned Physician: Jose Chappell Reviewed and Electronically Signed By: Jose Chappell Signed Date: 05/26/2025 13:01 ET Workstation ID: [id number] Transcribed By: Self Edit Transcribed Date: 05/26/2025 [...] Signed Date: 05/23/2025 17:16 ET Workstation ID: [id number] Transcribed By: Self Edit Transcribed Date: 05/23/2025 16:09 ET Narrative 05/23/2025 5:16 PM EDT Indication: Infected right-sided Pleurx catheter, request for interventional radiology placement of pigtail catheter into residual right effusion Technique: CT scan of the chest obtained with 90 cc of Isovue-370 administered intravenously without incident. Scanner: [employer] 64 slice VCT Dose reduction technique: ASIR [...] cc of Isovue-370administered intravenously without incident. Scanner: [employer] 64 slice VCT Dose reduction technique: ASIR [...] Signed Date: 05/23/2025 17:16 ET Workstation ID: [id number] Transcribed By: Self Edit Transcribed Date: 05/23/2025 16:09 ET us Nafisa Mccarty MD IMG CT PROCEDURES Final Result * ECG 12 lead (05/23/2025 2:54 PM EDT) Ventricular Rate ECG 68 BPM GEMUSE Atrial Rate 68 BPM GEMUSE P-R Interval 132 ms GEMUSE QRS Duration 104 ms GEMUSE Q-T Interval 378 ms GEMUSE QTc 401 ms GEMUSE P Wave Boron 78 degrees GEMUSE R Boron 55 degrees GEMUSE T Boron 57 degrees GEMUSE ECG Interpretation Normal sinus rhythm Normal ECG No previous ECGs available Confirmed by MD Nicholas, Byron ([id number]) on 05/23/2025 5:52:37 PM GEMUSE 05/23/2025 2:54 PM EDT 05/23/2025 5:52 PM EDT us Constanza Gleason W[employer]ER SCRAPER ECG ORDERABLES Final Result GEMUSE * Digoxin level (05/23/2025 2:48 PM EDT) [facility] Digoxin Lvl 0.8 0.5 - 2.0 ng/mL LAB CHEMISTRY METHOD 05/23/2025 4:48 PM EDT [facility] Blood Venous blood specimen / Unknown Venipuncture / Unknown 05/23/2025 2:48 PM EDT 05/23/2025 3:11 PM EDT Constanza Gleason NP LAB BLOOD ORDERABLES Final Res ult [facility] [address] [place] [address], [place] [phone] * Culture blood (05/23/2025 2:33 PM EDT) [facility] Culture, Blood No growth at 5 days LAB MICROBIOLOGY METHOD 05/28/2025 3:01 PM EDT [facility] Blood Venous blood specimen / Unknown Venipuncture / Unknown 05/23/2025 2:33 PM EDT 05/23/2025 2:51 PM EDT Nafisa Mccarty MD LAB MICROBIOLOGY - GENERAL ORDER ANGELA Final Result [facility] [address] [place] [address], [place] [phone] * MRSA molecular study (05/23/2025 1:29 PM EDT) [facility] MRSA Screen PCR Not Detected Not Detected LAB MICROBIOLOGY METHOD 05/23/2025 2:58 PM EDT [facility] Swab Both anterior nares / Unknown Non-blood Collection / Unknown 05/23/2025 1:29 PM EDT 05/23/2025 1:42 PM EDT us Nafisa Mccarty MD LAB MICROBIOLOGY - GENERAL ORDER ANGELA Final Result Performing Organization Address [facility]/ZIP Co de Phone Number [facility] [address] [place] [address], [place] [phone] * Type and screen (05/23/2025 11:35 AM EDT) [facility] ABO Group O 05/23/2025 1:26 PM EDT [facility] Rh Type Negative 05/23/2025 1:26 PM EDT [facility] Antibody Screen Negative 05/23/2025 1:26 PM EDT [facility] Blood Venous blood specimen / Unknown Venipuncture / Unknown 05/23/2025 11:35 AM EDT 05/23/2025 11:42 AM EDT us Nafisa Mccarty MD LAB BLOOD BANK TEST ORDERABLES F inal Result Performing Organization Address [facility]/ZIP Co de Phone Number [facility] [address] [place] [address], [place] [phone] * (ABNORMAL) Lactate (05/23/2025 11:35 AM EDT) [facility] Lactate 2.1(H) 0.4 - 2.0 mmol/L LAB CHEMISTRY METHOD 05/23/2025 12:22 PM EDT [facility] Blood Venous blood specimen / Unknown Venipuncture / Unknown 05/23/2025 11:35 AM EDT 05/23/2025 11:41 AM EDT us Nafisa Mccarty MD LAB BLOOD ORDERABLES Final Resul t Performing Organization Address [facility]/ZIP Co de Phone Number [facility] [address] [place] [address], [place] [phone] * Prothrombin time with INR (05/23/2025 11:34 AM EDT) Protime 12.2 10.6 - 13.9 sec LAB COAGULATION METHOD 05/23/2025 12:04 PM EDT [facility] INR 1.0 LAB COAGULATION METHOD 05/23/2025 12:04 PM EDT [facility] Blood Venous blood specimen / Unknown Venipuncture / Unknown 05/23/2025 11:34 AM EDT 05/23/2025 11:42 AM EDT us Nafisa Mccarty MD LAB BLOOD ORDERABLES Final Resul t Performing Organization Address [facility]/ZIP Co de Phone Number [facility] [address] [place] [address], [place] [phone] * (ABNORMAL) Phosphorus (05/23/2025 11:34 AM EDT) Phosphorus 2.4(L) 2.5 - 4.5 mg/dL LAB CHEMISTRY METHOD 05/23/2025 1:23 PM EDT [facility] Blood Venous blood specimen / Unknown Venipuncture / Unknown 05/23/2025 11:34 AM EDT 05/23/2025 11:42 AM EDT us Nafisa Mccarty MD LAB BLOOD ORDERABLES Final Resul t Performing Organization Address [facility]/ZIP Co de Phone Number [facility] [address] [place] [address], [place] [phone] * XR Chest 2 Views (05/19/2025 3:54 [...] pleural effusion versus minimal pleural thickening. Code 89029 -------- FINAL REPORT -------- Dictated By: Neel Stout Dictated Date: 05/20/2025 07:53 ET Assigned Physician: Neel Stout Reviewed and Electronically Signed By: Neel Stout Signed Date: 05/20/2025 07:55 ET Workstation ID: [id number] Transcribed By: Self Edit Transcribed Date: 05/20/2025 [...] right pleural effusionversus minimal pleural thickening. Code 47311 -------- FINAL REPORT -------- Dictated By: Neel Stout Dictated Date: 05/20/2025 07:53 ET Assigned Physician: Neel Stout Reviewed and Electronically Signed By: Neel Stout Signed Date: 05/20/2025 07:55 ET Workstation ID: [id number] Transcribed By: Self Edit Transcribed Date: 05/20/2025 07:53 ET Tristan Meng MD IMG XR PROCEDURES Final Result from Last 3 Months Insurance [employer]ARE [employer] Advance Directives * Full [...] currently active code status orders. 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
--- OUTSIDE RECORDS SUMMARY | 2025-08-03 21:33 | XMS_ITS | Clinical Summary ---
Author Organization [facility] Address [address] [place] [address] Care Team Providers Care Contestant Coordinator Name Role Phone Unavailable Primary Care Provider [...] COVID-19 Vaccine ( - 2023-2 5 season) 2025 Influenza (#1) 2025 RSV (1 - 1-dose [...]
--- NOTE | 2025-08-03 21:37 | ECG_ITS ---
Test Reason : WEAKNESS Blood Pressure : */* mmHG Vent. Rate : 103 BPM Atrial Rate : 103 BPM P-R Int : 168 ms QRS Dur : 110 ms QT Int : 330 ms P-R-T Axes : 84 49 254 degrees QTcB Int : 432 ms Sinus tachycardia Incomplete left bundle branch block ST & T wave abnormality, consider inferior ischemia ST & T wave abnormality, consider anterolateral ischemia Abnormal ECG When compared with ECG of 12-Mar-2025 11:24, Incomplete left bundle branch block has replaced Incomplete right bundle branch block Referred By: Generic ED Physician Electronically Signed By: GONZALES GRANT
[2025-08-03 21:54] LABS: Hematocrit 24.2 % (42.0-52.0); Hemoglobin 8.1 g/dl (14.0-18.0); Mean Corpuscular HGB Conc 33.5 g/dl (31.0-36.0); Mean Corpuscular Hemoglobin 30.1 pg (27.0-33.0); Mean Corpuscular Volume 90.0 fL (80.0-98.0); NRBC Abs Auto 0.000 X10*3/uL (0.0-0.012); NRBC Pct Auto 0.0 /100WBC (0.0-0.2); Platelet Count 173 X10*3/uL (160-400); Red Blood Count 2.69 X10*6/uL (4.60-5.80); White Blood Count 4.4 X10*3/uL (4.8-10.8)
[2025-08-03 21:57] LABS: Venous Blood Gas Refer to POC result
[2025-08-03 21:57] LABS: VBG HCO3 31 mmol/L (22-26); VBG O2 % Saturation 84.0 %
[2025-08-03] MEDS: LACTATED RINGERS 1279.14 ML IV (22:05)
[2025-08-03 22:13] LABS: Alanine Aminotransferase < 6 U/L (0-40); Albumin Level 2.4 g/dL (3.5-5.0); Alkaline Phosphatase 113 U/L (39-117); Anion Gap 9 (12-20); Aspartate Amino Transferase 16 U/L (5-37); Blood Urea Nitrogen 15 mg/dL (9-16); Calcium 7.6 mg/dL (8.4-10.2); Carbon Dioxide 29 mmol/L (22-29); Chloride 99 mmol/L (96-108); Creatinine Clr Calc Pharmacy 51.3; Estimated Glomerular Filt Rate > 60; Magnesium 1.5 mg/dL (1.6-2.6); Potassium 3.1 mmol/L (3.3-5.1); Sodium 134 mmol/L (135-145); Total Protein 5.0 g/dL (6.5-8.0)
[2025-08-03 22:30] LABS: Neutrophils Percent Manual 63 % (45-73)
[2025-08-03 22:33] LABS: Atypical Lymph Absolute Manual 0.1 x10*3/uL; Atypical Lymphs Percent Manual 2 % (0-6); Band Neutrophils Percent 24 % (3-5); Lymphocytes Absolute Manual 0.4 X10*3/uL (1.2-4.9); Lymphocytes Percent Manual 8 % (20-40); Monocytes Absolute Manual 0.1 X10*3/uL (0.1-1.2); Monocytes Percent Manual 3 % (2-11); Neutrophils Absolute Manual 3.8 X10*3/uL (2.0-8.3)
[2025-08-03 22:36] LABS: RBC Morphology NORMAL
[2025-08-03 22:37] LABS: Burr Cells 1+ (0-2) /OIF; Schistocytes 1+ (0-2) /OIF
[2025-08-03 22:38] LABS: Dohle Bodies PRESENT
[2025-08-03 22:42] VITALS: BP 92/56; PULSE 94; RESP 30; O2SAT 97
[2025-08-03 23:00] VITALS: BP 95/60; PULSE 101; RESP 25; O2SAT 99
[2025-08-03 23:01] LABS: Troponin-I High Sensitivity 22.5 ng/L (<3.5-35.0)
[2025-08-03] MEDS: Potassium Chloride ER 20 MEQ TAB.ER.PRT PO (23:14)
[2025-08-03] MEDS: Magnesium Sulfate/H2O 2 GM/50 ML PIGGYBACK IV (23:15)
[2025-08-03 23:30] VITALS: BP 111/78; PULSE 90; RESP 22; O2SAT 98
[2025-08-03] MEDS: Potassium Chloride/H20 10 MEQ/100 ML PIGGYBACK 100 MEQ IV (23:44)
[2025-08-03 23:45] VITALS: BP 116/83; PULSE 88; RESP 27; O2SAT 99
--- NOTE | 2025-08-03 23:59 | ED_ITS ---
HPI - Weakness General Chief complaint: Weakness Stated complaint: WEAKNESS AFTER NEW MED Time Seen by Provider: 08/03/25 21:43 Source: patient, EMS and old records reviewed Mode of arrival: EMS Limitations: no limitations History of Present Illness ED Provider: Dr. Noreen Claros HPI Narrative: 70-year-old male with a history of lung cancer on chemotherapy, COPD, atrial fibrillation on digoxin presenting with generalized weakness in the setting of severe diarrhea ongoing for the last month or so. Patient states he got up to use the bathroom today but was unable to get off the toilet. States he felt globally weak. Admits that he has been dealing with diarrhea for the last 4 weeks or so. Describes brown, foul-smelling stools and admits he is going at least every 2 hours. In fact he is unable to sleep at night due to having to get up to have bowel movements. Admits for the 1st couple of weeks he was making urine as frequently as stooling however, now he is having less frequent urination despite increased stooling. Has been having difficulty keeping up with his fluid intake. Has had significant weight loss. Admits he usually weighs around 130 pounds, is down to 98 pounds today. Denies associated fevers. No nausea or vomiting. Denies associated abdominal pain. We will occasionally have cramping when he gets ready to have a bowel movement. Currently has no pain. No reported syncope or near-syncope. Denies chest pain or difficulty breathing. Denies hematochezia or melena. Is currently taking chemotherapy. Admits he was prescribed something for his diarrhea on Monday but has only had 4 doses of this medication. He does not know the name. His brother manages his meds. Related Data Home Medications ?Medication ?Instructions ?Recorded ?Confirmed midodrine 5 mg tablet 5 mg PO TIDWM 03/12/2506/23 Previous Rx's ?Medication ?Instructions ?Recorded walker ([facility]) #1 ea 02/23/25 codeine 10 mg-guaifenesin 100 mg/5 10 ml PO Q4H PRN Co ugh #473 mL 02/24/25 mL oral liquid oxycodone 5 mg tablet 5 mg PO Q4H PRN Pain, Moderate(Pain Scale 4-6) #20 tabs ondansetron 8 mg disintegrating 8 mg PO Q8H PRN Nausea And 03/19/25 tablet Vomiting #30 tabs Oxygen Home Use #1 ea 03/20/25 Portable oxygen concentrator #1 ea 04/04/25 digoxin 125 mcg (0.125 mg) tablet 0.125 mg PO DAILY #9 0 tabs 06/05/25 metoprolol tartrate 25 mg tablet 12.5 mg (1/2 x 25 mg) PO BID #90 06/05/25 tabs diphenoxylate-atropine 2.5 1 tab PO DAILY PRN Diarrhea #30 07/02/25 mg-0.025 mg tablet tabs vancomycin 125 mg capsule 125 mg PO QID #40 caps 07/02 midodrine 5 mg tablet 5 mg PO TID #90 tabs 5 fidaxomicin 200 mg tablet 200 mg PO Q12H #20 tabs 07/08 03/30 Allergies Allergy/AdvReac Type Severity Reaction Status Date / Time No Known Allergies Allergy Verified 08/03/25 21:19 Review of Systems 2 Review of Systems: As per HPI, full review of systems performed and negative but for the above mentioned pertinent positives and negatives. [facility] Past Medical History Medical History COPD (chronic obstructive pulmonary disease) Squamous cell carcinoma lung Hypotension Malnutrition Acute respiratory failure with hypoxia Malignant pleural effusion Establishing care with new doctor, encounter for Hospital discharge follow-up Hx of hypotension Hx of supraventricular tachycardia Palpitations Atrial fibrillation Neoplasm of right lung HLD (hyperlipidemia) Surgical History H/O chest tube placement Family History Family History Sister Lung cancer Mother Breast cancer Brother Leukemia Social History Social History Household Members: Family and None Housing: House Do you presently have visiting nurse or other home services: No Alcohol intake: never Comment: pt rings appropriately Patient Tobacco Use Status: Former Tobacco user Tobacco use type: Cigarette e-Cigarette/Vaping Use: Never Used Second Hand Smoke Exposure: Yes Advance Directives: Yes Advance Directives on File: Yes Advance Directives Date on File: 03/11/25 Do you have a plan to hurt others: No Plan service: No Current occupational status: retired Cognitive needs: Yes (walker) Hearing needs: No Vision needs: Yes (Glasses) Physical Exam 2 Exam: Exam: GENERAL: Ill-Appearing, cachectic. SKIN: Pale, warm, dry, no rashes noted. HEENT: Normocephalic, atraumatic, no stridor, dry mucous membranes, dentition intact, EOMI, PERRLA. NECK: Soft, supple, full ROM, midline structures nontender, no step-offs, no deformities, no lymphadenopathy. CHEST: Heart regular tachycardia, no murmurs, symmetric chest rise and fall, power port noted in the right chest wall. PULMONARY: Clear to auscultation bilaterally, diminished at the bases, no labored breathing, no wheezes/rhales/rhonchi. ABDOMINAL: Soft, nondistended, nontender, hyperactive bowel sounds in all quadrants. : Deferred. MUSCULOSKELETAL: Muscle wasting in the extremities, full range of motion, no deformities, no peripheral edema. NEURO: Alert and oriented x3, CN II through XII intact, equal strength and sensation bilateral upper and lower extremities, no focal neurologic deficits. PSYCHIATRIC: Flat affect, fluid speech, good eye contact and appropriate demeanor. Vital Signs: Vital Signs: Last Vital Signs Temp 98.4 F 08/03/25 21:14 Pulse 88 08/03/25 23:45 Resp 27 H 08/03/25 23:45 BP 116/83 08/03/25 23:45 Pulse Ox 99 08/03/25 23:45 O2 Del Method Nasal Cannula 08/03/25 23:45 O2 Flow Rate 2 08/03/25 23:45 Oxygen Flow Rate 2 08/03/25 21:14 BMI result Body Mass Index 12.4 Course Reevaluation(s) Reevaluation #1: Patient flagging for sepsis with hypotension, tachycardia, tachypnea, 24% bands and source likely diarrheal. Initiated 30cc/kg fluid bolus, dose of zosyn. Potential for C. diff or other infectious diarrhea. Will order stool studies. Patient mentating appropriately, globally weak. No focal deficits. Time: 21:50 Reevaluation #2: Upon review of patient's record, it is noted that he tested positive for C diff 4 days ago on 07/30/2025. Plan for Dificid, admit to hospitalist for further care and evaluation. His blood pressures have rebounded appropriately after 30 cc/kg fluid bolus. Patient reports feeling significantly improved. Potassium is being repleted. Magnesium is also being repleted. I gave him both oral and IV potassium due to his history of digoxin use. He has some EKG changes that are concerning for digitoxicity however, his digoxin level did come back normal/low at 0.6. We will continue to monitor closely on awake overnight monitor. Admitted in guarded condition. Time: 00:41 Medications Administered Discontinued Medications Generic Name Dose Route Start Last Admin Trade Name Freq PRN Reason Stop Dose Admin Lactated Ringer's 1,279.14 mls @ 1,279.14 mls/hr 08/03/25 21:44 08/03/25 23:18 Lr 30 ml/kg infuse over 1 hr (1279.14 ml) 08/03/25 22:43 Infused IV Infusion .Q1H ONE Piperacillin Sod/Tazobactam 100 mls @ 200 mls/hr 08/03/25 21:50 08/03/25 22:41 Sod 4.5 gm/ Sodium Chloride IV 08/03/25 22:19 Infused ONCE ONE Infusion Magnesium Sulfate 2 gm in 50 mls @ 25 mls/hr 08/03/25 22:42 08/03/25 23:15 Magnesium Sulfate/H2o IV 08/04/25 00:41 25 mls/hr ONCE ONE Administration Potassium Chloride 10 meq in 100 mls @ 100 mls/hr 08/03/25 22:45 08/04/25 00:47 Potassium Chloride/H20 IV 08/04/25 00:44 100 mls/hr Q1H TE Administration Potassium Chloride 20 meq 08/03/25 22:42 08/03/25 23:14 Potassium Chloride Er 20 Meq Tab.Er.Prt PO 08/03/25 22:43 20 meq ONCE ONE Administration Medical Decision Making Medical Decision Making MDM Narrative: Patient presents today with a chief complaint of acute diarrhea. Differential diagnosis includes enteritis, colitis such as ischemic or C diff, inflammatory bowel disease, bacterial or viral diarrhea, GI bleed, hypovolemia, chemotherapy side effect, among others. Patient is not having abdominal pain. Patient has not had recent antibiotics. Differential Diagnosis Differential Diagnoses: The differential diagnosis associated with the presentation includes (as above) Admission/Observation Consideration of admission/observation: Escalation of care including admission/observation considered Consult Healthcare Provider Management of the patient was discussed with: Hospitalist Lab Data MDM Lab Attestation statement: I reviewed the patient's lab results. 08/03/25 21:42 08/03/25 21:42 Labs: Lab Results 08/03/25 08/03/25 08/03/25 Range/Units 21:38 21:42 21:53 WBC 4.4 L (4.8-10.8) X10*3/uL RBC 2.69 L (4.60-5.80) X10*6/uL Hgb 8.1 L (14.0-18.0) g/dl Hct 24.2 L (42.0-52.0) % MCV 90.0 (80.0-98.0) fL MCH 30.1 (27.0-33.0) pg MCHC 33.5 (31.0-36.0) g/dl RDW 16.1 H (11.0-16.0) % Plt Count 173 D (160-400) X10*3/uL MPV 8.4 L (9.4-12.4) fL Immature Gran % (Auto) Cancelled Neut % (Auto) Cancelled Lymph % (Auto) Cancelled [place] % (Auto) Cancelled Eos % (Auto) Cancelled Baso % (Auto) Cancelled Lymph # (Auto) Cancelled [place] # (Auto) Cancelled Eos # (Auto) Cancelled Baso # (Auto) Cancelled Abs Immat Gran (auto) Cancelled Absolute Neuts (auto) Cancelled Absolute Nucleated RBC 0.000 (0.0-0.012) X10*3/uL Nucleated RBC % (auto) 0.0 (0.0-0.2) /100WBC Neutrophils % (Manual) 63 (45-73) % Band Neutrophils % 24 H (3-5) % Lymphocytes % (Manual) 8 L (20-40) % Atypical Lymphs % (Man) 2 (0-6) % Monocytes % (Manual) 3 (2-11) % Abs Neuts (Manual) 3.8 (2.0-8.3) X10*3/uL Lymphocytes # (Manual) 0.4 L (1.2-4.9) X10*3/uL Atyp Lymphs # (Manual) 0.1 x10*3/uL Monocytes # (Manual) 0.1 (0.1-1.2) X10*3/uL Dohle Bodies PRESENT Platelet Estimate NORMAL (NORMAL) Plt Morphology Comment NORMAL RBC Morphology NORMAL [place] Cells 1+ (0-2) /OIF Schistocytes 1+ (0-2) /OIF VBG pH 7.52 H (7.32-7.43) VBG pCO2 37 mmHg VBG pO2 54 mmHg VBG HCO3 31 H (22-26) mmol/L VBG O2 Saturation 84.0 % VBG Base Excess 7.9 mmol/L Sodium 134 L (135-145) mmol/L Potassium 3.1 L (3.3-5.1) mmol/L Chloride 99 (96-108) mmol/L Carbon Dioxide 29 (22-29) mmol/L Anion Gap 9 L (12-20) BUN 15 (9-16) mg/dL Creatinine 0.83 (0.5-1.4) mg/dL Estim Creat Clear Calc 51.3 Estimated GFR > 60 Random Glucose 116 H (60-115) mg/dL Lactic Acid 1.1 (0.5-2.0) mmol/L Calcium 7.6 L (8.4-10.2) mg/dL Magnesium 1.5 L (1.6-2.6) mg/dL Total Bilirubin 0.5 (0.0-1.0) mg/dL AST 16 (5-37) U/L ALT < 6 (0-40) U/L Alkaline Phosphatase 113 (39-117) U/L Troponin I High Sens 22.5 D (<3.5-35.0) ng/L Total Protein 5.0 L (6.5-8.0) g/dL Albumin 2.4 L (3.5-5.0) g/dL Urine Color Urine Appearance Urine pH (5.0-9.0) Ur Specific [place] (1.005-1.025) Urine Protein (Neg-Trace) mg/dL Urine Glucose (UA) (Negative) mg/dL Urine Ketones (Negative) mg/dL Urine Blood (Negative) Urine Nitrite (Negative) Ur Leukocyte Esterase (Negative) Urine RBC (0-2) /HPF Urine WBC (0-5) /HPF Ur Squamous Epith Cells (0-2) /HPF Urine Bacteria (None Seen) Hyaline Casts (0-2) /LPF Digoxin 0.6 L (0.8-2.0) ng/mL 08/04/25 Range/Units 00:19 WBC (4.8-10.8) X10*3/uL RBC (4.60-5.80) X10*6/uL Hgb (14.0-18.0) g/dl Hct (42.0-52.0) % MCV (80.0-98.0) fL MCH (27.0-33.0) pg MCHC (31.0-36.0) g/dl RDW (11.0-16.0) % Plt Count (160-400) X10*3/uL MPV (9.4-12.4) fL Immature Gran % (Auto) Neut % (Auto) Lymph % (Auto) [place] % (Auto) Eos % (Auto) Baso % (Auto) Lymph # (Auto) [place] # (Auto) Eos # (Auto) Baso # (Auto) Abs Immat Gran (auto) Absolute Neuts (auto) Absolute Nucleated RBC (0.0-0.012) X10*3/uL Nucleated RBC % (auto) (0.0-0.2) /100WBC Neutrophils % (Manual) (45-73) % Band Neutrophils % (3-5) % Lymphocytes % (Manual) (20-40) % Atypical Lymphs % (Man) (0-6) % Monocytes % (Manual) (2-11) % Abs Neuts (Manual) (2.0-8.3) X10*3/uL Lymphocytes # (Manual) (1.2-4.9) X10*3/uL Atyp Lymphs # (Manual) x10*3/uL Monocytes # (Manual) (0.1-1.2) X10*3/uL Dohle Bodies Platelet Estimate (NORMAL) Plt Morphology Comment RBC Morphology [place] Cells /OIF Schistocytes /OIF VBG pH (7.32-7.43) VBG pCO2 mmHg VBG pO2 mmHg VBG HCO3 (22-26) mmol/L VBG O2 Saturation % VBG Base Excess mmol/L Sodium (135-145) mmol/L Potassium (3.3-5.1) mmol/L Chloride (96-108) mmol/L Carbon Dioxide (22-29) mmol/L Anion Gap (12-20) BUN (9-16) mg/dL Creatinine (0.5-1.4) mg/dL Estim Creat Clear Calc Estimated GFR Random Glucose (60-115) mg/dL Lactic Acid (0.5-2.0) mmol/L Calcium (8.4-10.2) mg/dL Magnesium (1.6-2.6) mg/dL Total Bilirubin (0.0-1.0) mg/dL AST (5-37) U/L ALT (0-40) U/L Alkaline Phosphatase (39-117) U/L Troponin I High Sens (<3.5-35.0) ng/L Total Protein (6.5-8.0) g/dL Albumin (3.5-5.0) g/dL Urine Color Yellow Urine Appearance Clear Urine pH 6.5 (5.0-9.0) Ur Specific [place] 1.015 (1.005-1.025) Urine Protein 30 (1+) H (Neg-Trace) mg/dL Urine Glucose (UA) Negative (Negative) mg/dL Urine Ketones Negative (Negative) mg/dL Urine Blood Negative (Negative) Urine Nitrite Negative (Negative) Ur Leukocyte Esterase Negative (Negative) Urine RBC 0-2 (0-2) /HPF Urine WBC 0-5 (0-5) /HPF Ur Squamous Epith Cells 0-2 (0-2) /HPF Urine Bacteria None Seen (None Seen) Hyaline Casts 0-2 (0-2) /LPF Digoxin (0.8-2.0) ng/mL Independent Interpretation I performed an independent interpretation of an: EKG Interpretation: My independent interpretation of the ECG reveals normal sinus tachycardia with rate of 103, normal axis, QRS 110, nonspecific interventricular conduction delay T-wave changes consistent with potential digoxin toxicity with the reverse tick badillo in inferior and lateral leads, no ST elevations or depressions to suggest ischemic changes, T-wave changes are new from previous on 03/12/2025. Radiology Impression Discussion of test interpretation with radiology: I have reviewed the radiologist's reading. Radiologist Impression: 1 view chest x-ray Comparison: CR/SR - XR CHEST 1 VIEW - 06/09/2025 02:00 PM EDT; CT/SR - CT CHEST WO IV CON - 02/15/2025 11:51 AM EDT Findings: Blunting of the right costophrenic angle. Heart size is normal. Right internal jugular approach MediPort with tip projected over the superior vena cava. Mild osteopenia. Right upper lobe spiculated density with superimposition of the reservoir for MediPort. IMPRESSION: 1. Blunting of the right costophrenic angle, possibly representing a small pleural effusion. 2. COPD. 3. Right upper lobe spiculated density with superimposition of the reservoir for MediPort; please refer to CT of the thorax on 02/15/2025. This document has been electronically signed by: Ra Mederos MD on 08/03/2025 22:45:34 Independent Historian Clinical information obtained from an independent historian. History obtained from or confirmed by: EMS External Record Review External record reviewed: Inpatient record and Outpatient record Chronic Conditions Patient?s care impacted by: Cancer and Other (COPD, lung cancer, SVT, atrial fibrillation on digoxin) Critical Care Time Critical Care Time Critical Care Time: Yes Total Critical Care Time: 40 Attestation: CRITICAL CARE TIME: 40 minutes of critical care time was spent in direct patient care at the bedside or in the immediate area with this patient. Critical care was necessary to treat or prevent imminent or life-threatening deterioration of the following conditions severe sepsis, dehydration, hypomagnesemia and hypokalemia, EKG changes due to severe diarrhea, C diff infection, digoxin treatment. This patient is high risk for decompensation and/or . This time was spent assessing and managing the patient, interpreting labs and imaging, coordinating care with other medical providers, gathering history from either the patient, their representatives, EMS or chart review, and discussing management with admitting team. Discharge Plan Discharge Clinical Impression: C. difficile diarrhea, Muscle weakness (generalized), Acute hypokalemia, Hypomagnesemia, Hypoalbuminemia, Acute electrocardiogram changes Patient Disposition: Admitted As Inpatient Print Language: Malawian
[2025-08-04] VITALS (16 sets, daily range): BP systolic 81–121; BP diastolic 59–76; PULSE 78–108; RESP 16–31; TEMP 36.2–36.6; O2SAT 87–100; BMI 12.4
[2025-08-04 00:16] LABS: Digoxin 0.6 ng/mL (0.8-2.0)
[2025-08-04 00:34] LABS: Appearance Urine Clear; Glucose Urine UA Negative (Negative); PH 6.5 (5.0-9.0); Specific Gravity - Urine 1.015 (1.005-1.025); UMIC TRIGGER UACC YES
[2025-08-04] MEDS: Potassium Chloride/H20 10 MEQ/100 ML PIGGYBACK 100 MEQ IV (00:47)
[2025-08-04 01:49] LABS: CDiff Gene PCR POSITIVE (Negative)
--- NOTE | 2025-08-04 01:54 | PM.IMHP ---
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 . Pt states he has had issues with diarrhea for over a month. This was the 1st time upon rising from the commode that patient felt he could no longer walk and did not have enough strength and that he might fall. Patient states diarrhea is now happening approximately every 2 hours and although patient is using ensure shakes, it has been impossible for patient to keep up with fluid intake, appetite and consistency with his oral medications. Patient states his last chemo was 2 weeks prior. Patient was to receive chemotherapy this past Monday but was found to be anemic and received a blood transfusion instead. Patient now has a leukopenia with bandemia of 24. Patient initially came in tachypneic, hypotensive and hypoxic. Patient meets the criteria for sepsis and received fluid resuscitation per sepsis protocol. In addition patient's magnesium and potassium were also low. Replenishment started in the emergency department. Patient's digoxin level was also low and patient takes digoxin for AFib that was newly diagnosed in February of 2025. In addition patient has not EF of 20-25%, patient is not aware of this but currently does not present with evidence of active heart failure except for a noted small right pleural effusion on chest x-ray. Pt currently lives with brother and sister who are patient's primary caregivers. Both brother and sister are older than patient in their 70s and early 80s. Patient does not have any professional help in the home setting at this time. During a previous admission patient was going to go to short-term rehab but he said because he has [employer] he did not qualify. Patient in general is down to a BMI of 12.4 with severe deconditioning and weakness. Review of Systems Review of Systems: Patient currently denies any chest pain, shortness of breath at rest on oxygen, abdominal pain, current nausea or vomiting, fever or chills, headache or visual changes. Patient's appetite has declined dramatically over the last month. Yes all other systems are reviewed and are negative [facility] Medical History (Updated 08/04/25 @ 03:01 by MENDEL Gavin) Diverticulosis COPD (chronic obstructive pulmonary disease) Squamous cell carcinoma lung Hypotension Malnutrition Acute respiratory failure with hypoxia Malignant pleural effusion Establishing care with new doctor, encounter for Hospital discharge follow-up Hx of hypotension Hx of supraventricular tachycardia Palpitations Atrial fibrillation Neoplasm of right lung HLD (hyperlipidemia) Cognitive capacity: Alert and orientated x3 Functional capacity: wheelchair bound Family History Sister Lung cancer Mother Breast cancer Brother Leukemia Surgical History H/O chest tube placement Social History Household Members: Family and None Housing: House Do you presently have visiting nurse or other home services: No Alcohol intake: never Comment: pt rings appropriately Patient Tobacco Use Status: Former Tobacco user Tobacco use type: Cigarette e-Cigarette/Vaping Use: Never Used Second Hand Smoke Exposure: Yes Advance Directives: Yes Advance Directives on File: Yes Advance Directives Date on File: 03/11/25 Do you have a plan to hurt others: No Plan service: No Current occupational status: retired Cognitive needs: Yes (walker) Hearing needs: No Vision needs: Yes (Glasses) Ebola Risk: Travel/Contact With Anyone From Affected Area/s: No Has Patient Experienced Ebola Symptoms: No Meds Allergies Allergy/AdvReac Type Severity Reaction Status Date / Time No Known Allergies Allergy Verified 08/03/25 21:19 Home Medications ?Medication ?Instructions ?Recorded ?Confirmed ?Last Taken ?Type midodrine 5 mg tablet 5 mg PO TIDWM 03/12/25 06/23/25 Unknown History Physical Exam Vital Signs and Narrative: Vital Signs: Last Vital Signs Temp 98.4 F 08/03/25 21:14 Pulse 88 08/03/25 23:45 Resp 27 H 08/03/25 23:45 BP 116/83 08/03/25 23:45 Pulse Ox 99 08/03/25 23:45 O2 Del Method Nasal Cannula 08/03/25 23:45 O2 Flow Rate 2 08/03/25 23:45 Oxygen Flow Rate 2 08/03/25 21:14 BMI result Body Mass Index 12.4 Alert and orientated X3, able to give good history, cachectic Neuro: CN II-X11 intact, no deficits, visual acuity intact EYES: PERRLA, EOM intact, sclerae nonicteric ENT: hearing intact, no issues with swallowing, uvula midline, lips moist, nares patent no epistaxis Cardiac: S1 S2 RRR, mild systolic murmur, no JVD, no edema in Lower ext Pulmonary: lungs diminished bilaterally Abdominal: BS active in all 4 quadrants, nontender with no guarding or rebound tenderness, no obvious distention MSK: strength 2-3/5 upper and lower extremities : no CVA tenderness no bladder distension Extremities: no edema in lower extremities, PT and DP pulses palpable +2 Psych: mood mildly irritable, judgement and insight fair Skin: Non blanchable area left buttocks near sacrum, Results Labs 08/03/25 21:42 08/03/25 21:42 Labs: Laboratory Results - last 24 hr 08/03/25 08/03/25 08/03/25 21:38 21:42 21:53 MCV 90.0 MCH 30.1 MCHC 33.5 RDW 16.1 H Plt Count 173 D MPV 8.4 L Immature Gran % (Auto) Cancelled Neut % (Auto) Cancelled Lymph % (Auto) Cancelled [place] % (Auto) Cancelled Eos % (Auto) Cancelled Baso % (Auto) Cancelled Lymph # (Auto) Cancelled [place] # (Auto) Cancelled Eos # (Auto) Cancelled Baso # (Auto) Cancelled Abs Immat Gran (auto) Cancelled Absolute Neuts (auto) Cancelled Absolute Nucleated RBC 0.000 Nucleated RBC % (auto) 0.0 Neutrophils % (Manual) 63 Band Neutrophils % 24 H Lymphocytes % (Manual) 8 L Atypical Lymphs % (Man) 2 Monocytes % (Manual) 3 Abs Neuts (Manual) 3.8 Lymphocytes # (Manual) 0.4 L Atyp Lymphs # (Manual) 0.1 Monocytes # (Manual) 0.1 Dohle Bodies PRESENT Platelet Estimate NORMAL Plt Morphology Comment NORMAL RBC Morphology NORMAL [place] Cells 1+ (0-2) Schistocytes 1+ (0-2) VBG pH 7.52 H VBG pCO2 37 VBG pO2 54 VBG HCO3 31 H VBG O2 Saturation 84.0 VBG Base Excess 7.9 Anion Gap 9 L Estim Creat Clear Calc 51.3 Estimated GFR > 60 Random Glucose 116 H Lactic Acid 1.1 Calcium 7.6 L Magnesium 1.5 L Total Bilirubin 0.5 AST 16 ALT < 6 Alkaline Phosphatase 113 Troponin I High Sens 22.5 D Total Protein 5.0 L Albumin 2.4 L Urine Color Urine Appearance Urine pH Ur Specific [place] Urine Protein Urine Glucose (UA) Urine Ketones Urine Blood Urine Nitrite Ur Leukocyte Esterase Urine RBC Urine WBC Ur Squamous Epith Cells Urine Bacteria Hyaline Casts Digoxin 0.6 L C. difficile Tox B Gene 08/04/25 08/04/25 00:19 00:25 MCV MCH MCHC RDW Plt Count MPV Immature Gran % (Auto) Neut % (Auto) Lymph % (Auto) [place] % (Auto) Eos % (Auto) Baso % (Auto) Lymph # (Auto) [place] # (Auto) Eos # (Auto) Baso # (Auto) Abs Immat Gran (auto) Absolute Neuts (auto) Absolute Nucleated RBC Nucleated RBC % (auto) Neutrophils % (Manual) Band Neutrophils % Lymphocytes % (Manual) Atypical Lymphs % (Man) Monocytes % (Manual) Abs Neuts (Manual) Lymphocytes # (Manual) Atyp Lymphs # (Manual) Monocytes # (Manual) Dohle Bodies Platelet Estimate Plt Morphology Comment RBC Morphology [place]lin Cells Schistocytes VBG pH VBG pCO2 VBG pO2 VBG HCO3 VBG O2 Saturation VBG Base Excess Anion Gap Estim Creat Clear Calc Estimated GFR Random Glucose Lactic Acid Calcium Magnesium Total Bilirubin AST ALT Alkaline Phosphatase Troponin I High Sens Total Protein Albumin Urine Color Yellow Urine Appearance Clear Urine pH 6.5 Ur Specific [place] 1.015 Urine Protein 30 (1+) H Urine Glucose (UA) Negative Urine Ketones Negative Urine Blood Negative Urine Nitrite Negative Ur Leukocyte Esterase Negative Urine RBC 0-2 Urine WBC 0-5 Ur Squamous Epith Cells 0-2 Urine Bacteria None Seen Hyaline Casts 0-2 Digoxin C. difficile Tox B Gene POSITIVE A* ECG Attestation: I personally reviewed and interpreted this ECG as follows: (Sinus tachycardia with an incomplete left bundle-branch block, normal OR normal QTC) Prior ECG tracings: available for review Assessment and Plan (1) Sepsis: Qualifiers: Sepsis acute organ dysfunction status: unspecified Sepsis type: sepsis due to unspecified organism Qualified Code(s): A41.9 - Sepsis, unspecified organism Status: Acute (2) Dehydration: Status: Acute (3) Acute hypokalemia: Status: Acute (4) C. 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 Patient's so far has completed 4 doses (2 days). The medication was continued in the emergency department and Infectious Disease consultation is pending. Sepsis with leukopenia and bandemia of 24 Patient meets criteria upon arrival to the ED and received fluid resuscitation per sepsis protocol Patient is started on Zosyn and fidaxomicin in the ED. Suspect C diff with colitis. UA is negative for UTI. No obvious infectious process via chest x-ray Infectious disease is consulted per protocol for starting fidaxomicin BC X2 pending Pt is NOT neutropenic Acute hypoxic respiratory failure/ NSC Lung Ca diagnosed 02/2025 Patient does use oxygen at home intermittently Patient currently on 2 L nasal cannula, VBG notes elevated bicarb NT-BNP pending Via report from Samanta from recent CT scan 06/2025, ? mets to sigmoid colon and pulmonary artery Oncology consulted Hypokalemia Secondary to diarrhea Potassium supplementation initiated with oral intake and via IV replacement We will start daily supplementation in the a.m. Continue telemetry CDIFF diarrhea C diff toxin is negative for a and B, gene remains positive Continuing fidaxomicin as prescribed twice daily for 10 days total, this would be day 3 Infectious disease consulted Holding off on loperamide, immodium GI consulted Contact precautions ordered as patient has active diarrhea Consider CT ABD if no improvement Dehydration Fluid replacement continues Vitals have stabilized Anemia with recent transfusion H&H currently 8.1 and 24.2 Patient does not meet criteria for transfusion at this time We will check stool for occult AFib diagnosed February 2025 Anticoagulation not indicated as patient converted to sinus rhythm Patient has remained on digoxin level is currently low MED REC pending Pt remains in sinus rhythm, continue tele HFrEF 20-25% Patient presents euvolemic NT BNP pending Low-salt diet Telemetry Daily weights, measure I/Os Protein malnourishment Nutritional consultation placed Patient may benefit from PPN nutritional support if indicated Deconditioning, weakness, FTT PT evaluation needed Case management consulted - patient stated in the past his insurance refused short-term rehab Currently patient has no professional help in the home setting and is dependent on his older siblings for care DVT prophylaxis: held until stool for occult returns MED REC pending FULL CODE STATUS Quality Stroke Does the patient have a stroke diagnosis?: No Reason for No Anti-thrombotic by Day Two: Contraindicated (await stool for occult ) VTE Prior VTE?: No VTE Risk Level:: Medical - moderate - high VTE Device Contraindication: N/A - Device Ordered VTE Drug Contraindication: N/A - Med Ordered
[2025-08-04 02:25] LABS: CDIFF Internal ctrl Dots and bkg OK (V); CDiff Toxin Negative (Negative)
[2025-08-04] MEDS: KCl 20 mEq in 0.9 % Sodium ChL 20 MEQ/1,000 ML IV.SOLN 80 MEQ IVCONT ×2 (04:00→15:54)
[2025-08-04 04:56] LABS: Hematocrit 26.2 % (42.0-52.0); Hemoglobin 8.6 g/dl (14.0-18.0); Mean Corpuscular HGB Conc 32.8 g/dl (31.0-36.0); Mean Corpuscular Hemoglobin 30.1 pg (27.0-33.0); Mean Corpuscular Volume 91.6 fL (80.0-98.0); NRBC Abs Auto 0.000 X10*3/uL (0.0-0.012); NRBC Pct Auto 0.0 /100WBC (0.0-0.2); Platelet Count 170 X10*3/uL (160-400); Red Blood Count 2.86 X10*6/uL (4.60-5.80); White Blood Count 5.2 X10*3/uL (4.8-10.8)
[2025-08-04 05:18] LABS: Alanine Aminotransferase < 6 U/L (0-40); Albumin Level 2.5 g/dL (3.5-5.0); Alkaline Phosphatase 135 U/L (39-117); Anion Gap 13 (12-20); Aspartate Amino Transferase 16 U/L (5-37); Blood Urea Nitrogen 12 mg/dL (9-16); Calcium 7.5 mg/dL (8.4-10.2); Carbon Dioxide 24 mmol/L (22-29); Chloride 104 mmol/L (96-108); Creatinine Clr Calc Pharmacy 58.4; Estimated Glomerular Filt Rate > 60; Magnesium 2.0 mg/dL (1.6-2.6); NT Pro B Type Natriuretic Pept 4905.7 pg/mL (<300); Potassium 3.6 mmol/L (3.3-5.1); Sodium 137 mmol/L (135-145); Total Protein 5.2 g/dL (6.5-8.0)
[2025-08-04 05:19] LABS: Band Neutrophils Percent 17 % (3-5); Lymphocytes Absolute Manual 1.1 X10*3/uL (1.2-4.9); Lymphocytes Percent Manual 22 % (20-40); Monocytes Absolute Manual 0.1 X10*3/uL (0.1-1.2); Monocytes Percent Manual 2 % (2-11); Neutrophils Absolute Manual 4.0 X10*3/uL (2.0-8.3); Neutrophils Percent Manual 59 % (45-73)
[2025-08-04 05:20] LABS: RBC Morphology NOTED
[2025-08-04 05:21] LABS: Burr Cells 1+ (0-2) /OIF; Large Platelet PRESENT; Ovalocytes 1+ (5-14) /OIF; Toxic Granulation PRESENT; Toxic Vacuolation PRESENT
[2025-08-04 06:53] LABS: Reflex Lactate? Lactic Acid Added
[2025-08-04 08:08] LABS: ~Lactic Acid-LAB USE ONLY 0.7 mmol/L (0.5-2.0)
[2025-08-04 08:27] LABS: E. coli EAEC Not Detected (Not Detect.); E. coli EPEC Not Detected (Not Detect.); E. coli ETEC Not Detected (Not Detect.); E. coli STEC Not Detected (Not Detect.); Shigella sp./EIEC Not Detected (Not Detect.)
--- NOTE | 2025-08-04 08:51 | PM.GICN ---
History of Present Illness Data of Consult Service Date: 08/04/25 Requesting physician: Pippa Martinez Primary Care Provider: Unknown Physician HPI Reason for consult: Sigmoid colon mass, C Diff 70-year-old gentleman with medical history of squamous cell cell lung cancer, diagnosed February 2025, on chemotherapy and immunotherapy with progressive mets to bone and possibly colon who is admitted to the hospital for severe diarrhea and weakness. History was obtained from the patient, who reports severe diarrhea over the last 3-4 weeks, having a bowel movement every couple of hours. He was admitted in [facility] for right-sided empyema in May. A few weeks later, he was diagnosed with C diff tx with 10 days of Vanc. He completed this in the beginning of July without much response. C diff test was repeated a few days ago by his oncologist as outpatient, which was again positive for C diff. he was then started on fidaxomicin. In addition, patient also had a PET scan done 06/19 that is suspicious for mid sigmoid mass based on persistent FDG avid activity. Has progressive normocytic anemia. Received blood transfusion in oncologist office 07/30. Current hemoglobin is 8.1. Review of Systems Review of Systems: Yes all other systems are reviewed and are negative PMFSH Past Medical History Medical History (Updated 08/04/25 @ 11:51 by Loree Brady MD) Diverticulosis COPD (chronic obstructive pulmonary disease) Squamous cell carcinoma lung Hypotension Malnutrition Acute respiratory failure with hypoxia Malignant pleural effusion Establishing care with new doctor, encounter for Hospital discharge follow-up Hx of hypotension Hx of supraventricular tachycardia Palpitations Atrial fibrillation Neoplasm of right lung HLD (hyperlipidemia) Family History Family History Sister Lung cancer Mother Breast cancer Brother Leukemia Surgical History Surgical History H/O chest tube placement Social History Social History Household Members: Family Household Members Other:: staying with family since february Housing: House Do you presently have visiting nurse or other home services: Yes (vna) Alcohol intake: never Comment: pt rings appropriately Patient Tobacco Use Status: Former Tobacco user Tobacco use type: Cigarette e-Cigarette/Vaping Use: Never Used Second Hand Smoke Exposure: Yes Have you been hit, kicked, punched, or otherwise hurt by someone within the past year? If so, by whom?: No Do you feel safe in your current relationship?: No Current Relationship Is there a partner from a previous relationship who is making you feel unsafe now?: No Are you made to feel afraid or neglected: No Advance Directives: Yes Advance Directives on File: Yes Advance Directives Date on File: 03/11/25 Do you have a plan to hurt others: No Plan Nutrition Risks: Anorexia service: No Current occupational status: retired Cognitive needs: Yes (walker) Hearing needs: No Vision needs: Yes (Glasses) Travel History Ebola Risk: Travel/Contact With Anyone From Affected Area/s: No Has Patient Experienced Ebola Symptoms: No Meds Allergies Allergy/AdvReac Type Severity Reaction Status Date / Time No Known Allergies Allergy Verified 08/03/25 21:19 Active Medications: Current Medications Acetaminophen (Acetaminophen 325 Mg Tablet) 650 mg PO Q6H PRN PRN Reason: Pain, Mild 1-3,fever,headache Albuterol/Ipratropium (Albuterol/Iprat 2.5/0.5mg 3 Ml Ampul.Neb) 3 ml INHALE Q4H PRN PRN Reason: Shortness of Breath/Wheezing Calcium Carbonate (Calcium Carbonate 750 Mg Tab.Chew) 750 mg PO Q4H PRN PRN Reason: Heartburn Enoxaparin Sodium (Enoxaparin Sodium 40 Mg/0.4 Ml Syringe) 40 mg SUBCUT Q24H [facility] Last Admin: 08/04/25 04:00 Dose: 40 mg Fidaxomicin (Fidaxomicin 200 Mg Tablet) 200 mg PO Q12H [facility] Potassium Chloride/Sodium Chloride (Kcl 20 Meq In 0.9 % Sodium Chl) 20 meq in 1,000 mls @ 80 mls/hr IVCONT .[id number] [facility] Last Admin: 08/04/25 04:00 Dose: 80 mls/hr Piperacillin Sod/Tazobactam (Sod 4.5 gm/ Sodium Chloride) 100 mls @ 200 mls/hr IV Q6H [facility] Last Infusion: 08/04/25 05:26 Dose: Infused Magnesium Hydroxide (Milk Of Magnesia 30 Ml Oral.Susp) 30 ml PO DAILY PRN PRN Reason: Constipation Melatonin (Melatonin 3 Mg Tablet) 6 mg PO BEDTIME PRN PRN Reason: Insomnia Ondansetron HCl (Ondansetron Hcl 4 Mg/2 Ml Vial) 4 mg IVPUSH Q8H PRN PRN Reason: Nausea and Vomiting Polyethylene Glycol (Polyethylene Glycol 3350 17 Gm Powd.Pack) 17 gm PO DAILY PRN PRN Reason: Constipation Potassium Chloride (Potassium Chloride Er 20 Meq Tab.Er.Prt) 20 meq PO DAILY [facility] Sodium Chloride (0.9 % Sodium Chloride Flush 3 Ml Syringe) 3 ml IVFLUSH QSHIFT [facility] Last Admin: 08/04/25 08:40 Dose: Not Given Home Medications ?Medication ?Instructions ?Recorded ?Confirmed ?Last Taken ?Type dexamethasone 4 mg tablet 8 mg PO USEASDIRECTD 08/04/25 08/04/25 Unknown History fidaxomicin 200 mg tablet (Dificid) 200 mg PO Q12H 08/04/25 08/04/25 08/03/25 History Physical Exam Exam: Exam: Elderly cachectic male Short of breath, pale appearing abd soft, mildly distended, nontender no lower ext edema Vital Signs: Vital Signs: Last Vital Signs Temp 97.9 F 08/04/25 02:09 Pulse 93 08/04/25 06:09 Resp 26 H 08/04/25 06:09 BP 81/59 L 08/04/25 06:09 Pulse Ox 100 08/04/25 06:09 O2 Del Method Nasal Cannula 08/04/25 06:09 O2 Flow Rate 2 08/04/25 06:09 Oxygen Flow Rate 2 08/03/25 21:14 BMI result Body Mass Index 12.4 Results Labs 08/04/25 04:49 08/04/25 04:49 Labs: Short CBC 08/03/25 08/04/25 Range/Units 21:42 04:49 WBC 4.4 L 5.2 (4.8-10.8) X10*3/uL Hgb 8.1 L 8.6 L (14.0-18.0) g/dl Hct 24.2 L 26.2 L (42.0-52.0) % Plt Count 173 D 170 (160-400) X10*3/uL BMP 08/03/25 08/04/25 21:42 04:49 Sodium 134 L 137 Potassium 3.1 L 3.6 Chloride 99 104 Carbon Dioxide 29 24 BUN 15 12 Creatinine 0.83 0.73 Calcium 7.6 L 7.5 L Liver Function 08/03/25 08/04/25 Range/Units 21:42 04:49 Total Bilirubin 0.5 0.6 (0.0-1.0) mg/dL AST 16 16 (5-37) U/L ALT < 6 < 6 (0-40) U/L Alkaline Phosphatase 113 135 H (39-117) U/L Albumin 2.4 L 2.5 L (3.5-5.0) g/dL Urine 08/04/25 Range/Units 00:19 Urine Color Yellow Urine Appearance Clear Urine pH 6.5 (5.0-9.0) Ur Specific [place] 1.015 (1.005-1.025) Urine Protein 30 (1+) H (Neg-Trace) mg/dL Urine Glucose (UA) Negative (Negative) mg/dL Assessment and Plan (1) Squamous cell carcinoma lung: Status: Acute (2) C. difficile diarrhea: Status: Acute (3) Muscle weakness (generalized): Status: Acute (4) Physical deconditioning: Status: Acute (5) Atrial fibrillation: Status: Acute (6) Frailty: Status: Acute (7) Abnormal finding on imaging: Status: Acute (8) Cardiomyopathy: Status: Acute Plan 70-year-old gentleman with metastatic squamous cell lung cancer presenting with progressive weakness, frailty and diarrhea in the setting of possible C diff colitis. Other differentials include ICI colitis, secretory diarrhea from ?? sigmoid mass based on PET scan findings. Plan: -agree with fidaxomicin 220 mg BID -ID consultation for ? vanc taper -will need to clarify therapy goals with onc and pt family to guide indication for diagnostic flex sig in this gent with profound frailty and cardiopulm comorbidities including lung mass, pleural effusion, chronic hypoxic failure and EF 20-25%. Thank you for allowing me to participate in his care. Please do not hesitate to reach out for any questions or concerns. Procedures Date of Service Date of Service: 08/04/25
[2025-08-04] MEDS: Potassium Chloride ER 20 MEQ TAB.ER.PRT PO (09:42)
--- NOTE | 2025-08-04 11:06 | MHC.CM.PN ---
IMM 08/04/25, Pt. lives with his brother, he has had services from [facility] in March of 2025, referral will be sent. He has home O2. PCP is Dr. Squires. HCP is on file and confirmed, his brother, Louie. Family to transport at DC, DCP: home with services, or STR. CM to follow for DC needs.
--- NOTE | 2025-08-04 11:11 | PHA.MEDREC ---
Addendum entered by Trish Medina [facility] 08/04/25 11:24: REVIEWED BY PHARMACIST Original Note: Pharmacy Consult ? Medication Reconciliation Pharmacy has completed the medication reconciliation. Spoke with pt and he was a poor historian with is meds and said to call his brother (Louie); pt confirmed he took all his medications yesterday (pt brother confirmed this as well). Spoke with pt brother over the phone and he confirmed pt: is taking Dexamethazone 4mg tabs, 2 tabs (8mg) BID for 2 days after chemo and is not taking Lomotil and started Dificid last week for loose stool.
--- NOTE | 2025-08-04 13:01 | MHC.CLN ---
CONSULT DIET RX: CLEAR LIQUIDS. PATIENT QUALIFIES SEVERELY MALNOURISHED IN THE CONTEXT OF CHRONIC ILLNESS. SEVERE DEPLETION OF BODY FAT AND MUSCLE MASS NOTED. BMI=12.4 AND IS 51% OF IBW. UNABLE TO TAKE ADEQUATE NUTRITION PO WITH CL DIET AND DX C-DIFF. START PPN TODAY. REVIEWED LABS. COMMUNICATED WITH PHARMACY. RECOMMEND START PPN TODAY AT 60 ML PER HOUR TO PROVIDE 734 KCALS, 144 G DEXTROSE, 61 G PROTEIN. MONITOR FOR REFEEDING. REPLETE LYTES NEEDED. CHECK TRIGLYCERIDES. FOLLOW LABS, PPN TOLERANCE AND PO INTAKE. SEE CLINICAL NUTRITION ASSESSMENT 08/04/25.
[2025-08-04 13:07] LABS: Triglycerides 102 mg/dL (<150)
--- NOTE | 2025-08-04 13:46 | PC.NURSE ---
MD aware of low BP of 88/62, no new orders given except to monitor
[2025-08-04 13:55] LABS: Albumin Level 2.4 g/dL (3.5-5.0); Magnesium 1.8 mg/dL (1.6-2.6)
--- NOTE | 2025-08-04 15:06 | HO.WOUND ---
Wound Consult: Initial 70 yr old male admitted to [facility] on 08/04/25- See progress notes and H&P for detailed history. Wound consult placed for redness. Patient agreeable to assessment and photo documentation. Patient turned to side for assessment, reports recent weight loss, chemotherapy, and reports doing leg exercises which may have contributed to redness on his back. Bilateral iliac crest Etiology: deep tissue pressure injury Present on Admission Measurements: 4cm x 3cm x 0cm Wound Bed: localized area over bony prominence with intact red/purple discoloration partially blanching - patient at high risk for skin injury Drainage / Odor: none Sangeetha wound: ? No Induration, Fluctuance or Warmth noted Pain: none Goals of Treatment: ? offloading/pressure reduction of note: coccyx/buttock and bilateral heels are all intact, mildly pink and blanching Recommendations: 1. Turn and Reposition every 2 hours and as needed for patient comfort. Use pillows or wedges to support off loading positions. 2. Off Load all bony prominences with use of pillows and heel boots if needed. Apply Preventative foams where needed. 3. Monitor for incontinence and moisture control, use barrier creams when needed for prevention and treatment. 4. Provide adequate and supplemental nutrition. 5. Order or Continue low air loss mattress. 6. When applicable maintain blood glucose levels per Providers order. Bilateral iliac crest/sacrum: Off Load Pressure with Q2 hr turns and use of pillows - Routine cleansing. Apply skin prep allow to dry. Cover with foam dressing to aid in off loading and protection from friction. Change every 3 days and PRN. Re-consult wound care Nurse for wound deterioration or wound changes.
--- NOTE | 2025-08-04 15:32 | P.CNHO_ITS ---
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 He underwent bronchoscopy and biopsy of lung mass on 02/17/2025. Biopsy revealed invasive squamous cell carcinoma with necrosis. PD-L1 expression negative, less than 1%, NGS testing was negative for EGFR, K-judy, BRAF, ALK, ROS1, RET, MET and HER2 mutations. TP53 missense variant positive allele fraction 50.7%. He had right PleurX catheter placed. VNA has been set up for drainage of fluid, decreased from 3 times a week to once a week as his output has been decreasing. Brain MRI performed 03/14/2025 revealed a single/solitary 3 mm intra-axial metastasis in the right frontal cerebral cortex. Global cerebral atrophy and 1 cm nodular lesion in right parotid region. PET scan performed 03/18/2025 revealed ill-defined right upper lobe consolidation with abnormal areas of FDG activity. Pleural-based activity suggestive of pleural involvement. Large right subcarinal posterior carinal FDG avid large mass, likely lymph node or tumor. Metastatic lymphadenopathy involving precarinal lymph nodes. Chemotherapy with carboplatin and Abraxane with pembrolizumab, cycle 1 with dose reduction to 80% was started 04/01/25. He received cycle 3 on 05/20/2025. PET scan performed at [facility] on 06/19/2025 revealed residual intense metabolic activity associated with smaller right hilar mass. Mild residual activity noted within nodular at 10 evaluation the superior segment of the right lower lobe and inferior laterally in the right upper lobe. Persistent mediastinal metabolic activity. New pleural-based activity posteriorly within the right lower lobe may represent inflammatory/infectious changes with metastatic disease not excluded. New focal metabolic activity along the left T6 transverse process suspicious for bony metastases. Results were reviewed with Dr. Foreman. Will continue current treatment plan. Patient was admitted to [facility] with infected PleurX catheter and empyema in 05/25/2025. He was treated with IV and subsequently oral antibiotics. Gift Manager Utilized?: No - [employer] Speaking HPI - Consult Narrative Reason for consult: History of metastatic lung cancer, admitted for persistent C diff colitis Narrative: Jose Guadalupe Morales is a 70 year old male with metastatic lung cancer, receiving chemo immunotherapy who has been admitted secondary to progressive weakness. He was diagnosed with C diff colitis in June 2025. Was treated with vancomycin for 10 days. Because of persistent diarrhea and positivity for C diff toxin he was started on fidaxomicin on 07/30/2025. Patient did not receive scheduled immunotherapy last week because of progressive anemia as well as diarrhea. He received blood transfusion. Patient presented to ED because of progressive weakness, loss of appetite and weight loss. He lives alone at home. His brother and sister are his primary caregivers. At this time he says he feels slightly better. He denies abdominal pain, chest pain, shortness of breath, nausea or emesis. Review of Systems - Constitutional Reports as per HPI - Cardiovascular Reports no additional cardiovascular complaints - Respiratory Reports no additional respiratory complaints - Gastrointestinal Reports no additional gastrointestinal complaints PMFSH Medical History: Medical History (Last Reviewed 08/04/25 @ 16:14 by Nohemy Boston MD) Acute respiratory failure with hypoxia Atrial fibrillation COPD (chronic obstructive pulmonary disease) Diverticulosis Establishing care with new doctor, encounter for HLD (hyperlipidemia) Hospital discharge follow-up Hx of hypotension Hx of supraventricular tachycardia Hypotension Malignant pleural effusion Malnutrition Neoplasm of right lung Palpitations Squamous cell carcinoma lung Functional capacity: wheelchair bound Family History: Family History (Last Reviewed 08/04/25 @ 16:14 by Nohemy Boston MD) Sister Lung cancer Mother Breast cancer Brother Leukemia Surgical History: Surgical History (Last Reviewed 08/04/25 @ 16:14 by Nohemy Boston MD) H/O chest tube placement Social History: Social History (Last Reviewed 08/04/25 @ 16:14 by Nohemy Boston MD) Living Situation History: Household Members: Family Household Members Other:: staying with family since february Housing: House Do you presently have visiting nurse or other home services: Yes Do you presently have visiting nurse or other home services comment: vna Tobacco History: Patient Tobacco Use Status: Former Tobacco user Tobacco use type: Cigarette e-Cigarette/Vaping Use: Never Used Second Hand Smoke Exposure: Yes Advance Directives: Advance Directives Date on File: 03/11/25 Occupation Assessmet: service: No Current occupational status: retired - Travel History Ebola Risk: Travel/Contact With Anyone From Affected Area/s: No Has Patient Experienced Ebola Symptoms: No Home Medications and Allergies Current Medications: Current Medications Acetaminophen (Acetaminophen 325 Mg Tablet) 650 mg PO Q6H PRN PRN Reason: Pain, Mild 1-3,fever,headache Albuterol/Ipratropium (Albuterol/Iprat 2.5/0.5mg 3 Ml Ampul.Neb) 3 ml INHALE Q4H PRN PRN Reason: Shortness of Breath/Wheezing Calcium Carbonate (Calcium Carbonate 750 Mg Tab.Chew) 750 mg PO Q4H PRN PRN Reason: Heartburn Enoxaparin Sodium (Enoxaparin Sodium 40 Mg/0.4 Ml Syringe) 40 mg SUBCUT Q24H [facility] Last Admin: 08/04/25 04:00 Dose: 40 mg Fidaxomicin (Fidaxomicin 200 Mg Tablet) 200 mg PO Q12H [facility] Last Admin: 08/04/25 11:14 Dose: 200 mg Potassium Chloride/Sodium Chloride (Kcl 20 Meq In 0.9 % Sodium Chl) 20 meq in 1,000 mls @ 80 mls/hr IVCONT .[id number] [facility] Last Admin: 08/04/25 04:00 Dose: 80 mls/hr Piperacillin Sod/Tazobactam (Sod 4.5 gm/ Sodium Chloride) 100 mls @ 200 mls/hr IV Q6H [facility] Last Infusion: 08/04/25 12:00 Dose: Infused Nutrition (Parenteral) (Parenteral Nutrition) 1,440 mls @ 60 mls/hr IV .Q24H [facility]; Protocol Stop: 08/05/25 20:59 Magnesium Hydroxide (Milk Of Magnesia 30 Ml Oral.Susp) 30 ml PO DAILY PRN PRN Reason: Constipation Melatonin (Melatonin 3 Mg Tablet) 6 mg PO BEDTIME PRN PRN Reason: Insomnia Ondansetron HCl (Ondansetron Hcl 4 Mg/2 Ml Vial) 4 mg IVPUSH Q8H PRN PRN Reason: Nausea and Vomiting Pharmacy Consult (Consult Rx Parenteral Nutrition Ordering) 1 each MISCELLANE DAILY PRN PRN Reason: Consult order Polyethylene Glycol (Polyethylene Glycol 3350 17 Gm Powd.Pack) 17 gm PO DAILY PRN PRN Reason: Constipation Potassium Chloride (Potassium Chloride Er 20 Meq Tab.Er.Prt) 20 meq PO DAILY [facility] Last Admin: 08/04/25 09:42 Dose: 20 meq Sodium Chloride (0.9 % Sodium Chloride Flush 3 Ml Syringe) 3 ml IVFLUSH QSHIFT [facility] Last Admin: 08/04/25 08:40 Dose: Not Given Home Medications ?Medication ?Instructions ?Recorded ?Confirmed ?Type dexamethasone 4 mg tablet 8 mg PO USEASDIRECTD 08/04/25 08/04/25 H istory fidaxomicin 200 mg tablet (Dificid) 200 mg PO Q12H 08/04/25 08/04/25 History Allergies Allergy/AdvReac Type Severity Reaction Status Date / Time No Known Allergies Allergy Verified 08/03/25 21:19 Physical Exam Vital signs: Vital Signs Temp 97.4 F 08/04/25 13:41 Pulse 100 08/04/25 13:41 Resp 22 H 08/04/25 13:41 BP 88/62 L 08/04/25 13:41 Pulse Ox 87 L 08/04/25 13:41 O2 Del Method Room Air 08/04/25 13:41 O2 Flow Rate 2 08/04/25 09:46 Intake & Output 08/03/25 08/04/25 08/04/25 18:59 06:59 18:59 Intake Total 1729.14 / 1729.14 100 / 100 Balance 1729.14 / 1729.14 100 / 100 Intake: Intake, IV Amount 1729.14 / 1729.14 100 / 100 Lactated Ringers 1,279.14 ml @ 1279.14 / 1279.14 1279.14 mls/hr IV .Q1H ONE Rx#: [id number] Magnesium Sulfate/H2O 2 gm In 50 / 50 50 ml @ 25 mls/hr IV ONCE ONE Rx#:[id number] Piperacillin Sodium/Tazobactam 200 / 200 100 / 100 4.5 gm In 0.9 % Sodium Chloride 100 ml @ 200 mls/hr IV Q6H TE Rx#:[id number] Potassium Chloride/H20 10 meq 200 / 200 In 100 ml @ 100 mls/hr IV Q1H TE Rx#:[id number] Other: Weight 42.638 kg 42.638 kg Weight 42.638 kg - Constitutional Present: mild distress, thin - Routine HEENT Exam Head: Present: normal inspection Eye: Present: conjunctivae pale - Routine Neck Exam Present: supple. Absent: lymphadenopathy - Routine Respiratory Exam Present: decreased breath sounds. Absent: accessory muscle use - Routine Cardiovascular Exam Cardiovascular: Present: S1, S2 - Routine Abdominal Exam Present: soft - Routine Extremities Exam Present: pulses intact - Routine Neurological Exam Present: alert, oriented X3 Hem/Onc Consult Result - Labs CBC & Chem 7: 08/04/25 04:49 08/04/25 04:49 Labs: Short CBC 08/03/25 08/04/25 Range/Units 21:42 04:49 WBC 4.4 L 5.2 (4.8-10.8) X10*3/uL Hgb 8.1 L 8.6 L (14.0-18.0) g/dl Hct 24.2 L 26.2 L (42.0-52.0) % Plt Count 173 D 170 (160-400) X10*3/uL BMP 08/03/25 08/04/25 21:42 04:49 Sodium 134 L 137 Potassium 3.1 L 3.6 Chloride 99 104 Carbon Dioxide 29 24 BUN 15 12 Creatinine 0.83 0.73 Calcium 7.6 L 7.5 L Liver Function 08/03/25 08/04/25 08/04/25 Range/Units 21:42 04:49 13:28 Total Bilirubin 0.5 0.6 (0.0-1.0) mg/dL AST 16 16 (5-37) U/L ALT < 6 < 6 (0-40) U/L Alkaline Phosphatase 113 135 H (39-117) U/L Albumin 2.4 L 2.5 L 2.4 L (3.5-5.0) g/dL Urine 08/04/25 Range/Units 00:19 Urine Color Yellow Urine Appearance Clear Urine pH 6.5 (5.0-9.0) Ur Specific [place] 1.015 (1.005-1.025) Urine Protein 30 (1+) H (Neg-Trace) mg/dL Urine Glucose (UA) Negative (Negative) mg/dL Assessment and Plan Patient Active problem list reviewed?: Yes (1) Squamous cell carcinoma lung Status: Chronic Assessment and plan: 1. This is a 70-year-old male, chronic smoker diagnosed with advanced non small- cell cancer, squamous cell carcinoma of right lung. He underwent bronchoscopy and biopsy of lung mass on 02/17/2025. Biopsy revealed invasive squamous cell carcinoma with necrosis. Chemotherapy with carboplatin and Abraxane with pembrolizumab, cycle 1 with dose reduction to 80% was started 04/01/25. Patient was on prolonged course of antibiotics because of empyema secondary to infected PleurX catheter in May 2025. He developed C diff colitis in June 2025. He was on vancomycin 125 mg p.o. q.i.d. for 10 days but he did not respond to this. Because of persistent diarrhea he was started on fidaxomicin 200 mg b.i.d. on 07/30/2025. He presented to the ED on 08/03/2025 because of progressive weakness. His chemotherapy was held last week and he was given a unit blood transfusion because of anemia. Continue supportive care. He is getting more frail. He will need to recuperate in rehabilitation setting. Thank you, will follow. - Time Spent With Patient Time Spent with Patient (in minutes): 20 Additional Coding: - Additional E/M codes Complex E/M visit Add On: CPT G2211
--- NOTE | 2025-08-04 16:12 | W.PM.IDCN ---
History of Present Illness Data of Consult Service Date: 08/04/25 Requesting physician: Gabriela Chand Primary Care Provider: Lencho Squires MD HPI Reason for consult: diarrhea He presents with diarrhea and fatigue. He has Cdiff positive. He has not had this before. Review of Systems Review of Systems: Yes all other systems are reviewed and are negative PMFSH Past Medical History Medical History Diverticulosis COPD (chronic obstructive pulmonary disease) Squamous cell carcinoma lung Hypotension Malnutrition Acute respiratory failure with hypoxia Malignant pleural effusion Establishing care with new doctor, encounter for Hospital discharge follow-up Hx of hypotension Hx of supraventricular tachycardia Palpitations Atrial fibrillation Neoplasm of right lung HLD (hyperlipidemia) Family History Family History Sister Lung cancer Mother Breast cancer Brother Leukemia Family history: reviewed and not pertinent Surgical History Surgical History H/O chest tube placement Social History Social History Household Members: Family Household Members Other:: staying with family since february Housing: House Do you presently have visiting nurse or other home services: Yes (vna) Alcohol intake: never Comment: pt rings appropriately Patient Tobacco Use Status: Former Tobacco user Tobacco use type: Cigarette e-Cigarette/Vaping Use: Never Used Second Hand Smoke Exposure: Yes Advance Directives Date on File: 03/11/25 service: No Current occupational status: retired Cognitive needs: Yes (walker) Hearing needs: No Vision needs: Yes (Glasses) Travel History Ebola Risk: Travel/Contact With Anyone From Affected Area/s: No Has Patient Experienced Ebola Symptoms: No Meds Allergies Allergy/AdvReac Type Severity Reaction Status Date / Time No Known Allergies Allergy Verified 08/03/25 21:19 Active Medications: Current Medications Acetaminophen (Acetaminophen 325 Mg Tablet) 650 mg PO Q6H PRN PRN Reason: Pain, Mild 1-3,fever,headache Albuterol/Ipratropium (Albuterol/Iprat 2.5/0.5mg 3 Ml Ampul.Neb) 3 ml INHALE Q4H PRN PRN Reason: Shortness of Breath/Wheezing Calcium Carbonate (Calcium Carbonate 750 Mg Tab.Chew) 750 mg PO Q4H PRN PRN Reason: Heartburn Enoxaparin Sodium (Enoxaparin Sodium 40 Mg/0.4 Ml Syringe) 40 mg SUBCUT Q24H [facility] Last Admin: 08/04/25 04:00 Dose: 40 mg Fidaxomicin (Fidaxomicin 200 Mg Tablet) 200 mg PO Q12H [facility] Last Admin: 08/04/25 11:14 Dose: 200 mg Potassium Chloride/Sodium Chloride (Kcl 20 Meq In 0.9 % Sodium Chl) 20 meq in 1,000 mls @ 80 mls/hr IVCONT .[id number] [facility] Last Admin: 08/04/25 15:54 Dose: 80 mls/hr Piperacillin Sod/Tazobactam (Sod 4.5 gm/ Sodium Chloride) 100 mls @ 200 mls/hr IV Q6H [facility] Last Infusion: 08/04/25 12:00 Dose: Infused Nutrition (Parenteral) (Parenteral Nutrition) 1,440 mls @ 60 mls/hr IV .Q24H [facility]; Protocol Stop: 08/05/25 20:59 Magnesium Hydroxide (Milk Of Magnesia 30 Ml Oral.Susp) 30 ml PO DAILY PRN PRN Reason: Constipation Melatonin (Melatonin 3 Mg Tablet) 6 mg PO BEDTIME PRN PRN Reason: Insomnia Ondansetron HCl (Ondansetron Hcl 4 Mg/2 Ml Vial) 4 mg IVPUSH Q8H PRN PRN Reason: Nausea and Vomiting Pharmacy Consult (Consult Rx Parenteral Nutrition Ordering) 1 each MISCELLANE DAILY PRN PRN Reason: Consult order Polyethylene Glycol (Polyethylene Glycol 3350 17 Gm Powd.Pack) 17 gm PO DAILY PRN PRN Reason: Constipation Potassium Chloride (Potassium Chloride Er 20 Meq Tab.Er.Prt) 20 meq PO DAILY [facility] Last Admin: 08/04/25 09:42 Dose: 20 meq Sodium Chloride (0.9 % Sodium Chloride Flush 3 Ml Syringe) 3 ml IVFLUSH QSHIFT [facility] Last Admin: 08/04/25 08:40 Dose: Not Given Home Medications ?Medication ?Instructions ?Recorded ?Confirmed ?Last Taken ?Type dexamethasone 4 mg tablet 8 mg PO USEASDIRECTD 08/04/25 08/04/25 Unknown History fidaxomicin 200 mg tablet (Dificid) 200 mg PO Q12H 08/04/25 08/04/25 08/03/25 History Physical Exam Vital Signs: Vital Signs: Last Vital Signs Temp 97.1 F 08/04/25 15:39 Pulse 108 H 08/04/25 15:39 Resp 18 08/04/25 15:39 BP 114/76 08/04/25 15:39 Pulse Ox 100 08/04/25 15:39 O2 Del Method Nasal Cannula 08/04/25 15:39 O2 Flow Rate 2 08/04/25 15:39 Oxygen Flow Rate 2 08/03/25 21:14 BMI result Body Mass Index 12.4 Const: General: cooperative HEENT: Head: Yes normal to inspection Face and sinus: Yes normal facial exam Mouth: Normal oral and palatal mucosa present Teeth and gingiva: dentition normal Eyes: General: appearance normal, both eyes and all related structures Pupils: Equal, round and reactive pupils present Resp: Effort & Inspection: normal respiratory effort Cardio: Rate: regular rate Rhythm: regular rhythm GI: Palpation (GI): Soft to palpation and nontender : General: Yes no CVA tenderness Back/Spine/Pelvis: Back: no CVA tenderness Skin: General skin exam: no rashes or lesions noted Neuro: General: moves all extremities Cranial nerves: Yes Equal, round and reactive pupils present Extrem: General: Yes normal to inspection Psych: Appearance: grossly normal Results Labs 08/04/25 04:49 08/04/25 04:49 Labs: Short CBC 08/03/25 08/04/25 Range/Units 21:42 04:49 WBC 4.4 L 5.2 (4.8-10.8) X10*3/uL Hgb 8.1 L 8.6 L (14.0-18.0) g/dl Hct 24.2 L 26.2 L (42.0-52.0) % Plt Count 173 D 170 (160-400) X10*3/uL BMP 08/03/25 08/04/25 21:42 04:49 Sodium 134 L 137 Potassium 3.1 L 3.6 Chloride 99 104 Carbon Dioxide 29 24 BUN 15 12 Creatinine 0.83 0.73 Calcium 7.6 L 7.5 L Liver Function 08/03/25 08/04/25 08/04/25 Range/Units 21:42 04:49 13:28 Total Bilirubin 0.5 0.6 (0.0-1.0) mg/dL AST 16 16 (5-37) U/L ALT < 6 < 6 (0-40) U/L Alkaline Phosphatase 113 135 H (39-117) U/L Albumin 2.4 L 2.5 L 2.4 L (3.5-5.0) g/dL Urine 08/04/25 Range/Units 00:19 Urine Color Yellow Urine Appearance Clear Urine pH 6.5 (5.0-9.0) Ur Specific [place] 1.015 (1.005-1.025) Urine Protein 30 (1+) H (Neg-Trace) mg/dL Urine Glucose (UA) Negative (Negative) mg/dL Assessment and Plan (1) C. difficile diarrhea: Status: Acute Plan He has not had improvement and been on fidaxomicin but probably not on long enough. Will give po Vancomycin 125 mg qid for 10 days. There is no severe Cdiff seen as renal function unremarkable and no leukocytosis.
[2025-08-04] MEDS: Parenteral Nutrition 1,440 ML 60 ML IV (22:09)
[2025-08-05] VITALS (7 sets, daily range): BP systolic 78–114; BP diastolic 54–72; PULSE 89–152; RESP 16–20; TEMP 36.3–36.8; O2SAT 98–100; BMI 13.8
[2025-08-05] MEDS: 0.9 % Sodium Chloride Flush 3 ML SYRINGE IVFLUSH (00:36)
[2025-08-05] MEDS: KCl 20 mEq in 0.9 % Sodium ChL 20 MEQ/1,000 ML IV.SOLN 80 MEQ IVCONT ×2 (05:04→18:05)
--- NOTE | 2025-08-05 06:13 | ECG_ITS ---
Test Reason : rhythm check Blood Pressure : */* mmHG Vent. Rate : 153 BPM Atrial Rate : 153 BPM P-R Int : 112 ms QRS Dur : 96 ms QT Int : 278 ms P-R-T Axes : * 12 247 degrees QTcB Int : 443 ms Sinus tachycardia Low voltage QRS Nonspecific ST and T wave abnormality Abnormal ECG When compared with ECG of 03-Aug-2025 21:47, Increase in ventricular rate Referred By: Gabriela Chand Electronically Signed By: GONZALES GRANT
--- NOTE | 2025-08-05 06:42 | P.EN_ITS ---
Event Note Date of Service: 08/05/25 Event Note: 6:15 a.m. - patient started to experience marked tachycardia (max 180 bpm) consistent with SVT with blood pressure of 84/56 MAP 65. Metoprolol 2.5 mg IV given and heart rate dropped to the 90s. Blood pressure was rechecked and is now 78/54. MAP 62. Patient is alert and oriented. He denied chest pain, shortness on breath or palpitations. Will give NS 250 mL bolus and restart his midodrine, we will increased to 10 mg PO TID, as well as digoxin. Metoprolol p .o. is on hold for now due to low BP. Time Spent With Patient Time: Total time managing care of this patient today ____ minutes.
--- NOTE | 2025-08-05 07:22 | PC.NURSE ---
This RN noted pt to by tachycardic in the 150s on the tele monitor. On exam, pt laying in bed resting and reports he is asymptomatic. Pt sustaining HR in 150s despite attempts at valsalva maneuver. MD Ben Santoro Notified. Manual BP 84/56, EKG obtained. MD Ben Santoro to bedside. 2.5mg IVP metoprolol ordered and administered with good effect, pt HR to 90s-100s. Manual BP recheck at 76/54. 250mL NS bolus ordered and administered. PO home midodrine dose ordered and administered. Pt remains asymptomatic at this time, HR remains rate controlled.
[2025-08-05 07:49] LABS: Troponin-I High Sensitivity 12.0 ng/L (<3.5-35.0)
[2025-08-05 07:58] LABS: Albumin Level 2.3 g/dL (3.5-5.0); Alkaline Phosphatase 117 U/L (39-117); Anion Gap 9 (12-20); Aspartate Amino Transferase 18 U/L (5-37); Blood Urea Nitrogen 10 mg/dL (9-16); Calcium 7.7 mg/dL (8.4-10.2); Carbon Dioxide 24 mmol/L (22-29); Chloride 111 mmol/L (96-108); Creatinine Clr Calc Pharmacy 72.1; Estimated Glomerular Filt Rate > 60; Magnesium 1.8 mg/dL (1.6-2.6); Potassium 4.1 mmol/L (3.3-5.1); Sodium 140 mmol/L (135-145); Total Protein 4.9 g/dL (6.5-8.0); Triglycerides 121 mg/dL (<150)
[2025-08-05 08:00] LABS: Alanine Aminotransferase < 6 U/L (0-40)
[2025-08-05] MEDS: Potassium Chloride ER 20 MEQ TAB.ER.PRT PO (08:18)
--- NOTE | 2025-08-05 10:51 | MHC.CLN ---
F/U PATIENT QUALIFIES SEVERELY MALNOURISHED IN THE CONTEXT OF CHRONIC ILLNESS SEE FULL NUTRITION ASSESSMENT DATED 08/04/25 DIET RX: CLEAR LIQUIDS REVIEWED LABS; NOTED TRIGS 121, NO S/S RE-FEEDING NOTED DISCUSSED WITH PHARMACY RECOMMEND INCREASING PPN TO 80 ML PER HOUR TO PROVIDE 979 KCALS, 192G DEXTROSE, 82G PROTEIN (.98G/KG) REPLETE LYTES NEEDED MONITOR PO INTAKE WILL REDUCE PPN PO INTAKE IMPROVES
--- NOTE | 2025-08-05 15:54 | HO.PM.IMPN ---
Subjective Subjective Date of Service: 08/05/25 Interval History: PATIENT HAS NO NEW COMPLAINTS TODAY. REPORTS FEELING WELL OVERALL. HAS NOT HAD EPISODES OF DIARRHEA TODAY. NO ABDOMINAL PAIN OR DISCOMFORT. Review of Systems Review of Systems: Yes all other systems are reviewed and are negative Physical Exam Exam: Exam: General: A&O x3, oriented to time place person and situation, comfortable, no pain Cardiac: S1, S2 auscultated with no S3/4, no MRG. Well perfused. Respiratory: Normal breath sounds auscultated throughout all lung zones, without wheezing, rales. Normal rate. GI/ : No abdominal pain on palpation, no masses or distentions. MSK: Chest wall has Port-A-Cath right subclavicular. Severe cachexia and muscular atrophy noted - diffuse. Normal ROM. Neurological: Normal neurological examination on overview, without obvious CN II-XII abnormalities. Vital Signs: Vital Signs: Last Vital Signs Temp 97.4 F 08/05/25 15:20 Pulse 99 08/05/25 15:20 Resp 20 08/05/25 15:20 BP 98/62 08/05/25 15:20 Pulse Ox 98 08/05/25 15:20 O2 Del Method Nasal Cannula 08/05/25 15:20 O2 Flow Rate 2 08/05/25 15:20 Oxygen Flow Rate 2 08/03/25 21:14 BMI result Body Mass Index 13.8 Objective Data Active Medications Acetaminophen (Acetaminophen 325 Mg Tablet) 650 mg PO Q6H PRN PRN Reason: Pain, Mild 1-3,fever,headache Albuterol/Ipratropium (Albuterol/Iprat 2.5/0.5mg 3 Ml Ampul.Neb) 3 ml INHALE Q4H PRN PRN Reason: Shortness of Breath/Wheezing Calcium Carbonate (Calcium Carbonate 750 Mg Tab.Chew) 750 mg PO Q4H PRN PRN Reason: Heartburn Digoxin (Digoxin 0.125 Mg Tablet) 0.125 mg PO DAILY [facility]; Protocol Last Admin: 08/05/25 08:19 Dose: 0.125 mg Documented By: PRISCILA Enoxaparin Sodium (Enoxaparin Sodium 40 Mg/0.4 Ml Syringe) 40 mg SUBCUT Q24H [facility] Last Admin: 08/05/25 00:32 Dose: 40 mg Documented By: SINAN Potassium Chloride/Sodium Chloride (Kcl 20 Meq In 0.9 % Sodium Chl) 20 meq in 1,000 mls @ 80 mls/hr IVCONT .[id number] [facility] Last Admin: 08/05/25 05:04 Dose: 80 mls/hr Documented By: SINAN Nutrition (Parenteral) (Parenteral Nutrition) 1,440 mls @ 60 mls/hr IV .Q24H [facility]; Protocol Stop: 08/05/25 20:59 Last Admin: 08/04/25 22:09 Dose: 60 mls/hr Documented By: SINAN Nutrition (Parenteral) (Parenteral Nutrition) 1,920 mls @ 80 mls/hr IV .Q24H [facility]; Protocol Stop: 08/06/25 20:59 Magnesium Hydroxide (Milk Of Magnesia 30 Ml Oral.Susp) 30 ml PO DAILY PRN PRN Reason: Constipation Melatonin (Melatonin 3 Mg Tablet) 6 mg PO BEDTIME PRN PRN Reason: Insomnia Metoprolol Tartrate (Metoprolol Tartrate 12.5 Mg Halftab) 12.5 mg PO BID [facility]; Protocol Last Admin: 08/05/25 06:30 Dose: Not Given Documented By: SINAN Non-Admin Reason: per MD at bedside - low BP Midodrine (Midodrine Hcl 10 Mg Tablet) 10 mg PO TIDWM [facility] Last Admin: 08/05/25 14:03 Dose: 10 mg Documented By: PRISCILA Ondansetron HCl (Ondansetron Hcl 4 Mg/2 Ml Vial) 4 mg IVPUSH Q8H PRN PRN Reason: Nausea and Vomiting Pharmacy Consult (Consult Rx Parenteral Nutrition Ordering) 1 each MISCELLANE DAILY PRN PRN Reason: Consult order Polyethylene Glycol (Polyethylene Glycol 3350 17 Gm Powd.Pack) 17 gm PO DAILY PRN PRN Reason: Constipation Potassium Chloride (Potassium Chloride Er 20 Meq Tab.Er.Prt) 20 meq PO DAILY [facility] Last Admin: 08/05/25 08:18 Dose: 20 meq Documented By: PRISCILA Sodium Chloride (0.9 % Sodium Chloride Flush 3 Ml Syringe) 3 ml IVFLUSH QSHIFT [facility] Last Admin: 08/05/25 00:36 Dose: 3 ml Documented By: SINAN Thiamine HCl (Thiamine Hcl 100 Mg Tablet) 100 mg PO DAILY [facility] Last Admin: 08/05/25 08:18 Dose: 100 mg Documented By: PRISCILA Vancomycin HCl (Vancomycin Hcl 125 Mg Capsule) 125 mg PO Q6H TE Stop: 08/19/25 07:59 Last Admin: 08/05/25 14:03 Dose: 125 mg Documented By: PRSICILA Labs 08/04/25 04:49 08/05/25 07:14 Labs: Laboratory Results - last 24 hr 08/04/25 08/05/25 04:49 07:14 Hold Purple Top SEE NOTE Anion Gap 9 L Estim Creat Clear Calc 72.1 Estimated GFR > 60 Random Glucose 102 Lactic Acid 0.9 Calcium 7.7 L Phosphorus 2.2 L Magnesium 1.8 Total Bilirubin 0.4 AST 18 ALT < 6 Alkaline Phosphatase 117 Troponin I High Sens 12.0 Total Protein 4.9 L Albumin 2.3 L Triglycerides 121 Blood Type O Negative Microbiology Microbiology Results: Microbiology 08/03/25 21:42 Blood Culture - Preliminary Blood - Venous No growth after 24 hours. 08/03/25 21:42 Blood Culture - Preliminary Blood - Venous No growth after 24 hours. Assessment and Plan (1) Cardiomyopathy: Status: Acute (2) Atrial fibrillation: Status: Acute (3) Malnutrition: Status: Acute (4) Hypotension: Status: Acute (5) Acute hypokalemia: Status: Acute (6) Hypomagnesemia: Status: Acute (7) Dehydration: Status: Acute (8) Hypoalbuminemia: Status: Acute (9) Non-small cell lung cancer: Status: Chronic (10) C. difficile diarrhea: Status: Acute (11) Sepsis: Status: Acute (12) Muscle weakness (generalized): Status: Acute (13) COPD (chronic obstructive pulmonary disease): Status: Acute (14) Frailty: Status: Acute (15) Physical deconditioning: Status: Acute Plan 62-year-old male with a history of non-small cell lung cancer metastatic, on chemotherapy, right PleurX placed 02/28, COPD/emphysema, AFib no anticoagulation, HFrEF 20-25%, severe malnourishment and failure to thrive, orthostatic hypotension, recent diagnosis of C diff placed on fidaxomicin, presents with weakness and persistent diarrhea, admitted for sepsis 2/2 C diff colitis without toxic megacolon with FTT. Sepsis C diff colitis Patient was placed on fidaxomicin for 10 days, without improvement after treatment for 4 days, persistent diarrhea. Patient had leukopenia on presentation, neutrophilic shift. Abdominal pain noted, with persistent diarrhea Imaging revealed no evidence of toxic megacolon. PLAN - discontinued fidaxomicin - discontinue Zosyn - start vancomycin 125 mg p.o. 4 times a day for 14 days - Infectious disease's recommendations greatly appreciated - monitor blood cultures Hypoxic respiratory failure Metastatic [id number]-nkwy lung cancer s/p PleurX on chemotherapy COPD/emphysema Suspect the patient has been suffering with worsening hypoxic respiratory failure in the outpatient setting. He is asymptomatic from respiratory standpoint Currently on nasal oxygen. Attempt to wean off, and if unable to, the patient may require nocturnal O2/daytime O2 given significant respiratory issues. Failure to thrive Severe malnourishment Hypokalemia Dehydration Multifactorial anemia (chronic disease, iron deficiency, B12 deficiency) Seen by dietary team, diagnosed with severe malnourishment. Currently on PPN Physical therapy evaluating patient Case management consulted on evaluating Fall precaution Check BMP and magnesium and replete aggressively Currently on IVF, however will utilize with caution given history of HFrEF - thiamine - Iron supplementation - B12 supplementation HFrEF 20-25% CAD AFib No evidence of acute exacerbation Caution with utilization of IVF given patient's history of reduced ejection fraction. Not on anticoagulation PLAN - digoxin 0.125 mg OD p.o. - metoprolol 12.5 mg b.i.d. p.o. - cardiac telemetry Orthostatic hypotension - Midodrine 10 mg t.i.d. p.o. QUALITY METRICS - VTE: Heparin t.i.d. 5000 SQ - CODE STATUS: Full code - requires code discussion - DIET: Regular Quality Stroke Does the patient have a stroke diagnosis?: No Reason for No Anti-thrombotic by Day Two: Contraindicated (await stool for occult ) VTE Prior VTE?: No VTE Risk Level:: Medical - moderate - high VTE Device Contraindication: N/A - Device Ordered VTE Drug Contraindication: N/A - Med Ordered
[2025-08-05] MEDS: Metoprolol Tartrate 12.5 MG HALFTAB PO (20:43)
[2025-08-05] MEDS: Parenteral Nutrition 1,920 ML 80 ML IV (22:17)
[2025-08-06] VITALS (8 sets, daily range): BP systolic 90–116; BP diastolic 57–72; PULSE 78–99; RESP 17–18; TEMP 36.1–36.6; O2SAT 93–97; BMI 14.2
[2025-08-06 07:33] LABS: Alanine Aminotransferase < 6 U/L (0-40); Albumin Level 2.1 g/dL (3.5-5.0); Alkaline Phosphatase 121 U/L (39-117); Anion Gap 9 (12-20); Aspartate Amino Transferase 21 U/L (5-37); Blood Urea Nitrogen 10 mg/dL (9-16); Calcium 7.8 mg/dL (8.4-10.2); Carbon Dioxide 24 mmol/L (22-29); Chloride 107 mmol/L (96-108); Creatinine Clr Calc Pharmacy 92.0; Estimated Glomerular Filt Rate > 60; Magnesium 1.8 mg/dL (1.6-2.6); Potassium 4.9 mmol/L (3.3-5.1); Sodium 135 mmol/L (135-145); Total Protein 4.5 g/dL (6.5-8.0)
--- NOTE | 2025-08-06 10:16 | MHC.CLN ---
F/U DIET RX: CLEAR LIQUIDS REVIEWED LABS; NO S/S RE-FEEDING NOTED DISCUSSED WITH PHARMACY RECOMMEND INCREASING PPN TO 100 ML/HR WITH 87G LIPIDS TO PROVIDE 2094 TOTAL KCALS (25KCALS/KG BASED ON IBW), 240G DEXTROSE, 102G PROTEIN (1.2G/KG) PPN WILL PROMOTE WOUND HEALING REPLETE LYTES NEEDED CONTINUE TO MONITOR PO INTAKE
[2025-08-06] MEDS: Metoprolol Tartrate 12.5 MG HALFTAB PO (10:53)
[2025-08-06] MEDS: 0.9 % Sodium Chloride Flush 3 ML SYRINGE IVFLUSH ×3 (10:54→20:31)
[2025-08-06] MEDS: Potassium Chloride ER 20 MEQ TAB.ER.PRT PO (10:54)
--- NOTE | 2025-08-06 13:06 | MHC.CM.PN ---
THIS CM MET WITH PT TO DISCUSS GOING TO STR PER PT RECOMMENDATION. PT IS IN AGREEMENT WITH GOING TO STR. STR REFERRALS SENT [facility], BED OFFER RECEIVED FROM [facility]. PT ACCEPTS BED OFFER FROM [facility], THEY WILL INITIATE INSURANCE AUTH.
--- NOTE | 2025-08-06 17:29 | HO.PM.IMPN ---
Subjective Subjective Date of Service: 08/06/25 Interval History: No issues currently. No abdominal pain, diarrhea 1 episode overnight. He is hungry, and requesting regular diet Review of Systems Review of Systems: Yes all other systems are reviewed and are negative Physical Exam Exam: Exam: General: A&O x3, oriented to time place person and situation, comfortable, no pain Cardiac: S1, S2 auscultated with no S3/4, no MRG. Well perfused. Respiratory: Normal breath sounds auscultated throughout all lung zones, without wheezing, rales. Normal rate. GI/ : No abdominal pain on palpation, no masses or distentions. MSK: Chest wall has Port-A-Cath right subclavicular. Severe cachexia and muscular atrophy noted - diffuse. Normal ROM. Neurological: Normal neurological examination on overview, without obvious CN II-XII abnormalities. Vital Signs: Vital Signs: Last Vital Signs Temp 97.5 F 08/06/25 15:38 Pulse 89 08/06/25 15:38 Resp 18 08/06/25 15:38 BP 93/61 08/06/25 17:10 Pulse Ox 95 08/06/25 15:38 O2 Del Method Nasal Cannula 08/06/25 15:38 O2 Flow Rate 2 08/06/25 15:38 Oxygen Flow Rate 2 08/03/25 21:14 BMI result Body Mass Index 14.2 Objective Data Active Medications Acetaminophen (Acetaminophen 325 Mg Tablet) 650 mg PO Q6H PRN PRN Reason: Pain, Mild 1-3,fever,headache Albuterol/Ipratropium (Albuterol/Iprat 2.5/0.5mg 3 Ml Ampul.Neb) 3 ml INHALE Q4H PRN PRN Reason: Shortness of Breath/Wheezing Calcium Carbonate (Calcium Carbonate 750 Mg Tab.Chew) 750 mg PO Q4H PRN PRN Reason: Heartburn Digoxin (Digoxin 0.125 Mg Tablet) 0.125 mg PO DAILY [facility]; Protocol Last Admin: 08/06/25 10:53 Dose: 0.125 mg Documented By: JOSE Enoxaparin Sodium (Enoxaparin Sodium 40 Mg/0.4 Ml Syringe) 40 mg SUBCUT Q24H [facility] Last Admin: 08/06/25 03:01 Dose: 40 mg Documented By: SINAN Nutrition (Parenteral) (Parenteral Nutrition) 1,920 mls @ 80 mls/hr IV .Q24H [facility]; Protocol Stop: 08/06/25 20:59 Last Admin: 08/05/25 22:17 Dose: 80 mls/hr Documented By: SINAN Nutrition (Parenteral) (Parenteral Nutrition) 2,400 mls @ 100 mls/hr IV .Q24H [facility]; Protocol Stop: 08/07/25 20:59 Magnesium Hydroxide (Milk Of Magnesia 30 Ml Oral.Susp) 30 ml PO DAILY PRN PRN Reason: Constipation Melatonin (Melatonin 3 Mg Tablet) 6 mg PO BEDTIME PRN PRN Reason: Insomnia Metoprolol Tartrate (Metoprolol Tartrate 12.5 Mg Halftab) 12.5 mg PO BID [facility]; Protocol Last Admin: 08/06/25 10:53 Dose: 12.5 mg Documented By: JOSE Midodrine (Midodrine Hcl 10 Mg Tablet) 10 mg PO TIDWM [facility] Last Admin: 08/06/25 17:10 Dose: 10 mg Documented By: JOSE Ondansetron HCl (Ondansetron Hcl 4 Mg/2 Ml Vial) 4 mg IVPUSH Q8H PRN PRN Reason: Nausea and Vomiting Pharmacy Consult (Consult Rx Parenteral Nutrition Ordering) 1 each MISCELLANE DAILY PRN PRN Reason: Consult order Polyethylene Glycol (Polyethylene Glycol 3350 17 Gm Powd.Pack) 17 gm PO DAILY PRN PRN Reason: Constipation Potassium Chloride (Potassium Chloride Er 20 Meq Tab.Er.Prt) 20 meq PO DAILY [facility] Last Admin: 08/06/25 10:54 Dose: 20 meq Documented By: JOSE Sodium Chloride (0.9 % Sodium Chloride Flush 3 Ml Syringe) 3 ml IVFLUSH QSHIFT [facility] Last Admin: 08/06/25 17:10 Dose: 3 ml Documented By: JOSE Thiamine HCl (Thiamine Hcl 100 Mg Tablet) 100 mg PO DAILY [facility] Last Admin: 08/06/25 10:54 Dose: 100 mg Documented By: JOSE Vancomycin HCl (Vancomycin Hcl 125 Mg Capsule) 125 mg PO Q6H [facility] Stop: 08/19/25 07:59 Last Admin: 08/06/25 14:29 Dose: 125 mg Documented By: JOSE Labs 08/04/25 04:49 08/06/25 06:46 Labs: Laboratory Results - last 24 hr 08/06/25 06:46 Hold Purple Top SEE NOTE Anion Gap 9 L Estim Creat Clear Calc 92.0 Estimated GFR > 60 Random Glucose 96 Calcium 7.8 L Phosphorus 3.0 Magnesium 1.8 Total Bilirubin 0.3 AST 21 ALT < 6 Alkaline Phosphatase 121 H Total Protein 4.5 L Albumin 2.1 L Microbiology Microbiology Results: Microbiology 08/03/25 21:42 Blood Culture - Preliminary Blood - Venous No growth after 48 hours. 08/03/25 21:42 Blood Culture - Preliminary Blood - Venous No growth after 48 hours. Assessment and Plan (1) Hypotension: Status: Acute (2) Cardiomyopathy: Status: Acute (3) Atrial fibrillation: Status: Acute (4) Malnutrition: Status: Acute (5) Hypomagnesemia: Status: Acute (6) Hypoalbuminemia: Status: Acute (7) Lung cancer: Status: Acute (8) Non-small cell lung cancer: Status: Chronic (9) COPD (chronic obstructive pulmonary disease): Status: Acute Plan 62-year-old male with a history of non-small cell lung cancer metastatic, on chemotherapy, right PleurX placed 02/28, COPD/emphysema, AFib no anticoagulation, HFrEF 20-25%, severe malnourishment and failure to thrive, orthostatic hypotension, recent diagnosis of C diff placed on fidaxomicin, presents with weakness and persistent diarrhea, admitted for sepsis 2/2 C diff colitis without toxic megacolon with FTT. Sepsis C diff colitis Patient was placed on fidaxomicin for 10 days, without improvement after treatment for 4 days, persistent diarrhea. Patient had leukopenia on presentation, neutrophilic shift. Abdominal pain noted, with persistent diarrhea Imaging revealed no evidence of toxic megacolon. PLAN - discontinued fidaxomicin - discontinue Zosyn - start vancomycin 125 mg p.o. 4 times a day for 14 days - Infectious disease's recommendations greatly appreciated - monitor blood cultures Hypoxic respiratory failure Metastatic Ubh-hluoe-uite lung cancer s/p PleurX on chemotherapy COPD/emphysema Suspect the patient has been suffering with worsening hypoxic respiratory failure in the outpatient setting. He is asymptomatic from respiratory standpoint Currently on nasal oxygen. Attempt to wean off, and if unable to, the patient may require nocturnal O2/daytime O2 given significant respiratory issues. Failure to thrive Severe malnourishment Hypokalemia Dehydration Multifactorial anemia (chronic disease, iron deficiency, B12 deficiency) Seen by dietary team, diagnosed with severe malnourishment. Currently on PPN Physical therapy evaluating patient Case management consulted on evaluating Fall precaution Check BMP and magnesium and replete aggressively Currently on IVF, however will utilize with caution given history of HFrEF - thiamine - Iron supplementation - B12 supplementation HFrEF 20-25% CAD AFib No evidence of acute exacerbation Caution with utilization of IVF given patient's history of reduced ejection fraction. Not on anticoagulation PLAN - digoxin 0.125 mg OD p.o. - metoprolol 12.5 mg b.i.d. p.o. - cardiac telemetry Orthostatic hypotension - Midodrine 10 mg t.i.d. p.o. QUALITY METRICS - VTE: Heparin t.i.d. 5000 SQ - CODE STATUS: Full code - requires code discussion - DIET: Regular - DISPOSITION: 1-2 days to Rehab Total time managing care of this patient today: 30 minutes. Quality Stroke Does the patient have a stroke diagnosis?: No Reason for No Anti-thrombotic by Day Two: Contraindicated (await stool for occult ) VTE Prior VTE?: No VTE Risk Level:: Medical - moderate - high VTE Device Contraindication: N/A - Device Ordered VTE Drug Contraindication: N/A - Med Ordered
[2025-08-06] MEDS: Parenteral Nutrition 2,400 ML 100 ML IV (20:25)
[2025-08-07 02:55] VITALS: BP 101/63; PULSE 100; RESP 18; TEMP 36.6; O2SAT 97
[2025-08-07 06:00] VITALS: BMI 14.0
[2025-08-07 06:32] LABS: Digoxin 0.5 ng/mL (0.8-2.0)
[2025-08-07 06:32] LABS: OBS Int Ctl Valid YES; OBS1 POSITIVE (NEGATIVE)
[2025-08-07 06:43] LABS: Alanine Aminotransferase < 6 U/L (0-40); Albumin Level 2.2 g/dL (3.5-5.0); Alkaline Phosphatase 127 U/L (39-117); Anion Gap 9 (12-20); Aspartate Amino Transferase 26 U/L (5-37); Blood Urea Nitrogen 14 mg/dL (9-16); Calcium 8.5 mg/dL (8.4-10.2); Carbon Dioxide 27 mmol/L (22-29); Chloride 99 mmol/L (96-108); Creatinine Clr Calc Pharmacy 90.3; Estimated Glomerular Filt Rate > 60; Magnesium 1.9 mg/dL (1.6-2.6); Potassium 4.5 mmol/L (3.3-5.1); Sodium 130 mmol/L (135-145); Total Protein 4.9 g/dL (6.5-8.0)
--- NOTE | 2025-08-07 07:24 | P.CDIM_ITS ---
PROVIDER RESPONSE TEXT: To clarify, the appropriate diagnosis supported by the clinical indicators: Deep tissue injury bilateral iliac crest: present QUERY TEXT: PHYSICIAN'S DOCUMENTATION REQUEST Date of Query: 08/06/2025 07:22 AM EDT Patient Name: Jose Guadalupe Morales Admit Date: 08/04/2025 Dear Gabriela Chand MD, A review of the medical record indicates additional documentation may be needed. Please review below and update the documentation accordingly. Clinical Indicators: Wound care consult note 08/04/25 - Deep Tissue Injury - bilateral iliac crest Localized area over bony prominence with intact red/purple discoloration partially blanching. Off loading, pressure reduction. Based on the above, could you please provide further information regarding the ulcer/wound/injury: Deep tissue injury bilateral iliac crest possible, suspected, probable, cannot rule out etc. Other specified Please specify Other (explain) Clinically unable to determine (explain) Thank you, Kiah Marinelli, CCS, CDIS Use of terms such as suspected, likely, concern for, or probable (associated with a specific diagnosis that is being evaluated, monitored, or treated as if it exists) are acceptable and can be coded in the inpatient setting, when documented at the time of discharge. Please use your independent medical judgment in providing your response. THIS QUERY IS PART OF THE PERMANENT MEDICAL RECORD
[2025-08-07 07:32] VITALS: BP 95/67; PULSE 104; RESP 18; TEMP 36.7; O2SAT 99
[2025-08-07] MEDS: 0.9 % Sodium Chloride Flush 3 ML SYRINGE IVFLUSH ×2 (09:41→15:08)
[2025-08-07] MEDS: Metoprolol Tartrate 12.5 MG HALFTAB PO (09:41)
[2025-08-07] MEDS: Potassium Chloride ER 20 MEQ TAB.ER.PRT PO (09:42)
--- NOTE | 2025-08-07 10:30 | MHC.CLN ---
F/U DIET ADVANCED TO REGULAR PO INTAKE 50% X1 MEAL OF CLEAR LIQUIDS NOTED WT UP 5.7KG SINCE ADMISSION REVIEWED LABS; NOTED LOW SERUM NA DISCUSSED WITH PHARMACY CONTINUE PPN AT 100 ML/HR WITH 87G LIPIDS PROVIDES 2094 TOTAL KCALS (25KCALS/KG BASED ON IBW), 240G DEXTROSE, 102G PROTEIN (1.2G/KG) PPN WILL PROMOTE WOUND HEALING REPLETE LYTES NEEDED MONITOR PO INTAKE
[2025-08-07 10:59] VITALS: BP 90/60; PULSE 110; RESP 16; TEMP 37; O2SAT 99
[2025-08-07 14:14] VITALS: BP 90/60; PULSE 110; O2SAT 99
--- NOTE | 2025-08-07 14:37 | P.DS_ITS ---
DS: Providers Provider Date of Service: 08/07/25 Date of admission: 08/04/25 01:51 Date of discharge: 08/07/25 Primary care physician: Lencho Squires MD Consults: 08/03/25 23:49 Consult to Infectious Diseases Routine Consulting Provider: [facility] Reason for consultation: c diff diarrhea 08/04/25 02:51 Consult to Gastroenterology Routine Consulting Provider: Rishi White Reason for consultation: CDIFF, NSC Lung CA, ? mets to sigmoid colon, colitis Has provider been notified: No Consult to Hematology / Oncology Routine Consulting Provider: [facility] Oncology/Hematology Reason for consultation: mpm sc llung ca, FTT, severe wt loss, CDIFF Has provider been notified: No 08/04/25 11:25 Consult to Wound Care Routine Reason for consultation: coccyx redness DS: Diagnosis Discharge Diagnosis (1) Hypotension: Status: Acute (2) Cardiomyopathy: Status: Acute (3) Atrial fibrillation: Status: Acute (4) Malnutrition: Status: Acute (5) Hypomagnesemia: Status: Acute (6) Hypoalbuminemia: Status: Acute (7) Lung cancer: Status: Acute (8) Non-small cell lung cancer: Status: Chronic (9) COPD (chronic obstructive pulmonary disease): Status: Acute DS: Summary Hospital Course Hospital Course: 62-year-old male with a history of non-small cell lung cancer metastatic, on chemotherapy, right PleurX placed 02/28, COPD/emphysema, AFib no anticoagulation, HFrEF 20-25%, severe malnourishment and failure to thrive, orthostatic hypotension, recent diagnosis of C diff placed on fidaxomicin, presents with weakness and persistent diarrhea, admitted for sepsis 2/2 C diff colitis without toxic megacolon with FTT. Sepsis C diff colitis Patient was placed on fidaxomicin for 10 days, without improvement after treatment for 4 days, persistent diarrhea. Patient had leukopenia on presentation, neutrophilic shift. Abdominal pain noted, with persistent diarrhea Imaging revealed no evidence of toxic megacolon. Discontinued fidaxomicin Discontinue Zosyn that was started in the ED Start vancomycin 125 mg p.o. 4 times a day for 14 days RECOMMENDATIONS - Continue zosyn 125mg q6hrly for 10 days (then de-escalate to BID for 1 week, then OD for 1 week) - Infectious disease's recommendations greatly appreciated - monitor blood cultures Hypoxic respiratory failure Metastatic Kme-pbvin-dbfo lung cancer s/p PleurX on chemotherapy COPD/emphysema Suspect the patient has been suffering with worsening hypoxic respiratory failure in the outpatient setting. He is asymptomatic from respiratory standpoint Currently on nasal oxygen - removed and improved Failure to thrive Severe malnourishment Hypokalemia Dehydration Multifactorial anemia (chronic disease, iron deficiency, B12 deficiency) Seen by dietary team, diagnosed with severe malnourishment. Currently on PPN Physical therapy evaluating patient Case management consulted on evaluating Fall precaution Check BMP and magnesium and replete aggressively RECOMMENDATIONS - thiamine - Iron supplementation - B12 supplementation HFrEF 20-25% CAD AFib No evidence of acute exacerbation Caution with utilization of IVF given patient's history of reduced ejection fraction. Not on anticoagulation RECOMMENDATIONS - digoxin 0.125 mg OD p.o. - metoprolol 12.5 mg b.i.d. p.o. Status at Discharge Overall status at discharge: patient is back to baseline Time Attestation Total time managing care of this patient today: 45 mintues. Discharge Coordination Time (in mins): 30 Quality: Safe Use of Opioids Does Pt have an Active Cancer Diagnosis on the Problem List?: No Quality: Stroke Does the patient have a stroke diagnosis?: No Physical Exam Exam: Exam: General: A&O x3, oriented to time place person and situation, comfortable, no pain Cardiac: S1, S2 auscultated with no S3/4, no MRG. Well perfused. Respiratory: Normal breath sounds auscultated throughout all lung zones, without wheezing, rales. Normal rate. GI/ : No abdominal pain on palpation, no masses or distentions. MSK: Chest wall has Port-A-Cath right subclavicular. Severe cachexia and muscular atrophy noted - diffuse. Normal ROM. Neurological: Normal neurological examination on overview, without obvious CN II-XII abnormalities. Vital Signs: Vital Signs: Last Vital Signs Temp 98.6 F 08/07/25 10:59 Pulse 110 H 08/07/25 14:14 Resp 16 08/07/25 10:59 BP 90/60 08/07/25 14:14 Pulse Ox 99 08/07/25 14:14 O2 Del Method Nasal Cannula 08/07/25 10:59 O2 Flow Rate 2 08/07/25 10:59 Oxygen Flow Rate 2 08/03/25 21:14 BMI result Body Mass Index 14.0 DS: Data Data Completed and Pending Completed studies during hospitalization [Text1]: Procedures Drainage of Right Pleural Cavity with Drainage Device, Percutaneous Approach (02/11/25) Excision of Right Main Bronchus, Via Natural or Artificial Opening Endoscopic, Diagnostic (02/11/25) Fluoroscopy of Superior Vena Cava, Guidance (02/11/25) Insertion of Infusion Device into Superior Vena Cava, Percutaneous Approach (02/11/25) Insertion of Totally Implantable Vascular Access Device into Chest Subcutaneous Tissue and Fascia, Percutaneous Approach (02/11/25) Labs on day of discharge: Laboratory Results - last 24 hr 08/07/25 08/07/25 05:48 06:12 Sodium 130 L Potassium 4.5 Chloride 99 Carbon Dioxide 27 Anion Gap 9 L BUN 14 Creatinine 0.54 Estim Creat Clear Calc 90.3 Estimated GFR > 60 Random Glucose 117 H Calcium 8.5 D Phosphorus 3.5 Magnesium 1.9 Total Bilirubin 0.2 AST 26 ALT < 6 Alkaline Phosphatase 127 H Total Protein 4.9 L Albumin 2.2 L Stool Occult Blood POSITIVE Digoxin 0.5 L Preliminary micro results at discharge 08/03/25 21:42 Blood Culture - Preliminary Blood - Venous No growth after 48 hours. 08/03/25 21:42 Blood Culture - Preliminary Blood - Venous No growth after 48 hours. Discharge Plan Discharge Anticipated Discharge Date/Time: 08/07/25 14:44 Patient Disposition: Xfer Inpatient Rehab Fac Discharge Diagnosis: Recurrence of C.Diff (failed outpatient) Referrals: Lencho Squires MD [Primary Care Provider, Internal Medicine] - 1 Week Discharge Medications: New vancomycin 125 mg Capsule 125 mg PO Q6H 24 Days Qty: 54 0RF Rx Instructions: 4 times a day for 10 days, then 2 times a day for 7 days, then 1 times a day for 7 days midodrine 10 mg Tablet 10 mg PO TIDWM 30 Days Qty: 90 0RF thiamine mononitrate (vit B1) 100 mg Tablet 100 mg PO DAILY 30 Days Qty: 30 0RF Continued (DME) Oxygen Home Use Kit See Rx Instructions .Route Qty: 1 1RF Rx Instructions: daily 2L Chronically (DME) Portable oxygen concentrator See Rx Instructions .Route .MEDSUPPLY Qty: 1 0RF Rx Instructions: As directed (DME) Ultra-Light Rollator Misc See Rx Instructions .Route Qty: 1 0RF Rx Instructions: As directed digoxin 125 mcg (0.125 mg) tablet 0.125 mg PO DAILY Qty: 90 0RF Protocol: Hold for HR <: HOLD for HR < : 60 metoprolol tartrate 25 mg tablet 12.5 mg PO BID Qty: 90 1RF Discontinued midodrine 5 mg Tablet 5 mg PO TID Qty: 90 1RF Rx Instructions: do not give last dose of day after 6PM or within 4 hrs of bedtime fidaxomicin [Dificid] 200 mg tablet 200 mg PO Q12H dexamethasone 4 mg tablet 8 mg PO USEASDIRECTD Rx Instructions: Take 2 tabs BID for 2 days after chemo. Discharge Orders: Discharge Order (Routine); Ordered 08/07/25 Ordered By: Gabriela Chand Stand Alone Forms: Patient Portal Discharge page Print Language: Luxembour[place] Care Plan Goals: As above Health Concerns: As above Plan of Treatment: Continue vancomycin as prescribed Follow up Infectious diseases outpatient Follow up outpatient Cardiology Follow up PCP within 1 week of discharge Follow up oncology/hematology Assessment: Hemodynamically stable for discharge. The patient has multiple comorbid conditions, which requires extensive goals of care discussion. Attempted to have discussion with the patient, however he wished to focus on STR initially. The patient seems amenable for discussion after STR stay
[2025-08-07] MEDS: Heparin Sodium,Porcine Flush 500 UNIT/5 ML SYRINGE IVFLUSH (15:08)
--- NOTE | 2025-08-07 15:10 | MHC.CM.PN ---
IMM 08/07/25, PT MEDICALLY CLEARED FOR DC TO [facility] FOR BLS TRANSPORT AT 4PM.
[2025-08-07 16:00] VITALS: BP 95/65; PULSE 113; RESP 18; TEMP 36.4; O2SAT 96
== END 2025-08-07 16:25 | DRG 871 ==
LOC: HO.ED 08-04 01:27 → HO.EDOVER 08-04 03:15 → HO.IMC 08-04 11:59
PROVIDERS: Internal Medicine; Admitting Provider Nurse Practitioner Family; Emergency Provider Emergency Medicine; PCP Internal Medicine; Visit Provider Hospitalist
DX: A41.4 Sepsis due to anaerobes (principal); E43 Unspecified severe protein-calorie malnutrition; J96.01 Acute respiratory failure with hypoxia; C78.5 Secondary malignant neoplasm of large intestine and rectum; I50.22 Chronic systolic (congestive) heart failure; C79.51 Secondary malignant neoplasm of bone; A04.71 Enterocolitis due to Clostridium difficile, recurrent; C34.01 Malignant neoplasm of right main bronchus; C79.31 Secondary malignant neoplasm of brain; I47.10 Supraventricular tachycardia, unspecified; Z68.1 Body mass index [BMI] 19.9 or less, adult; D51.9 Vitamin B12 deficiency anemia, unspecified; D63.0 Anemia in neoplastic disease; D50.9 Iron deficiency anemia, unspecified; L89.226 Pressure-induced deep tissue damage of left hip; L89.216 Pressure-induced deep tissue damage of right hip; R62.7 Adult failure to thrive; Z99.81 Dependence on supplemental oxygen; J43.9 Emphysema, unspecified; E86.0 Dehydration; Z87.891 Personal history of nicotine dependence; Z79.899 Other long term (current) drug therapy
CPT/HCPCS: 36415; 71045; 80053; 80162; 81001; 82040; 82272; 82803; 83605; 83735; 83880; 84100; 84443; 84478; 84484; 85007; 85025; 85027; 86850; 86870; 86900; 86901; 86920; 86922; 87040; 87324; 87493; 87507; 93005; 97110; 97162; 99285; J0616; J1642; J1650; J2543; J3475; J3480; J7120

== ENCOUNTER → 2025-08-03 21:37 | Outpatient (BNV) | payer MEDICARE, SELFPAY | PROVIDERS: Admitting Provider Nurse Practitioner Family; Emergency Provider Emergency Medicine; PCP Internal Medicine; Visit Provider Internal Medicine | DX: R00.0 Tachycardia, unspecified (principal) | CPT/HCPCS: 93010 ==

== ENCOUNTER → 2025-08-03 21:44 | Outpatient (BNV) | payer MEDICARE, SELFPAY | PROVIDERS: Emergency Provider Emergency Medicine; Visit Provider Radiology Diagnostic Radiology | DX: J44.9 Chronic obstructive pulmonary disease, unspecified (principal) | CPT/HCPCS: 71045 ==

== ENCOUNTER 2025-08-04 01:51 | Outpatient (BNV) | payer MEDICARE, SELFPAY | END 2025-08-05 06:13 | PROVIDERS: Admitting Provider Nurse Practitioner Family; Emergency Provider Emergency Medicine; PCP Internal Medicine; Visit Provider Internal Medicine | DX: R00.0 Tachycardia, unspecified (principal) | CPT/HCPCS: 93010 ==

== ENCOUNTER → 2025-08-04 01:51 | Outpatient (BNV) | payer MEDICARE, SELFPAY | PROVIDERS: Admitting Provider Nurse Practitioner Family; Emergency Provider Emergency Medicine; PCP Internal Medicine; Visit Provider Internal Medicine | DX: A41.9 Sepsis, unspecified organism (principal); E86.0 Dehydration; E87.6 Hypokalemia; A04.72 Enterocolitis due to Clostridium difficile, not specified as recurrent; R53.81 Other malaise | CPT/HCPCS: 99223 ==

== ENCOUNTER → 2025-08-04 01:51 | Outpatient (BNV) | payer MEDICARE, SELFPAY | PROVIDERS: Admitting Provider Nurse Practitioner Family; Emergency Provider Emergency Medicine; PCP Internal Medicine; Visit Provider Internal Medicine | DX: A04.72 Enterocolitis due to Clostridium difficile, not specified as recurrent (principal) | CPT/HCPCS: 99222 ==

== ENCOUNTER → 2025-08-04 01:51 | Outpatient (BNV) | payer MEDICARE, SELFPAY | PROVIDERS: Admitting Provider Nurse Practitioner Family; Emergency Provider Emergency Medicine; PCP Internal Medicine; Visit Provider Internal Medicine | DX: C34.91 Malignant neoplasm of unspecified part of right bronchus or lung (principal); C79.31 Secondary malignant neoplasm of brain; C77.1 Secondary and unspecified malignant neoplasm of intrathoracic lymph nodes; D64.9 Anemia, unspecified | CPT/HCPCS: 99222 ==

== ENCOUNTER → 2025-08-04 01:51 | Outpatient (BNV) | payer MEDICARE, SELFPAY | PROVIDERS: Admitting Provider Nurse Practitioner Family; Emergency Provider Emergency Medicine; Visit Provider Internal Medicine | DX: C34.90 Malignant neoplasm of unspecified part of unspecified bronchus or lung (principal); A04.72 Enterocolitis due to Clostridium difficile, not specified as recurrent; M62.81 Muscle weakness (generalized); R53.81 Other malaise; I48.91 Unspecified atrial fibrillation; R54 Age-related physical debility; R93.89 Abnormal findings on diagnostic imaging of other specified body structures; I42.9 Cardiomyopathy, unspecified | CPT/HCPCS: 99222 ==